=== PATIENT | male | born 1935 | race Caucasian/White ===

== ENCOUNTER → 2017-09-29 07:40 | Outpatient (CLI) | payer MEDICARE, OTHER, SELFPAY ==
[2017-09-29 08:49] VITALS: BP 134/69; PULSE 67; RESP 18; TEMP 36.4; O2SAT 93; BMI 22.9
[2017-09-29 09:33] VITALS: BP 116/64; PULSE 56; RESP 18; TEMP 36.8; O2SAT 97
[2017-09-29 10:33] VITALS: BP 118/63; PULSE 79; RESP 18; TEMP 36.3; O2SAT 97
[2017-09-29 11:19] VITALS: BP 131/71; PULSE 56; RESP 18; TEMP 36.6; O2SAT 100
== END ==
PROVIDERS: Family Provider Family Medicine; PCP Family Medicine; Visit Provider Internal Medicine Hematology & Oncology
DX: D46.20 Refractory anemia with excess of blasts, unspecified (principal)
CPT/HCPCS: 36415; 36430; 86850; 86900; 86920; J7040; P9040; A4216

== ENCOUNTER → 2017-10-10 07:48 | Outpatient (CLI) | payer MEDICARE, OTHER, SELFPAY ==
[2017-10-10 08:14] VITALS: BP 119/55; PULSE 63; RESP 16; TEMP 36.8; O2SAT 97; BMI 23.9
[2017-10-10 08:34] VITALS: BP 109/43; PULSE 62; RESP 16; TEMP 37; O2SAT 98
[2017-10-10 09:34] VITALS: BP 133/62; PULSE 62; TEMP 36.9
[2017-10-10] MEDS: Furosemide 20 MG/2 ML VIAL IV (10:08)
[2017-10-10 10:10] VITALS: BP 119/68; PULSE 58; TEMP 36.6
[2017-10-10 10:48] VITALS: BP 121/52; PULSE 58; TEMP 36.6
[2017-10-10 12:01] VITALS: BP 126/55; PULSE 60; RESP 16; TEMP 36.5; O2SAT 95
== END ==
PROVIDERS: Family Provider Family Medicine; PCP Family Medicine; Visit Provider Internal Medicine Hematology & Oncology
DX: D46.20 Refractory anemia with excess of blasts, unspecified (principal)
CPT/HCPCS: 36430; 86850; 86900; 86920; 86922; J7040; P9016; A4216; J1940

== ENCOUNTER → 2017-10-20 09:06 | Outpatient (CLI) | payer MEDICARE, OTHER, SELFPAY ==
[2017-10-20] VITALS (7 sets, daily range): BP systolic 102–139; BP diastolic 42–69; PULSE 48–58; RESP 16; TEMP 36.4–36.6; O2SAT 96–100; BMI 22.9
[2017-10-20] MEDS: Furosemide 20 MG/2 ML VIAL IV (11:54)
== END ==
PROVIDERS: Family Provider Family Medicine; PCP Family Medicine; Visit Provider Internal Medicine Hematology & Oncology
DX: D46.20 Refractory anemia with excess of blasts, unspecified (principal)
CPT/HCPCS: 36430; 86850; 86900; 86920; 86922; J7040; P9016; A4216; J1940

== ENCOUNTER → 2017-10-30 12:35 | Outpatient (CLI) | payer MEDICARE, OTHER, SELFPAY | PROVIDERS: Family Provider Family Medicine; PCP Family Medicine; Visit Provider Internal Medicine Hematology & Oncology | DX: R69 Illness, unspecified (principal) ==

== ENCOUNTER → 2017-10-31 08:17 | Outpatient (CLI) | payer MEDICARE, OTHER, SELFPAY ==
[2017-10-31] VITALS (7 sets, daily range): BP systolic 114–137; BP diastolic 45–67; PULSE 50–62; RESP 12–18; TEMP 36.1–36.5; O2SAT 96–100; BMI 22.9
[2017-10-31] MEDS: Furosemide 20 MG/2 ML VIAL IV (10:55)
== END ==
PROVIDERS: Family Provider Family Medicine; PCP Family Medicine; Visit Provider Internal Medicine Hematology & Oncology
DX: D46.20 Refractory anemia with excess of blasts, unspecified (principal)
CPT/HCPCS: 36430; 86644; 86850; 86900; 86920; 86922; J7040; P9016; A4216; J1940

== ENCOUNTER → 2017-11-16 07:56 | Outpatient (CLI) | payer MEDICARE, OTHER, SELFPAY ==
[2017-11-16] VITALS (7 sets, daily range): BP systolic 113–146; BP diastolic 48–69; PULSE 52–76; RESP 16–18; TEMP 36.1–36.6; O2SAT 90–100; BMI 23.2
[2017-11-16] MEDS: Furosemide 20 MG/2 ML VIAL IV (10:44)
== END ==
PROVIDERS: Family Provider Family Medicine; PCP Family Medicine; Visit Provider Internal Medicine Hematology & Oncology
DX: D46.20 Refractory anemia with excess of blasts, unspecified (principal)
CPT/HCPCS: 36430; 86850; 86900; 86920; 86922; J7040; P9016; A4216; J1940

== ENCOUNTER → 2017-12-01 08:53 | Outpatient (CLI) | payer MEDICARE, OTHER, SELFPAY ==
[2017-12-01 09:03] VITALS: BP 98/63; PULSE 62; RESP 16; TEMP 36.7; O2SAT 97; BMI 22.9
[2017-12-01 09:40] VITALS: BP 101/56; PULSE 62; RESP 16; TEMP 36.6; O2SAT 99
[2017-12-01 10:40] VITALS: BP 98/43; PULSE 57; RESP 16; TEMP 36.6; O2SAT 97
[2017-12-01] MEDS: Furosemide 20 MG/2 ML VIAL IV (11:32)
[2017-12-01 11:40] VITALS: BP 106/62; PULSE 56; RESP 16; TEMP 36.4
[2017-12-01 11:45] VITALS: BP 118/51; PULSE 60; RESP 16; TEMP 36.6; O2SAT 93
[2017-12-01 13:15] VITALS: BP 109/51; PULSE 58; RESP 18; TEMP 36.6
== END ==
PROVIDERS: Family Provider Family Medicine; PCP Family Medicine; Visit Provider Internal Medicine Hematology & Oncology
DX: D46.20 Refractory anemia with excess of blasts, unspecified (principal)
CPT/HCPCS: 36430; 86850; 86900; 96523; J7040; P9016; A4216; J1940

== ENCOUNTER → 2017-12-08 08:18 | Outpatient (CLI) | payer MEDICARE, OTHER, SELFPAY ==
[2017-12-08] VITALS (7 sets, daily range): BP systolic 99–132; BP diastolic 39–78; PULSE 55–83; RESP 16–18; TEMP 31–37.1; O2SAT 94–100; BMI 22.9
[2017-12-08] MEDS: Furosemide 20 MG/2 ML VIAL IV (10:46)
== END ==
PROVIDERS: Family Provider Family Medicine; PCP Family Medicine; Visit Provider Internal Medicine Hematology & Oncology
DX: D46.9 Myelodysplastic syndrome, unspecified (principal)
CPT/HCPCS: 36430; 86644; 86850; 86900; 86920; 86922; J7040; P9016; P9040; A4216; J1940

== ENCOUNTER → 2017-12-22 08:29 | Outpatient (CLI) | payer MEDICARE, OTHER, SELFPAY ==
[2017-12-22] VITALS (7 sets, daily range): BP systolic 105–144; BP diastolic 44–65; PULSE 61–68; RESP 16–18; TEMP 36.3–36.9; O2SAT 98; BMI 23.6
[2017-12-22] MEDS: Furosemide 20 MG/2 ML VIAL IV (11:14)
== END ==
PROVIDERS: Family Provider Family Medicine; PCP Family Medicine; Visit Provider Internal Medicine Hematology & Oncology
DX: D46.20 Refractory anemia with excess of blasts, unspecified (principal)
CPT/HCPCS: 36430; 86850; 86900; 86920; 86922; J7040; P9016; A4216; J1940

== ENCOUNTER → 2017-12-29 09:25 | Outpatient (CLI) | payer MEDICARE, OTHER, SELFPAY ==
[2017-12-29] VITALS (7 sets, daily range): BP systolic 91–137; BP diastolic 41–69; PULSE 56–63; RESP 16–20; TEMP 36.5–36.8; O2SAT 92–100; BMI 22.9
[2017-12-29] MEDS: Furosemide 20 MG/2 ML VIAL IV (12:22)
== END ==
PROVIDERS: Family Provider Family Medicine; PCP Family Medicine; Visit Provider Internal Medicine Hematology & Oncology
DX: D46.20 Refractory anemia with excess of blasts, unspecified (principal)
CPT/HCPCS: 36430; 86850; 86900; 86920; 86922; J7040; P9016; A4216; J1940

== ENCOUNTER → 2018-01-12 08:44 | Outpatient (CLI) | payer MEDICARE, OTHER, SELFPAY ==
[2018-01-12] VITALS (7 sets, daily range): BP systolic 99–130; BP diastolic 38–69; PULSE 57–67; RESP 16–18; TEMP 36.2–36.5; O2SAT 92–94; BMI 23.2
[2018-01-12] MEDS: Furosemide 20 MG/2 ML VIAL IV (11:21)
== END ==
PROVIDERS: Family Provider Family Medicine; PCP Family Medicine; Visit Provider Internal Medicine Hematology & Oncology
DX: D46.20 Refractory anemia with excess of blasts, unspecified (principal)
CPT/HCPCS: 36430; 86850; 86900; 86920; 86922; J7040; P9016; A4216; J1940

== ENCOUNTER → 2018-01-19 08:39 | Outpatient (CLI) | payer MEDICARE, OTHER, SELFPAY ==
[2018-01-19] VITALS (7 sets, daily range): BP systolic 90–145; BP diastolic 42–65; PULSE 51–61; RESP 16–18; TEMP 36.1–36.6; O2SAT 95–100; BMI 22.9
[2018-01-19] MEDS: Furosemide 20 MG/2 ML VIAL IV (11:17)
== END ==
PROVIDERS: Visit Provider Internal Medicine Hematology & Oncology
DX: D46.20 Refractory anemia with excess of blasts, unspecified (principal)
CPT/HCPCS: 36430; 86850; 86900; 86920; 86922; J7040; P9016; A4216; J1940

== ENCOUNTER → 2018-02-02 08:51 | Outpatient (CLI) | payer MEDICARE, OTHER, SELFPAY ==
--- NOTE | 2018-02-02 08:51 | DT_ITS ---
This patient was seen during an EMR downtime January 29, 2018 - February 05, 2018. This patient may have a combination of paper and electronic documentation or all paper documentation. All documentation is viewable within the e-chart portion of [employer] for each patient visit.
== END ==
PROVIDERS: Family Provider Family Medicine; PCP Family Medicine; Visit Provider Internal Medicine Hematology & Oncology
DX: D46.20 Refractory anemia with excess of blasts, unspecified (principal)
CPT/HCPCS: 36430; 86850; 86900; 86920; 86922; J7040; P9016; A4216; J1940

== ENCOUNTER → 2018-02-06 07:52 | Outpatient (CLI) | payer MEDICARE, OTHER, SELFPAY ==
[2018-02-06] VITALS (7 sets, daily range): BP systolic 108–144; BP diastolic 45–53; PULSE 61–70; RESP 16–18; TEMP 36.4–36.8; O2SAT 95–100; BMI 23.0
[2018-02-06] MEDS: Furosemide 20 MG/2 ML VIAL IV (10:42)
== END ==
PROVIDERS: Family Provider Family Medicine; PCP Family Medicine; Visit Provider Internal Medicine Hematology & Oncology
DX: D46.20 Refractory anemia with excess of blasts, unspecified (principal)
CPT/HCPCS: 36430; 86850; 86900; 86920; 86922; J7030; P9016; A4216; J1940

== ENCOUNTER → 2018-02-23 07:41 | Outpatient (CLI) | payer MEDICARE, OTHER, SELFPAY ==
[2018-02-23] VITALS (7 sets, daily range): BP systolic 81–111; BP diastolic 42–54; PULSE 54–64; RESP 16–18; TEMP 36.3–37; O2SAT 94–99; BMI 22.9
[2018-02-23] MEDS: Furosemide 20 MG/2 ML VIAL IV (10:29)
== END ==
PROVIDERS: Family Provider Family Medicine; PCP Family Medicine; Visit Provider Internal Medicine Hematology & Oncology
DX: D46.20 Refractory anemia with excess of blasts, unspecified (principal)
CPT/HCPCS: 36430; 86850; 86900; 86920; 86922; J7040; P9016; A4216; J1940

== ENCOUNTER → 2018-03-02 07:59 | Outpatient (CLI) | payer MEDICARE, OTHER, SELFPAY ==
[2018-03-02] VITALS (7 sets, daily range): BP systolic 96–134; BP diastolic 32–50; PULSE 51–62; RESP 16; TEMP 36.2–36.7; O2SAT 94–100; BMI 22.9
[2018-03-02] MEDS: Furosemide 20 MG/2 ML VIAL IV (10:29)
== END ==
PROVIDERS: Family Provider Family Medicine; PCP Family Medicine; Visit Provider Internal Medicine Hematology & Oncology
DX: D46.20 Refractory anemia with excess of blasts, unspecified (principal)
CPT/HCPCS: 36430; 86850; 86900; 86920; 86922; J7040; P9016; A4216; J1940

== ENCOUNTER → 2018-03-13 08:30 | Outpatient (CLI) | payer MEDICARE, OTHER, SELFPAY ==
[2018-03-13 09:57] LABS: AST(SGOT) 46 U/L (15-37); Alanine Aminotransfer ALT/SGPT 89 U/L (16-61); Albumin, Serum 3.8 g/dL (3.2-5.0); Alkaline Phosphatase 132 U/L (45-117); Bilirubin, Direct 0.37 mg/dL (0.00-0.30); Cholesterol 94 mg/dL (200); Globulin 3.1 g/dL (2.2-4.2); High Density Lipoprotein 47 mg/dL; Protein, Total 6.9 g/dL (6.4-8.2); T4 Free Direct 1.29 ng/dL (0.76-1.46); Thyroid Stim Hormone (TSH) 1.52 uIU/mL (0.358-3.74); Triglycerides 63 mg/dL; Very Low Density Lipoprotein 13 mg/dL (5-40)
== END ==
PROVIDERS: Family Provider Family Medicine; PCP Family Medicine; Visit Provider Internal Medicine Cardiovascular Disease
DX: I48.0 Paroxysmal atrial fibrillation (principal); I50.22 Chronic systolic (congestive) heart failure; I42.8 Other cardiomyopathies
CPT/HCPCS: 36415; 80061; 80076; 84439; 84443

== ENCOUNTER → 2018-03-16 07:47 | Outpatient (CLI) | payer MEDICARE, OTHER, SELFPAY ==
[2018-03-16] VITALS (7 sets, daily range): BP systolic 99–121; BP diastolic 39–70; PULSE 52–63; RESP 12–16; TEMP 36.2–36.7; O2SAT 99–100; BMI 22.9
[2018-03-16] MEDS: Furosemide 20 MG/2 ML VIAL IV (10:50)
== END ==
PROVIDERS: Family Provider Family Medicine; PCP Family Medicine; Visit Provider Internal Medicine Hematology & Oncology
DX: D46.20 Refractory anemia with excess of blasts, unspecified (principal)
CPT/HCPCS: 36430; 86850; 86900; 86920; 86922; J7040; P9016; A4216; J1940

== ENCOUNTER → 2018-03-21 08:54 | Outpatient (CLI) | payer MEDICARE, OTHER, SELFPAY ==
--- NOTE | 2018-03-21 08:58 | ECHOD_ITS ---
Reason For Study: CHF Procedure This was a 2D Doppler, Color Flow transthoracic echocardiogram. Exam performed in department. Left Ventricle Moderately dilated left ventricle. The estimated ejection fraction is 40 %. Stage 1 diastolic dysfunction. There is moderate global hypokinesis of the left ventricle. Right Ventricle Moderately dilated right ventricle. Normal systolic function. Atria The left atrium is mildly enlarged. Normal right atrium. Normal atrial septum. Mitral Valve Mild diffuse mitral valve thickening. Mild (1+) mitral valve insufficiency. Tricuspid Valve Normal tricuspid valve. Moderate (2+) tricuspid valve insufficiency. Right ventricular systolic pressure estimated to be 42 mmHg. Aortic Valve Trisinus/trileaflet aortic valve. Moderate diffuse aortic valve thickening. Decreased mobility of rigth coronary cusp. Mild aortic stenosis. Pulmonic Valve Normal pulmonic valve. Great Vessels Normal aortic root. Moderate atherosclerosis of the aortic arch. Normal inferior vena cava. Inferior vena cava collapse with sniff. Pericardium/Pleural No pericardial effusion. MMode/2D Measurements & Calculations LVIDd: 5.5 cm IVSd: 0.69 cm Ao root diam: 4.0 cm LVIDs: 4.2 cm LVPWd: 0.85 cm RVDd: 4.3 cm FS: 23.6 % LAV(MOD-bp): 71.1 ml LA A4 area: 20.8 cm2 RA A4 area: 19.5 cm2 LAV(MOD-bp) Indexed: 37.5 ml/m2 LAV(MOD-sp2): 73.9 ml LAV(MOD-sp4): 62.9 ml Time Measurements MV dec time: 0.34 sec Doppler Measurements & Calculations MV E max david: 57.1 cm/sec Lat Peak E' David: 5.7 cm/sec Med Peak E' David: 4.6 cm/sec MV A max david: 87.3 cm/sec E/E' lat: 10.0 E/E' med: 12.3 MV E/A: 0.65 Ao V2 max: 226.6 cm/sec LV V1 max: 121.1 cm/sec PA V2 max: 125.0 cm/sec Ao max P.6 mmHg LV V1 max P.9 mmHg Ao V2 mean: 156.7 cm/sec LV V1 mean P.7 mmHg Ao mean P.9 mmHg LV V1 mean: 74.5 cm/sec Ao V2 VTI: 48.8 cm LV V1 VTI: 26.0 cm TR max david: 298.5 cm/sec TR max P.7 mmHg Interpretation Summary Moderately dilated left ventricle. The estimated ejection fraction is 40 %. Stage 1 diastolic dysfunction. There is moderate global hypokinesis of the left ventricle. Moderately dilated right ventricle. Mild (1+) mitral valve insufficiency. Moderate (2+) tricuspid valve insufficiency. Right ventricular systolic pressure estimated to be 42 mmHg. Mild aortic stenosis. There is no comparison study available. Ordering Physician: Bear Lopez Referring Physician: LIBBY MUNSON Performed By: Meron Joshi, ARCHIE, RVT
== END ==
PROVIDERS: Family Provider Family Medicine; PCP Family Medicine; Visit Provider Internal Medicine Cardiovascular Disease
DX: I48.0 Paroxysmal atrial fibrillation (principal)
CPT/HCPCS: 93306

== ENCOUNTER → 2018-03-30 08:12 | Outpatient (CLI) | payer MEDICARE, OTHER, SELFPAY ==
[2018-03-30] VITALS (7 sets, daily range): BP systolic 94–130; BP diastolic 46–73; PULSE 53–72; RESP 16; TEMP 36.6–36.7; O2SAT 98; BMI 22.9
[2018-03-30] MEDS: Furosemide 20 MG/2 ML VIAL IV (11:09)
== END ==
PROVIDERS: Family Provider Family Medicine; PCP Family Medicine; Visit Provider Internal Medicine Hematology & Oncology
DX: D46.20 Refractory anemia with excess of blasts, unspecified (principal)
CPT/HCPCS: 36430; 86850; 86900; 86920; 86922; J7040; P9016; A4216; J1940

== ENCOUNTER → 2018-04-13 07:44 | Outpatient (CLI) | payer MEDICARE, OTHER, SELFPAY ==
[2018-04-13] VITALS (7 sets, daily range): BP systolic 107–124; BP diastolic 34–71; PULSE 50–61; RESP 16; TEMP 36.3–36.6; O2SAT 97–100; BMI 23.2
== END ==
PROVIDERS: Family Provider Family Medicine; PCP Family Medicine; Visit Provider Internal Medicine Hematology & Oncology
DX: D46.9 Myelodysplastic syndrome, unspecified (principal)
CPT/HCPCS: 36430; 86850; 86900; 86920; 86922; J7040; P9016; A4216; J1940

== ENCOUNTER → 2018-04-27 08:06 | Outpatient (CLI) | payer MEDICARE, OTHER, SELFPAY ==
[2018-04-27] VITALS (7 sets, daily range): BP systolic 80–128; BP diastolic 41–67; PULSE 56–693; RESP 16; TEMP 35.9–36.6; O2SAT 93–100; BMI 23.1
[2018-04-27] MEDS: Furosemide 20 MG/2 ML VIAL IV (11:01)
== END ==
PROVIDERS: Family Provider Family Medicine; PCP Family Medicine; Visit Provider Internal Medicine Hematology & Oncology
DX: D46.20 Refractory anemia with excess of blasts, unspecified (principal)
CPT/HCPCS: 36430; 86850; 86900; 86920; 86922; 96372; J7040; P9016; A4216; J1940

== ENCOUNTER → 2018-05-11 09:02 | Outpatient (CLI) | payer MEDICARE, OTHER, SELFPAY ==
[2018-05-11] VITALS (8 sets, daily range): BP systolic 102–129; BP diastolic 36–50; PULSE 55–75; RESP 15–18; TEMP 35.9–36.8; O2SAT 92–100; BMI 23.1
[2018-05-11] MEDS: Furosemide 20 MG/2 ML VIAL IV (11:35)
== END ==
PROVIDERS: Family Provider Family Medicine; PCP Family Medicine; Visit Provider Internal Medicine Hematology & Oncology
DX: D46.20 Refractory anemia with excess of blasts, unspecified (principal)
CPT/HCPCS: 36430; 86850; 86900; 86920; 86922; J7040; P9016; A4216; J1940

== ENCOUNTER → 2018-05-25 08:05 | Outpatient (CLI) | payer MEDICARE, OTHER, SELFPAY ==
[2018-05-25] VITALS (7 sets, daily range): BP systolic 92–118; BP diastolic 39–60; PULSE 60–93; RESP 15–18; TEMP 36.6–37; O2SAT 93–100; BMI 22.9
[2018-05-25] MEDS: Furosemide 20 MG/2 ML VIAL IV (11:15)
== END ==
PROVIDERS: Family Provider Family Medicine; PCP Family Medicine; Referring Provider Internal Medicine Hematology & Oncology; Visit Provider Internal Medicine Hematology & Oncology
DX: D46.20 Refractory anemia with excess of blasts, unspecified (principal)
CPT/HCPCS: 36430; 86850; 86900; 86920; 86922; J7040; P9016; A4216

== ENCOUNTER → 2018-06-08 08:53 | Outpatient (CLI) | payer MEDICARE, OTHER, SELFPAY ==
[2018-06-08] VITALS (7 sets, daily range): BP systolic 96–120; BP diastolic 39–60; PULSE 56–80; RESP 16–18; TEMP 36.1–36.7; O2SAT 91–100; BMI 22.9
[2018-06-08] MEDS: Furosemide 20 MG/2 ML VIAL IV (11:58)
== END ==
PROVIDERS: Family Provider Family Medicine; PCP Family Medicine; Referring Provider Internal Medicine Hematology & Oncology; Visit Provider Internal Medicine Hematology & Oncology
DX: D46.20 Refractory anemia with excess of blasts, unspecified (principal)
CPT/HCPCS: 36430; 86850; 86900; 86920; 86922; J7040; P9016; A4216; J1940

== ENCOUNTER → 2018-06-22 08:41 | Outpatient (CLI) | payer MEDICARE, OTHER, SELFPAY ==
[2018-06-22] VITALS (7 sets, daily range): BP systolic 94–111; BP diastolic 41–58; PULSE 56–65; RESP 15–16; TEMP 36.6–36.9; O2SAT 94–100; BMI 22.9
[2018-06-22] MEDS: Furosemide 20 MG/2 ML VIAL IV (11:48)
== END ==
PROVIDERS: Family Provider Family Medicine; PCP Family Medicine; Referring Provider Internal Medicine Hematology & Oncology; Visit Provider Internal Medicine Hematology & Oncology
DX: D46.20 Refractory anemia with excess of blasts, unspecified (principal)
CPT/HCPCS: 36430; 86850; 86900; 86920; 86922; J7040; P9016; A4216; J1940

== ENCOUNTER → 2018-06-28 18:15 | Outpatient (CLI) | payer MEDICARE, OTHER, SELFPAY ==
--- NOTE | 2018-06-28 | LES_PTH ---
PATIENT: MAIKEL SWIFT LOC: [facility] U#:[id number] AGE/SX: 89/M ROOM: RE06/28/[address]: Dr. Madhav Huerta MD : 1935 BED: DIS: SPEC #: [id number] RECD: 06/28/18 18:15 STATUS: CORRIE NIELSONMelissa #: [id number] MINA: 06/28/18 00:[address]: Madhav Huerta DEPT: SURGICAL PATHOLOGY RECD BY: Mary Huerta Tissues: Skin of neck, NOS Procedures: Surgery Specimen Level IV HEADER OPERATION: Punch biopsy PRE-OP DIAGNOSIS: Suspicious skin lesion TISSUE SUBMITTED: Right lateral neck MICROSCOPIC DIAGNOSIS Right lateral neck skin lesion, biopsy: Fragments of detached basal cell carcinoma. See microscopic description and comment. AM:shreya 07/02/18 COMMENT Clinical correlation necessary. MICROSCOPIC DESCRIPTION Slides are reviewed. The specimen contains blood, fibrous tissue and detached and fragmented pieces of basal cell carcinoma. GROSS DESCRIPTION Received in fixative is one container labeled with the patient's name and designated right lateral neck. The specimen consists of an irregular fragment of dark dowling soft tissue measuring 0.5 x 0.2 x 0.2 cm. The specimen is totally submitted in one cassette. / AM:shreya 06/29/18 TC:0 CPT: 76776
== END ==
PROVIDERS: Family Provider Family Medicine; PCP Family Medicine; Referring Provider Family Medicine; Visit Provider Family Medicine
DX: L98.9 Disorder of the skin and subcutaneous tissue, unspecified (principal)
CPT/HCPCS: 88305

== ENCOUNTER → 2018-06-29 08:48 | Outpatient (CLI) | payer MEDICARE, OTHER, SELFPAY ==
[2018-06-29] VITALS (7 sets, daily range): BP systolic 90–124; BP diastolic 37–61; PULSE 50–99; RESP 15–16; TEMP 35.9–36.7; O2SAT 99–100; BMI 22.9
== END ==
PROVIDERS: Family Provider Family Medicine; PCP Family Medicine; Referring Provider Internal Medicine Hematology & Oncology; Visit Provider Internal Medicine Hematology & Oncology
DX: D46.20 Refractory anemia with excess of blasts, unspecified (principal); L98.9 Disorder of the skin and subcutaneous tissue, unspecified
CPT/HCPCS: 36430; 86850; 86900; 86920; 86922; 88305; J7040; P9016; A4216; J1940

== ENCOUNTER → 2018-07-13 08:30 | Outpatient (CLI) | payer MEDICARE, OTHER, SELFPAY ==
[2018-06-29 08:58] VITALS: BMI 22.9
[2018-07-13] VITALS (7 sets, daily range): BP systolic 97–123; BP diastolic 37–58; PULSE 58–64; RESP 16–18; TEMP 36.3–36.9; O2SAT 93–100; BMI 23.1
[2018-07-13] MEDS: Furosemide 20 MG/2 ML VIAL IV (11:17)
== END ==
PROVIDERS: Family Provider Family Medicine; PCP Family Medicine; Referring Provider Internal Medicine Hematology & Oncology; Visit Provider Internal Medicine Hematology & Oncology
DX: D46.20 Refractory anemia with excess of blasts, unspecified (principal)
CPT/HCPCS: 36430; 86850; 86900; 86920; 86922; J7040; P9016; A4216; J1940

== ENCOUNTER → 2018-07-27 07:23 | Outpatient (CLI) | payer MEDICARE, OTHER, SELFPAY ==
[2018-07-24 14:05] VITALS: BMI 23.1
[2018-07-27] VITALS (7 sets, daily range): BP systolic 105–125; BP diastolic 49–64; PULSE 55–72; RESP 16–18; TEMP 36.4–36.8; O2SAT 97–100; BMI 22.9
[2018-07-27] MEDS: Furosemide 20 MG/2 ML VIAL IV (10:33)
--- OUTSIDE RECORDS SUMMARY | 2018-09-21 01:13 | XMS RPT_ITS ---
:1935 Author Organization [employer] Support Name Relationship Address Phone NEWMANN, CORNELL Unavailable [address] + [place] [address] R Unavailable Unavailable Unavailable NEWMANN, CORNELL Unavailable [address] + [place] [address] R Unavailable Unavailable Unavailable NEWMANN, CORNELL Unavailable [address] + [place] [address] R Unavailable Unavailable Unavailable NEWMANN, CORNELL Unavailable [address] + [place] [address] R Unavailable Unavailable Unavailable NEWMANN, CORNELL Unavailable [address] + [place] [address] R Unavailable Unavailable Unavailable NEWMANN, CORNELL Unavailable [address] + [place] [address] R Unavailable Unavailable Unavailable NEWMANN, CORNELL Unavailable [address] + [place] [address] R Unavailable Unavailable Unavailable NEWMANN, CORNELL Unavailable [address] + [place] [address] R Unavailable Unavailable Unavailable NEWMANN, CORNELL Unavailable [address] + [place] [address] R Unavailable Unavailable Unavailable NEWMANN, CORNELL Unavailable [address] + [place] [address] R Unavailable Unavailable Unavailable NEWMANN, CORNELL Unavailable [address] + [place] [address] R Unavailable Unavailable Unavailable NEWMANN, CORNELL Unavailable [address] + [place] [address] R Unavailable Unavailable Unavailable NEWMANN, CORNELL Unavailable [address] + [place] [address] R Unavailable Unavailable Unavailable NEWMANN, CORNELL Unavailable [address] + [place] [address] R Unavailable Unavailable Unavailable NEWMANN, CORNELL Unavailable [address] + [place] [address] R Unavailable Unavailable Unavailable ELIZABETH, DIVYA Unavailable [address] + [place] [address] HERNANDEZ, CORNELL Unavailable Unavailable + [place] R Unavailable Unavailable Unavailable ELIZABETH, DIVYA Unavailable [address] + [place] [address] HERNANDEZ, CORNELL Unavailable Unavailable + [place], [place] R Unavailable Unavailable Unavailable ELIZABETH, DIVYA Unavailable [address] + [place] [address] HERNANDEZ, CORNELL Unavailable Unavailable + [place] R Unavailable Unavailable Unavailable ELIZABETH, DIVYA Unavailable [address] + [place] [address] HERNANDEZ, CORNELL Unavailable Unavailable + [place] R Unavailable Unavailable Unavailable ELIZABETH, DIVYA Unavailable [address] + [place] [address] HERNANDEZ, CORNELL Unavailable [address] + [place] [address] R Unavailable Unavailable Unavailable ELIZABETH, DIVYA Unavailable [address] + [place] [address] HERNANDEZ, CORNELL Unavailable [address] + [place] [address] R Unavailable Unavailable Unavailable ELIZABETH, DIVYA Unavailable [address] + [place] [address] HERNANDEZ, CORNELL Unavailable [address] + [place] [address] R Unavailable Unavailable Unavailable ELIZABETH, DIVYA Unavailable Unavailable + HERNANDEZ, CORNELL Unavailable Unavailable + R Unavailable Unavailable Unavailable ELIZABETH, DIVYA Unavailable Unavailable + HERNANDEZ, CORNELL Unavailable Unavailable + R Unavailable Unavailable Unavailable ELIZABETH, DIVYA Unavailable Unavailable + HERNANDEZ, CORNELL Unavailable Unavailable + R Unavailable Unavailable Unavailable ELIZABETH, DIVYA Unavailable Unavailable + HERNANDEZ, CORNELL Unavailable Unavailable + R Unavailable Unavailable Unavailable ELIZABETH, DIVYA Unavailable Unavailable + HERNANDEZ, CORNELL Unavailable Unavailable + R Unavailable Unavailable Unavailable ELIZABETH, DIVYA Unavailable Unavailable + HERNANDEZ, CORNELL Unavailable Unavailable + R Unavailable Unavailable Unavailable ELIZABETH, DIVYA Unavailable Unavailable + HERNANDEZ, CORNELL Unavailable Unavailable + R Unavailable Unavailable Unavailable ELIZABETH, DIVYA Unavailable Unavailable + MARY, CORNELL Unavailable Unavailable + R Unavailable Unavailable Unavailable ELIZABETH, DIVYA Unavailable Unavailable + MARY, CORNELL Unavailable Unavailable + R Unavailable Unavailable Unavailable ELIZABETH, DIVYA Unavailable Unavailable + MARY, CORNELL Unavailable Unavailable + R Unavailable Unavailable Unavailable ELIZABETH, DIVYA Unavailable Unavailable + MARY, CORNELL Unavailable Unavailable + R Unavailable Unavailable Unavailable ELIZABETH, DIVYA Unavailable Unavailable + MARY, CORNELL Unavailable Unavailable + R Unavailable Unavailable Unavailable ELIZABETH, DIVYA Unavailable Unavailable + HERNANDEZ, CORNELL Unavailable Unavailable + R Unavailable Unavailable Unavailable ELIZABETH, DIVYA Unavailable Unavailable + HERNANDEZ, OCRNELL Unavailable Unavailable + R Unavailable Unavailable Unavailable ELIZABETH, DIVYA Unavailable Unavailable + HERNANDEZ, CORNELL Unavailable Unavailable + R Unavailable Unavailable Unavailable ELIZABETH, DIVYA Unavailable Unavailable + HERNANDEZ, CORNELL Unavailable Unavailable + R Unavailable Unavailable Unavailable ELIZABETH, DIVAY Unavailable Unavailable + CORNELL HERNANDEZ Unavailable Unavailable + R Unavailable Unavailable Unavailable ELIZABETH, DIVYA Unavailable Unavailable + COR[place]LL HERNANDEZ Unavailable Unavailable + R Unavailable Unavailable Unavailable ELIZABETH, DIVYA Unavailable Unavailable + [place] HERNANDEZ Unavailable Unavailable + R Unavailable Unavailable Unavailable ELIZABETH, DIVYA Unavailable NA + [place], [place] R Unavailable Unavailable Unavailable ELIZABETH, DIVYA Unavailable NA + [place], [place] R Unavailable Unavailable Unavailable ELIZABETH, DIVYA Unavailable NA + [place], [place] R Unavailable Unavailable Unavailable ELIZABETH, DIVYA Unavailable [address] + [place] [address] R Unavailable Unavailable Unavailable ELIZABETH, DIVYA Unavailable [address] + [place] [address] R Unavailable Unavailable Unavailable Care Team Providers Name Role Phone MASCI, KESHAWN A Referring Unavailable MASCI, KESHAWN A Referring Unavailable MELYSSA ANDRES (SKATESMAN) Attending Unavailable MASCI, KESHAWN A Referring Unavailable MASCI, KESHAWN A Referring Unavailable MASCI, KESHAWN A Referring Unavailable MASCI, KESHAWN A Referring Unavailable MASCI, KESHAWN A Referring Unavailable MASCI, KESHAWN A Referring Unavailable MASCI, KESHAWN A Referring Unavailable MASCI, KESHAWN A Referring Unavailable MASCI, KESHAWN A Referring Unavailable MASCI, KESHAWN A Referring Unavailable MASCI, KESHAWN A Referring Unavailable MASCI, KESHAWN A Referring Unavailable MASCI, KESHAWN A Referring Unavailable MASCI, KESHAWN A Referring Unavailable MASCI, KESHAWN A Referring Unavailable MASCI, KESHAWN A Referring Unavailable MASCI, KESHAWN A Referring Unavailable MASCI, KESHAWN A Referring Unavailable MASCI, KESHAWN A Attending Unavailable MASCI, KESHAWN A Referring Unavailable MASCI, KESHAWN A Referring Unavailable MASCI, KESHAWN A Referring Unavailable MASCI, KESHAWN A Referring Unavailable MASCI, KESHAWN A Referring Unavailable MASCI, KESHAWN A Referring Unavailable MASCI, KESHAWN A Referring Unavailable MASCI, KESHAWN A Referring Unavailable MASCI, KESHAWN A Referring Unavailable MASCI, KESHAWN A Referring Unavailable MASCI, KESHAWN A Referring Unavailable MASCI, KESHAWN A Referring Unavailable MASCI, KESHAWN A Referring Unavailable MASCI, KESHAWN A Referring Unavailable MASCI, KESHAWN A Referring Unavailable MASCI, KESHAWN A Attending Unavailable MASCI, KESHAWN A Referring Unavailable MASCI, KESHAWN A Referring Unavailable MASCI, KESHAWN A Referring Unavailable MASCI, KESHAWN A Referring Unavailable MASCI, KESHAWN A Referring Unavailable MASCI, KESHAWN A Referring Unavailable MASCI, KESHAWN A Referring Unavailable MASCI, KESHAWN A Referring Unavailable MASCI, KESHAWN A Referring Unavailable MASCI, KESHAWN A Referring Unavailable MASCI, KESHAWN A Referring Unavailable MASCI, KESHAWN A Referring Unavailable MASCI, KESHAWN A Referring Unavailable MASCI, KESHAWN A Referring Unavailable MASCI, KESHAWN A Referring Unavailable MASCI, KESHAWN A Attending Unavailable MASCI, KESHAWN A Referring Unavailable MASCI, KESHAWN A Referring Unavailable MASCI, KESHAWN A Referring Unavailable MASCI, KESHAWN A Referring Unavailable MASCI, KESHAWN A Referring Unavailable MASCI, KESHAWN A Referring Unavailable MASCI, KESHAWN A Referring Unavailable MASCI, KESHAWN A Referring Unavailable MASCI, KESHAWN A Referring Unavailable MASCI, KESHAWN A Referring Unavailable MASCI, KESHAWN A Referring Unavailable MASCI, KESHAWN A Referring Unavailable MASCI, KESHAWN A Referring Unavailable MASCI, KESHAWN A Referring Unavailable MASCI, KESHAWN A Attending Unavailable MASCI, KESHAWN A Referring Unavailable MASCI, KESHAWN A Referring Unavailable Ana Maria Delgadillo PA-C Attending Unavailable Munson, Libby Referring Unavailable Masci, Keshawn Attending Unavailable Masci, Keshawn Referring Unavailable Munson, On License Of [facility] Primary [facility] Unavailable Masci, Keshawn Attending Unavailable Munson, On License Of [facility] Unavailable Kilner, Yareli Attending Unavailable Lopez, Bear Attending Unavailable Munson, Libby Referring Unavailable Munson, On License Of [facility] Primary [facility] Unavailable Masci, Keshawn Attending Unavailable Masci, Keshawn Attending Unavailable Munson, On License Of [facility] Primary [facility] Unavailable Masci, Keshawn Attending Unavailable Masci, Keshawn Referring Unavailable Munson, On License Of [facility] Primary [facility] Unavailable Masci, Keshawn Attending Unavailable Masci, Keshawn Referring Unavailable Munson, On License Of [facility] Primary [facility] Unavailable Masci, Keshawn Attending Unavailable Masci, Keshawn Referring Unavailable Munson, On License Of [facility] Primary [facility] Unavailable Masci, Keshawn Attending Unavailable Masci, Keshawn Referring Unavailable Munson, On License Of [facility] Primary [facility] Unavailable Masci, Keshawn Attending Unavailable Munson, On License Of [facility] Primary [facility] Unavailable Masci, Keshawn Referring Unavailable Masci, Keshawn Attending Unavailable Masci, Keshawn Referring Unavailable Munson, On License Of [facility] Primary [facility] Unavailable Masci, Keshawn Attending Unavailable Masci, Keshanw Referring Unavailable Munson, On License Of [facility] Primary [facility] Unavailable Masci, Keshawn Attending Unavailable Masci, Keshawn Referring Unavailable Munson, On License Of [facility] Primary [facility] Unavailable Masci, Keshawn Attending Unavailable Masci, Keshawn Referring Unavailable Munson, On License Of [facility] Primary [facility] Unavailable Masci, Keshawn Attending Unavailable Masci, Keshawn Referring Unavailable Munson, Libby Primary Care Unavailable Masci, Kesahwn Attending Unavailable Masci, Keshawn Referring Unavailable Munson, Libby Primary Care Unavailable Masci, Keshawn Attending Unavailable Masci, Keshawn Referring Unavailable Munson, Libby Primary Care Unavailable Masci, Keshawn Attending Unavailable Masci, Keshawn Referring Unavailable Munson, Libby Primary Care Unavailable Masci, Keshawn Attending Unavailable Masci, Keshawn Referring Unavailable Munson, Libby Primary Care Unavailable Masci, Keshawn Attending Unavailable Masci, Keshawn Referring Unavailable Masci, Keshawn Attending Unavailable Masci, Keshawn Referring Unavailable Munson, Libby Primary Care Unavailable Masci, Keshawn Attending Unavailable Masci, Keshawn Referring Unavailable Munson, Libby Primary Care Unavailable Masci, Keshawn Attending Unavailable Masci, Keshawn Referring Unavailable Munson, Libby Primary Care Unavailable Masci, Keshawn Attending Unavailable Masci, Keshawn Referring Unavailable Munson, Libby Primary Care Unavailable Bear Lopez Attending Unavailable Munson, Libby Referring Unavailable Munson, Libby Primary Care Unavailable Bear Lopez Attending Unavailable John, Bear Referring Unavailable Munson, On License Of [facility] Primary [facility] Unavailable Masci, Keshawn Attending Unavailable Masci, Keshawn Referring Unavailable Munson, Libby Primary Care Unavailable Bear Lopez Attending Unavailable John, Bear Referring Unavailable Munson, On License Of [facility] Primary [facility] Unavailable Masci, Keshawn Attending Unavailable Masci, Keshawn Referring Unavailable Munson, Libby Primary Care Unavailable Masci, Keshawn Attending Unavailable Masci, Keshawn Referring Unavailable Munson, Libby Primary Care Unavailable Bear Lopez Attending Unavailable Masci, Keshawn Attending Unavailable Masci, Keshawn Referring Unavailable Munson, On License Of [facility] Primary [facility] Unavailable Mark, Joan Attending Unavailable Mark, Joan Referring Unavailable Munson, On License Of [facility] Primary [facility] Unavailable Masci, Keshawn Attending Unavailable Masci, Keshawn Referring Unavailable Munson, On License Of [facility] Primary [facility] Unavailable Masci, Keshawn Attending Unavailable Masci, Keshawn Referring Unavailable Munson, On License Of [facility] Primary Care Unavailable Masci, Keshawn Attending Unavailable Masci, Keshawn Referring Unavailable Munson, On License Of [facility] Primary Care Unavailable Masci, Keshawn Attending Unavailable Masci, Keshawn Referring Unavailable Munson, On License Of [facility] Primary Care Unavailable Munson, Libby Attending Unavailable Munson, Libby Referring Unavailable Munson, On License Of [facility] Primary [facility] Unavailable Cebul, Taiwo Attending Unavailable Munson, Libby Referring Unavailable Masci, Keshawn Attending Unavailable Masci, Keshawn Referring Unavailable Munson, On License Of [facility] Unavailable Libby Disla Attending Unavailable Munson, Libby Referring Unavailable Masci, Keshawn Attending Unavailable Masci, Keshawn Referring Unavailable Munson, On License Of [facility] Unavailable Cebul, Taiwo Attending Unavailable Munson, Libby Referring Unavailable Cebul, Taiwo Attending Unavailable Cebul, Taiwo Referring Unavailable Munson, On License Of [facility] Unavailable PROBLEMS PROBLEMS DATE TYPE CONDITION / CODE ATTENDING STATUS SOURCE 08/04/2018 Unknown C44.41 - Basal cell Taiwo Aparicio Active [place] carcinoma of skin of [facility] scalp and neck / Hospital C44.41(ICD-10) Repository 03/13/2018 Unknown I48.0 - Paroxysmal Bear Lopez Active [place] atrial fibrillation / Community I48.0(ICD-10) Hospital Repository 03/13/2018 Unknown I50.22 - Chronic Bear Lopez Active [facility] systolic (congestive) Community heart failure / Hospital I50.22(ICD-10) Repository 03/13/2018 Unknown I42.8 - Other Bear Lopez Active [place] cardiomyopathies / Community I42.8(ICD-10) Hospital Repository 02/21/2018 Unknown 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, unspecified / Hospital D46.20(ICD-10) Repository 08/30/2017 Active Unknown / UNK(Unknown) ANDRES, Active [place] MELYSSA (SKATESMAN) [facility] [place] Repository 11/20/2009 Active 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, [facility] unspecified / [place] D46.20(ICD-10) Repository PROCEDURES PROCEDURES No Procedure Records FoundRESULTS RESULTS [place] ABS GR + CBC Collected: 08/09/2018 Status: F Source: [place] 11:38 AM [facility] REPOSITORY TYPE CODE TESTS RESULT OUT OF REFERENCE UNITS RANGE LAB WWBC 3.70-11.00 k/uL [place] WBC 10.84 LAB WRBC 4.20-6.00 m/uL Low [place] RBC 2.71 LAB WHGB 13.0-17.0 g/dL Low [place] Hemoglobin 8.0 LAB WHCT 39.0-51.0 % Low [place] Hematocrit 24.8 LAB WMCV 80.0-100.0 fL [place] MCV 91.5 LAB WMCH 26.0-34.0 pg [place] MCH 29.5 LAB WMCHC 30.5-36.0 g/dL [place] MCHC 32.3 LAB WRDW 11.5-15.0 % [facility] High RDW 15.1 LAB WPLT 150-400 k/uL [place] Platelet Cnt 365 LAB WMPV 9.0-12.7 fL [place] MPV 10.7 Result Comment: Test performed at: [facility] [place], [address] [place], [place] [address] [place] [address]. LAB ABGRAN 1.45-7.50 k/uL High Absol 8.10 Gran Count TYPE AND SCREEN Collected: 08/09/2018 Status: F Source: [place] 11:30 AM [facility] REPOSITORY Order Comment: PRETRANSFUSION HGB = 8.0 HCT = 24.8 PERFORMED AT [facility] CMV NEG?* N Give When? 08/10 @0915 Irradiated? N Leukodepleted? Y Reason for Type AND Screen/Red Cells: ANEMIA TYPE CODE TESTS RESULT OUT OF RANGE REFERENCE UNITS LAB B10.0800 O Normal BLOOD TYPE GEL POSITIVE LAB B100.4000 Normal Antibody NEGATIVE Screen Performed By: #### B101.7450 #### [facility] [address] [facility] [place], [address] RC Collected: 08/09/2018 Status: F Source: [place] 11:30 AM [facility] REPOSITORY TYPE CODE TESTS RESULT OUT OF REFERENCE UNITS RANGE LAB U100.0000 [id number] TRANSFUSED PRODUCT: T AND S with Crossmatch, Red Cells COUNT: 2 Performed By: #### U100.0000 #### Non-[facility] - refer to report for specific site SURGERY VISIT REPORT Observed: 08/09/2018 Status: F Source: [place] 9:56 AM [facility] REPOSITORY [facility] [address] [place] [address]. [address] [place] [address] OFFICE VISIT Date of Service: 08/09/18 MR#: [id number] Acct: [id number] Name: MAIKEL HASTINGS Rep #: [id number] : 1935 Provider: Ana Maria Delgadillo PA-C Age/Sex: 83/M Location: [facility] Status: Signed Intake Intake Visit Reasons: Suture Removal Rt Lateral Neck RC 08/04 Chief Complaint: suture removal neck Matte Cutter Required: No Is patient in pain?: No Allergies No Known Allergies Allergy (Verified 08/09/18 08:57) Medications Digoxin 125 mcg PO DAILY 12/16/16 [History Confirmed 07/27/18] Acetaminophen [Tylenol] 500 mg PO Q6H PRN PRN 01/03/17 [History Confirmed 07/27/18] Folic Acid 0.8 mg PO DAILY@0800 01/03/17 [History Confirmed 07/27/18] Multivit-Min/FA/Lycopen/Lutein [Centrum Silver Men Tablet] 1 ea PO DAILY 01/03/17 [History Confirmed 07/27/18] Magnesium Hydroxide [Milk of Magnesia] 400 mg PO PRN PRN 03/09/17 [History Confirmed 07/27/18] furosemide 20 mg tablet 20 mg PO QDAY 09/02/17 [History Confirmed 07/27/18] lisinopril 5 mg tablet 5 mg PO QDAY #90 tab 11/13/17 [Rx Confirmed 07/27/18] Amiodarone HCl [Pacerone] 200 mg PO DAILY 02/06/18 [History Confirmed 07/27/18] apixaban 2.5 mg tablet 2.5 mg PO BID 03/12/18 [History Confirmed 07/27/18] metoprolol succinate ER 50 mg tablet,extended release 24 hr 50 mg PO DAILY #90 tab 03/12/18 [Rx Confirmed 07/27/18] ondansetron HCl 8 mg tablet 8 mg PO TID PRN 07/24/18 [History Confirmed 07/27/18] promethazine 25 mg tablet 25 mg PO Q6H PRN #30 tab 07/25/18 [Rx Confirmed 07/27/18] Subjective Details: Patient is an 83 y/o male I am following for right neck skin lesion. Dr. Aparicio performed an excision of right lateral neck lesion on 08/04/2018. Patient tolerated the procedure well. Pathology demonstrated basal cell carcinoma, completely excised. Patient denies discomfort/pain. He denies drainage. Objective Details: Right lateral neck- incision c/d/i. No erythema or infection noted. Sutures were removed. Steri-strips were placed. Assessment AND Plan Problems 1. Skin cancer, basal cell C44.91 Plan - Follow-up as needed Coding Level of Care Code Global Post Op Diagnoses Skin cancer, basal cell C44.91 08/09/18 0956 <Electronically signed by Ana Maria Delgadillo PA-C> Date Ana Maria Delgadillo PA-C Cosigner Signature: Date (if applicable) CC: Libby Munson MD SURGERY VISIT REPORT Observed: 08/04/2018 Status: F Source: [place] 8:28 AM [facility] REPOSITORY [facility] [address] [place] [address]. [address] [place] [address] OFFICE VISIT Date of Service: 08/04/18 MR#: [id number] Acct: [id number] Name: MAIKEL HASTINGS Rep #: [id number] : 1935 Provider: Taiwo Aparicio MD Age/Sex: 83/M Location: [facility] Status: Signed Intake Vital Signs08/04/18 Body Mass Index (BMI) 22.9 Intake Visit Reasons: Skin Lesion R Lateral Neck Chief Complaint: excision right neck lesion Matte Cutter Required: No Is patient in pain?: No Allergies No Known Allergies Allergy (Verified 08/04/18 07:47) Medications Digoxin 125 mcg PO DAILY 12/16/16 [History Confirmed 07/27/18] Acetaminophen [Tylenol] 500 mg PO Q6H PRN PRN 01/03/17 [History Confirmed 07/27/18] Folic Acid 0.8 mg PO DAILY@0800 01/03/17 [History Confirmed 07/27/18] Multivit-Min/FA/Lycopen/Lutein [Centrum Silver Men Tablet] 1 ea PO DAILY 01/03/17 [History Confirmed 07/27/18] Magnesium Hydroxide [Milk of Magnesia] 400 mg PO PRN PRN 03/09/17 [History Confirmed 07/27/18] furosemide 20 mg tablet 20 mg PO QDAY 09/02/17 [History Confirmed 07/27/18] lisinopril 5 mg tablet 5 mg PO QDAY #90 tab 11/13/17 [Rx Confirmed 07/27/18] Amiodarone HCl [Pacerone] 200 mg PO DAILY 02/06/18 [History Confirmed 07/27/18] apixaban 2.5 mg tablet 2.5 mg PO BID 03/12/18 [History Confirmed 07/27/18] metoprolol succinate ER 50 mg tablet,extended release 24 hr 50 mg PO DAILY #90 tab 03/12/18 [Rx Confirmed 07/27/18] ondansetron HCl 8 mg tablet 8 mg PO TID PRN 07/24/18 [History Confirmed 07/27/18] promethazine 25 mg tablet 25 mg PO Q6H PRN #30 tab 07/25/18 [Rx Confirmed 07/27/18] PFSH Medical History Nonrheumatic aortic (valve) stenosis (Chronic) Skin cancer, basal cell (Acute) Paroxysmal atrial fibrillation (Chronic) 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) Chronic systolic (congestive) heart failure (Chronic) Non-ischemic cardiomyopathy (Chronic) Nonsustained ventricular tachycardia (Chronic) 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 (myelodysplastic syndrome) (Chronic) Hypertension (Chronic) Persistent atrial fibrillation (Inactive) Surgical History History of repair of rotator cuff (Chronic) History of right and left heart catheterization (Chronic 03/10/17) Previous back surgery (Chronic) Family History Mother Hypertension Sister Hypertension Social History Smoking Status: Former smoker quit date: 08/28/77 alcohol intake: never caffeine: Yes Type: carbonated beverages Number of servings: 1 HPI HPI HPI: MAIKEL HASTINGS, is a 83 M who presents to the office today for wide excision of right neck basal cell carcinoma Office Procedures Excision of Skin Provider Documentation Provider Documentation: Wide excision right neck basal cell carcinoma Timeout and informed consent was obtained. 82-year-old gentleman was taken to the procedure room and placed in left lateral decubitus position. The right mid lateral neck was prepped and draped in routine fashion with Betadine. The 6-7 mm diameter centrally ulcerated basal cell carcinoma was identified. A oblique excision was mapped out measuring 2 x 1.1 cm for complete excision. 1% lidocaine mixed 50-50 with 0.5% Marcaine was used as a local anesthetic. Throughout the procedure a total of 18 cc was used. A oblique incision was created down in the subcutaneous tissues. Subdermal tissues were approximated with interrupted 3-0 chromic. Skin edges approximated in running mattress suture of 4-0 nylon. Telfa and OpSite dressing was applied. The specimen was submitted in formalin for analysis. The patient was given activity wound care instructions. Further surgical follow-up will be for suture removal in 5 days. Taiwo Aparicio M.D., F.A.C.S. Alert Pit Shoveler Alert Billing: Yes H/F/N/S/G [id number] 1.1-2.0cm Procedure Time Out Time Out Informed consent given: Yes Consent signed: Yes Time out checklist: patient, procedure, site marked/identified, positioning of patient, supplies available, allergies confirmed, team agrees on procedure Time out staff in room: Yes Time out verified: Yes Time out date: 08/04/18 Time out time: 07:10 Assessment AND Plan Problems 1. Skin cancer, basal cell C44.91 Plan Successful wide excision BCC right neck Taiwo Aparicio M.D., F.A.C.S. Orders Orders: Coding Level of Care Code Attention Pit Shoveler Diagnoses Skin cancer, basal cell C44.91 Additional Codes H/F/N/S/G - Malignant H/F/N/S/ 1.1-2.0cm (10823) Comment [id number] 08/04/18 0828 <Electronically signed by Taiwo Aparicio MD> Date Taiwo Aparicio MD Cosigner Signature: Date (if applicable) CC: Libby Munson MD LESION (CHOOSE SITE) Observed: 08/04/2018 Status: F Source: [place] 7:30 AM [facility] REPOSITORY Patient: MAIKEL HASTINGS : 1935 (83/M) Acct Num: [id number] Phys: Alessandra TANG,Taiwo Unit Num: [id number] Loc: [facility] Specimen: [id number] Received: 08/06/18 - 0801 Spec Type: Lesion TISSUES 1 TISSUES: Skin of neck, NOS GROSS DESCRIPTION Received in fixative is one container labeled with the patient's name and designated right neck. The specimen consists of an ellipse of light dowling excised skin measuring 2.5 x 1 and a depth of excision measuring 0.3 cm. No gross lesions are identified. The specimen is inked, serially sectioned and totally submitted in one cassette. / AM:shreya 08/06/18 TC:0 CPT: 32107 HEADER OPERATION: Excision skin lesion right neck PRE-OP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 appeared to be a very small hiatal hernia. Then on closer inspection of the greater curvature there was a small pinhole site of bleeding noted. It was not pulsatile but steady. There was no evidence of ulceration or other abnormality. The area was clipped and then injected with epinephrine. This stop the bleeding. The area was irrigated and observed to have good hemostatic effect. Stool was hemoccult positive and he is on antiplatelet and anticoagulation. EGD revealed source of gastric bleeding which had been corrected. Previous therapy: 1) Aranesp. 2) Azacitadine. 3) Revlimid. 02/13/2017--stopped 07/2017 as it did not decrease his transfusion requirements or change his peripheral blood counts otherwise and he was developing significant neutropenia. Current therapy: 1) Transfusional support and BSC. Presents for ongoing hematologic management. Interim history: He hasn't been driving because of peripheral vision loss secondary to stroke 18 months ago. Otherwise is getting along very well. He still caring for his home by himself. He is capable of all his instrumental activities of daily living. He is not been acutely ill since I last saw him. No episode of fever, shaking chill or night sweats. Appetite is normal. He gets fatigued and appreciably more so when his hemoglobin declined between 88.5. He hasn't had any palpitation or a sensation of skipped heartbeat or fluttering heartbeat. Minimal swelling in the ankles. He is taking one 20 mg Lasix tablet a day. He's not had any exertional chest pain or pressure. No PND or orthopnea. He has had a cough for about a month or so. It's productive of some clear phlegm but he thinks this mostly is due to postnasal drip. Cough can occur any time throughout the day. No unusual bleeding or unexplained bruising. Occasional minor epistaxis if he blows his nose hard. PMH, medications and allergies as below personally reviewed by me today. Any changes documented in appropriate section. ROS: Constitutional: See above. Neuro: Denies RAYO and imbalance. HEENT: No recent change in voice or hearing. Resp: See above. CVS: See above. GI: Denies dysgeusia. Denies symptoms of stomatitis. Denies dysphagia and odynophagia. Denies reflux, n/v, change in bowel habits and abdominal pain. : Denies dysuria or gross hematuria. No symptoms of bladder outlet obstruction. Endo: Denies hot flashes. Denies polyuria and polydipsia. Denies heat and cold intolerance. Musculoskeletal: Denies bone, joint and muscular pain. Derm: Denies rash. Denies jaundice and diffuse pruritis. Heme: See above. Psych: Normal mood. PHYSICAL EXAM: Vitals: Blood pressure 116/55, pulse 60, temperature 36.6 ?C (97.9 ?F), temperature source Temporal Artery, weight 73.3 kg (161 lb 8 oz). Well-appearing and in no acute distress. EYES: Sclerae are anicteric bilaterally. NECK: Supple. LYMPHATIC: There is no palpable cervical, supraclavicular or axillary adenopathy. RESPIRATORY: Inspiratory breath sounds are of normal intensity in all rush. No rales, wheezes or rhonchi. Expiratory phase is normal. CARDIOVASCULAR: Rhythm is regular on today's exam. ABDOMEN: The abdomen is nondistended. There is no organomegaly. No tenderness. Extremities: Trace edema of the lower extremities. SKIN: No rash or jaundice. NEUROLOGIC: brick carrier II-XII are grossly intact. No focal motor weakness. LABS: Component Latest Ref Rng AND Units 04/19/2018 04/26/2018 05/03/2018 WBC, [place] 3.70 - 11.00 k/uL 4.19 3.80 4.48 RBC, [place] 4.20 - 6.00 m/uL 3.28 (L) 2.79 (L) 3.21 (L) Hemoglobin, [place] 13.0 - 17.0 g/dL 10.1 (L) 8.6 (L) 9.7 (L) Hematocrit, [place] 39.0 - 51.0 % 30.1 (L) 25.7 (L) 29.8 (L) MCV, [place] 80.0 - 100.0 fL 91.8 92.1 92.8 MCH, [place] 26.0 - 34.0 pg 30.8 30.8 30.2 MCHC, [place] 30.5 - 36.0 g/dL 33.6 33.5 32.6 RDW, [place] 11.5 - 15.0 % 14.6 14.7 15.0 Platelet Cnt, [place] 150 - 400 k/uL 288 314 289 MPV, [place] 9.0 - 12.7 fL 10.2 10.5 9.8 Absol Gran Count 1.45 - 7.50 k/uL 2.78 2.60 3.26 ASSESSMENT AND PLAN: (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 -JAK2 negative. -Low IPS at diagnosis. -Was having inadequate response to JOSE. -Tolerated and responded to Vidaza for several years, but then had loss of hematologic response. -He tolerated Revlimid very well, but unfortunately after 5 months of therapy there was no decrease in his need for transfusion or frequency of transfusion needs. He had been quite neutropenic on Revlimid as well. Plan: -Continue monitoring counts once a week and provide transfusional support as indicated. (I48.2) Chronic atrial fibrillation (HCC) (I50.22) Chronic systolic congestive heart failure (HCC) Assessment: -Maintaining regular sinus rhythm on amiodarone. -Platelet count is normal. Plan: -Okay to continue aspirin. -Eliquis 2.5 mg twice a day secondary to age and previous issue with epistaxis. -Continue cardiology management with Dr. Lopez. 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] Chronic systolic congestive heart failure (HCC) [I50.22] Atrial fibrillation, persistent (HCC) [I48.1] Follow-up and Disposition History Recorded Prescriptions as of 05/03/2018 Sig: APIXABAN 2.5 MG TABLET Take 1 tablet by mouth twice * PROMETHAZINE 25 MG TABLET Take 1 tablet by mouth every * FUROSEMIDE 20 MG TABLET TAKE 2 TABLETS ONCE DAILY METOPROLOL SUCCINATE ER 100 M* Take 1 tablet by mouth once d* IPRATROPIUM BROMIDE 0.03 % NA* Use 2 Sprays in the nose once* AMIODARONE 200 MG TABLET Take 1 tablet by mouth once d* ONDANSETRON HCL 8 MG TABLET TAKE 1 TABLET EVERY 8 HOURS A* DIGOXIN 125 MCG TABLET Take 1 tablet by mouth once d* ACETAMINOPHEN 500 MG TABLET Take 1,000 mg by mouth as nee* CHOLECALCIFEROL (VITAMIN D3) * Take 2,000 Units by mouth 3 t* MILK OF MAGNESIA ORAL Take 1 Cap-Full by mouth as n* FOLIC ACID 800 MCG TABLET Take 800 mcg by mouth once da* OCUVITE ORAL Take 1 tablet by mouth twice * * SAW PALMETTO 320 MG CAPSULE Take 1 capsule by mouth once * * CENTRUM SILVER TABLET Take one(1) tablet daily. * CALCIUM 500 + D 500 MG (1,250* Take one(1) tablet every othe* * TYLENOL ARTHRITIS 650 MG TABL* Take one(2) tablet every four* Medication notes this encounter IPRATROPIUM BROMIDE 0.03 % NASAL SPRAY >> Leny Sanchez LPN 05/03/2018 8:22 AM >> LENY SANCHEZ LPN [facility] May 03, 2018 8:22 AM As needed Problem List As Of Date 05/03/2018 Noted Resolved MDS (Myelodysplastic Syndrome), Low Grade [D46.*INVALID FOR* Anemia [D64.9] INVALID FOR*07/27/2015 Skin lesion [L98.9] INVALID FOR* Thrombocytosis [D47.3] INVALID FOR* Transfusion history [Z92.89] INVALID FOR* More... 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 Three month office visit. Discuss recent labs. Leny Sanchez LPN Encounter Status:Closed by KESHAWN ATKINS DO on 05/03/18 HANNA ABS GR + CBC Collected: 05/03/2018 Status: F Source: [place] 7:57 AM [facility] REPOSITORY TYPE CODE TESTS RESULT OUT OF REFERENCE UNITS RANGE LAB WWBC 3.70-11.00 k/uL [place] WBC 4.48 LAB WRBC 4.20-6.00 m/uL Low [place] RBC 3.21 LAB WHGB 13.0-17.0 g/dL Low [place] Hemoglobin 9.7 LAB WHCT 39.0-51.0 % Low [place] Hematocrit 29.8 LAB WMCV 80.0-100.0 fL [place] MCV 92.8 LAB WMCH 26.0-34.0 pg [place] MCH 30.2 LAB WMCHC 30.5-36.0 g/dL [place] MCHC 32.6 LAB WRDW 11.5-15.0 % [place] RDW 15.0 LAB WPLT 150-400 k/uL [place] Platelet Cnt 289 LAB WMPV 9.0-12.7 fL [place] MPV 9.8 Result Comment: Test performed at: [address] [place] [address]. LAB ABGRAN 1.45-7.50 k/uL Absol Gran 3.26 Count COMP METABOLIC PANEL Collected: 05/03/2018 Status: F Source: [place] 7:55 AM [facility] REPOSITORY TYPE CODE TESTS RESULT OUT OF REFERENCE UNITS RANGE LAB TP 6.3-8.0 g/dL Protein, Total 6.8 LAB ALB 3.9-4.9 g/dL Albumin 4.6 LAB CA 8.5-10.2 mg/dL Calcium, Total 9.5 LAB TBIL 0.2-1.3 mg/dL Bilirubin, Total 1.3 LAB ALKP 36-108 U/L Alkaline High Phosphatase 135 LAB AST 14-40 U/L AST High 56 LAB GLU 74-99 mg/dL Glucose High 168 Result Comment: The [place] [employer] (ADA) provides guidance for cutoff values for fasting glucose and random glucose. The ADA defines fasting as no caloric intake for at least 8 hours. Fas ting plasma glucose results between 100 to 125 mg/dL indicate increased risk for diabetes (prediabetes). Fasting plasma glucose results greater than or equal to 126 mg/dL meet the criteria for diagnosis of diabetes. In the absence of unequivocal hyperglycemia, results should be confirmed by repeat testing. In a patient with classic symptoms of hyperglycemia or hyperglycemic crisis, random plasma glucose results greater than or equal to 200 mg/dL meet the criteria for diagnosis of diabetes. Reference: Standards of Medical Care in Diabetes 2016, [place] [employer]. Diabetes Care. 2016.39(Suppl 1). LAB BUN 9-24 mg/dL BUN 21 LAB CRET 0.73-1.22 mg/dL Creatinine High 1.28 LAB NA 136-144 mmol/L Sodium 142 LAB K 3.7-5.1 mmol/L Potassium 4.3 LAB CL 97-105 mmol/L Chloride 101 LAB CO2 22-30 mmol/L CO2 29 LAB AGAP 9-18 mmol/L Anion Gap 12 LAB ALT 10-54 U/L ALT High 85 LAB GFRAA eGFR- Amer. >60 LAB GFRNAA . eGFR-All Other Races 54 Result Comment: eGFR (Estimated GFR) Units of measure: mL/min/1.73 meters squared eGFR is derived from the reexpressed MDRD Study equation using the following parameters: serum creatinine, age, gender and race. The creatinine assay has been calibrated to be traceable to IDMS. An eGFR <60 mL/min/1.73m2 for >3 months is consistent with chronic kidney disease. Refer to KDOQI guidelines for clinical interpretation. In patients with unstable renal function, e.g. those with acute kidney injury, the eGFR may not accurately reflect actual GFR. Performed By: #### CMP #### [facility] [address] [place], [place] [address] HANNA ABS GR + CBC Collected: 04/26/2018 Status: F Source: [place] 11:15 AM [facility] REPOSITORY TYPE CODE TESTS RESULT OUT OF REFERENCE UNITS RANGE LAB WWBC 3.70-11.00 k/uL [place] WBC 3.80 LAB WRBC 4.20-6.00 m/uL Low [place] RBC 2.79 LAB WHGB 13.0-17.0 g/dL Low [place] Hemoglobin 8.6 LAB WHCT 39.0-51.0 % Low [place] Hematocrit 25.7 LAB WMCV 80.0-100.0 fL [place] MCV 92.1 LAB WMCH 26.0-34.0 pg [place] MCH 30.8 LAB WMCHC 30.5-36.0 g/dL [place] MCHC 33.5 LAB WRDW 11.5-15.0 % [place] RDW 14.7 LAB WPLT 150-400 k/uL [place] Platelet Cnt 314 LAB WMPV 9.0-12.7 fL [place] MPV 10.5 Result Comment: Test performed by: [facility] [place], [address] [place] [address]. LAB ABGRAN 1.45-7.50 k/uL Absol Gran 2.60 Count TYPE AND SCREEN Collected: 04/26/2018 Status: F Source: [place] 11:10 AM [facility] REPOSITORY Order Comment: PRETRANSFUSION HGB = 8.6 HCT = 25.7 PERFORMED AT [facility] CMV NEG?* N Give When? 04/27/18 @0830 Irradiated? N Leukodepleted? Y Reason for Type AND Screen/Red Cells: ANEMIA TYPE CODE TESTS RESULT OUT OF RANGE REFERENCE UNITS LAB B10.0800 O Normal BLOOD TYPE GEL POSITIVE LAB B100.4000 Normal Antibody NEGATIVE Screen Performed By: #### B101.7450 #### [facility] [address] [place], [address] Collected: 04/26/2018 Status: F Source: [place] 11:10 AM [facility] REPOSITORY TYPE CODE TESTS RESULT OUT OF REFERENCE UNITS RANGE LAB U100.0000 [id number] TRANSFUSED PRODUCT: T AND S with Crossmatch, Red Cells COUNT: 2 Performed By: #### U100.0000 #### Non-[facility] - refer to report for specific site HANNA ABS GR + CBC Collected: 04/19/2018 Status: F Source: [place] 11:08 AM [facility] REPOSITORY TYPE CODE TESTS RESULT OUT OF REFERENCE UNITS RANGE LAB WWBC 3.70-11.00 k/uL [place] WBC 4.19 LAB WRBC 4.20-6.00 m/uL Low [place] RBC 3.28 LAB WHGB 13.0-17.0 g/dL Low [place] Hemoglobin 10.1 LAB WHCT 39.0-51.0 % Low [place] Hematocrit 30.1 LAB WMCV 80.0-100.0 fL [place] MCV 91.8 LAB WMCH 26.0-34.0 pg [place] MCH 30.8 LAB WMCHC 30.5-36.0 g/dL [place] MCHC 33.6 LAB WRDW 11.5-15.0 % [place] RDW 14.6 LAB WPLT 150-400 k/uL [place] Platelet Cnt 288 LAB WMPV 9.0-12.7 fL [place] MPV 10.2 Result Comment: Test performed at: [facility], [address] [place] [address]. LAB ABGRAN 1.45-7.50 k/uL Absol Gran 2.78 Count HANNA ABS GR + CBC Collected: 04/12/2018 Status: F Source: [place] 11:19 AM [facility] REPOSITORY TYPE CODE TESTS RESULT OUT OF REFERENCE UNITS RANGE LAB WWBC 3.70-11.00 k/uL [place] WBC 3.88 LAB WRBC 4.20-6.00 m/uL Low [place] RBC 2.87 LAB WHGB 13.0-17.0 g/dL Low [place] Hemoglobin 8.6 LAB WHCT 39.0-51.0 % Low [place] Hematocrit 26.4 LAB WMCV 80.0-100.0 fL [place] MCV 92.0 LAB WMCH 26.0-34.0 pg [place] MCH 30.0 LAB WMCHC 30.5-36.0 g/dL [place] MCHC 32.6 LAB WRDW 11.5-15.0 % [place] RDW 14.9 LAB WPLT 150-400 k/uL [place] Platelet Cnt 309 LAB WMPV 9.0-12.7 fL [place] MPV 10.1 Result Comment: Test performed at: [facility], [address] [place] [address]. LAB ABGRAN 1.45-7.50 k/uL Absol Gran 2.68 Count TYPE AND SCREEN Collected: 04/12/2018 Status: F Source: [place] 11:11 AM [facility] REPOSITORY Order Comment: PRETRANSFUSION HGB = 8.6 HCT = 26.4 PERFORMED AT [facility] CMV NEG?* N Give When? 04/13/18 @0800 Irradiated? N Leukodepleted? Y Reason for Type AND Screen/Red Cells: ANEMIA TYPE CODE TESTS RESULT OUT OF RANGE REFERENCE UNITS LAB B10.0800 O Normal BLOOD TYPE GEL POSITIVE LAB B100.4000 Normal Antibody NEGATIVE Screen Performed By: #### B101.7450 #### [facility] [address] [place], [address] Collected: 04/12/2018 Status: F Source: [place] 11:11 AM [facility] REPOSITORY TYPE CODE TESTS RESULT OUT OF REFERENCE UNITS RANGE LAB U100.0000 [id number] TRANSFUSED PRODUCT: T AND S with Crossmatch, Red Cells COUNT: 2 Performed By: #### U100.0000 #### Non-[facility] - refer to report for specific site LISMORE ABS GR + CBC Collected: 04/05/2018 Status: F Source: [place] 11:10 AM [facility] REPOSITORY TYPE CODE TESTS RESULT OUT OF REFERENCE UNITS RANGE LAB WWBC 3.70-11.00 k/uL Low [place] WBC 3.24 LAB WRBC 4.20-6.00 m/uL Low [place] RBC 3.11 LAB WHGB 13.0-17.0 g/dL Low [place] Hemoglobin 9.4 LAB WHCT 39.0-51.0 % Low [place] Hematocrit 28.6 LAB WMCV 80.0-100.0 fL [place] MCV 92.0 LAB WMCH 26.0-34.0 pg [place] MCH 30.2 LAB WMCHC 30.5-36.0 g/dL [place] MCHC 32.9 LAB WRDW 11.5-15.0 % [place] RDW 14.9 LAB WPLT 150-400 k/uL [place] Platelet Cnt 268 LAB WMPV 9.0-12.7 fL [place] MPV 10.0 Result Comment: Test performed at: [facility], [address] [place] [address]. LAB ABGRAN 1.45-7.50 k/uL Absol Gran 2.17 Count TYPE AND SCREEN Collected: 03/29/2018 Status: F Source: [place] 11:13 AM [facility] REPOSITORY Order Comment: PRETRANSFUSION HGB = 8.2 HCT = 25.6 PERFORMED AT [facility] CMV NEG?* N Give When? 03/30 0900 Irradiated? N Leukodepleted? Y Reason for Type AND Screen/Red Cells: ANEMIA TYPE CODE TESTS RESULT OUT OF RANGE REFERENCE UNITS LAB B10.0800 O Normal BLOOD TYPE GEL POSITIVE LAB B100.4000 Normal Antibody NEGATIVE Screen Performed By: #### B101.7450 #### [facility] [address] [place], [address] Collected: 03/29/2018 Status: F Source: [place] 11:13 AM [facility] REPOSITORY TYPE CODE TESTS RESULT OUT OF REFERENCE UNITS RANGE LAB U100.0000 [id number] TRANSFUSED PRODUCT: T AND S with Crossmatch, Red Cells COUNT: 2 Performed By: #### U100.0000 #### [facility] - refer to report for specific site HANNA ABS GR + CBC Collected: 03/29/2018 Status: F Source: [place] 11:03 AM [facility] REPOSITORY TYPE CODE TESTS RESULT OUT OF REFERENCE UNITS RANGE LAB WWBC 3.70-11.00 k/uL [place] WBC 3.96 LAB WRBC 4.20-6.00 m/uL Low [place] RBC 2.77 LAB WHGB 13.0-17.0 g/dL Low [place] Hemoglobin 8.2 LAB WHCT 39.0-51.0 % Low [place] Hematocrit 25.6 LAB WMCV 80.0-100.0 fL [place] MCV 92.4 LAB WMCH 26.0-34.0 pg [place] MCH 29.6 LAB WMCHC 30.5-36.0 g/dL [place] MCHC 32.0 LAB WRDW 11.5-15.0 % [place] High RDW 15.2 LAB WPLT 150-400 k/uL [place] Platelet Cnt 305 LAB WMPV 9.0-12.7 fL [place] MPV 10.2 Result Comment: Test performed at: [facility], [address] [place] [address]. LAB ABGRAN 1.45-7.50 k/uL Absol Gran 2.71 Count ECHOCARDIOGRAM COMPLETE Observed: 03/22/2018 Status: F Source: [place] 1:10 PM [facility] REPOSITORY [facility] [address] [place] [address] Echo Complete 03/21/18 0859 MR#: [id number] Acct: [id number] Name: MAIKEL HASTINGS Rep #: [id number] : 1935 82 From: Bear Lopez MD Attending Dr: Bear Lopez MD Status: REG CLI Ordering Dr: Bear Lopez MD Date: 03/21/18 Location: [facility] Sex: M C Admitted: Reason For Study: CHF Procedure This was a 2D Doppler, Color Flow transthoracic echocardiogram. Exam performed in department. Left Ventricle Moderately dilated left ventricle. The estimated ejection fraction is 40 %. Stage 1 diastolic dysfunction. There is moderate global hypokinesis of the left ventricle. Right Ventricle Moderately dilated right ventricle. Normal systolic function. Atria The left atrium is mildly enlarged. Normal right atrium. Normal atrial septum. Mitral Valve Mild diffuse mitral valve thickening. Mild (1+) mitral valve insufficiency. Tricuspid Valve Normal tricuspid valve. Moderate (2+) tricuspid valve insufficiency. Right ventricular systolic pressure estimated to be 42 mmHg. Aortic Valve Trisinus/trileaflet aortic valve. Moderate diffuse aortic valve thickening. Decreased mobility of rigth coronary cusp. Mild aortic stenosis. Pulmonic Valve Normal pulmonic valve. Great Vessels Normal aortic root. Moderate atherosclerosis of the aortic arch. Normal inferior vena cava. Inferior vena cava collapse with sniff. Pericardium/Pleural No pericardial effusion. MMode/2D Measurements AND Calculations LVIDd: 5.5 cm IVSd: 0.69 cm Ao root diam: 4.0 cm LVIDs: 4.2 cm LVPWd: 0.85 cm RVDd: 4.3 cm FS: 23.6 % LAV(MOD-bp): 71.1 ml LA A4 area: 20.8 cm2 RA A4 area: 19.5 cm2 LAV(MOD-bp) Indexed: 37.5 ml/m2 LAV(MOD-sp2): 73.9 ml LAV(MOD-sp4): 62.9 ml Time Measurements MV dec time: 0.34 sec Doppler Measurements AND Calculations MV E max yudith: 57.1 cm/sec Lat Peak E' Yudith: 5.7 cm/sec Med Peak E' Yudith: 4.6 cm/sec MV A max yudith: 87.3 cm/sec E/E' lat: 10.0 E/E' med: 12.3 MV E/A: 0.65 Ao V2 max: 226.6 cm/sec LV V1 max: 121.1 cm/sec PA V2 max: 125.0 cm/sec Ao max P.6 mmHg LV V1 max P.9 mmHg Ao V2 mean: 156.7 cm/sec LV V1 mean P.7 mmHg Ao mean P.9 mmHg LV V1 mean: 74.5 cm/sec Ao V2 VTI: 48.8 cm LV V1 VTI: 26.0 cm TR max yudith: 298.5 cm/sec TR max P.7 mmHg Interpretation Summary Moderately dilated left ventricle. The estimated ejection fraction is 40 %. Stage 1 diastolic dysfunction. There is moderate global hypokinesis of the left ventricle. Moderately dilated right ventricle. Mild (1+) mitral valve insufficiency. Moderate (2+) tricuspid valve insufficiency. Right ventricular systolic pressure estimated to be 42 mmHg. Mild aortic stenosis. There is no comparison study available. Ordering Physician: Bear Lopez Referring Physician: LIBBY MUNSON Performed By: Adi, Meron, RDCS, RVT 03/22/18 1309 Date Bear Lopez MD CC: Bear Lopez MD; Libby Munson MD Date Dictated: 03/21/18 0859 Date Transcribed: 03/22/18 130 Tipple Boss: Signed HANNA ABS GR + CBC Collected: 03/22/2018 Status: F Source: [place] 11:06 AM [facility] REPOSITORY TYPE CODE TESTS RESULT OUT OF REFERENCE UNITS RANGE LAB WWBC 3.70-11.00 k/uL [place] WBC 3.81 LAB WRBC 4.20-6.00 m/uL Low [place] RBC 3.03 LAB WHGB 13.0-17.0 g/dL Low [place] Hemoglobin 9.2 LAB WHCT 39.0-51.0 % Low [place] Hematocrit 27.7 LAB WMCV 80.0-100.0 fL [place] MCV 91.4 LAB WMCH 26.0-34.0 pg [place] MCH 30.4 LAB WMCHC 30.5-36.0 g/dL [place] MCHC 33.2 LAB WRDW 11.5-15.0 % [place] RDW 15.0 LAB WPLT 150-400 k/uL [place] Platelet Cnt 276 LAB WMPV 9.0-12.7 fL [place] MPV 10.1 Result Comment: Test performed at: [address] [place] [address]. LAB ABGRAN 1.45-7.50 k/uL Absol Gran 2.18 Count HANNA ABS GR + CBC Collected: 03/15/2018 Status: F Source: BARNETT 9:10 AM [facility] REPOSITORY TYPE CODE TESTS RESULT OUT OF REFERENCE UNITS RANGE LAB WWBC 3.70-11.00 k/uL Low [place] WBC 2.95 LAB WRBC 4.20-6.00 m/uL Low [place] RBC 2.66 LAB WHGB 13.0-17.0 g/dL Low [place] Hemoglobin 8.0 LAB WHCT 39.0-51.0 % Low [place] Hematocrit 24.5 LAB WMCV 80.0-100.0 fL [place] MCV 92.1 LAB WMCH 26.0-34.0 pg [place] MCH 30.1 LAB WMCHC 30.5-36.0 g/dL [place] MCHC 32.7 LAB WRDW 11.5-15.0 % [place] High RDW 15.3 LAB WPLT 150-400 k/uL [place] Platelet Cnt 259 LAB WMPV 9.0-12.7 fL [place] MPV 10.5 Result Comment: Test performed at: [facility], [address] [place] [address] Rd[address] [place] [address]. LAB ABGRAN 1.45-7.50 k/uL Absol Gran 1.90 Count TYPE AND SCREEN Collected: 03/15/2018 Status: F Source: LISMORE 9:10 AM [facility] REPOSITORY Order Comment: PRETRANSFUSION HGB = 8.0 HCT = 24.5 PERFORMED AT [facility] CMV NEG?* N Give When? 03/16/2018 Irradiated? N Leukodepleted? Y Reason for Type AND Screen/Red Cells: ANEMIA TYPE CODE TESTS RESULT OUT OF RANGE REFERENCE UNITS LAB B10.0800 O Normal BLOOD TYPE GEL POSITIVE LAB B100.4000 Normal Antibody NEGATIVE Screen Performed By: #### B101.7450 #### [facility] [address] [place], [address] Collected: 03/15/2018 Status: F Source: LISMORE 9:10 AM [facility] REPOSITORY TYPE CODE TESTS RESULT OUT OF REFERENCE UNITS RANGE LAB U100.0000 [id number] TRANSFUSED PRODUCT: T AND S with Crossmatch, Red Cells COUNT: 2 Performed By: #### U100.0000 #### [facility] - refer to report for specific site CARDIOLOGY VISIT Observed: 03/13/2018 Status: F Source: LISMORE REPORT 2:18 PM [facility] REPOSITORY [facility] [address] [place] [address] OFFICE VISIT Date of Service: 03/12/18 MR#: [id number] Acct: [id number] Name: MAIKEL HASTINGS Rep #: [id number] : 1935 Provider: Bear Lopez MD Age/Sex: 82/M Location: [facility] Status: Signed HPI HPI Details: MAIKEL HASTINGS, is a 82 M who presents to the office today for Intake Vital Signs03/12/18 Height 5 ft 10 in 03/12/18 Weight: 159 lb 6 oz 03/12/18 Body Mass Index (BMI) 22.8 03/12/18 Blood Pressure 120/40 Intake Visit Reasons: 6 M FU Matte Cutter Required: No Is patient in pain?: No Allergies No Known Allergies Allergy (Verified 03/12/18 09:21) Medications Digoxin 125 mcg PO DAILY 12/16/16 [History Confirmed 03/12/18] Acetaminophen [Tylenol] 500 mg PO Q6H PRN PRN 01/03/17 [History Confirmed 03/02/18] Calcium Carb/Vitamin D3/Vit K1 [Cvs Calcium Soft Chew] 1 ea PO TUFR 01/03/17 [History Confirmed 03/02/18] Cholecalciferol (Vitamin D3) [Vitamin D3] 6,000 unit PO QODAY 01/03/17 [History Confirmed 03/02/18] Folic Acid 0.8 mg PO DAILY@0800 01/03/17 [History Confirmed 03/02/18] Multivit-Min/FA/Lycopen/Lutein [Centrum Silver Men Tablet] 1 ea PO DAILY 01/03/17 [History Confirmed 03/02/18] Saw Geneva 320 mg PO DAILY 01/03/17 [History Confirmed 03/02/18] Magnesium Hydroxide [Milk of Magnesia] 400 mg PO PRN PRN 03/09/17 [History Confirmed 03/02/18] furosemide 20 mg tablet 20 mg PO QDAY 09/02/17 [History Confirmed 03/12/18] lisinopril 5 mg tablet 5 mg PO QDAY #90 tab 11/13/17 [Rx Confirmed 03/12/18] Amiodarone HCl [Pacerone] 200 mg PO DAILY 02/06/18 [History Confirmed 03/12/18] apixaban 2.5 mg tablet 2.5 mg PO BID 03/12/18 [History Confirmed 03/12/18] metoprolol succinate ER 50 mg tablet,extended release 24 hr 50 mg PO DAILY #90 tab 03/12/18 [Rx Confirmed 03/12/18] PFSH Medical History Paroxysmal atrial fibrillation (Chronic) 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) Chronic systolic (congestive) heart failure (Chronic) Non-ischemic cardiomyopathy (Chronic) Nonsustained ventricular tachycardia (Chronic) 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 -Continue cardiology management with Dr. Lopez. 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 -Stool was hemoccult positive and he is on antiplatelet and anticoagulation. -EGD revealed source of gastric bleeding which had been corrected. Plan: -Continue antiplatelet therapy and anticoagulation. 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 FOR NAUSEADisp: 90 tabletRfl: 3 Follow-up and Disposition History Recorded Prescriptions as of 10/30/2017 Sig: FUROSEMIDE 20 MG TABLET TAKE 2 TABLETS ONCE DAILY ASPIRIN 81 MG TABLET,DELAYED * Take 1 tablet by mouth once d* METOPROLOL SUCCINATE ER 100 M* Take 1 tablet by mouth once d* IPRATROPIUM BROMIDE 0.03 % NA* Use 2 Sprays in the nose once* AMIODARONE 200 MG TABLET Take 1 tablet by mouth once d* ONDANSETRON HCL 8 MG TABLET TAKE 1 TABLET EVERY 8 HOURS A* APIXABAN 5 MG TABLET Take 1 tablet by mouth twice * DIGOXIN 125 MCG TABLET Take 1 tablet by mouth once d* ACETAMINOPHEN 500 MG TABLET Take 1,000 mg by mouth as nee* CHOLECALCIFEROL (VITAMIN D3) * Take 2,000 Units by mouth 3 t* MILK OF MAGNESIA ORAL Take 1 Cap-Full by mouth as n* FOLIC ACID 800 MCG TABLET Take 800 mcg by mouth once da* OCUVITE ORAL Take 1 tablet by mouth twice * * SAW PALMETTO 320 MG CAPSULE Take 1 capsule by mouth once * * CENTRUM SILVER TABLET Take one(1) tablet daily. * CALCIUM 500 + D 500 MG (1,250* Take one(1) tablet every othe* * TYLENOL ARTHRITIS 650 MG TABL* Take one(2) tablet every four* PROMETHAZINE 25 MG TABLET Take 1 tablet by mouth every * Medication notes this encounter FUROSEMIDE 20 MG TABLET >> Nathalia Mulligan MA 10/30/2017 9:33 AM >> NATHALIA MULLIGAN MA MonOct 30, 2017 9:33 AM Taking one tablet daily. Problem List As Of Date 10/30/2017 Noted Resolved MDS (Myelodysplastic Syndrome), Low Grade [D46.*INVALID FOR* Anemia [D64.9] INVALID FOR*07/27/2015 Skin lesion [L98.9] INVALID FOR* Thrombocytosis [D47.3] INVALID FOR* Transfusion history [Z92.89] INVALID FOR* More... 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 medical*INVALID FOR* Dyspnea on exertion [R06.09] INVALID FOR* Skin ulcer (HCC) [L98.499] INVALID FOR* Heme positive stool [R19.5] INVALID FOR* Encounter Status:Closed by KESHAWN ATKINS DO on 10/30/17 LISMORE CBC Collected: 10/30/2017 Status: F Source: [place] 9:29 AM [facility] REPOSITORY TYPE CODE TESTS RESULT OUT OF REFERENCE UNITS RANGE LAB WWBC 3.70-11.00 k/uL [place] WBC 1.72 LAB WRBC 4.20-6.00 m/uL Low [place] RBC 2.69 LAB WHGB 13.0-17.0 g/dL Low [place] Hemoglobin 7.9 LAB WHCT 39.0-51.0 % Low [place] Hematocrit 24.5 LAB WMCV 80.0-100.0 fL [place] MCV 91.1 LAB WMCH 26.0-34.0 pg [place] MCH 29.4 LAB WMCHC 30.5-36.0 g/dL [place] MCHC 32.2 LAB WRDW 11.5-15.0 % [place] RDW 14.1 LAB WPLT 150-400 k/uL [place] Platelet Cnt 183 LAB WMPV 9.0-12.7 fL [place] MPV 10.4 Result Comment: Test performed at: [facility] [place], [address] [place] [address]. TYPE AND SCREEN Collected: 10/30/2017 Status: F Source: LISMORE 9:25 AM [facility] REPOSITORY Order Comment: PRETRANSFUSION HGB = 7.9 HCT = 24.5 PERFORMED AT [facility] CMV NEG?* N Give When? 10/31/17 @ 830 Irradiated? N Leukodepleted? Y Reason for Type AND Screen/Red Cells: ANEMIA TYPE CODE TESTS RESULT OUT OF RANGE REFERENCE UNITS LAB B10.0800 O Normal BLOOD TYPE GEL POSITIVE LAB B100.4000 Normal Antibody NEGATIVE Screen Performed By: #### [id number] #### [facility] [address] [place], [address] Collected: 10/30/2017 Status: F Source: LISMORE 9:25 AM [facility] REPOSITORY TYPE CODE TESTS RESULT OUT OF REFERENCE UNITS RANGE LAB U100.0000 [id number] TRANSFUSED PRODUCT: T AND S with Crossmatch, Red Cells COUNT: 2 Performed By: #### [email or web address] #### Non-[facility] - refer to report for specific site HANNA ABS GR + CBC Collected: 10/26/2017 Status: F Source: [place] 11:26 AM [facility] REPOSITORY TYPE CODE TESTS RESULT OUT OF REFERENCE UNITS RANGE LAB WWBC 3.70-11.00 k/uL [place] WBC 3.02 LAB WRBC 4.20-6.00 m/uL Low [place] RBC 2.97 LAB WHGB 13.0-17.0 g/dL [place] Hemoglobin 8.9 LAB WHCT 39.0-51.0 % Low [place] Hematocrit 27.2 LAB WMCV 80.0-100.0 fL [place] MCV 91.6 LAB WMCH 26.0-34.0 pg [place] MCH 30.0 LAB WMCHC 30.5-36.0 g/dL [place] MCHC 32.7 LAB WRDW 11.5-15.0 % [place] RDW 14.1 LAB WPLT 150-400 k/uL [place] Platelet Cnt 188 LAB WMPV 9.0-12.7 fL [place] MPV 10.1 Result Comment: Test performed at: [facility], [address] [place] [address]. LAB ABGRAN 1.45-7.50 k/uL Absol Gran 1.98 Count HANNA ABS GR + CBC Collected: 10/23/2017 Status: F Source: [place] 11:19 AM [facility] REPOSITORY TYPE CODE TESTS RESULT OUT OF REFERENCE UNITS RANGE LAB WWBC 3.70-11.00 k/uL [place] WBC 2.47 LAB WRBC 4.20-6.00 m/uL Low [place] RBC 3.00 LAB WHGB 13.0-17.0 g/dL Low [place] Hemoglobin 8.9 LAB WHCT 39.0-51.0 % [place] Hematocrit 27.5 LAB WMCV 80.0-100.0 fL [place] MCV 91.7 LAB WMCH 26.0-34.0 pg [place] MCH 29.7 LAB WMCHC 30.5-36.0 g/dL [place] MCHC 32.4 LAB WRDW 11.5-15.0 % [place] RDW 14.3 LAB WPLT 150-400 k/uL [place] Platelet Cnt 191 LAB WMPV 9.0-12.7 fL [place] MPV 9.8 Result Comment: Test performed at: [facility], [address] [place] [address]. LAB ABGRAN 1.45-7.50 k/uL Absol Gran 1.48 Count LISMORE ABS GR + CBC Collected: 10/19/2017 Status: F Source: [place] 11:15 AM [facility] REPOSITORY TYPE CODE TESTS RESULT OUT OF REFERENCE UNITS RANGE LAB WWBC 3.70-11.00 k/uL Low [place] WBC 2.33 LAB WRBC 4.20-6.00 m/uL [place] RBC 2.72 LAB WHGB 13.0-17.0 g/dL [place] Hemoglobin 8.2 LAB WHCT 39.0-51.0 % Low [place] Hematocrit 25.2 LAB WMCV 80.0-100.0 fL [place] MCV 92.6 LAB WMCH 26.0-34.0 pg [place] MCH 30.1 LAB WMCHC 30.5-36.0 g/dL [place] MCHC 32.5 LAB WRDW 11.5-15.0 % [place] RDW 14.1 LAB WPLT 150-400 k/uL [place] Platelet Cnt 207 LAB WMPV 9.0-12.7 fL [place] MPV 10.0 Result Comment: Test performed at: [facility], [address] [place] [address]. LAB ABGRAN 1.45-7.50 k/uL Low Absol 1.44 Gran Count TYPE AND SCREEN Collected: 10/19/2017 Status: F Source: LISMORE 11:15 AM [facility] REPOSITORY Order Comment: PRETRANSFUSION HGB = 8.2 HCT = 25.2 PERFORMED AT [facility] CMV NEG?* N Give When? 10/20/17 @0930 Irradiated? N Leukodepleted? Y Reason for Type AND Screen/Red Cells: ANEMIA TYPE CODE TESTS RESULT OUT OF RANGE REFERENCE UNITS LAB B10.0800 O Normal BLOOD TYPE GEL POSITIVE LAB B100.4000 Normal Antibody NEGATIVE Screen Performed By: #### [id number] #### [facility] [address] [place], [place], [address] Collected: 10/19/2017 Status: F Source: HANNA 11:15 AM [facility] REPOSITORY TYPE CODE TESTS RESULT OUT OF REFERENCE UNITS RANGE LAB U100.0000 [id number] TRANSFUSED PRODUCT: T AND S with Crossmatch, Red Cells COUNT: 2 Performed By: #### U100.0000 #### Non-[facility] - refer to report for specific site HANNA ABS GR + CBC Collected: 10/16/2017 Status: F Source: [place] 11:22 AM [facility] REPOSITORY TYPE CODE TESTS RESULT OUT OF REFERENCE UNITS RANGE LAB WWBC 3.70-11.00 k/uL [place] WBC 2.47 LAB WRBC 4.20-6.00 m/uL [place] RBC 2.93 LAB WHGB 13.0-17.0 g/dL Low [place] Hemoglobin 8.6 LAB WHCT 39.0-51.0 % Low [place] Hematocrit 27.2 LAB WMCV 80.0-100.0 fL [place] MCV 92.8 LAB WMCH 26.0-34.0 pg [place] MCH 29.4 LAB WMCHC 30.5-36.0 g/dL [place] MCHC 31.6 LAB WRDW 11.5-15.0 % [place] RDW 14.3 LAB WPLT 150-400 k/uL [place] Platelet Cnt 224 LAB WMPV 9.0-12.7 fL [place] MPV 10.4 Result Comment: Test performed at: [facility], [address] [place] [address] Rd[address] [place] [address]. LAB ABGRAN 1.45-7.50 k/uL Low Absol 1.38 Gran Count HANNA ABS GR + CBC Collected: 10/12/2017 Status: F Source: [place] 11:30 AM [facility] REPOSITORY TYPE CODE TESTS RESULT OUT OF REFERENCE UNITS RANGE LAB WWBC 3.70-11.00 k/uL Low [place] WBC 1.99 LAB WRBC 4.20-6.00 m/uL [place] RBC 3.03 LAB WHGB 13.0-17.0 g/dL [place] Hemoglobin 9.1 LAB WHCT 39.0-51.0 % Low [place] Hematocrit 27.8 LAB WMCV 80.0-100.0 fL [place] MCV 91.7 LAB WMCH 26.0-34.0 pg [place] MCH 30.0 LAB WMCHC 30.5-36.0 g/dL [place] MCHC 32.7 LAB WRDW 11.5-15.0 % [place] RDW 14.4 LAB WPLT 150-400 k/uL [place] Platelet Cnt 220 LAB WMPV 9.0-12.7 fL [place] MPV 10.2 Result Comment: Test performed at: [facility], [address] [place] [address] Rd[address] [place] [address]. LAB ABGRAN 1.45-7.50 k/uL Low Absol 1.17 Gran Count HANNA CBC Collected: 10/09/2017 Status: F Source: [place] 11:29 AM [facility] REPOSITORY TYPE CODE TESTS RESULT OUT OF REFERENCE UNITS RANGE LAB WWBC 3.70-11.00 k/uL Low [place] WBC 2.94 LAB WRBC 4.20-6.00 m/uL [place] RBC 2.56 LAB WHGB 13.0-17.0 g/dL [place] Hemoglobin 7.7 LAB WHCT 39.0-51.0 % Low [place] Hematocrit 23.9 LAB WMCV 80.0-100.0 fL [place] MCV 93.4 LAB WMCH 26.0-34.0 pg [place] MCH 30.1 LAB WMCHC 30.5-36.0 g/dL [place] MCHC 32.2 LAB WRDW 11.5-15.0 % [place] RDW 14.5 LAB WPLT 150-400 k/uL [place] Platelet Cnt 212 LAB WMPV 9.0-12.7 fL [place] MPV 9.7 Result Comment: Test performed at: [facility], [address] [place] [address] Rd[address] [place] [address]. TYPE AND SCREEN Collected: 10/09/2017 Status: F Source: LISMORE 11:28 AM [facility] REPOSITORY Order Comment: PRETRANSFUSION HGB = 7.7 HCT = 23.9 PERFORMED AT [facility] CMV NEG?* N Give When? 10/10/17 @0800 Irradiated? N Leukodepleted? Y Reason for Type AND Screen/Red Cells: ANEMIA TYPE CODE TESTS RESULT OUT OF RANGE REFERENCE UNITS LAB B10.0800 O Normal BLOOD TYPE GEL POSITIVE LAB B100.4000 Normal Antibody NEGATIVE Screen Performed By: #### [id number] #### [facility] [address] [place], [address] Collected: 10/09/2017 Status: F Source: LISM[place] 11:28 AM [facility] REPOSITORY TYPE CODE TESTS RESULT OUT OF REFERENCE UNITS RANGE LAB U100.0000 [id number] TRANSFUSED PRODUCT: T AND S with Crossmatch, Red Cells COUNT: 2 Performed By: #### [email or web address] #### [facility] - refer to report for specific site HANNA ABS GR + CBC Collected: 10/05/2017 Status: F Source: [place] 11:28 AM [facility] REPOSITORY TYPE CODE TESTS RESULT OUT OF REFERENCE UNITS RANGE LAB WWBC 3.70-11.00 k/uL [place] WBC 1.92 LAB WRBC 4.20-6.00 m/uL [place] RBC 2.96 LAB WHGB 13.0-17.0 g/dL [place] Hemoglobin 8.9 LAB WHCT 39.0-51.0 % Low [place] Hematocrit 27.6 LAB WMCV 80.0-100.0 fL [place] MCV 93.2 LAB WMCH 26.0-34.0 pg [place] MCH 30.1 LAB WMCHC 30.5-36.0 g/dL [place] MCHC 32.2 LAB WRDW 11.5-15.0 % [place] RDW 14.5 LAB WPLT 150-400 k/uL [place] Platelet Cnt 204 LAB WMPV 9.0-12.7 fL [place] MPV 9.8 Result Comment: Test performed at: [facility], [address] [place] [address]. LAB ABGRAN 1.45-7.50 k/uL Low Absol 1.05 Gran Count HANNA ABS GR + CBC Collected: 10/02/2017 Status: F Source: [place] 11:45 AM [facility] REPOSITORY TYPE CODE TESTS RESULT OUT OF REFERENCE UNITS RANGE LAB WWBC 3.70-11.00 k/uL [place] WBC 2.98 LAB WRBC 4.20-6.00 m/uL Low [place] RBC 3.32 LAB WHGB 13.0-17.0 g/dL Low [place] Hemoglobin 9.8 LAB WHCT 39.0-51.0 % [place] Hematocrit 30.5 LAB WMCV 80.0-100.0 fL [place] MCV 91.9 LAB WMCH 26.0-34.0 pg [place] MCH 29.5 LAB WMCHC 30.5-36.0 g/dL [place] MCHC 32.1 LAB WRDW 11.5-15.0 % [place] RDW 14.7 LAB WPLT 150-400 k/uL [place] Platelet Cnt 197 LAB WMPV 9.0-12.7 fL [place] MPV 9.6 Result Comment: Test performed at: [facility], [address] [place] [address]. LAB ABGRAN 1.45-7.50 k/uL Absol Gran 1.91 Count TYPE AND SCREEN Collected: 09/29/2017 Status: F Source: LISMORE 7:53 AM [facility] REPOSITORY Order Comment: REDRAW. PREVIOUS SPECIMEN REJECTED DUE TO MISLABELED. 09/28/17 CPOPIEL. MANUAL GEL METHOD PERFORMED CMV NEG?* N Give When? NOW Irradiated? Y Leukodepleted? Y Reason for Type AND Screen/Red Cells: ANEMIA TYPE CODE TESTS RESULT OUT OF RANGE REFERENCE UNITS LAB B10.0800 O Normal BLOOD TYPE GEL POSITIVE LAB B100.4000 Normal Antibody NEGATIVE Screen Performed By: #### [id number] #### [facility] [address] [place], [address] Collected: 09/29/2017 Status: F Source: LISMORE 7:53 AM [facility] REPOSITORY TYPE CODE TESTS RESULT OUT OF REFERENCE UNITS RANGE LAB U100.0000 [id number] TRANSFUSED PRODUCT: T AND S with Crossmatch, Red Cells COUNT: 1 Performed By: #### U100.0000 #### Non-[facility] - refer to report for specific site LISMORE ABS GR + CBC Collected: 09/28/2017 Status: F Source: [place] 11:21 AM [facility] REPOSITORY TYPE CODE TESTS RESULT OUT OF REFERENCE UNITS RANGE LAB WWBC 3.70-11.00 k/uL Low [place] WBC 2.02 LAB WRBC 4.20-6.00 m/uL Low [place] RBC 2.73 LAB WHGB 13.0-17.0 g/dL [place] Hemoglobin 8.0 LAB WHCT 39.0-51.0 % [place] Hematocrit 25.2 LAB WMCV 80.0-100.0 fL [place] MCV 92.3 LAB WMCH 26.0-34.0 pg [place] MCH 29.3 LAB WMCHC 30.5-36.0 g/dL [place] MCHC 31.7 LAB WRDW 11.5-15.0 % [place] RDW 14.6 LAB WPLT 150-400 k/uL [place] Platelet Cnt 152 LAB WMPV 9.0-12.7 fL [place] MPV 10.3 Result Comment: Test performed at: [facility], [address] [place] [address]. LAB ABGRAN 1.45-7.50 k/uL Absol Gran 1.48 Count TYPE AND SCREEN Collected: 09/28/2017 Status: F Source: LISMORE 11:18 AM [facility] REPOSITORY Order Comment: PRETRANSFUSION HGB = 8.0 HCT = 25.2 PERFORMED AT [facility] CMV NEG?* N Give When? 09/29/17 Irradiated? Y Leukodepleted? Y Reason for Type AND Screen/Red Cells: ANEMIA TYPE CODE TESTS RESULT OUT OF RANGE REFERENCE UNITS LAB B10.0800 O Normal BLOOD TYPE GEL POSITIVE LAB B100.4000 Normal Antibody NEGATIVE Screen Performed By: #### [id number] #### [facility] [address] [place], [address] LISMORE ABS GR + CBC Collected: 09/25/2017 Status: F Source: BAR[place] 7:39 AM [facility] REPOSITORY TYPE CODE TESTS RESULT OUT OF REFERENCE UNITS RANGE LAB WWBC 3.70-11.00 k/uL [place] WBC 2.04 LAB WRBC 4.20-6.00 m/uL Low [place] RBC 3.40 LAB WHGB 13.0-17.0 g/dL Low [place] Hemoglobin 10.1 LAB WHCT 39.0-51.0 % Low [place] Hematocrit 31.3 LAB WMCV 80.0-100.0 fL [place] MCV 92.1 LAB WMCH 26.0-34.0 pg [place] MCH 29.7 LAB WMCHC 30.5-36.0 g/dL [place] MCHC 32.3 LAB WRDW 11.5-15.0 % [place] RDW 14.0 LAB WPLT 150-400 k/uL [place] Platelet Cnt 170 LAB WMPV 9.0-12.7 fL [place] MPV 10.7 Result Comment: Test performed at: [facility], [address] [place] [address]. LAB ABGRAN 1.45-7.50 k/uL Low Absol 1.27 Gran Count LISMORE ABS GR + CBC Collected: 09/21/2017 Status: F Source: [place] 11:11 AM [facility] REPOSITORY TYPE CODE TESTS RESULT OUT OF REFERENCE UNITS RANGE LAB WWBC 3.70-11.00 k/uL Low [place] WBC 1.94 LAB WRBC 4.20-6.00 m/uL [place] RBC 3.44 LAB WHGB 13.0-17.0 g/dL [place] Hemoglobin 10.3 LAB WHCT 39.0-51.0 % Low [place] Hematocrit 31.7 LAB WMCV 80.0-100.0 fL [place] MCV 92.2 LAB WMCH 26.0-34.0 pg [place] MCH 29.9 LAB WMCHC 30.5-36.0 g/dL [place] MCHC 32.5 LAB WRDW 11.5-15.0 % [place] RDW 14.0 LAB WPLT 150-400 k/uL [place] Platelet Cnt 162 LAB WMPV 9.0-12.7 fL [place] MPV 9.8 Result Comment: Test performed at: [facility], [address] [place] [address]. LAB ABGRAN 1.45-7.50 k/uL Low Absol 1.19 Gran Count TYPE AND SCREEN Collected: 09/18/2017 Status: F Source: LISMORE 6:23 PM [facility] REPOSITORY Order Comment: PRETRANSFUSION HGB = 8.2 HCT = 26.0 PERFORMED AT [facility] CMV NEG?* N Give When? 09/19/17 Irradiated? N Leukodepleted? Y Reason for Type AND Screen/Red Cells: ANEMIA TYPE CODE TESTS RESULT OUT OF RANGE REFERENCE UNITS LAB B10.0800 O Normal BLOOD TYPE GEL POSITIVE LAB B100.4000 Normal Antibody NEGATIVE Screen Performed By: #### B101.7450 #### [facility] [address] [place], [address] Collected: 09/18/2017 Status: F Source: LISMORE 6:23 PM [facility] REPOSITORY TYPE CODE TESTS RESULT OUT OF REFERENCE UNITS RANGE LAB U100.0000 [id number] TRANSFUSED PRODUCT: T AND S with Crossmatch, Red Cells COUNT: 2 Performed By: #### U100.0000 #### [facility] - refer to report for specific site HANNA ABS GR + CBC Collected: 09/18/2017 Status: F Source: BARNETT 11:16 AM [facility] REPOSITORY TYPE CODE TESTS RESULT OUT OF REFERENCE UNITS RANGE LAB WWBC 3.70-11.00 k/uL Low [place] WBC 2.08 LAB WRBC 4.20-6.00 m/uL Low [place] RBC 2.83 LAB WHGB 13.0-17.0 g/dL Low [place] Hemoglobin 8.2 LAB WHCT 39.0-51.0 % Low [place] Hematocrit 26.0 LAB WMCV 80.0-100.0 fL [place] MCV 91.9 LAB WMCH 26.0-34.0 pg [place] MCH 29.0 LAB WMCHC 30.5-36.0 g/dL [place] MCHC 31.5 LAB WRDW 11.5-15.0 % [place] RDW 13.7 LAB WPLT 150-400 k/uL [place] Platelet Cnt 156 LAB WMPV 9.0-12.7 fL [place] MPV 10.3 Result Comment: Test performed at: [facility], [address] [place] [address]. LAB ABGRAN 1.45-7.50 k/uL Low Absol 1.30 Gran Count HANNA ABS GR + CBC Collected: 09/14/2017 Status: F Source: BARNETT 11:15 AM [facility] REPOSITORY TYPE CODE TESTS RESULT OUT OF REFERENCE UNITS RANGE LAB WWBC 3.70-11.00 k/uL Low [place] WBC 2.16 LAB WRBC 4.20-6.00 m/uL Low [place] RBC 3.21 LAB WHGB 13.0-17.0 g/dL Low [place] Hemoglobin 9.3 LAB WHCT 39.0-51.0 % Low [place] Hematocrit 28.9 LAB WMCV 80.0-100.0 fL [place] MCV 90.0 LAB WMCH 26.0-34.0 pg [place] MCH 29.0 LAB WMCHC 30.5-36.0 g/dL [place] MCHC 32.2 LAB WRDW 11.5-15.0 % [place] RDW 14.0 LAB WPLT 150-400 k/uL [place] Platelet Cnt 170 LAB WMPV 9.0-12.7 fL [place] MPV 10.0 Result Comment: Test performed at: [facility] [place], [address] [place] [address]. LAB ABGRAN 1.45-7.50 k/uL Low Absol 1.26 Gran Count CNPN Observed: 09/13/2017 Status: COMPLETED Source: BARNETT 12:00 AM [facility] REPOSITORY Telephone (BRAEDEN) MAIKEL HASTINGS ([id number]) 1935 M TXT Date Time Provider Department 09/13/17 KESHAWN ATKINS During your visit today, we recorded the following information about you: Erica Price Psr 09/13/2017 4:07 PM Signed Patient is calling with concerns regarding stool. States it has been almost black in color, no changes really in form. Please call and advise Leny Sanchez LPN 09/13/2017 4:46 PM Signed Patient states almost black stool for the last week. Last Hgb 09/11/2017, 8.3. 2 units PRBC's 09/12/2017. Taking Eliquis BID. Denies any new SOB. Denies dizziness or weakness. Patient concerned d/t h/o bleeding ulcer. Scheduled for labs 09/14/2017. Please advise. Lney Atkins DO 09/13/2017 5:27 PM Signed I spoke with the patient. I asked him to hold his anticoagulation with Eliquis and aspirin for the time being. Recheck CBC tomorrow. DO Leny Marshall LPN 09/14/2017 12:06 PM Signed Labs completed. Hgb 9.3. Leny Liao Camilo DO Wilbert 09/14/2017 12:45 PM Signed Thank you. Ask him to continue holding Eliquis and aspirin. If on Monday there is no significant drop in the hemoglobin suggesting an ongoing bleeding issue and the black stools clear, he can resume Eliquis and aspirin on Monday. DO Bonny Marshall LPN, VICTORIANO 09/14/2017 1:34 PM Signed Pt. Notified to continue to hold the eliquis and asa until after lab draw on Monday. Depending on results he may resume at that time. Pt. Voiced understanding. VICTORIANO Davenport LPN 09/18/2017 12:55 PM Signed Patient notified of Hgb 8.2 and transfusion. Patient would like to know if he should resume his Eliquis and ASA. States stool is normal in color. Leny Atkins DO 09/18/2017 1:05 PM Signed Yes, he may resume both Eliquis and ASA. DO Magnolia Marshall Psr 09/18/2017 2:00 PM Signed Spoke to patient who was relayed message below. Patient voiced understanding with no further questions. Allergies As of Date: 09/13/2017 (No Known Allergies) Date Reviewed: 08/30/2017 Reviewed by: Melyssa Andres - Fully Assessed Reason for Visit: Question [1327] Prescriptions as of 09/13/2017 Sig: FUROSEMIDE 20 MG TABLET TAKE 2 TABLETS ONCE DAILY ASPIRIN 81 MG TABLET,DELAYED * Take 1 tablet by mouth once d* METOPROLOL SUCCINATE ER 100 M* Take 1 tablet by mouth once d* IPRATROPIUM BROMIDE 0.03 % NA* Use 2 Sprays in the nose once* AMIODARONE 200 MG TABLET Take 1 tablet by mouth once d* ONDANSETRON HCL 8 MG TABLET TAKE 1 TABLET EVERY 8 HOURS A* APIXABAN 5 MG TABLET Take 1 tablet by mouth twice * DIGOXIN 125 MCG TABLET Take 1 tablet by mouth once d* ACETAMINOPHEN 500 MG TABLET Take 1,000 mg by mouth as nee* CHOLECALCIFEROL (VITAMIN D3) * Take 2,000 Units by mouth 3 t* MILK OF MAGNESIA ORAL Take 1 Cap-Full by mouth as n* FOLIC ACID 800 MCG TABLET Take 800 mcg by mouth once da* OCUVITE ORAL Take 1 tablet by mouth twice * * SAW PALMETTO 320 MG CAPSULE Take 1 capsule by mouth once * * CENTRUM SILVER TABLET Take one(1) tablet daily. * CALCIUM 500 + D 500 MG (1,250* Take one(1) tablet every othe* * TYLENOL ARTHRITIS 650 MG TABL* Take one(2) tablet every four* Problem List As Of Date 09/13/2017 Noted Resolved MDS (Myelodysplastic Syndrome), Low Grade [D46.*INVALID FOR* Anemia [D64.9] INVALID FOR*07/27/2015 Skin lesion [L98.9] INVALID FOR* Thrombocytosis [D47.3] INVALID FOR* Transfusion history [Z92.89] INVALID FOR* More... 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 09/12/17 @0830 Irradiated? N Leukodepleted? Y Reason for Type AND Screen/Red Cells: ANEMIA TYPE CODE TESTS RESULT OUT OF RANGE REFERENCE UNITS LAB B10.0800 O Normal BLOOD TYPE GEL POSITIVE LAB B100.4000 Normal Antibody NEGATIVE Screen Performed By: #### B101.7450 #### [facility] [address] [place], [address] RC Collected: 09/11/2017 Status: F Source: LISMORE 11:18 AM [facility] REPOSITORY TYPE CODE TESTS RESULT OUT OF REFERENCE UNITS RANGE LAB U100.0000 [id number] TRANSFUSED PRODUCT: T AND S with Crossmatch, Red Cells COUNT: 2 Performed By: #### U100.0000 #### [facility] - refer to report for specific site LISMORE ABS GR + CBC Collected: 09/11/2017 Status: F Source: BARNETT 11:16 AM [facility] REPOSITORY TYPE CODE TESTS RESULT OUT OF REFERENCE UNITS RANGE LAB WWBC 3.70-11.00 k/uL Low [place] WBC 2.11 LAB WRBC 4.20-6.00 m/uL Low [place] RBC 2.82 LAB WHGB 13.0-17.0 g/dL Low [place] Hemoglobin 8.3 LAB WHCT 39.0-51.0 % Low [place] Hematocrit 25.5 LAB WMCV 80.0-100.0 fL [place] MCV 90.4 LAB WMCH 26.0-34.0 pg [place] MCH 29.4 LAB WMCHC 30.5-36.0 g/dL [place] MCHC 32.5 LAB WRDW 11.5-15.0 % [place] RDW 13.7 LAB WPLT 150-400 k/uL Low [place] Platelet Cnt 138 LAB WMPV 9.0-12.7 fL [place] MPV 10.2 Result Comment: Test performed at: [facility], [address] [place] [address] Rd[address] [place] [address]. LAB ABGRAN 1.45-7.50 k/uL Low Absol 1.32 Gran Count CARDIOLOGY VISIT Observed: 09/07/2017 Status: F Source: LISMORE REPORT 10:26 AM [facility] REPOSITORY [facility] [address] [place] [address] OFFICE VISIT Date of Service: 09/04/17 MR#: [id number] Acct: [id number] Name: MAIKEL HASTINGS Rep #: [id number] : 1935 Provider: Bear Lopez MD Age/Sex: 82/M Location: [facility] Status: Signed HPI 6 M FU: Chief Complaint: Routine F/u Details: HPI Mr. Hastings is a very pleasant 82-year-old gentleman with multiple medical problems including mild dysplastic syndrome diagnosed around 10-12 yearso initially received shots for his anemia, and recently has received periodic transfusions over the last 2 years, persistent atrial fibrillation, and a former patient of Dr. Hou at the [facility]. Patient had an echocardiogram dated 01/07/16 which showed an EF that was normal, RVSP of 50 mmHg, and a stress echocardiogram which was negative for inducible ischemia at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 Insurance:MEDICARE MARTINDOB: Community PATI PART A [facility] [id number] Springs Medical Center [place] Number: Repository [id number]: 330 [id number] [phone] (HP) Date:2018-06-21 06/22/2018 Secondary MAIKEL D [place] Insurance:S [place] FREEWATERDOB: [facility] [id number] Hospital Number: Repository [id number] Date:4553-83-06AK [address] [address]NA: 06/22/2018 Tertiary NOT GIVENUNK [place] Insurance:SELF PAY [facility] Hospital Number: Effective Repository Date:2018-06-21 06/08/2018 MAIKEL D Primary MAIKEL D [place] [id number] Insurance:MEDICARE MARTINDOB: Community PATI PART A [facility] [id number] Springs Medical Center [place] Number: Repository [address]Wva: 330 [id number] [phone] () Date:2018-06-07 06/08/2018 Secondary MAIKEL D [place] Insurance:[facility] [id number] Hospital Number: Repository [id number] Date:0214-93-29AX [address] [address]RE: 06/08/2018 Tertiary NOT GIVENUNK [place] Insurance:SELF PAY [facility] Hospital Number: Effective Repository Date:2018-06-07 05/25/2018 MAIKEL D Primary MAIKEL D [place] [id number] Insurance:MEDICARE MARTINDOB: Community PATI PART A [facility] [id number] Springs Medical Center [place] Number: Repository [address]Wlc: 330 [id number] [phone] () Date:2018-05-24 05/25/2018 Secondary MAIKEL D [place] Insurance:[facility] FOR [facility] [id number] Hospital Number: Repository [id number] Date:1757-36-02JE [address] [address]PU: 05/25/2018 Tertiary NOT GIVENUNK [place] Insurance:SELF PAY [facility] Hospital Number: Effective Repository Date:2018-05-24 05/11/2018 MAIKEL D Primary MAIKEL D [place] [id number] Insurance:MEDICARE MARTINDOB: Community PATI PART A [facility] [id number] Springs Medical Center [place] Number: Repository 80[address]Lco: 330 [id number] [phone] () Date:2018-05-10 05/11/2018 Secondary MAIKEL D [place] Insurance:WPS [facility]: [facility] FOR [facility] [id number] Hospital Number: Repository [id number] Date:5693-25-07KE [address], [place] [address]QM: 05/11/2018 Tertiary NOT GIVENUNK [place] Insurance:SELF PAY [facility] Hospital Number: Effective Repository Date:2018-05-10 04/27/2018 MAIKEL D Primary MAIKEL D [place] [id number] Insurance:MEDICARE MARTINDOB: Community PATI PART A [facility] [id number] Springs Medical Center [place] Number: Repository 5[address]Snf: 330 [id number] [phone] () Date:2018-04-26 04/27/2018 Secondary MAIKEL D [place] Insurance:WPS [facility]: [facility] [id number] Hospital Number: Repository [id number] Date:5968-90-34AC [address], [place] [address]HY: 04/27/2018 Tertiary NOT GIVENUNK [place] Insurance:SELF PAY [facility] Hospital Number: Effective Repository Date:2018-04-26 04/13/2018 MAIKEL D Primary MAIKEL D [place] [id number] Insurance:MEDICARE MARTINDOB: Community PATI PART A [facility] [id number] Springs Medical Center [place] Number: Repository [address]Pdl: 330 [id number] [phone] (HP) Date:2018-04-12 04/13/2018 Secondary MAIKEL D [place] Insurance:[facility] [id number] Hospital Number: Repository [id number] Date:6056-48-15TZ [address] [address]QA: 04/13/2018 Tertiary NOT GIVENUNK [place] Insurance:SELF PAY [facility] Number: Effective Repository Date:2018-04-12 03/30/2018 MAIKEL D Primary MAIKEL D [place] [id number] Insurance:MEDICARE MARTINDOB: Community PATI PART A [facility] [id number] Number[place] Repository [id number]: 330 [id number] [phone] (HP) Date:2018-03-29 03/30/2018 Secondary MAIKEL D [place] Insurance:WPS [facility]: [facility] FOR [facility] [id number] Hospital Number: Repository [id number] Date:6071-16-25BW [address] [address]CL: 03/30/2018 Tertiary NOT GIVENUNK [place] Insurance:SELF PAY [facility] Hospital Number: Effective Repository Date:2018-03-29 03/21/2018 MAIKEL D Primary MAIKEL D [place] [id number] Insurance:MEDICARE MARTINDOB: Community PATI PART A [facility] [id number] Number[place] Repository [address]Uso: 330 [id number] [phone] () Date:2018-03-12 03/21/2018 Secondary MAIKEL D [place] Insurance:WPS [place] FREEWATERDOB: [facility] [id number] Hospital Number: Repository [id number] Date:8044-00-19AC [address] [address]LM: 03/21/2018 Tertiary NOT GIVENUNK [place] Insurance:SELF PAY [facility] Hospital Number: Effective Repository Date:2018-03-12 03/21/2018 MAIKEL D Primary MAIKEL D [place] [id number] Insurance:MEDICARE MARTINDOB: Community PATI PART A [facility] [id number] Number[place] Repository [address]Umx: 330 [id number] [phone] (HP) Date:2018-03-12 03/21/2018 Secondary MAIKEL D [place] Insurance:[facility]: [facility] [id number] Hospital Number: Repository [id number] Date:9661-75-41FQ [address] [address]DF: 03/21/2018 Tertiary NOT GIVENUNK [place] Insurance:SELF PAY [facility] Hospital Number: Effective Repository Date:2018-03-21 03/16/2018 MAIKEL D Primary MAIKEL D [place] [id number] Insurance:[facility]: Community PATI PART A [facility] [id number] Number[place] Repository [id number]: 330 [id number] [phone] () Date:2018-03-15 03/16/2018 Secondary MAIKEL D [place] Insurance:[facility]: [facility] [id number] Hospital Number: Repository [id number] Date:9529-30-79XO [address] [address]ON: 03/16/2018 Tertiary NOT GIVENUNK [place] Insurance:SELF PAY [facility] Hospital Number: Effective Repository Date:2018-03-15 03/13/2018 MAIKEL D Primary MAIKEL D [place] [id number] Insurance:[facility]: [facility] PATI PART A [facility] [id number] Springs Medical Center [place] Number: Repository [address]Cwp: 330 [id number] [phone] () Date:2018-03-13 03/13/2018 Secondary MAIKEL D [place] Insurance:[facility]: [facility] [id number] Hospital Number: Repository [id number] Date:8803-82-65SH [address] [address]CF: 03/13/2018 Tertiary NOT GIVENUNK [place] Insurance:SELF PAY [facility] Hospital Number: Effective Repository Date:2018-03-13 03/12/2018 MAIKEL D Primary MAIKEL D [place] [id number] Insurance:MEDICARE [place] FREEWATERDOB: Community PATI PART A [facility] [id number] Springs Medical Center [place] Number: Repository 25[address]Enu: 330 [id number] [phone] (HP) Date:2017-09-04 03/12/2018 Secondary MAIKEL D [place] Insurance:[facility]: [facility] [id number] Hospital Number: Repository [id number] Date:2685-33-03VZ [address] [address]LJ: 03/12/2018 Tertiary NOT GIVENUNK [place] Insurance:SELF PAY [facility] Hospital Number: Effective Repository Date:2018-03-12 03/02/2018 MAIKEL D Primary MAIKEL D [place] [id number] Insurance:MEDICARE [place] FREEWATERDOB: [facility] PATI PART A [facility] [id number] Springs Medical Center [place] Number: Repository [address]Xrd: 330 [id number] [phone] (HP) Date:2018-03-01 03/02/2018 Secondary MAIKEL D [place] Insurance:S [facility]: [facility] [id number] Hospital Number: Repository [id number] Date:0849-38-21SI [address], [place] [address]XO: 03/02/2018 Tertiary NOT GIVENUNK [place] Insurance:SELF PAY [facility] Hospital Number: Effective Repository Date:2018-03-01 02/23/2018 MAIKEL D Primary MAIKEL D [place] [id number] Insurance:MEDICARE [place] FREEWATERDOB: [facility] PATI PART A [facility] [id number] Springs Medical Center [place] Number: Repository [id number]: 330 [id number] [phone] (HP) Date:2018-02-22 02/23/2018 Secondary MAIKEL D [place] Insurance:[facility]: [facility] [id number] Hospital Number: Repository [id number] Date:7583-38-15KZ [address] [address]ON: 02/23/2018 Tertiary NOT GIVENUNK [place] Insurance:SELF PAY [facility] Hospital Number: Effective Repository Date:2018-02-22 02/06/2018 MAIKEL D Primary MAIKEL D [place] [id number] Insurance:MEDICARE MARTINDOB: Community PATI PART A [facility] [id number] Springs Medical Center [place] Number: Repository [address]Zkp: 330 [id number] [phone] (HP) Date:2018-02-05 02/06/2018 Secondary MAIKEL D [place] Insurance:[facility]: [facility] [id number] Hospital Number: Repository [id number] Date:4530-99-39KZ [address] [address]OE: 02/06/2018 Tertiary NOT GIVENUNK [place] Insurance:SELF PAY [facility] Hospital Number: Effective Repository Date:2018-02-05 02/02/2018 MAIKEL D Primary MAIKEL D [place] [id number] Insurance:MEDICARE MARTINDOB: Community PATI PART A [facility] [id number] Springs Medical Center [place] Number: Repository [id number]: 330 [id number] [phone] (HP) Date:2018-02-01 02/02/2018 Secondary MAIKEL D [place] Insurance:[facility]: [facility] [id number] Hospital Number: Repository [id number] Date:5371-63-51VS [address] [address]PR: 02/02/2018 Tertiary NOT GIVENUNK [place] Insurance:SELF PAY [facility] Hospital Number: Effective Repository Date:2018-02-01 01/19/2018 MAIKEL D Primary MAIKEL D [place] [id number] Insurance:MEDICARE [place] FREEWATERDOB: Community PATI PART A [facility] [id number] Springs Medical Center [place] Number: Repository [id number]: 330 [id number] [phone] (HP) Date:2018-01-18 01/19/2018 Secondary MAIKEL D [place] Insurance:[facility]: [facility] [id number] Hospital Number: Repository [id number] Date:8538-12-59PU [address] [address]AU: 01/19/2018 Tertiary NOT GIVENUNK [place] Insurance:SELF PAY [facility] Hospital Number: Effective Repository Date:2018-01-18 01/12/2018 MAIKEL D Primary MAIKEL D [place] [id number] Insurance:MEDICARE MILTON FREEWATERDOB: Community PATI PART A [facility] [id number] Number: Repository [address]Rld: 330 [id number] [phone] (HP) Date:2018-01-11 01/12/2018 Secondary MAIKEL D [place] Insurance:[facility]: [facility] [id number] Hospital Number: Repository [id number] Date:5028-22-62LB [address] [address]YD: 01/12/2018 Tertiary NOT GIVENUNK [place] Insurance:SELF PAY [facility] Hospital Number: Effective Repository Date:2018-01-11 12/29/2017 MAIKEL D Primary MAIKEL D [place] [id number] Insurance:MEDICARE MILTON FREEWATERDOB: [facility] [id number] [place] Number: Repository [id number]: 330 [id number] [phone] (HP) Date:2017-12-28 12/29/2017 Secondary MAIKEL D [place] Insurance:[facility]: [facility] [id number] Hospital Number: Repository [id number] Date:2041-26-92PL [address] [address]ZD: 12/29/2017 Tertiary NOT GIVENUNK [place] Insurance:SELF PAY [facility] Hospital Number: Effective Repository Date:2017-12-28 12/22/2017 MAIKEL D Primary MAIKEL D [place] [id number] Insurance:MEDICARE MARTINDOB: Community PATI PART A [address] [place] Number: Repository [id number]: 330 [id number] [phone] (HP) Date:2017-12-21 12/22/2017 Secondary MAIKEL D [place] Insurance:WPS MILTON FREEWATERDOB: [facility] FOR [facility] [id number] Hospital Number: Repository [id number] Date:0877-01-15XN [address] [address]AN: 12/22/2017 Tertiary NOT GIVENUNK [place] Insurance:SELF PAY [facility] Hospital Number: Effective Repository Date:2017-12-21 12/22/2017 MAIKEL D Primary MAIKEL D [place] [id number] Insurance:MEDICARE MARTINDOB: Community PATI PART A [facility] [id number] Springs Medical Center [place] Number: Repository [id number]: 330 [id number] [phone] (HP) Date:2017-12-21 12/22/2017 Secondary MAIKEL D [place] Insurance:WPS MILTON FREEWATERDOB: [facility] [id number] Hospital Number: Repository [id number] Date:5331-43-68AT [address] [address]JL: 12/22/2017 Tertiary NOT GIVENUNK [place] Insurance:SELF PAY [facility] Hospital Number: Effective Repository Date:2017-12-21 12/08/2017 MAIKEL D Primary MAIKEL D [place] [id number] Insurance:MEDICARE MARTINDOB: Community PATI PART A [address] [place] Number: Repository [id number]: 330 [id number] [phone] (HP) Date:2017-12-07 12/08/2017 Secondary MAIKEL D [place] Insurance:WPS MARTINDOB: [facility] [id number] Hospital Number: Repository [id number] Date:0918-27-58HW [address] [address]WY: 12/08/2017 Tertiary NOT GIVENUNK [place] Insurance:SELF PAY [facility] Hospital Number: Effective Repository Date:2017-12-07 12/01/2017 MAIKEL D Primary MAIKEL D [place] [id number] Insurance:MEDICARE MARTINDOB: Community PATI PART A [facility] [id number] Number[place] Repository [address]Uez: 330 [id number] [phone] (HP) Date:2017-11-30 12/01/2017 Secondary MAIKEL D [place] Insurance:WPS VENKATADOB: [facility] [id number] Hospital Number: Repository [id number] Date:2911-07-95YM [address], [place] [address]JQ: 12/01/2017 Tertiary NOT GIVENUNK [place] Insurance:SELF PAY [facility] Hospital Number: Effective Repository Date:2017-11-30 11/16/2017 MAIKEL D Primary MAIKEL D [place] [id number] Insurance:MEDICARE MARTINDOB: Community PATI PART A [facility] [id number] Number: Repository [address]Yom: 330 [id number] [phone] (HP) Date:2017-11-15 11/16/2017 Secondary MAIKEL D [place] Insurance:WPS MILTON FREEWATERDOB: [facility] [id number] Hospital Number: Repository [id number] Date:7751-56-65ZC [address] [address]LZ: 11/16/2017 Tertiary NOT GIVENUNK [place] Insurance:SELF PAY [facility] Hospital Number: Effective Repository Date:2017-11-15 10/31/2017 MAIKEL D Primary MAIKEL D [place] [id number] Insurance:MEDICARE MARTINDOB: Community PATI PART A [facility] [id number] Springs Medical Center [place] Number: Repository [id number]: 330 [id number] [phone] (HP) Date:2017-10-30 10/31/2017 Secondary MAIKEL D [place] Insurance:WPS [facility] [id number] Hospital Number: Repository [id number] Date:4663-38-96QY [address] [address]MO: 10/31/2017 Tertiary NOT GIVENUNK [place] Insurance:SELF PAY [facility] Hospital Number: Effective Repository Date:2017-10-30 10/30/2017 MAIKEL D Primary MAIKEL D [place] [id number] Insurance:MEDICARE MARTINDOB: Community PATI PART A [facility] [id number] Springs Medical Center [place] Number: Repository [address]Huh: 330 [id number] [phone] (HP) Date:2017-10-30 10/30/2017 Secondary MAIKEL D [place] Insurance:WPS [facility]: [facility] [id number] Hospital Number: Repository [id number] Date:0739-31-68DM [address] [address]WD: 10/30/2017 Tertiary NOT GIVENUNK [place] Insurance:SELF PAY [facility] Hospital Number: Effective Repository Date:2017-10-30 10/20/2017 MAIKEL D Primary MAIKEL D [place] [id number] Insurance:MEDICARE MARTINDOB: Community PATI PART A [facility] [id number] Springs Medical Center [place] Number: Repository [id number]: 330 [id number] [phone] (HP) Date:2017-10-19 10/20/2017 Secondary MAIKEL D [place] Insurance:WPS [facility] [id number] Hospital Number: Repository [id number] Date:7743-87-93SC [address] [address]WD: 10/20/2017 Tertiary NOT GIVENUNK [place] Insurance:SELF PAY [facility] Hospital Number: Effective Repository Date:2017-10-20 10/10/2017 MAIKEL D Primary MAIKEL D [place] [id number] Insurance:MEDICARE MARTINDOB: Community PATI PART A [facility] [id number] Springs Medical Center [place] Number: Repository [address]Pjm: 330 [id number] [phone] (HP) Date:2017-10-09 10/10/2017 Secondary MAIKEL D [place] Insurance:S [facility] [id number] Hospital Number: Repository [id number] Date:2744-60-68CY [facility] [address] [address]LP: 10/10/2017 Tertiary NOT GIVENUNK [place] Insurance:SELF PAY [facility] Hospital Number: Effective Repository Date:2017-10-09 09/29/2017 MAIKEL D Primary MAIKEL D [place] [id number] Insurance:MEDICARE MARTINDOB: Community PATI PART A [facility] [id number] Springs Medical Center [place] Number: Repository [id number]: 330 [id number] [phone] () Date:2017-09-28 09/29/2017 Secondary MAIKEL D [place] Insurance:WPS [facility] FOR [facility] [id number] Hospital Number: Repository [id number] Date:0254-68-65TN [facility] [address] [address]GJ: 09/29/2017 Tertiary NOT GIVENUNK [place] Insurance:SELF PAY [facility] Hospital Number: Effective Repository Date:2017-09-28 09/19/2017 MAIKEL D Primary MAIKEL D [place] [id number] Insurance:MEDICARE MARTINDOB: Community PATI PART A [facility] [id number] Springs Medical Center [place] Number: Repository [id number]: 330 [id number] [phone] (HP) Date:2017-09-18 09/19/2017 Secondary MAIKEL D [place] Insurance:WPS MIL[place] FREEWATERDOB: [facility] FOR [facility] [id number] Hospital Number: Repository [id number] Date:2062-33-50SA [address] [address]VN: 09/19/2017 Tertiary NOT GIVENUNK [place] Insurance:SELF PAY [facility] Hospital Number: Effective Repository Date:2017-09-18 09/12/2017 MAIKEL D Primary MAIKEL D [place] [id number] Insurance:MEDICARE MARTINDOB: Community PATI PART A [facility] [id number] Number[place] Repository [address]Xuf: 330 [id number] [phone] () Date:2017-09-11 09/12/2017 Secondary MAIKEL D [place] Insurance:WPS MILTON FREEWATERDOB: [facility] [id number] Hospital Number: Repository [id number] Date:1912-53-79BY [address], [place] [address]YH: 09/12/2017 Tertiary NOT GIVENUNK [place] Insurance:SELF PAY [facility] Hospital Number: Effective Repository Date:2017-09-11 09/05/2017 MAIKEL D Primary MAIKEL D [place] [id number] Insurance:MEDICARE MARTINDOB: Community PATI PART A [facility] [id number], [place] Number: Repository [address]Ssa: 330 [id number] [phone] (HP) Date:2017-09-05 09/05/2017 Secondary MAIKEL D [place] Insurance:S MILTON FREEWATERDOB: [facility] [id number] Hospital Number: Repository [id number] Date:4150-57-81MN [address] [address]IO: 09/05/2017 Tertiary NOT GIVENUNK [place] Insurance:SELF PAY [facility] Hospital Number: Effective Repository Date:2017-09-05 09/04/2017 MAIKEL D Primary NOT GIVENUNK [place] [id number] Insurance:MEDICARE [facility] [place] Number: Effective Repository [id number]: (330) Date:2017-09-04 [phone] (HP) 09/04/2017 Secondary NOT GIVENUNK [place] Insurance:[facility] Number: Effective Repository Date:5209-38-51CN [address] [address]EK: 09/04/2017 Tertiary NOT GIVENUNK [place] Insurance:SELF PAY [facility] Hospital Number: Effective Repository Date:2017-09-04 09/04/2017 MAIKEL D Primary MAIKEL D [place] [id number] Insurance:MEDICARE MARTINDOB: Community PATI PART A [facility] [id number] Springs Medical Center [place] Number: Repository [address]Ctt: 330 [id number] [phone] () Date:2017-07-31 09/04/2017 Secondary MAIKEL D [place] Insurance:[facility]: [facility] [id number] Hospital Number: Repository [id number] Date:8380-71-86JH [address] [address]NN: 09/04/2017 Tertiary NOT GIVENUNK [place] Insurance:SELF PAY [facility] Number: Effective Repository Date:2017-07-31 09/02/2017 Maikel D Primary Maikel D [place] [id number] Insurance:MEDICARE MartinDOB: Community Pati PART A [facility] [id number] [place] Number: Repository [id number]: 330 [id number] [phone] (HP) Date:2017-09-02 09/02/2017 Secondary Maikel D [place] [facility]: [facility] [id number] Hospital Number: Repository [id number] Date:1146-03-17UD [address] [address]XR: 09/02/2017 Tertiary NOT GIVENUNK [place] Insurance:SELF PAY [facility] Number: Effective Repository Date:2017-09-02 08/16/2017 Maikel Odonnell Primary Maikel D [place] [id number] Insurance:MEDICARE VenkataDOB: Community [place] PART A BPolicy [id number] [place] Number: Repository [id number]: (079) [id number] [phone] () Date:2017-08-14 08/16/2017 Secondary Maikel D [place] Insurance:WPS BillingsDOB: Community [facility] [id number] Hospital Number: Repository [id number] Date:7076-61-09CR NILDA [address] [place] [address]WB: 08/16/2017 Tertiary NOT GIVENUNK [place] Insurance:SELF PAY [facility] Number: Effective Repository Date:2017-08-14
== END ==
PROVIDERS: Family Provider Family Medicine; PCP Family Medicine; Referring Provider Internal Medicine Hematology & Oncology; Visit Provider Internal Medicine Hematology & Oncology
DX: D46.20 Refractory anemia with excess of blasts, unspecified (principal)
CPT/HCPCS: 36430; 86850; 86900; 86920; 86922; J7040; P9016; A4216; J1940

== ENCOUNTER → 2018-08-04 08:03 | Outpatient (CLI) | payer MEDICARE, OTHER, SELFPAY ==
--- NOTE | 2018-08-04 07:30 | LES_PTH ---
PATIENT: MAIKEL SWIFT LOC: [facility] U#:[id number] AGE/SX: 89/M ROOM: RE08/04/[address]: Dr. Taiwo Aparicio MD : 1935 BED: DIS: SPEC #: [id number] RECD: 08/06/18 08:01 STATUS: CORRIE DIRK #: [id number] MINA: 08/04/18 07:[address]: Taiwo Aparicio DEPT: SURGICAL PATHOLOGY RECD BY: Alfredo Escudero ENTERED: 08/06/18 08:48 SP TYPE: Lesion OTHR DR: Dr. Madhav Huerta MD Tissues: Skin of neck, NOS Procedures: Surgery Specimen Level IV HEADER OPERATION: Excision skin lesion right neck PRE-OP DIAGNOSIS: Uncertain neoplasm neck TISSUE SUBMITTED: Right neck tissue MICROSCOPIC DIAGNOSIS Skin lesion of right neck, biopsy: Basal cell carcinoma, superficial nodular and multifocal, completely excised. Solar elastosis. AM:shreya 08/07/18 MICROSCOPIC DESCRIPTION Slides are reviewed. GROSS DESCRIPTION Received in fixative is one container labeled with the patient's name and designated right neck. The specimen consists of an ellipse of light dowling excised skin measuring 2.5 x 1 and a depth of excision measuring 0.3 cm. No gross lesions are identified. The specimen is inked, serially sectioned and totally submitted in one cassette. / AM:shreya 08/06/18 TC:0 CPT: 87124
[2018-08-04 07:48] VITALS: BMI 22.9
== END ==
PROVIDERS: Family Provider Family Medicine; PCP Family Medicine; Referring Provider Surgery; Visit Provider Surgery
DX: C44.41 Basal cell carcinoma of skin of scalp and neck (principal)
CPT/HCPCS: 88305

== ENCOUNTER → 2018-08-10 09:08 | Outpatient (CLI) | payer MEDICARE, OTHER, SELFPAY ==
[2018-08-04 07:48] VITALS: BMI 22.9
[2018-08-10] VITALS (7 sets, daily range): BP systolic 94–124; BP diastolic 43–70; PULSE 58–75; RESP 15–18; TEMP 36.6–37; O2SAT 95–100; BMI 22.9
[2018-08-10] MEDS: Furosemide 20 MG/2 ML VIAL IV (11:26)
--- OUTSIDE RECORDS SUMMARY | 2018-09-25 22:22 | XMS RPT_ITS ---
:1935 Author Organization [facility] Support Name Relationship Address Phone NEWMANN, CORNELL Unavailable [address] + [place] [address] R Unavailable Unavailable Unavailable NEWMANN, CORNELL Unavailable [address] + [place] [address] R Unavailable Unavailable Unavailable NEWMANN, CORNELL Unavailable [address] + [place] [address] R Unavailable Unavailable Unavailable NEWMANN, CORNELL Unavailable [address] + [place] [address] R Unavailable Unavailable Unavailable NEWMANN, CORNELL Unavailable [address] + [place] [address] R Unavailable Unavailable Unavailable NEWMANN, CORNELL Unavailable [address] + [place] [address] R Unavailable Unavailable Unavailable NEWMANN, CORNELL Unavailable [address] + [place] [address] R Unavailable Unavailable Unavailable NEWMANN, CORNELL Unavailable [address] + [place] [address] R Unavailable Unavailable Unavailable NEWMANN, CORNELL Unavailable [address] + [place] [address] R Unavailable Unavailable Unavailable NEWMANN, CORNELL Unavailable [address] + [place] [address] R Unavailable Unavailable Unavailable NEWMANN, CORNELL Unavailable [address] + [place] [address] R Unavailable Unavailable Unavailable NEWMANN, CORNELL Unavailable [address] + [place] [address] R Unavailable Unavailable Unavailable NEWMANN, CORNELL Unavailable [address] + [place] [address] R Unavailable Unavailable Unavailable NEWMANN, CORNELL Unavailable [address] + [place] [address] R Unavailable Unavailable Unavailable NEWMANN, CORNELL Unavailable [address] + [place] [address] R Unavailable Unavailable Unavailable NEWMANN, CORNELL Unavailable [address] + [place] [address] R Unavailable Unavailable Unavailable NEWMANN, CORNELL Unavailable [address] + [place] [address] R Unavailable Unavailable Unavailable ELIZABETH, DIVYA Unavailable [address] + [place] [address] HERNANDEZ, CORNELL Unavailable Unavailable + [place], [place] R Unavailable Unavailable Unavailable ELIZABETH, DIVYA Unavailable [address] + [place] [address] HERNANDEZ, CORNELL Unavailable Unavailable + [place], [place] R Unavailable Unavailable Unavailable ELIZABETH, DIVYA Unavailable [address] + [place] [address] HERNANDEZ, CORNELL Unavailable Unavailable + [place], [place] R Unavailable Unavailable Unavailable ELIZABETH, DIVYA Unavailable [address] + [place] [address] HERNANDEZ, CORNELL Unavailable Unavailable + [place], [place] R Unavailable Unavailable Unavailable ELIZABETH, DIVYA Unavailable [address] + [place] [address] HERNANDEZ, CORNELL Unavailable [address] + [place] [address] R Unavailable Unavailable Unavailable ELIZABETH, DIVYA Unavailable [address] + [place] [address] HERNANDEZ, CORNELL Unavailable [address] + [place] [address] R Unavailable Unavailable Unavailable ELIZABETH, DIVYA Unavailable [address] + [place] [address] HERNANDEZ, CORNELL Unavailable [address] + [place] [address] R Unavailable Unavailable Unavailable ELIZABETH, DIVYA Unavailable Unavailable + MARY [place] Unavailable Unavailable + R Unavailable Unavailable Unavailable ELIZABETH, DIVYA Unavailable Unavailable + HERNANDEZ, CORNELL Unavailable Unavailable + R Unavailable Unavailable Unavailable ELIZABETH, DIVYA Unavailable Unavailable + HERNANDEZ, CORNELL Unavailable Unavailable + R Unavailable Unavailable Unavailable ELIZABETH, DIVYA Unavailable Unavailable + HERNANDEZ, CORNLEL Unavailable Unavailable + R Unavailable Unavailable Unavailable ELIZABETH, DIVYA Unavailable Unavailable + HERNANDEZ, CORNELL Unavailable Unavailable + R Unavailable Unavailable Unavailable ELIZABETH, DIVYA Unavailable Unavailable + HERNANDEZ, CORNELL Unavailable Unavailable + R Unavailable Unavailable Unavailable ELIZABETH, DIVYA Unavailable Unavailable + MARY [place] Unavailable Unavailable + R Unavailable Unavailable [...] Unavailable Unavailable + R Unavailable Unavailable Unavailable Care Team Providers Name Role Phone MASCI, KESHAWN A Referring Unavailable MASCI, KESHAWN A Referring Unavailable MASCI, KESHAWN A Referring Unavailable MASCI, KESHAWN A Referring Unavailable MASCI, KESHAWN A Referring Unavailable MASCI, KESAHWN A Referring Unavailable MASCI, KESHAWN A Referring [...] Attending Unavailable Masci, Keshawn Referring Unavailable Munson, [facility] Unavailable Masci, Keshawn Attending Unavailable Masci, Keshawn Referring Unavailable Munson, [facility] Unavailable Masci, Keshawn Attending Unavailable Munson, [facility] Unavailable Masci, Keshawn Referring Unavailable Masci, Keshawn Attending Unavailable Munson, [facility] Unavailable Masci, Keshawn Referring Unavailable Masci, Keshawn Attending Unavailable Munson, [facility] Unavailable Masci, Keshawn Referring Unavailable Masci, Keshawn Attending Unavailable Masci, Keshawn Referring Unavailable Munson, [facility] Unavailable Masci, Keshawn Attending Unavailable Masci, Keshawn Referring Unavailable Munson, [facility] Unavailable Masci, Keshawn Attending Unavailable Masci, Keshawn Referring Unavailable Munson, [facility] Unavailable Masci, Keshawn Attending Unavailable Masci, Keshawn Referring Unavailable Munson, [facility] Unavailable Masci, Keshawn Attending Unavailable Masci, Keshawn Referring Unavailable Munson, [facility] Unavailable Masci, Keshawn Attending Unavailable Masci, Keshawn Referring Unavailable Munson, [facility] Unavailable Masci, Keshawn Attending Unavailable Masci, Keshawn Referring Unavailable Munson, [facility] Unavailable Masci, Keshawn Attending Unavailable Masci, Keshawn Referring Unavailable Munson, [facility] Unavailable Masci, Keshawn Attending Unavailable Masci, Keshawn Referring Unavailable Munson, [facility] Unavailable Masci, Keshawn Attending Unavailable Masci, Keshawn Referring Unavailable Masci, Keshawn Attending Unavailable Masci, Keshawn Referring Unavailable Munson, [facility] Unavailable Masci, Keshawn Attending Unavailable Masci, Keshawn Referring Unavailable Munson, [facility] Unavailable Masci, Keshawn Attending Unavailable Masci, Keshawn Referring Unavailable Munson, [facility] Unavailable Masci, Keshawn Attending Unavailable Masci, Keshawn Referring Unavailable Munson, [facility] Unavailable Bear Lopez Attending Unavailable Munson, Libby Referring Unavailable Munson, [facility] Unavailable Bear Lopez Attending Unavailable Bear Lopez Referring Unavailable Munson, [facility] Unavailable Masci, Keshawn Attending Unavailable Masci, Keshawn Referring Unavailable Munson, [facility] Unavailable Bear Lopez Attending Unavailable Lopez, Bear Referring Unavailable Munson, [facility] Unavailable Masci, Keshawn Attending Unavailable Masci, Keshawn Referring Unavailable Munson, Libby Primary [facility] Unavailable Masci, Keshawn Attending Unavailable Masci, Keshawn Referring Unavailable Munson, [facility] Primary [facility] Unavailable Lopez, Bear Attending Unavailable Masci, Keshawn Attending Unavailable Masci, Keshawn Referring Unavailable Munson, [facility] Primary [facility] Unavailable Mark, Joan Attending Unavailable Mark, Joan Referring Unavailable Munson, [facility] Unavailable Masci, Keshawn Attending Unavailable Masci, Keshawn Referring Unavailable Munson, [facility] Primary [facility] Unavailable Masci, Keshawn Attending Unavailable Masci, Keshawn Referring Unavailable Munson, Libby Primary [facility] Unavailable Masci, Keshawn Attending Unavailable Masci, Keshawn Referring Unavailable Munson, Libby Primary [facility] Unavailable Masci, Keshawn Attending Unavailable Masci, Keshawn Referring Unavailable Munson, Lib[facility] Primary [facility] Unavailable Munson, Libby Attending Unavailable Munson, Libby Referring Unavailable Munson, Libby Primary [facility] Unavailable Cebul, Taiwo Attending Unavailable Munson, Libby Referring Unavailable Masci, Keshawn Attending Unavailable Masci, Keshawn Referring Unavailable Munson, [facility] Primary [facility] Unavailable Roof, Libby Attending Unavailable Munson, Libby Referring Unavailable Masci, Keshawn Attending Unavailable Masci, Keshawn Referring Unavailable Munson, Lib[facility] Primary [facility] Unavailable Cebul, Taiwo Attending Unavailable Munson, Libby Referring Unavailable Cebul, Taiwo Attending Unavailable Cebul, Taiwo Referring Unavailable Munson, Libby Primary Care Unavailable PROBLEMS PROBLEMS DATE TYPE CONDITION / CODE ATTENDING STATUS SOURCE 08/04/2018 Unknown C44.41 - Basal cell Taiwo Aparicio Active [place] carcinoma of skin of [facility] scalp and neck / Hospital C44.41(ICD-10) Repository 03/13/2018 Unknown I48.0 - Paroxysmal Bear Lopez Active [place] atrial fibrillation / Community I48.0(ICD-10) Hospital Repository 03/13/2018 Unknown I50.22 - Chronic Bear Lopez Active [place] systolic (congestive) [facility] heart failure / Hospital I50.22(ICD-10) Repository 03/13/2018 Unknown I42.8 - 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 / Community I42.8(ICD-10) Hospital Repository 02/21/2018 Unknown 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, unspecified / Hospital D46.20(ICD-10) Repository 10/30/2017 Active Unknown / UNK(Unknown) KESHANW ATKINS Active [facility] Repository 11/20/2009 Active 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, [facility] unspecified / [place] D46.20(ICD-10) Repository PROCEDURES PROCEDURES No Procedure Records FoundRESULTS RESULTS [place] GR + CBC Collected: 09/13/2018 Status: F Source: [place] 11:13 AM [facility] REPOSITORY TYPE CODE TESTS RESULT OUT OF REFERENCE UNITS RANGE LAB WWBC 3.70-11.00 k/uL [place] WBC 4.43 LAB WRBC 4.20-6.00 m/uL [place] RBC 3.09 LAB WHGB 13.0-17.0 g/dL [place] Hemoglobin 9.1 LAB WHCT 39.0-51.0 % [place] Hematocrit 28.5 LAB WMCV 80.0-100.0 fL [place] MCV 92.2 LAB WMCH 26.0-34.0 pg [place] MCH 29.4 LAB WMCHC 30.5-36.0 g/dL [place] MCHC 31.9 LAB WRDW 11.5-15.0 % [place] High RDW 15.6 LAB WPLT 150-400 k/uL [place] Platelet Cnt 308 LAB WMPV 9.0-12.7 fL [place] MPV 10.3 Result Comment: Test performed at: [facility], [address] [place] [address] Rd., [place] [address]. LAB ABGRAN 1.45-7.50 k/uL Absol Gran 3.00 Count [place] ABS GR + CBC Collected: 09/06/2018 Status: F Source: [place] 11:20 AM [facility] REPOSITORY TYPE CODE TESTS RESULT OUT OF REFERENCE UNITS RANGE LAB WWBC 3.70-11.00 k/uL [place] WBC 4.81 LAB WRBC 4.20-6.00 m/uL [place] RBC 2.80 LAB WHGB 13.0-17.0 g/dL [place] Hemoglobin 8.4 LAB WHCT 39.0-51.0 % Low [place] Hematocrit 25.9 LAB WMCV 80.0-100.0 fL [place] MCV 92.5 LAB WMCH 26.0-34.0 pg [place] MCH 30.0 LAB WMCHC 30.5-36.0 g/dL [place] MCHC 32.4 LAB WRDW 11.5-15.0 % [place] RDW 15.5 LAB WPLT 150-400 k/uL [place] Platelet Cnt 378 LAB WMPV 9.0-12.7 fL [place] MPV 10.4 Result Comment: Test performed at: [facility] [place], [address] [place] [address]. LAB ABGRAN 1.45-7.50 k/uL Absol Gran 2.97 Count TYPE AND SCREEN Collected: 09/06/2018 Status: F Source: [place] 11:20 AM [facility] REPOSITORY Order Comment: PRETRANSFUSION HGB = 8.4 HCT = 25.9 PERFORMED AT [facility] CMV NEG?* N Give When? 09/07/18 @ 0900 Irradiated? N Leukodepleted? Y Reason for Type AND Screen/Red Cells: ANEMIA TYPE CODE TESTS RESULT OUT OF RANGE REFERENCE UNITS LAB B10.0800 O Normal BLOOD TYPE GEL POSITIVE LAB B100.4000 Normal Antibody NEGATIVE Screen Performed By: #### B101.7450 #### [facility] [address] [place], [address] Collected: 09/06/2018 Status: F Source: [place] 11:20 AM [facility] REPOSITORY TYPE CODE TESTS RESULT OUT OF REFERENCE UNITS RANGE LAB U100.0000 [id number] TRANSFUSED PRODUCT: T AND S with Crossmatch, Red Cells COUNT: 2 Performed By: #### U100.0000 #### [facility] - refer to report for specific site [place] GR + CBC Collected: 08/30/2018 Status: F Source: [place] 9:19 AM [facility] REPOSITORY TYPE CODE TESTS RESULT OUT OF REFERENCE UNITS RANGE LAB WWBC 3.70-11.00 k/uL [place] WBC 3.53 LAB WRBC 4.20-6.00 m/uL [place] RBC 3.03 LAB WHGB 13.0-17.0 g/dL [place] Hemoglobin 9.1 LAB WHCT 39.0-51.0 % [place] Hematocrit 28.1 LAB WMCV 80.0-100.0 fL [place] MCV 92.7 LAB WMCH 26.0-34.0 pg [place] MCH 30.0 LAB WMCHC 30.5-36.0 g/dL [place] MCHC 32.4 LAB WRDW 11.5-15.0 % [place] RDW 15.4 LAB WPLT 150-400 k/uL [place] Platelet Cnt 279 LAB WMPV 9.0-12.7 fL [place] MPV 10.4 LAB ABGRAN 1.45-7.50 k/uL Absol Gran Count 2.40 TYPE AND SCREEN Collected: 08/23/2018 Status: F Source: [place] 9:20 AM [facility] REPOSITORY Order Comment: PRETRANSFUSION HGB = 8.7 HCT = 27.3 PERFORMED AT [facility] CMV NEG?* N Give When? 08/24/18 @0830 Irradiated? N Leukodepleted? Y Reason for Type AND Screen/Red Cells: ANEMIA TYPE CODE TESTS RESULT OUT OF RANGE REFERENCE UNITS LAB B10.0800 O Normal BLOOD TYPE GEL POSITIVE LAB B100.4000 Normal Antibody NEGATIVE Screen Performed By: #### B101.7450 #### [facility] [address] [place], [address] Collected: 08/23/2018 Status: F Source: [place] 9:20 AM [facility] REPOSITORY TYPE CODE TESTS RESULT OUT OF REFERENCE UNITS RANGE LAB U100.0000 [id number] TRANSFUSED PRODUCT: T AND S with Crossmatch, Red Cells COUNT: 2 Performed By: #### U100.0000 #### [facility] - refer to report for specific site [place] ABS GR + CBC Collected: 08/23/2018 Status: F Source: [place] 9:11 AM [facility] REPOSITORY TYPE CODE TESTS RESULT OUT OF REFERENCE UNITS RANGE LAB WWBC 3.70-11.00 k/uL [place] WBC 5.86 LAB WRBC 4.20-6.00 m/uL [place] RBC 2.92 LAB WHGB 13.0-17.0 g/dL [place] Hemoglobin 8.7 LAB WHCT 39.0-51.0 % [place] Hematocrit 27.3 LAB WMCV 80.0-100.0 fL [place] MCV 93.5 LAB WMCH 26.0-34.0 pg [place] MCH 29.8 LAB WMCHC 30.5-36.0 g/dL [place] MCHC 31.9 LAB WRDW 11.5-15.0 % [place] High RDW 16.5 LAB WPLT 150-400 k/uL [place] Platelet Cnt 346 LAB WMPV 9.0-12.7 fL [place] MPV 11.1 Result Comment: Test performed at: [facility], [address] [place] [address]. LAB ABGRAN 1.45-7.50 k/uL Absol Gran 4.27 Count [place] ABS GR + CBC Collected: 08/16/2018 Status: F Source: [place] 10:22 AM [facility] REPOSITORY TYPE CODE TESTS RESULT OUT OF REFERENCE UNITS RANGE LAB WWBC 3.70-11.00 k/uL [place] WBC 6.25 LAB WRBC 4.20-6.00 m/uL [place] RBC 3.01 LAB WHGB 13.0-17.0 g/dL [place] Hemoglobin 9.0 LAB WHCT 39.0-51.0 % [place] Hematocrit 28.1 LAB WMCV 80.0-100.0 fL [place] MCV 93.4 LAB WMCH 26.0-34.0 pg [place] MCH 29.9 LAB WMCHC 30.5-36.0 g/dL [place] MCHC 32.0 LAB WRDW 11.5-15.0 % [place] RDW 15.7 LAB WPLT 150-400 k/uL [place] Platelet Cnt 331 LAB WMPV 9.0-12.7 fL [place] MPV 10.1 Result Comment: Test performed at: [facility], [address] [place] [address]., [place] [address]. LAB ABGRAN 1.45-7.50 k/uL Absol Gran 4.42 Count [place] ABS GR + CBC Collected: 08/09/2018 Status: F Source: [place] 11:38 AM [facility] REPOSITORY TYPE CODE TESTS RESULT OUT OF REFERENCE UNITS RANGE LAB WWBC 3.70-11.00 k/uL [place] WBC 10.84 LAB WRBC 4.20-6.00 m/uL [place] RBC 2.71 LAB WHGB 13.0-17.0 g/dL [place] Hemoglobin 8.0 LAB WHCT 39.0-51.0 % [place] Hematocrit 24.8 LAB WMCV 80.0-100.0 fL [place] MCV 91.5 LAB WMCH 26.0-34.0 pg [place] MCH 29.5 LAB WMCHC 30.5-36.0 g/dL [place] MCHC 32.3 LAB WRDW 11.5-15.0 % [place] RDW 15.1 LAB WPLT 150-400 k/uL [place] Platelet Cnt 365 LAB WMPV 9.0-12.7 fL [place] MPV 10.7 Result Comment: Test performed at: [facility], [address] [place] [address]. LAB ABGRAN 1.45-7.50 k/uL [place] Absol 8.10 Gran Count TYPE AND SCREEN Collected: 08/09/2018 Status: F Source: [place] 11:30 AM [facility] REPOSITORY Order Comment: PRETRANSFUSION HGB = 8.0 HCT = 24.8 PERFORMED AT [facility] CMV NEG?* N Give When? 08/10 @0915 Irradiated? N Leukodepleted? Y Reason for Type AND Screen/Red Cells: ANEMIA TYPE CODE TESTS RESULT OUT OF RANGE REFERENCE UNITS LAB B10.0800 O Normal BLOOD TYPE GEL POSITIVE LAB B100.4000 Normal Antibody NEGATIVE Screen Performed By: #### B101.7450 #### [facility] [address] [place], [address] RC Collected: 08/09/2018 Status: F Source: [place] 11:30 AM [facility] REPOSITORY TYPE CODE TESTS RESULT OUT OF REFERENCE UNITS RANGE LAB U100.0000 [id number] TRANSFUSED PRODUCT: T AND S with Crossmatch, Red Cells COUNT: 2 Performed By: #### U100.0000 #### [facility] - refer to report for specific site SURGERY VISIT REPORT Observed: 08/09/2018 Status: F Source: [place] 9:56 AM [facility] REPOSITORY [facility] 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 Required: No Is patient in pain?: No [...] VISIT REPORT Observed: 08/04/2018 Status: F Source: [place] 8:28 [facility] [address] [place] [address] [address] [place] [address] OFFICE VISIT Date of Service: 08/04/18 MR#: [id number] Acct: [id number] Name: MAIKEL HASTINGS Rep #: [id number] : 1935 Provider: Taiwo Aparicio MD Age/Sex: 83/M Location: [facility] Status: Signed Intake Vital Signs08/04/18 Body Mass Index (BMI) 22.9 Intake Visit Reasons: Skin Lesion R Lateral Neck Chief Complaint: excision right neck lesion Fish House Worker Required: No Is patient in pain?: No [...] 5 days. Taiwo Aparicio M.D., F.A.C.S. Alert Interior Assemblies Installer Alert Billing: Yes H/F/N/S/G 36592 1.1-2.0cm Procedure Time Out Time Out Informed [...] Orders: Coding Level of Care Code Attention Interior Assemblies Installer Diagnoses Skin cancer, basal cell C44.91 Additional Codes H/F/N/S/G - Malignant H/F/N/S/ 1.1-2.0cm (10618) Comment [id number] 08/04/18 0828 <Electronically signed by Taiwo Aparicio MD> Date Taiwo Aparicio MD Cosigner Signature: Date (if applicable) CC: Libby Munson MD LESION (CHOOSE SITE) Observed: 08/04/2018 Status: F Source: [place] 7:30 AM [facility] REPOSITORY Patient: MAIKEL HASTINGS : 1935 (83/M) Acct Num: [id number] Phys: Alessandra TANG,Taiwo Unit Num: [id number] Loc: [facility] Specimen: [id number] Received: 08/06/18800 Spec Type: Lesion TISSUES 1 TISSUES: Skin [...] one cassette. / AM:shreya 08/06/18 TC:0 CPT: 64034 HEADER OPERATION: Excision skin lesion right neck PRE-OP DIAGNOSIS: Uncertain neoplasm neck TISSUE SUBMITTED: Right neck tissue MICROSCOPIC DESCRIPTION Slides are reviewed. MICROSCOPIC DIAGNOSIS Skin lesion of right neck, biopsy: Basal cell carcinoma, superficial nodular and multifocal, completely excised. Solar elastosis. AM:shreya 08/07/18 Signed Ilan Tolentino 08/07/18 <signature on file> Performed By: #### PLES #### [facility] [address] [place], [address] PROGRESS Observed: 08/02/2018 Status: COMPLETED Source: [place] 8:56 AM [facility] REPOSITORY HNO ID: [id number] Author: Keshawn Atkins Service: (none) Author Type: [...] 04/05. Underwent a bone marrow biopsy at [facility] 09/06. 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 He was sent to [facility]. He was in A. fib and started [...] extremities. SKIN: No rash or jaundice. NEUROLOGIC: mothers helper II-XII are grossly intact. No focal motor [...] - 100.0 fL 91.8 92.1 92.8 MCH, [place] 26.0 - 34.0 pg 30.8 30.8 30.2 MCHC, [place] 30.5 - 36.0 g/dL 33.6 33.5 32.6 RDW, [place] 11.5 - 15.0 % 14.6 14.7 15.0 Platelet Cnt, [place] 150 - 400 k/uL 288 314 289 [...] + CBC Collected: 08/02/2018 Status: F Source: [place] 8:34 AM [facility] REPOSITORY TYPE CODE TESTS RESULT OUT OF REFERENCE UNITS RANGE LAB WWBC 3.70-11.00 k/uL [place] WBC 3.74 LAB WRBC 4.20-6.00 m/uL Low [place] RBC 3.23 LAB WHGB 13.0-17.0 g/dL Low [place] Hemoglobin 9.6 LAB WHCT 39.0-51.0 % Low [place] Hematocrit 29.5 LAB WMCV 80.0-100.0 fL [place] MCV 91.3 LAB WMCH 26.0-34.0 pg [place] MCH 29.7 LAB WMCHC 30.5-36.0 g/dL [place] MCHC 32.5 LAB WRDW 11.5-15.0 % [place] RDW 15.0 LAB WPLT 150-400 k/uL [place] Platelet Cnt 311 LAB WMPV 9.0-12.7 fL [place] MPV 9.8 Result Comment: Test performed at: [facility], [address] [place] [address] Rd[address] [place] [address]. LAB ABGRAN 1.45-7.50 k/uL Absol Gran 2.37 Count COMP METABOLIC PANEL Collected: 08/02/2018 Status: F Source: [place] 8:34 AM [facility] REPOSITORY TYPE CODE TESTS RESULT OUT [...] GFR. CNOVSP Observed: 08/02/2018 Status: COMPLETED Source: [place] 8:30 AM [facility] REPOSITORY Visit (SP) Office (BRAED[place]) MAIKEL HASTINGS ([id number]) 1935 M TXT Date Time Provider Department [...] 04/05. Underwent a bone marrow biopsy at [facility] 09/06. 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 He was sent to [facility]. He was in A. fib and started [...] extremities. SKIN: No rash or jaundice. NEUROLOGIC: mothers helper II-XII are grossly intact. No focal motor weakness. LABS: Component Latest Ref Rng AND Units 04/19/2018 04/26/2018 05/03/2018 WBC, [place] 3.70 - 11.00 k/uL 4.19 3.80 4.48 RBC, [place] 4.20 - 6.00 m/uL 3.28 (L) 2.79 (L) 3.21 (L) Hemoglobin, [place] 13.0 - 17.0 g/dL 10.1 (L) 8.6 (L) 9.7 (L) Hematocrit, [place] 39.0 - 51.0 % 30.1 (L) 25.7 (L) 29.8 (L) MCV, [place] 80.0 - 100.0 fL 91.8 92.1 92.8 MCH, [place] 26.0 - 34.0 pg 30.8 30.8 30.2 MCHC, [place] 30.5 - 36.0 g/dL 33.6 33.5 32.6 RDW, [place] 11.5 - 15.0 % 14.6 14.7 15.0 Platelet Cnt, [place] 150 - 400 k/uL 288 314 289 MPV, [place] 9.0 - 12.7 fL 10.2 10.5 9.8 [...] Keshawn Atkins DO Referring Provider: KESHAWN ATKINS [[id number]] Allergies As of Date: 08/02/2018 (No Known [...] encounter ONDANSETRON HCL 8 MG TABLET >> Jeffery Mulligan MA 08/02/2018 8:49 AM >> JEFFERY MULLIGAN MA Divya Aug 02, 2018 8:49 AM No longer taking. SAW PALMETTO 320 MG CAPSULE >> Jeffery Mulligan MA 08/02/2018 8:49 AM >> JEFFERY MULLIGAN MA Divya Aug 02, 2018 8:49 AM No longer taking. 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 current use of antiarrhythmic medical*INVALID FOR* Dyspnea on exertion [R06.09] INVALID FOR* Skin ulcer (HCC) [L98.499] INVALID FOR* Heme positive stool [R19.5] INVALID FOR* Encounter Status:Closed by KESHAWN ATKINS DO on 08/02/18 [place] GR + CBC Collected: 07/26/2018 Status: F Source: [place] 11:15 AM [facility] REPOSITORY TYPE CODE TESTS RESULT OUT OF REFERENCE UNITS RANGE LAB WWBC 3.70-11.00 k/uL [place] WBC 4.49 LAB WRBC 4.20-6.00 m/uL [place] RBC 2.91 LAB WHGB 13.0-17.0 g/dL [place] Hemoglobin 8.7 LAB WHCT 39.0-51.0 % [place] Hematocrit 26.7 LAB WMCV 80.0-100.0 fL [place] MCV 91.8 LAB WMCH 26.0-34.0 pg [place] MCH 29.9 LAB WMCHC 30.5-36.0 g/dL [place] MCHC 32.6 LAB WRDW 11.5-15.0 % [place] High RDW 15.4 LAB WPLT 150-400 k/uL [place] Platelet Cnt 354 LAB WMPV 9.0-12.7 fL [place]anna MPV 9.9 Result Comment: Test performed at: [facility], [address] [place] [address]. LAB ABGRAN 1.45-7.50 k/uL Absol Gran 2.90 Count TYPE AND SCREEN Collected: 07/26/2018 Status: F Source: HANNA 11:15 AM [facility] REPOSITORY Order Comment: CMV NEG?* N Give When? 07/27/18 0800 Irradiated? N Leukodepleted? Y Reason for Type AND Screen/Red Cells: ANEMIA TYPE CODE TESTS RESULT OUT OF RANGE REFERENCE UNITS LAB B10.0800 O Normal BLOOD TYPE GEL POSITIVE LAB B100.4000 Normal Antibody NEGATIVE Screen Performed By: #### B101.7450 #### [facility] [address] [place], [address] Collected: 07/26/2018 Status: F Source: [place] 11:15 AM [facility] REPOSITORY TYPE CODE TESTS RESULT OUT OF REFERENCE UNITS RANGE LAB U100.0000 [id number] TRANSFUSED PRODUCT: T AND S with Crossmatch, Red Cells COUNT: 2 Performed By: #### U100.0000 #### [facility] - refer to report for specific site HANNA ABS GR + CBC Collected: 07/18/2018 Status: F Source: [place] 8:21 AM [facility] REPOSITORY TYPE CODE TESTS RESULT OUT OF REFERENCE UNITS RANGE LAB WWBC 3.70-11.00 k/uL [place] WBC 4.33 LAB WRBC 4.20-6.00 m/uL Low [place] RBC 3.58 LAB WHGB 13.0-17.0 g/dL Low [place] Hemoglobin 10.7 LAB WHCT 39.0-51.0 % Low [place] Hematocrit 32.8 LAB WMCV 80.0-100.0 fL [place] MCV 91.6 LAB WMCH 26.0-34.0 pg [place] MCH 29.9 LAB WMCHC 30.5-36.0 g/dL [place]anna MCHC 32.6 LAB [place]DW 11.5-15.0 % [place] High RDW 15.3 LAB WPLT 150-400 k/uL [place] Platelet Cnt 312 LAB WMPV 9.0-12.7 fL [place] MPV 9.8 Result Comment: Test performed at: [facility], [address] [place] [address]. LAB ABGRAN 1.45-7.50 k/uL Absol Gran 2.93 Count HANNA ABS GR + CBC Collected: 07/12/2018 Status: F Source: [place] 11:28 AM [facility] REPOSITORY TYPE CODE TESTS RESULT OUT OF REFERENCE UNITS RANGE LAB WWBC 3.70-11.00 k/uL [place] WBC 4.95 LAB WRBC 4.20-6.00 m/uL Low [place] RBC 2.88 LAB WHGB 13.0-17.0 g/dL Low [place] Hemoglobin 8.7 LAB WHCT 39.0-51.0 % Low [place] Hematocrit 27.3 LAB WMCV 80.0-100.0 fL [place] MCV 94.8 LAB WMCH 26.0-34.0 pg [place] MCH 30.2 LAB WMCHC 30.5-36.0 g/dL [place] MCHC 31.9 LAB WRDW 11.5-15.0 % [place] RDW 14.6 LAB WPLT 150-400 k/uL [place] Platelet Cnt 296 LAB WMPV 9.0-12.7 fL [place] MPV 10.9 Result Comment: Test performed at: [facility], [address] [place] [address]. LAB ABGRAN 1.45-7.50 k/uL Absol Gran 3.36 Count TYPE AND SCREEN Collected: 07/12/2018 Status: F Source: [place] 11:25 AM [facility] REPOSITORY Order Comment: PRETRANSFUSION HGB = 8.7 HCT = 27.3 PERFORMED AT [facility] CMV NEG?* N Give When? 07/13/18 @0900 Irradiated? N Leukodepleted? Y Reason for Type AND Screen/Red Cells: ANEMIA TYPE CODE TESTS RESULT OUT OF RANGE REFERENCE UNITS LAB B10.0800 O Normal BLOOD TYPE GEL POSITIVE LAB B100.4000 Normal Antibody NEGATIVE Screen Performed By: #### B101.7450 #### [facility] [address] [place], [address] Collected: 07/12/2018 Status: F Source: [place] 11:25 AM [facility] REPOSITORY TYPE CODE TESTS RESULT OUT OF REFERENCE UNITS RANGE LAB U100.0000 [id number] TRANSFUSED PRODUCT: T AND S with Crossmatch, Red Cells COUNT: 2 Performed By: #### U100.0000 #### [facility] - refer to report for specific site SURGERY VISIT REPORT Observed: 07/10/2018 Status: F Source: [place] 3:55 PM [facility] REPOSITORY [facility] 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 Is patient in pain?: No [...] PO DAILY 01/03/17 [History Confirmed 07/10/18] Saw Roslyn 320 mg PO DAILY 01/03/17 [History Confirmed [...] signed by Taiwo Aparicio MD> Date Taiwo Diggs Signature: Date (if applicable) CC: Libby Munson MD [place]AN[place] ABS GR + CBC Collected: 07/05/2018 Status: F Source: [place] 11:19 AM [facility] REPOSITORY TYPE CODE TESTS RESULT OUT OF REFERENCE UNITS RANGE LAB WWBC 3.70-11.00 k/uL Low [place] WBC 3.60 LAB WRBC 4.20-6.00 m/uL Low [place] RBC 3.28 LAB WHGB 13.0-17.0 g/dL Low [place] Hemoglobin 10.1 LAB WHCT 39.0-51.0 % Low [place] Hematocrit 31.1 LAB WMCV 80.0-100.0 fL [place] MCV 94.8 LAB WMCH 26.0-34.0 pg [place] MCH 30.8 LAB WMCHC 30.5-36.0 g/dL [place] MCHC 32.5 LAB [place] 11.5-15.0 % Hanna R[place] 14.5 LAB WPLT 150-400 k/uL [place] Platelet Cnt 288 LAB WMPV 9.0-12.7 fL [place] MPV 9.8 Result Comment: Test performed at: [facility], [address] [place] [address] Rd[address] [place] [address]. LAB ABGRAN 1.45-7.50 k/uL Absol Gran 2.22 Count HANNA ABS GR + CBC Collected: 06/28/2018 Status: F Source: [place] 12:02 PM [facility] REPOSITORY TYPE CODE TESTS RESULT OUT OF REFERENCE UNITS RANGE LAB WWBC 3.70-11.00 k/uL [place] WBC 4.36 LAB WRBC 4.20-6.00 m/uL Low [place] RBC 2.89 LAB WHGB 13.0-17.0 g/dL Low [place] Hemoglobin 8.8 LAB WHCT 39.0-51.0 % Low [place] Hematocrit 27.5 LAB WMCV 80.0-100.0 fL [place] MCV 95.2 LAB WMCH 26.0-34.0 pg [place] MCH 30.4 LAB WMCHC 30.5-36.0 g/dL [place] MCHC 32.0 LAB [place]DW 11.5-15.0 % [place] RDW 15.0 LAB WPLT 150-400 k/uL [place] Platelet Cnt 311 LAB WMPV 9.0-12.7 fL [place] MPV 10.3 Result Comment: Test performed at: [facility], [address] [place] [address]. LAB ABGRAN 1.45-7.50 k/uL Absol Gran 2.68 Count TYPE AND SCREEN Collected: 06/28/2018 Status: F Source: [place] 11:57 AM [facility] REPOSITORY Order Comment: PRETRANSFUSION HGB = 8.8 HCT = 27.5 PERFORMED AT [facility] CMV NEG?* N Give When? 06/29/18 @0930AM Irradiated? N Leukodepleted? Y Reason for Type AND Screen/Red Cells: ANEMIA TYPE CODE TESTS RESULT OUT OF RANGE REFERENCE UNITS LAB B10.0800 O Normal BLOOD TYPE GEL POSITIVE LAB B100.4000 Normal Antibody NEGATIVE Screen Performed By: #### B101.7450 #### [facility] [address] [place] [place], [address] Collected: 06/28/2018 Status: F Source: [place] 11:57 AM [facility] REPOSITORY TYPE CODE TESTS RESULT OUT OF REFERENCE UNITS RANGE LAB U100.0000 [id number] TRANSFUSED PRODUCT: T AND S with Crossmatch, Red Cells COUNT: 2 Performed By: #### U100.0000 #### [facility] - refer to report for specific site LESION (CHOOSE SITE) Observed: 06/28/2018 Status: F Source: [place] 12:00 AM [facility] REPOSITORY Patient: MAIKEL HASTINGS : 1935 (82/M) Acct Num: [id number] Phys: Libby Munson MD Unit Num: [id number] Loc: LABSPEC Specimen: [id number] Received: 06/28/181814 Spec Type: Lesion TISSUES 1 [...] one cassette. / AM:shreya 06/29/18 TC:0 CPT: 04077 HEADER OPERATION: Punch biopsy PRE-OP DIAGNOSIS: Suspicious [...] on file> Performed By: #### PLES #### [facility] [address] [place], [address] [place] ABS GR + CBC Collected: 06/21/2018 Status: F Source: [place] 11:14 AM [facility] REPOSITORY TYPE CODE TESTS RESULT OUT OF REFERENCE UNITS RANGE LAB WWBC 3.70-11.00 k/uL [place] WBC 3.88 LAB WRBC 4.20-6.00 m/uL Low [place] RBC 2.62 LAB WHGB 13.0-17.0 g/dL Low [place] Hemoglobin 7.9 LAB WHCT 39.0-51.0 % Low [place] Hematocrit 24.8 LAB WMCV 80.0-100.0 fL [place] MCV 94.7 LAB WMCH 26.0-34.0 pg [place] MCH 30.2 LAB WMCHC 30.5-36.0 g/dL [place] MCHC 31.9 LAB [place]DW 11.5-15.0 % [place] RDW 15.0 LAB WPLT 150-400 k/uL [place] Platelet Cnt 359 LAB WMPV 9.0-12.7 fL [place] MPV 10.3 Result Comment: Test performed at: [facility], [address] [place] [address] Rd[address] [place] [address]. LAB ABGRAN 1.45-7.50 k/uL Absol Gran 2.31 Count TYPE AND SCREEN Collected: 06/21/2018 Status: F Source: [place] 11:14 AM [facility] REPOSITORY Order Comment: PRETRANSFUSION HGB = 7.9 HCT = 24.8 PERFORMED AT [facility] CMV NEG?* N Give When? 06-22-18 @0900 Irradiated? N Leukodepleted? Y Reason for Type AND Screen/Red Cells: ANEMIA TYPE CODE TESTS RESULT OUT OF RANGE REFERENCE UNITS LAB B10.0800 O Normal BLOOD TYPE GEL POSITIVE LAB B100.4000 Normal Antibody NEGATIVE Screen Performed By: #### B101.7450 #### [facility] [address] [place] [place], [address] RC Collected: 06/21/2018 Status: F Source: [place] 11:14 AM [facility] REPOSITORY TYPE CODE TESTS RESULT OUT OF REFERENCE UNITS RANGE LAB U100.0000 [id number] TRANSFUSED PRODUCT: T AND S with Crossmatch, Red Cells COUNT: 2 Performed By: #### U100.0000 #### [facility] - refer to report for specific site HANNA ABS GR + CBC Collected: 06/14/2018 Status: F Source: [place] 11:12 AM [facility] REPOSITORY TYPE CODE TESTS RESULT OUT OF REFERENCE UNITS RANGE LAB WWBC 3.70-11.00 k/uL Low [place] WBC 3.21 LAB WRBC 4.20-6.00 m/uL Low [place] RBC 3.09 LAB WHGB 13.0-17.0 g/dL Low [place] Hemoglobin 9.5 LAB WHCT 39.0-51.0 % Low [place] Hematocrit 29.1 LAB WMCV 80.0-100.0 fL [place] MCV 94.2 LAB WMCH 26.0-34.0 pg [place] MCH 30.7 LAB WMCHC 30.5-36.0 g/dL [place] MCHC 32.6 LAB [place]DW 11.5-15.0 % [place]anna [place] 14.8 LAB WPLT 150-400 k/uL [place] Platelet Cnt 337 LAB WMPV 9.0-12.7 fL [place] MPV 9.7 Result Comment: Test performed at: [facility] [place], [address] [place] [address]. LAB ABGRAN 1.45-7.50 k/uL Absol Gran 1.88 Count HANNA ABS GR + CBC Collected: 06/07/2018 Status: F Source: [place] 10:35 AM [facility] REPOSITORY TYPE CODE TESTS RESULT OUT OF REFERENCE UNITS RANGE LAB WWBC 3.70-11.00 k/uL [place] WBC 4.58 LAB WRBC 4.20-6.00 m/uL Low [place] RBC 2.64 LAB WHGB 13.0-17.0 g/dL Low [place] Hemoglobin 8.1 LAB WHCT 39.0-51.0 % Low [place] Hematocrit 24.9 LAB WMCV 80.0-100.0 fL [place] MCV 94.3 LAB WMCH 26.0-34.0 pg [place] MCH 30.7 LAB WMCHC 30.5-36.0 g/dL [place] MCHC 32.5 LAB WRDW 11.5-15.0 % [place] High RDW 15.2 LAB WPLT 150-400 k/uL [place] Platelet Cnt 374 LAB WMPV 9.0-12.7 fL [place] MPV 9.9 Result Comment: Test performed at: [facility], [address] [place] [address] [address] [place] [address]. LAB ABGRAN 1.45-7.50 k/uL Absol Gran 3.29 Count TYPE AND SCREEN Collected: 06/07/2018 Status: F Source: [place] 10:35 AM [facility] REPOSITORY Order Comment: PRETRANSFUSION HGB = 8.1 HCT = 24.9 PERFORMED AT [facility] CMV NEG?* N Give When? 06/08 Irradiated? N Leukodepleted? Y Reason for Type AND Screen/Red Cells: ANEMIA TYPE CODE TESTS RESULT OUT OF RANGE REFERENCE UNITS LAB B10.0800 O Normal BLOOD TYPE GEL POSITIVE LAB B100.4000 Normal Antibody NEGATIVE Screen Performed By: #### B101.7450 #### [facility] [address] [place], [place], [address] Collected: 06/07/2018 Status: F Source: [place] 10:35 AM [facility] REPOSITORY TYPE CODE TESTS RESULT OUT OF REFERENCE UNITS RANGE LAB U100.0000 [id number] TRANSFUSED PRODUCT: T AND S with Crossmatch, Red Cells COUNT: 2 Performed By: #### U100.0000 #### [facility] - refer to report for specific site HANNA ABS GR + CBC Collected: 05/31/2018 Status: F Source: [place] 11:04 AM [facility] REPOSITORY TYPE CODE TESTS RESULT OUT OF REFERENCE UNITS RANGE LAB WWBC 3.70-11.00 k/uL [place] WBC 5.60 LAB WRBC 4.20-6.00 m/uL Low [place] RBC 3.00 LAB WHGB 13.0-17.0 g/dL Low [place] Hemoglobin 9.2 LAB WHCT 39.0-51.0 % Low [place] Hematocrit 27.9 LAB WMCV 80.0-100.0 fL [place] MCV 93.0 LAB WMCH 26.0-34.0 pg [place] MCH 30.7 LAB WMCHC 30.5-36.0 g/dL [place] MCHC 33.0 LAB [place] 11.5-15.0 % [place] RDW 15.0 LAB WPLT 150-400 k/uL [place] Platelet Cnt 353 LAB WMPV 9.0-12.7 fL [place] MPV 10.1 Result Comment: Test performed at: [address] [place] [address]. LAB ABGRAN 1.45-7.50 k/uL Absol Gran 3.73 Count HANNA ABS GR + CBC Collected: 05/24/2018 Status: F Source: [place] 11:20 AM [facility] REPOSITORY TYPE CODE TESTS RESULT OUT OF REFERENCE UNITS RANGE LAB WWBC 3.70-11.00 k/uL [place] WBC 3.73 LAB WRBC 4.20-6.00 m/uL Low [place] RBC 2.60 LAB WHGB 13.0-17.0 g/dL Low [place] Hemoglobin 7.9 LAB WHCT 39.0-51.0 % Low [place] Hematocrit 24.6 LAB WMCV 80.0-100.0 fL [place] MCV 94.6 LAB WMCH 26.0-34.0 pg [place] MCH 30.4 LAB WMCHC 30.5-36.0 g/dL [place] MCHC 32.1 LAB WRDW 11.5-15.0 % [place] High RDW 15.3 LAB WPLT 150-400 k/uL [place] Platelet Cnt 322 LAB WMPV 9.0-12.7 fL [place] MPV 9.9 Result Comment: Test performed at: [place] [address] [place] [address]. LAB ABGRAN 1.45-7.50 k/uL Absol Gran 2.48 Count TYPE AND SCREEN Collected: 05/24/2018 Status: F Source: [place] 11:19 AM [facility] REPOSITORY Order Comment: PRETRANSFUSION HGB = 7.9 HCT = 24.6 PERFORMED AT [facility] CMV NEG?* N Give When? 05/25/18 0900 Irradiated? N Leukodepleted? Y Reason for Type AND Screen/Red Cells: ANEMIA TYPE CODE TESTS RESULT OUT OF RANGE REFERENCE UNITS LAB B10.0800 O Normal BLOOD TYPE GEL POSITIVE LAB B100.4000 Normal Antibody NEGATIVE Screen Performed By: #### B101.7450 #### [facility] [address] [place] [place], [address] Collected: 05/24/2018 Status: F Source: [place] 11:19 AM [facility] REPOSITORY TYPE CODE TESTS RESULT OUT OF REFERENCE UNITS RANGE LAB U100.0000 [id number] TRANSFUSED PRODUCT: T AND S with Crossmatch, Red Cells COUNT: 2 Performed By: #### U100.0000 #### [facility] - refer to report for specific site [place] ABS GR + CBC Collected: 05/17/2018 Status: F Source: [place] 11:10 AM [facility] REPOSITORY TYPE CODE TESTS RESULT OUT OF REFERENCE UNITS RANGE LAB WWBC 3.70-11.00 k/uL [place] WBC 4.12 LAB WRBC 4.20-6.00 m/uL Low [place] RBC 3.00 LAB WHGB 13.0-17.0 g/dL Low [place] Hemoglobin 9.1 LAB WHCT 39.0-51.0 % Low [place] Hematocrit 28.1 LAB WMCV 80.0-100.0 fL [place] MCV 93.7 LAB WMCH 26.0-34.0 pg [place] MCH 30.3 LAB WMCHC 30.5-36.0 g/dL [place]anna MCHC 32.4 LAB WRDW 11.5-15.0 % Hanna RDW 15.0 LAB WPLT 150-400 k/uL [place] Platelet Cnt 298 LAB WMPV 9.0-12.7 fL [place] MPV 10.1 Result Comment: Test performed at: [facility], [address] [place] [address]. LAB ABGRAN 1.45-7.50 k/uL Absol Gran 2.71 Count [place] ABS GR + CBC Collected: 05/10/2018 Status: F Source: [place] 11:09 AM [facility] REPOSITORY TYPE CODE TESTS RESULT OUT OF REFERENCE UNITS RANGE LAB WWBC 3.70-11.00 k/uL Low [place] WBC 3.28 LAB WRBC 4.20-6.00 m/uL Low [place] RBC 2.60 LAB WHGB 13.0-17.0 g/dL Low [place] Hemoglobin 7.9 LAB WHCT 39.0-51.0 % Low [place] Hematocrit 24.0 LAB WMCV 80.0-100.0 fL [place] MCV 92.3 LAB WMCH 26.0-34.0 pg [place] MCH 30.4 LAB WMCHC 30.5-36.0 g/dL [place] MCHC 32.9 LAB WRDW 11.5-15.0 % [place] RDW 15.0 LAB WPLT 150-400 k/uL [place] Platelet Cnt 286 LAB WMPV 9.0-12.7 fL [place] MPV 10.2 Result Comment: Test performed at: [facility], [address] [place] [address]. LAB ABGRAN 1.45-7.50 k/uL Absol Gran 2.09 Count TYPE AND SCREEN Collected: 05/10/2018 Status: F Source: [place] 11:07 [facility] REPOSITORY Order Comment: PRETRANSFUSION HGB = 7.9 HCT = 24.0 PERFORMED AT [facility] CMV NEG?* N Give When? 05/11/18 0930AM Irradiated? N Leukodepleted? Y Reason for Type AND Screen/Red Cells: ANEMIA TYPE CODE TESTS RESULT OUT OF RANGE REFERENCE UNITS LAB B10.0800 O Normal BLOOD TYPE GEL POSITIVE LAB B100.4000 Normal Antibody NEGATIVE Screen Performed By: #### B101.7450 #### [facility] [address] [place], [address] Collected: 05/10/2018 Status: F Source: [place] 11:07 [facility] TYPE CODE TESTS RESULT OUT OF REFERENCE UNITS RANGE LAB U100.0000 [id number] TRANSFUSED PRODUCT: T AND S with Crossmatch, Red Cells COUNT: 2 Performed By: #### U100.0000 #### [facility] - refer to report for specific site PROGRESS Observed: 05/03/2018 Status: COMPLETED Source: [place] 8:31 AM [facility] REPOSITORY HNO ID: [id number] Author: Keshawn Atkins Service: (none) Author Type: [...] 04/05. Underwent a bone marrow biopsy at [facility] 09/06. 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 He was sent to [facility]. He was in A. fib and started [...] extremities. SKIN: No rash or jaundice. NEUROLOGIC: mothers helper II-XII are grossly intact. No focal motor weakness. LABS: Component Latest Ref Rng AND Units 04/19/2018 04/26/2018 05/03/2018 WBC, [place] 3.70 - 11.00 k/uL 4.19 3.80 4.48 RBC, [place] 4.20 - 6.00 m/uL 3.28 (L) 2.79 (L) 3.21 (L) Hemoglobin, Hanna 13.0 - 17.0 g/dL 10.1 (L) 8.6 (L) 9.7 (L) Hematocrit, [place] 39.0 - 51.0 % 30.1 (L) 25.7 (L) 29.8 (L) MCV, Hanna 80.0 - 100.0 fL 91.8 92.1 92.8 MCH, [place]anna 26.0 - 34.0 pg 30.8 30.8 30.2 MCHC, [place] 30.5 - 36.0 g/dL 33.6 33.5 32.6 RDW, Hanna 11.5 - 15.0 % 14.6 14.7 15.0 Platelet Cnt, [place] 150 - 400 k/uL 288 314 289 MPV, [place] 9.0 - 12.7 fL 10.2 10.5 9.8 [...] DO CNOVSP Observed: 05/03/2018 Status: COMPLETED Source: [place] 8:30 AM [facility] REPOSITORY Visit (SP) Office (HEMAWS) MAIKEL HASTINGS ([id number]) 1935 M TXT Date Time Provider Department 05/03/18 8:30 AM KESHAWN ATKINS During your visit today, we recorded the following information about you: Temperature Pulse Blood pressure Weight 97.9 degrees 60/minute 116/55 73.3 kg Leny Sanchez VICTORIANO 05/03/2018 8:39 AM Signed Est patient. Three month office visit. Discuss recent labs. Leny Sanchez VICTORIANO Atkins DO 05/03/2018 8:55 AM Signed Diagnosis: [...] 04/05. Underwent a bone marrow biopsy at [facility] 09/06. 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 The [employer] cane. 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 He was sent to [facility]. He was in A. fib and started [...] extremities. SKIN: No rash or jaundice. NEUROLOGIC: mothers helper II-XII are grossly intact. No focal motor weakness. LABS: Component Latest Ref Rng AND Units 04/19/2018 04/26/2018 05/03/2018 WBC, [place] 3.70 - 11.00 k/uL 4.19 3.80 4.48 RBC, [place] 4.20 - 6.00 m/uL 3.28 (L) 2.79 (L) 3.21 (L) Hemoglobin, [place] 13.0 - 17.0 g/dL 10.1 (L) 8.6 (L) 9.7 (L) Hematocrit, [place] 39.0 - 51.0 % 30.1 (L) 25.7 (L) 29.8 (L) MCV, Hanna 80.0 - 100.0 fL 91.8 92.1 92.8 MCH, [place] 26.0 - 34.0 pg 30.8 30.8 30.2 MCHC, [place] 30.5 - 36.0 g/dL 33.6 33.5 32.6 RDW, [place] 11.5 - 15.0 % 14.6 14.7 15.0 Platelet Cnt, Hanna 150 - 400 k/uL 288 314 289 MPV, [place] 9.0 - 12.7 fL 10.2 10.5 9.8 [...] Keshawn Atkins DO Referring Provider: KESHAWN ATKINS [[id number]] Allergies As of Date: 05/03/2018 (No Known [...] 05/03/2018 8:22 AM >> LENY SANCHEZ LPN May 03, 2018 8:22 AM As needed [...] fibrillation, persistent (HCC) [I48.1] 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 Three month office visit. Discuss recent labs. Leny Sanchez VICTORIANO Encounter Status:Closed by KESHAWN ATKINS DO on 05/03/18 HANNA ABS GR + CBC Collected: 05/03/2018 Status: F Source: [place] 7:57 AM [facility] REPOSITORY TYPE CODE TESTS RESULT OUT OF REFERENCE UNITS RANGE LAB WWBC 3.70-11.00 k/uL [place] WBC 4.48 LAB WRBC 4.20-6.00 m/uL Low [place] RBC 3.21 LAB WHGB 13.0-17.0 g/dL Low [place] Hemoglobin 9.7 LAB WHCT 39.0-51.0 % Low [place] Hematocrit 29.8 LAB WMCV 80.0-100.0 fL [place] MCV 92.8 LAB WMCH 26.0-34.0 pg [place] MCH 30.2 LAB WMCHC 30.5-36.0 g/dL [place] MCHC 32.6 LAB WRDW 11.5-15.0 % [place] RDW 15.0 LAB WPLT 150-400 k/uL [place] Platelet Cnt 289 LAB WMPV 9.0-12.7 fL [place]anna MPV 9.8 Result Comment: Test performed at: [facility], [address] [place] [address] Rd[address] [place] [address]. LAB ABGRAN 1.45-7.50 k/uL Absol Gran 3.26 Count COMP METABOLIC PANEL Collected: 05/03/2018 Status: F Source: [place] 7:55 AM [facility] REPOSITORY TYPE CODE TESTS RESULT OUT OF REFERENCE UNITS RANGE LAB TP 6.3-8.0 g/dL Protein, Total 6.8 LAB ALB 3.9-4.9 g/dL Albumin 4.6 LAB CA 8.5-10.2 mg/dL Calcium, Total 9.5 LAB TBIL 0.2-1.3 mg/dL Bilirubin, Total 1.3 LAB ALKP 36-108 U/L Alkaline High Phosphatase 135 LAB AST 14-40 U/L AST High 56 LAB GLU 74-99 mg/dL Glucose High 168 Result Comment: The [place] [employer] (ADA) provides guidance for cutoff [...] Standards of Medical Care in Diabetes 2016, [place] [employer]. Diabetes Care. 2016.39(Suppl 1). LAB [...] actual GFR. Performed By: #### CMP #### [facility] [address] [place], [place] [address] HANNA ABS GR + CBC Collected: 04/26/2018 Status: F Source: [place] 11:15 AM [facility] REPOSITORY TYPE CODE TESTS RESULT OUT OF REFERENCE UNITS RANGE LAB WWBC 3.70-11.00 k/uL [place] WBC 3.80 LAB WRBC 4.20-6.00 m/uL Low [place] RBC 2.79 LAB WHGB 13.0-17.0 g/dL Low [place] Hemoglobin 8.6 LAB WHCT 39.0-51.0 % Low [place] Hematocrit 25.7 LAB WMCV 80.0-100.0 fL [place] MCV 92.1 LAB WMCH 26.0-34.0 pg [place] MCH 30.8 LAB WMCHC 30.5-36.0 g/dL Hanna MCHC 33.5 LAB WRDW 11.5-15.0 % [place] RDW 14.7 LAB WPLT 150-400 k/uL [place]anna Platelet Cnt 314 LAB WMPV 9.0-12.7 fL [place] MPV 10.5 Result Comment: Test performed by: [facility], [address] [place] [address]. LAB ABGRAN 1.45-7.50 k/uL Absol Gran 2.60 Count TYPE AND SCREEN Collected: 04/26/2018 Status: F Source: [place] 11:10 AM [facility] REPOSITORY Order Comment: PRETRANSFUSION HGB = 8.6 HCT = 25.7 PERFORMED AT [facility] CMV NEG?* N Give When? 04/27/18 @0830 Irradiated? N Leukodepleted? Y Reason for Type AND Screen/Red Cells: ANEMIA TYPE CODE TESTS RESULT OUT OF RANGE REFERENCE UNITS LAB B10.0800 O Normal BLOOD TYPE GEL POSITIVE LAB B100.4000 Normal Antibody NEGATIVE Screen Performed By: #### B101.7450 #### [facility] [address] [place], [address] Collected: 04/26/2018 Status: F Source: [place] 11:10 AM [facility] REPOSITORY TYPE CODE TESTS RESULT OUT OF REFERENCE UNITS RANGE LAB U100.0000 [id number] TRANSFUSED PRODUCT: T AND S with Crossmatch, Red Cells COUNT: 2 Performed By: #### U100.0000 #### [facility] - refer to report for specific site [place] ABS GR + CBC Collected: 04/19/2018 Status: F Source: [place] 11:08 AM [facility] REPOSITORY TYPE CODE TESTS RESULT OUT OF REFERENCE UNITS RANGE LAB WWBC 3.70-11.00 k/uL Dow WBC 4.19 LAB WRBC 4.20-6.00 m/uL Low Dow RBC 3.28 LAB WHGB 13.0-17.0 g/dL Low Dow Hemoglobin 10.1 LAB WHCT 39.0-51.0 % Low [place] Hematocrit 30.1 LAB WMCV 80.0-100.0 fL [place] MCV 91.8 LAB WMCH 26.0-34.0 pg Dow MCH 30.8 LAB WMCHC 30.5-36.0 g/dL [place]anna MCHC 33.6 LAB WRDW 11.5-15.0 % Hanna RDW 14.6 LAB WPLT 150-400 k/uL [place] Platelet Cnt 288 LAB WMPV 9.0-12.7 fL Dow MPV 10.2 Result Comment: Test performed at: [facility], [address] [place] [address] Rd[address] [place] [address]. LAB ABGRAN 1.45-7.50 k/uL Absol Gran 2.78 Count HANNA ABS GR + CBC Collected: 04/12/2018 Status: F Source: [place] 11:19 AM [facility] REPOSITORY TYPE CODE TESTS RESULT OUT OF REFERENCE UNITS RANGE LAB WWBC 3.70-11.00 k/uL Dow WBC 3.88 LAB WRBC 4.20-6.00 m/uL Low [place] RBC 2.87 LAB WHGB 13.0-17.0 g/dL Low [place] Hemoglobin 8.6 LAB WHCT 39.0-51.0 % Low Dow Hematocrit 26.4 LAB WMCV 80.0-100.0 fL Dow MCV 92.0 LAB WMCH 26.0-34.0 pg [place]anna MCH 30.0 LAB WMCHC 30.5-36.0 g/dL [place] MCHC 32.6 LAB WRDW 11.5-15.0 % [place] RDW 14.9 LAB WPLT 150-400 k/uL [place] Platelet Cnt 309 LAB WMPV 9.0-12.7 fL [place] MPV 10.1 Result Comment: Test performed at: [facility], [address] [place] [address]. LAB ABGRAN 1.45-7.50 k/uL Absol Gran 2.68 Count TYPE AND SCREEN Collected: 04/12/2018 Status: F Source: [place] 11:11 AM [facility] REPOSITORY Order Comment: PRETRANSFUSION HGB = 8.6 HCT = 26.4 PERFORMED AT [facility] CMV NEG?* N Give When? 04/13/18 @0800 Irradiated? N Leukodepleted? Y Reason for Type AND Screen/Red Cells: ANEMIA TYPE CODE TESTS RESULT OUT OF RANGE REFERENCE UNITS LAB B10.0800 O Normal BLOOD TYPE GEL POSITIVE LAB B100.4000 Normal Antibody NEGATIVE Screen Performed By: #### B101.7450 #### [facility] [address] [place], [address] Collected: 04/12/2018 Status: F Source: [place] 11:11 AM [facility] REPOSITORY TYPE CODE TESTS RESULT OUT OF REFERENCE UNITS RANGE LAB U100.0000 [id number] TRANSFUSED PRODUCT: T AND S with Crossmatch, Red Cells COUNT: 2 Performed By: #### U100.0000 #### [facility] - refer to report for specific site [place] ABS GR + CBC Collected: 04/05/2018 Status: F Source: [place] 11:10 AM [facility] REPOSITORY TYPE CODE TESTS RESULT OUT OF REFERENCE UNITS RANGE LAB WWBC 3.70-11.00 k/uL [place] WBC 3.24 LAB WRBC 4.20-6.00 m/uL [place] RBC 3.11 LAB WHGB 13.0-17.0 g/dL [place] Hemoglobin 9.4 LAB WHCT 39.0-51.0 % [place] Hematocrit 28.6 LAB WMCV 80.0-100.0 fL [place] MCV 92.0 LAB WMCH 26.0-34.0 pg [place] MCH 30.2 LAB WMCHC 30.5-36.0 g/dL [place] MCHC 32.9 LAB WRDW 11.5-15.0 % [place] RDW 14.9 LAB WPLT 150-400 k/uL [place] Platelet Cnt 268 LAB WMPV 9.0-12.7 fL [place] MPV 10.0 Result Comment: Test performed at: [facility] [place], [address] [place] [address]. LAB ABGRAN 1.45-7.50 k/uL Absol Gran 2.17 Count TYPE AND SCREEN Collected: 03/29/2018 Status: F Source: [place] 11:13 AM [facility] REPOSITORY Order Comment: PRETRANSFUSION HGB = 8.2 HCT = 25.6 PERFORMED AT [facility] CMV NEG?* N Give When? 03/30 09 Irradiated? N Leukodepleted? Y Reason for Type AND Screen/Red Cells: ANEMIA TYPE CODE TESTS RESULT OUT OF RANGE REFERENCE UNITS LAB B10.0800 O Normal BLOOD TYPE GEL POSITIVE LAB B100.4000 Normal Antibody NEGATIVE Screen Performed By: #### B101.7450 #### [facility] [address] [place], [address] RC Collected: 03/29/2018 Status: F Source: [place] 11:13 AM [facility] REPOSITORY TYPE CODE TESTS RESULT OUT OF REFERENCE UNITS RANGE LAB U100.0000 [id number] TRANSFUSED PRODUCT: T AND S with Crossmatch, Red Cells COUNT: 2 Performed By: #### U100.0000 #### [facility] - refer to report for specific site [place] ABS GR + CBC Collected: 03/29/2018 Status: F Source: [place] 11:03 AM [facility] REPOSITORY TYPE CODE TESTS RESULT OUT OF REFERENCE UNITS RANGE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 150-400 k/uL [place] Platelet Cnt 253 LAB WMPV 9.0-12.7 fL Dow MPV 10.1 Result Comment: Test performed at: [facility], [address] [place] [address]. LAB ABGRAN 1.45-7.50 k/uL Absol Gran 2.14 Count TYPE AND SCREEN Collected: 12/28/2017 Status: F Source: [place] 11:10 AM [facility] REPOSITORY Order Comment: PRETRANSFUSION HGB = 7.9 HCT = 24.8 PERFORMED AT [facility] CMV NEG?* N Give When? 12/29/17 @1000 Irradiated? N Leukodepleted? Y Reason for Type AND Screen/Red Cells: ANEMIA TYPE CODE TESTS RESULT OUT OF RANGE REFERENCE UNITS LAB B10.0800 O Normal BLOOD TYPE GEL POSITIVE LAB B100.4000 Normal Antibody NEGATIVE Screen Performed By: #### B101.7450 #### [facility] [address] [place], [address] Collected: 12/28/2017 Status: F Source: [place] 11:10 AM [facility] REPOSITORY TYPE CODE TESTS RESULT OUT OF REFERENCE UNITS RANGE LAB U100.0000 [id number] TRANSFUSED PRODUCT: T AND S with Crossmatch, Red Cells COUNT: 2 Performed By: #### U100.0000 #### [facility] - refer to report for specific site CNPN Observed: 12/28/2017 Status: COMPLETED Source: [place] 12:00 AM [facility] REPOSITORY Telephone (HEMAWS) MAIKEL HASTINGS ([id number]) 1935 M TXT Date Time Provider Department 12/28/17 KESHAWN ATKINS During your visit today, we recorded the following information about you: Leny Sanchez LPN 12/28/2017 11:47 AM Signed Patient scheduled for 2 units PRBC's 12/29/2017 @10:00. Orders faxed. Patient and lab aware. Da Swift LPN 12/28/2017 11:55 AM Signed Patient is returning a call to the office in regards to his blood counts. The below message was reviewed with him again but patient would like a return call from the nurse to explain those results. Please contact him on his mobile number at: [phone]. Leny Sanchez LPN 12/28/2017 11:59 AM Signed Patient aware of labs results and scheduled transfusion time. Leny Sanchez LPN Allergies As of Date: 12/28/2017 (No Known Allergies) Date Reviewed: 10/30/2017 Reviewed by: Jeffery Mulligan Ma - Fully Assessed Reason for [...] Atrial fibrillation, persistent (HCC) [I48.1] INVALID FOR* senior living current use of antiarrhythmic medical*INVALID FOR* Dyspnea on exertion [R06.09] INVALID FOR* Skin ulcer (HCC) [L98.499] INVALID FOR* Heme positive stool [R19.5] INVALID FOR* Encounter Status:Closed by LENY SANCHEZ LPN on 12/28/17 [place] ABS GR + CBC Collected: 12/21/2017 Status: F Source: [place] 11:19 AM [facility]POS[facility] TYPE CODE TESTS RESULT OUT OF REFERENCE UNITS RANGE LAB WWBC 3.70-11.00 k/uL [place] WBC 4.73 LAB WRBC 4.20-6.00 m/uL Low [place] RBC 2.45 LAB WHGB 13.0-17.0 g/dL Low [place] Hemoglobin 7.2 LAB WHCT 39.0-51.0 % Low [place] Hematocrit 22.2 LAB WMCV 80.0-100.0 fL [place] MCV 90.6 LAB WMCH 26.0-34.0 pg [place] MCH 29.4 LAB WMCHC 30.5-36.0 g/dL Dow MCHC 32.4 LAB WRDW 11.5-15.0 % Dow High RDW 15.2 LAB WPLT 150-400 k/uL [place] Platelet Cnt 257 LAB WMPV 9.0-12.7 fL [place] MPV 9.9 Result Comment: Test performed at: [facility], [address] [place] [address]. LAB ABGRAN 1.45-7.50 k/uL Absol Gran 3.36 Count TYPE AND SCREEN Collected: 12/21/2017 Status: P Source: [place] 11:16 AM [facility] REPOSITORY Order Comment: PRETRANSFUSION HGB = 7.2 HCT = 22.2 PERFORMED AT [facility] CMV NEG?* N Give When? 12/22/2017 0830 Irradiated? N Leukodepleted? Y Reason for Type AND Screen/Red Cells: ANEMIA TYPE CODE TESTS RESULT OUT OF RANGE REFERENCE UNITS LAB B10.0800 O Normal BLOOD TYPE GEL POSITIVE LAB B100.4000 Normal Antibody NEGATIVE Screen Performed By: #### B101.7450 #### [facility] [address] [place], [address] TYPE AND SCREEN Collected: 12/21/2017 Status: P Source: [place] 11:16 AM [facility] REPOSITORY Order Comment: PRETRANSFUSION HGB = 7.2 HCT = 22.2 PERFORMED AT [facility] CMV NEG?* N Give When? 12/22/2017 0830 Irradiated? N Leukodepleted? Y Reason for Type AND Screen/Red Cells: ANEMIA TYPE CODE TESTS RESULT OUT OF RANGE REFERENCE UNITS LAB B10.0800 O Normal BLOOD TYPE GEL POSITIVE LAB B100.4000 Normal Antibody NEGATIVE Screen Performed By: #### B101.7450 #### [facility] [address] [place], [address] TYPE AND SCREEN Collected: 12/21/2017 Status: F Source: [place] 11:16 AM [facility] REPOSITORY Order Comment: PRETRANSFUSION HGB = 7.2 HCT = 22.2 PERFORMED AT [facility] CMV NEG?* N Give When? 12/22/2017 0830 Irradiated? N Leukodepleted? Y Reason for Type AND Screen/Red Cells: ANEMIA TYPE CODE TESTS RESULT OUT OF RANGE REFERENCE UNITS LAB B10.0800 O Normal BLOOD TYPE GEL POSITIVE LAB B100.4000 Normal Antibody NEGATIVE Screen Performed By: #### B101.7450 #### [facility] [address] [place], [address] RC Collected: 12/21/2017 Status: F Source: [place] 11:16 AM [facility] REPOSITORY TYPE CODE TESTS RESULT OUT OF REFERENCE UNITS RANGE LAB U100.0000 [id number] TRANSFUSED PRODUCT: T AND S with Crossmatch, Red Cells COUNT: 2 Performed By: #### U100.0000 #### [facility] - refer to report for specific site [place] ABS GR + CBC Collected: 12/14/2017 Status: F Source: [place] 11:25 AM [facility] REPOSITORY TYPE CODE TESTS RESULT OUT OF REFERENCE UNITS RANGE LAB WWBC 3.70-11.00 k/uL Low [place] WBC 2.71 LAB WRBC 4.20-6.00 m/uL Low [place] RBC 3.01 LAB WHGB 13.0-17.0 g/dL Low [place] Hemoglobin 8.7 LAB WHCT 39.0-51.0 % Low [place] Hematocrit 27.0 LAB WMCV 80.0-100.0 fL Dow MCV 89.7 LAB WMCH 26.0-34.0 pg [place] MCH 28.9 LAB WMCHC 30.5-36.0 g/dL Dow MCHC 32.2 LAB WRDW 11.5-15.0 % [place] RDW 14.8 LAB WPLT 150-400 k/uL [place] Platelet Cnt 203 LAB WMPV 9.0-12.7 fL Dow MPV 9.8 Result Comment: Test performed at: [facility], [address] [place] [address] Rd[address] [place] [address]. LAB ABGRAN 1.45-7.50 k/uL Absol Gran 1.66 Count [place] ABS GR + CBC Collected: 12/07/2017 Status: F Source: [place] 11:28 AM [facility] REPOSITORY TYPE CODE TESTS RESULT OUT OF REFERENCE UNITS RANGE LAB WWBC 3.70-11.00 k/uL Low [place] WBC 2.91 LAB WRBC 4.20-6.00 m/uL Low [place] RBC 2.86 LAB WHGB 13.0-17.0 g/dL Low [place] Hemoglobin 8.3 LAB WHCT 39.0-51.0 % Low [place] Hematocrit 25.5 LAB WMCV 80.0-100.0 fL Dow MCV 89.2 LAB WMCH 26.0-34.0 pg [place] MCH 29.0 LAB WMCHC 30.5-36.0 g/dL [place] MCHC 32.5 LAB WRDW 11.5-15.0 % [place] High RDW 15.1 LAB WPLT 150-400 k/uL [place] Platelet Cnt 222 LAB WMPV 9.0-12.7 fL [place] MPV 10.2 Result Comment: Test performed at: [facility], [address] [place] [address]. LAB ABGRAN 1.45-7.50 k/uL Absol Gran 1.71 Count TYPE AND SCREEN Collected: 12/07/2017 Status: F Source: [place] 11:25 AM [facility] REPOSITORY Order Comment: PRETRANSFUSION HGB = 8.3 HCT = 25.5 PERFORMED AT [facility] CMV NEG?* N Give When? 12/08 @0830 Irradiated? N Leukodepleted? Y Reason for Type AND Screen/Red Cells: ANEMIA TYPE CODE TESTS RESULT OUT OF RANGE REFERENCE UNITS LAB B10.0800 O Normal BLOOD TYPE GEL POSITIVE LAB B100.4000 Normal Antibody NEGATIVE Screen Performed By: #### B101.7450 #### [facility] [address] [place] [place], [address] Collected: 12/07/2017 Status: F Source: [place] 11:25 AM [facility] REPOSITORY TYPE CODE TESTS RESULT OUT OF REFERENCE UNITS RANGE LAB U100.0000 [id number] TRANSFUSED PRODUCT: T AND S with Crossmatch, Red Cells COUNT: 2 Performed By: #### U100.0000 #### [facility] - refer to report for specific site [place] ABS GR + CBC Collected: 11/30/2017 Status: F Source: [place] 2:40 PM [facility] REPOSITORY TYPE CODE TESTS RESULT OUT OF REFERENCE UNITS RANGE LAB WWBC 3.70-11.00 k/uL Low [place] WBC 3.06 LAB WRBC 4.20-6.00 m/uL Low [place] RBC 2.47 LAB WHGB 13.0-17.0 g/dL Low [place] Hemoglobin 7.2 LAB WHCT 39.0-51.0 % Low [place] Hematocrit 22.4 LAB WMCV 80.0-100.0 fL [place] MCV 90.7 LAB WMCH 26.0-34.0 pg [place] MCH 29.1 LAB WMCHC 30.5-36.0 g/dL Dow MCHC 32.1 LAB WRDW 11.5-15.0 % Dow High RDW 15.1 LAB WPLT 150-400 k/uL [place] Platelet Cnt 214 LAB WMPV 9.0-12.7 fL Dow MPV 9.9 Result Comment: Test performed at: [facility], [address] [place] [address]. LAB ABGRAN 1.45-7.50 k/uL Absol Gran 1.88 Count TYPE AND SCREEN Collected: 11/30/2017 Status: F Source: [place] 2:40 PM [facility] REPOSITORY Order Comment: PRETRANSFUSION HGB = 7.2 HCT = 22.4 PERFORMED AT [facility] CMV NEG?* N Give When? 12/01/17 @0900 Irradiated? N Leukodepleted? Y Reason for Type AND Screen/Red Cells: ANEMIA TYPE CODE TESTS RESULT OUT OF RANGE REFERENCE UNITS LAB B10.0800 O Normal BLOOD TYPE GEL POSITIVE LAB B100.4000 Test Normal Antibody not performed Screen Performed By: #### B101.7450 #### [facility] [address] [place], [address] ANTIBODY SCREEN, Collected: 11/30/2017 Status: F Source: [place] INDIRECT 2:40 PM [facility] REPOSITORY TYPE CODE TESTS RESULT OUT OF RANGE REFERENCE UNITS LAB B100.7000 Normal ANTIBODY NEGATIVE SCREEN Performed By: #### B100.7000 #### [facility] [address] [place], [address] RC Collected: 11/30/2017 Status: F Source: [place] 2:40 PM [facility] REPOSITORY TYPE CODE TESTS RESULT OUT OF REFERENCE UNITS RANGE LAB U100.0000 [id number] TRANSFUSED PRODUCT: T AND S with Crossmatch, Red Cells COUNT: 2 Performed By: #### U100.0000 #### [facility] - refer to report for specific site [place] ABS GR + CBC Collected: 11/23/2017 Status: F Source: [place] 11:18 AM [facility] REPOSITORY TYPE CODE TESTS RESULT OUT OF REFERENCE UNITS RANGE LAB WWBC 3.70-11.00 k/uL Low [place] WBC 2.38 LAB WRBC 4.20-6.00 m/uL Low [place] RBC 3.16 LAB WHGB 13.0-17.0 g/dL Low [place] Hemoglobin 9.2 LAB WHCT 39.0-51.0 % Low [place] Hematocrit 28.3 LAB WMCV 80.0-100.0 fL [place] MCV 89.6 LAB WMCH 26.0-34.0 pg [place] MCH 29.1 LAB WMCHC 30.5-36.0 g/dL [place] MCHC 32.5 LAB WRDW 11.5-15.0 % [place] RDW 14.9 LAB WPLT 150-400 k/uL [place] Platelet Cnt 176 LAB WMPV 9.0-12.7 fL [place] MPV 10.4 Result Comment: Test performed by: [facility] [place], [facility] [place] [address]. LAB ABGRAN 1.45-7.50 k/uL Low Absol 1.28 Gran Count [place] ABS GR + CBC Collected: 11/15/2017 Status: F Source: [place] 3:37 PM [facility] REPOSITORY TYPE CODE TESTS RESULT OUT OF REFERENCE UNITS RANGE LAB WWBC 3.70-11.00 k/uL Low [place] WBC 2.39 LAB WRBC 4.20-6.00 m/uL Low Dow RBC 2.36 LAB WHGB 13.0-17.0 g/dL Low [place] Hemoglobin 7.0 LAB WHCT 39.0-51.0 % Low [place] Hematocrit 21.7 LAB WMCV 80.0-100.0 fL Dow MCV 91.9 LAB WMCH 26.0-34.0 pg [place] MCH 29.7 LAB WMCHC 30.5-36.0 g/dL Dow MCHC 32.3 LAB WRDW 11.5-15.0 % Dow RDW 14.8 LAB WPLT 150-400 k/uL [place] Platelet Cnt 168 LAB WMPV 9.0-12.7 fL Dow MPV 10.4 LAB ABGRAN 1.45-7.50 k/uL Absol Gran Count 1.55 TYPE AND SCREEN Collected: 11/15/2017 Status: F Source: [place] 3:37 PM [facility] REPOSITORY Order Comment: PRETRANSFUSION HGB = 7.0 HCT = 21.7 PERFORMED AT [facility] CMV NEG?* N Give When? 11/16/17 @0800 Irradiated? N Leukodepleted? Y Reason for Type AND Screen/Red Cells: ANEMIA TYPE CODE TESTS RESULT OUT OF RANGE REFERENCE UNITS LAB B10.0800 O Normal BLOOD TYPE GEL POSITIVE LAB B100.4000 Normal Antibody NEGATIVE Screen Performed By: #### B101.7450 #### [facility] [address] [place], [address] RC Collected: 11/15/2017 Status: F Source: [place] 3:37 PM [facility] REPOSITORY TYPE CODE TESTS RESULT OUT OF REFERENCE UNITS RANGE LAB U100.0000 [id number] TRANSFUSED PRODUCT: T AND S with Crossmatch, Red Cells COUNT: 2 Performed By: #### U100.0000 #### [facility] - refer to report for specific site [place] ABS GR + CBC Collected: 11/09/2017 Status: F Source: [place] 11:32 AM [facility] REPOSITORY TYPE CODE TESTS RESULT OUT OF REFERENCE UNITS RANGE LAB WWBC 3.70-11.00 k/uL Low [place] WBC 2.58 LAB WRBC 4.20-6.00 m/uL Low Dow RBC 2.96 LAB WHGB 13.0-17.0 g/dL Low [place] Hemoglobin 8.9 LAB WHCT 39.0-51.0 % Low [place] Hematocrit 27.1 LAB WMCV 80.0-100.0 fL [place] MCV 91.6 LAB WMCH 26.0-34.0 pg [place] MCH 30.1 LAB WMCHC 30.5-36.0 g/dL [place] MCHC 32.8 LAB WRDW 11.5-15.0 % [place] RDW 14.6 LAB WPLT 150-400 k/uL [place] Platelet Cnt 176 LAB WMPV 9.0-12.7 fL [place] MPV 10.3 Result Comment: Test performed at: [facility] [place], [address] [place] [address]. LAB ABGRAN 1.45-7.50 k/uL Absol Gran 1.64 Count PROGRESS Observed: 10/30/2017 Status: COMPLETED Source: [place] 10:06 AM [facility] RE[facility]IT[facility] HNO ID: [id number] Author: Keshawn Atkins Service: (none) Author Type: [...] 04/05. Underwent a bone marrow biopsy at [facility] 09/06. 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 He was sent to [facility]. He was in A. fib and started [...] management. Interim history: Had heart cath at [facility]--no significant CAD. Says he's been feeling well. [...] extremities. SKIN: No rash or jaundice. NEUROLOGIC: mothers helper II-XII are grossly intact. No focal motor [...] DO CNOVSP Observed: 10/30/2017 Status: COMPLETED Source: [place] 9:50 AM [facility] RE[facility] Visit (SP) Office (HEMAWS) MAIKEL HASTINGS ([id number]) 1935 M TXT Date Time Provider Department 10/30/17 9:50 AM KESHAWN ATKINS During your visit today, we recorded the following information about you: Temperature Pulse Blood pressure Weight 97.5 degrees 58/minute 122/59 72.6 kg Keshawn Camilo DO [place] 10/30/2017 10:19 AM Signed Diagnosis: 1) MDS [...] 04/05. Underwent a bone marrow biopsy at [facility] 09/06. 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 The [employer] cane. 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 He was sent to [facility]. He was in A. fib and started [...] management. Interim history: Had heart cath at [facility]--no significant CAD. Says he's been feeling well. [...] extremities. SKIN: No rash or jaundice. NEUROLOGIC: mothers helper II-XII are grossly intact. 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5-36.0 g/dL Dow MCHC 32.2 LAB WRDW 11.5-15.0 % Dow RDW 14.1 LAB WPLT 150-400 k/uL Dow Platelet Cnt 183 LAB WMPV 9.0-12.7 fL Dow MPV 10.4 Result Comment: Test performed at: [facility] [place], [address] [place] [address] Rd[address] [place] [address]. TYPE AND SCREEN Collected: 10/30/2017 Status: F Source: [place] 9:25 AM [facility] REPOSITORY Order Comment: PRETRANSFUSION HGB = 7.9 HCT = 24.5 PERFORMED AT [facility] CMV NEG?* N Give When? 10/31/17 @ 830 Irradiated? N Leukodepleted? Y Reason for Type AND Screen/Red Cells: ANEMIA TYPE CODE TESTS RESULT OUT OF RANGE REFERENCE UNITS LAB B10.0800 O Normal BLOOD TYPE GEL POSITIVE LAB B100.4000 Normal Antibody NEGATIVE Screen Performed By: #### B101.7450 #### [facility] [address] [place], [address] Collected: 10/30/2017 Status: F Source: [place] 9:25 AM [facility] REPOSITORY TYPE CODE TESTS RESULT OUT OF REFERENCE UNITS RANGE LAB U100.0000 [id number] TRANSFUSED PRODUCT: T AND S with Crossmatch, Red Cells COUNT: 2 Performed By: #### U100.0000 #### [facility] - refer to report for specific site [place] ABS GR + CBC Collected: 10/26/2017 Status: F Source: [place] 11:26 AM [facility] REPOSITORY TYPE CODE TESTS RESULT OUT OF REFERENCE UNITS RANGE LAB WWBC 3.70-11.00 k/uL Low [place] WBC 3.02 LAB WRBC 4.20-6.00 m/uL Low [place] RBC 2.97 LAB WHGB 13.0-17.0 g/dL Low [place] Hemoglobin 8.9 LAB WHCT 39.0-51.0 % Low [place] Hematocrit 27.2 LAB WMCV 80.0-100.0 fL Dow MCV 91.6 LAB WMCH 26.0-34.0 pg [place] MCH 30.0 LAB WMCHC 30.5-36.0 g/dL [place] MCHC 32.7 LAB WRDW 11.5-15.0 % [place] RDW 14.1 LAB WPLT 150-400 k/uL [place] Platelet Cnt 188 LAB WMPV 9.0-12.7 fL [place] MPV 10.1 Result Comment: Test performed at: [facility], [address] [place] [address] Rd[address] [place] [address]. LAB ABGRAN 1.45-7.50 k/uL Absol Gran 1.98 Count HANNA ABS GR + CBC Collected: 10/23/2017 Status: F Source: [place] 11:19 AM [facility] REPOSITORY TYPE CODE TESTS RESULT OUT OF REFERENCE UNITS RANGE LAB WWBC 3.70-11.00 k/uL Low [place] WBC 2.47 LAB WRBC 4.20-6.00 m/uL Low [place] RBC 3.00 LAB WHGB 13.0-17.0 g/dL Low [place] Hemoglobin 8.9 LAB WHCT 39.0-51.0 % Low Dow Hematocrit 27.5 LAB WMCV 80.0-100.0 fL [place] MCV 91.7 LAB WMCH 26.0-34.0 pg Dow MCH 29.7 LAB WMCHC 30.5-36.0 g/dL Dow MCHC 32.4 LAB WRDW 11.5-15.0 % Dow RDW 14.3 LAB WPLT 150-400 k/uL Dow Platelet Cnt 191 LAB WMPV 9.0-12.7 fL Dow MPV 9.8 Result Comment: Test performed at: [facility], [address] [place] [address]. LAB ABGRAN 1.45-7.50 k/uL Absol Gran 1.48 Count HANNA ABS GR + CBC Collected: 10/19/2017 Status: F Source: [place] 11:15 AM [facility] REPOSITORY TYPE CODE TESTS RESULT OUT OF REFERENCE UNITS RANGE LAB WWBC 3.70-11.00 k/uL Low Dow WBC 2.33 LAB WRBC 4.20-6.00 m/uL Low [place] RBC 2.72 LAB WHGB 13.0-17.0 g/dL Low Dow Hemoglobin 8.2 LAB WHCT 39.0-51.0 % Low [place] Hematocrit 25.2 LAB WMCV 80.0-100.0 fL Dow MCV 92.6 LAB WMCH 26.0-34.0 pg Dow MCH 30.1 LAB WMCHC 30.5-36.0 g/dL [place] MCHC 32.5 LAB WRDW 11.5-15.0 % Dow RDW 14.1 LAB WPLT 150-400 k/uL [place] Platelet Cnt 207 LAB WMPV 9.0-12.7 fL [place] MPV 10.0 Result Comment: Test performed at: [facility], [address] [place] [address]. LAB ABGRAN 1.45-7.50 k/uL Low Absol 1.44 Gran Count TYPE AND SCREEN Collected: 10/19/2017 Status: F Source: [place] 11:15 AM [facility] REPOSITORY Order Comment: PRETRANSFUSION HGB = 8.2 HCT = 25.2 PERFORMED AT [facility] CMV NEG?* N Give When? 10/20/17 @0930 Irradiated? N Leukodepleted? Y Reason for Type AND Screen/Red Cells: ANEMIA TYPE CODE TESTS RESULT OUT OF RANGE REFERENCE UNITS LAB B10.0800 O Normal BLOOD TYPE GEL POSITIVE LAB B100.4000 Normal Antibody NEGATIVE Screen Performed By: #### B101.7450 #### [facility] [address] [place], [address] Collected: 10/19/2017 Status: F Source: [place] 11:15 AM [facility] REPOSITORY TYPE CODE TESTS RESULT OUT OF REFERENCE UNITS RANGE LAB U100.0000 [id number] TRANSFUSED PRODUCT: T AND S with Crossmatch, Red Cells COUNT: 2 Performed By: #### U100.0000 #### [facility] - refer to report for specific site HANNA ABS GR + CBC Collected: 10/16/2017 Status: F Source: [place] 11:22 AM [facility] REPOSITORY TYPE CODE TESTS RESULT OUT OF REFERENCE UNITS RANGE LAB WWBC 3.70-11.00 k/uL Low Dow WBC 2.47 LAB WRBC 4.20-6.00 m/uL Low Dow RBC 2.93 LAB WHGB 13.0-17.0 g/dL Low Dow Hemoglobin 8.6 LAB WHCT 39.0-51.0 % Low Dow Hematocrit 27.2 LAB WMCV 80.0-100.0 fL Hanna MCV 92.8 LAB WMCH 26.0-34.0 pg [place]anna MCH 29.4 LAB WMCHC 30.5-36.0 g/dL Hanna MCHC 31.6 LAB WRDW 11.5-15.0 % Dow RDW 14.3 LAB WPLT 150-400 k/uL Hanna Platelet Cnt 224 LAB WMPV 9.0-12.7 fL [place] MPV 10.4 Result Comment: Test performed at: [facility], [address] [place] [address]. LAB ABGRAN 1.45-7.50 k/uL Low Absol 1.38 Gran Count HANNA ABS GR + CBC Collected: 10/12/2017 Status: F Source: [place] 11:30 AM [facility] REPOSITORY TYPE CODE TESTS RESULT OUT OF REFERENCE UNITS RANGE LAB WWBC 3.70-11.00 k/uL Low [place]anna WBC 1.99 LAB WRBC 4.20-6.00 m/uL Low [place]anna RBC 3.03 LAB WHGB 13.0-17.0 g/dL Low Dow Hemoglobin 9.1 LAB WHCT 39.0-51.0 % Low [place] Hematocrit 27.8 LAB WMCV 80.0-100.0 fL [place] MCV 91.7 LAB WMCH 26.0-34.0 pg [place]anna MCH 30.0 LAB WMCHC 30.5-36.0 g/dL [place]anna MCHC 32.7 LAB WRDW 11.5-15.0 % Dow RDW 14.4 LAB WPLT 150-400 k/uL Dow Platelet Cnt 220 LAB WMPV 9.0-12.7 fL Dow MPV 10.2 Result Comment: Test performed at: [address] [place] [address]. LAB ABGRAN 1.45-7.50 k/uL Low Absol 1.17 Gran Count HANNA CBC Collected: 10/09/2017 Status: F Source: [place] 11:29 AM [facility] REPOSITORY TYPE CODE TESTS RESULT OUT OF REFERENCE UNITS RANGE LAB WWBC 3.70-11.00 k/uL Low [place]anna WBC 2.94 LAB WRBC 4.20-6.00 m/uL Low Dow RBC 2.56 LAB WHGB 13.0-17.0 g/dL Low [place] Hemoglobin 7.7 LAB WHCT 39.0-51.0 % Low Dow Hematocrit 23.9 LAB WMCV 80.0-100.0 fL Dow MCV 93.4 LAB WMCH 26.0-34.0 pg Dow MCH 30.1 LAB WMCHC 30.5-36.0 g/dL Hanna MCHC 32.2 LAB WRDW 11.5-15.0 % Dow RDW 14.5 LAB WPLT 150-400 k/uL Dow Platelet Cnt 212 LAB WMPV 9.0-12.7 fL Dow MPV 9.7 Result Comment: Test performed at: [address] [place] [address]. TYPE AND SCREEN Collected: 10/09/2017 Status: F Source: [place] 11:28 AM [facility] REPOSITORY Order Comment: PRETRANSFUSION HGB = 7.7 HCT = 23.9 PERFORMED AT [facility] CMV NEG?* N Give When? 10/10/17 @0800 Irradiated? N Leukodepleted? Y Reason for Type AND Screen/Red Cells: ANEMIA TYPE CODE TESTS RESULT OUT OF RANGE REFERENCE UNITS LAB B10.0800 O Normal BLOOD TYPE GEL POSITIVE LAB B100.4000 Normal Antibody NEGATIVE Screen Performed By: #### B101.7450 #### [facility] [address] [place] [place], [address] Collected: 10/09/2017 Status: F Source: [place] 11:28 AM [facility] REPOSITORY TYPE CODE TESTS RESULT OUT OF REFERENCE UNITS RANGE LAB U100.0000 [id number] TRANSFUSED PRODUCT: T AND S with Crossmatch, Red Cells COUNT: 2 Performed By: #### U100.0000 #### [facility] - refer to report for specific site HANNA ABS GR + CBC Collected: 10/05/2017 Status: F Source: [place] 11:28 AM [facility] REPOSITORY TYPE CODE TESTS RESULT OUT OF REFERENCE UNITS RANGE LAB WWBC 3.70-11.00 k/uL Low Dow WBC 1.92 LAB WRBC 4.20-6.00 m/uL Low Dow RBC 2.96 LAB WHGB 13.0-17.0 g/dL Low [place] Hemoglobin 8.9 LAB WHCT 39.0-51.0 % Low [place]anna Hematocrit 27.6 LAB WMCV 80.0-100.0 fL Dow MCV 93.2 LAB WMCH 26.0-34.0 pg Dow MCH 30.1 LAB WMCHC 30.5-36.0 g/dL Dow MCHC 32.2 LAB WRDW 11.5-15.0 % Dow RDW 14.5 LAB WPLT 150-400 k/uL Dow Platelet Cnt 204 LAB WMPV 9.0-12.7 fL Dow MPV 9.8 Result Comment: Test performed at: [facility] [place], [address] [place] [address]. LAB ABGRAN 1.45-7.50 k/uL Low Absol 1.05 Gran Count HANNA ABS GR + CBC Collected: 10/02/2017 Status: F Source: [place] 11:45 AM [facility] REPOSITORY TYPE CODE TESTS RESULT OUT OF REFERENCE UNITS RANGE LAB WWBC 3.70-11.00 k/uL Low [place] WBC 2.98 LAB WRBC 4.20-6.00 m/uL Low Dow RBC 3.32 LAB WHGB 13.0-17.0 g/dL Low [place] Hemoglobin 9.8 LAB WHCT 39.0-51.0 % Low Dow Hematocrit 30.5 LAB WMCV 80.0-100.0 fL [place] MCV 91.9 LAB WMCH 26.0-34.0 pg [place] MCH 29.5 LAB WMCHC 30.5-36.0 g/dL Dow MCHC 32.1 LAB WRDW 11.5-15.0 % Dow RDW 14.7 LAB WPLT 150-400 k/uL [place]anna Platelet Cnt 197 LAB WMPV 9.0-12.7 fL Dow MPV 9.6 Result Comment: Test performed at: [facility], [address] [place] [address]. LAB ABGRAN 1.45-7.50 k/uL Absol Gran 1.91 Count TYPE AND SCREEN Collected: 09/29/2017 Status: F Source: [place] 7:53 AM [facility] REPOSITORY Order Comment: REDRAW. PREVIOUS SPECIMEN REJECTED DUE TO MISLABELED. 09/28/17 REBECCA. MANUAL GEL METHOD PERFORMED CMV NEG?* N Give When? NOW Irradiated? Y Leukodepleted? Y Reason for Type AND Screen/Red Cells: ANEMIA TYPE CODE TESTS RESULT OUT OF RANGE REFERENCE UNITS LAB B10.0800 O Normal BLOOD TYPE GEL POSITIVE LAB B100.4000 Normal Antibody NEGATIVE Screen Performed By: #### B101.7450 #### [facility] [address] [place], [address] Collected: 09/29/2017 Status: F Source: [place] 7:53 AM [facility] REPOSITORY TYPE CODE TESTS RESULT OUT OF REFERENCE UNITS RANGE LAB U100.0000 [id number] TRANSFUSED PRODUCT: T AND S with Crossmatch, Red Cells COUNT: 1 Performed By: #### U100.0000 #### [facility] - refer to report for specific site [place] ABS GR + CBC Collected: 09/28/2017 Status: F Source: [place] 11:21 AM [facility] REPOSITORY TYPE CODE TESTS RESULT OUT OF REFERENCE UNITS RANGE LAB WWBC 3.70-11.00 k/uL Low Dow WBC 2.02 LAB WRBC 4.20-6.00 m/uL Low [place] RBC 2.73 LAB WHGB 13.0-17.0 g/dL Low [place] Hemoglobin 8.0 LAB WHCT 39.0-51.0 % Low [place] Hematocrit 25.2 LAB WMCV 80.0-100.0 fL Dow MCV 92.3 LAB WMCH 26.0-34.0 pg Dow MCH 29.3 LAB WMCHC 30.5-36.0 g/dL [place]anna MCHC 31.7 LAB WRDW 11.5-15.0 % Hanna RDW 14.6 LAB WPLT 150-400 k/uL Hanna Platelet Cnt 152 LAB WMPV 9.0-12.7 fL [place]anna MPV 10.3 Result Comment: Test performed at: [facility], [address] [place] [address]. LAB ABGRAN 1.45-7.50 k/uL Absol Gran 1.48 Count TYPE AND SCREEN Collected: 09/28/2017 Status: F Source: [place] 11:18 AM [facility] REPOSITORY Order Comment: PRETRANSFUSION HGB = 8.0 HCT = 25.2 PERFORMED AT [facility] CMV NEG?* N Give When? 09/29/17 Irradiated? Y Leukodepleted? Y Reason for Type AND Screen/Red Cells: ANEMIA TYPE CODE TESTS RESULT OUT OF RANGE REFERENCE UNITS LAB B10.0800 O Normal BLOOD TYPE GEL POSITIVE LAB B100.4000 Normal Antibody NEGATIVE Screen Performed By: #### B101.7450 #### [facility] [address] [place], [address] [place] ABS GR + CBC Collected: 09/25/2017 Status: F Source: [place] 7:39 AM [facility] REPOSITORY TYPE CODE TESTS RESULT OUT OF REFERENCE UNITS RANGE LAB WWBC 3.70-11.00 k/uL Low [place] WBC 2.04 LAB WRBC 4.20-6.00 m/uL Low [place] RBC 3.40 LAB WHGB 13.0-17.0 g/dL Low [place] Hemoglobin 10.1 LAB WHCT 39.0-51.0 % Low [place] Hematocrit 31.3 LAB WMCV 80.0-100.0 fL Hanna MCV 92.1 LAB WMCH 26.0-34.0 pg [place]anna MCH 29.7 LAB WMCHC 30.5-36.0 g/dL Dow MCHC 32.3 LAB WRDW 11.5-15.0 % Dow RDW 14.0 LAB WPLT 150-400 k/uL [place] Platelet Cnt 170 LAB WMPV 9.0-12.7 fL [place]anna MPV 10.7 Result Comment: Test performed at: [facility], [address] [place] [address]. LAB ABGRAN 1.45-7.50 k/uL Low Absol 1.27 Gran Count HANNA ABS GR + CBC Collected: 09/21/2017 Status: F Source: [place] 11:11 AM [facility] REPOSITORY TYPE CODE TESTS RESULT OUT OF REFERENCE UNITS RANGE LAB WWBC 3.70-11.00 k/uL Low [place] WBC 1.94 LAB WRBC 4.20-6.00 m/uL Low Dow RBC 3.44 LAB WHGB 13.0-17.0 g/dL Low Dow Hemoglobin 10.3 LAB WHCT 39.0-51.0 % Low [place] Hematocrit 31.7 LAB WMCV 80.0-100.0 fL Dow MCV 92.2 LAB WMCH 26.0-34.0 pg Hanna MCH 29.9 LAB WMCHC 30.5-36.0 g/dL Hanna MCHC 32.5 LAB WRDW 11.5-15.0 % Hanna RDW 14.0 LAB WPLT 150-400 k/uL Dow Platelet Cnt 162 LAB WMPV 9.0-12.7 fL [place] MPV 9.8 Result Comment: Test performed at: [facility], [address] [place] [address]. LAB ABGRAN 1.45-7.50 k/uL Low Absol 1.19 Gran Count ALLERGIES ALLERGIES DATE TYPE / CODE NAME / CODE REACTION SEVERITY SOURCE 09/07/2018 Drug No Known Unknown [facility] Allergy/416 Allergies/L09979 Hospital 397251(SNOM 0388(RXNORM) Repository ED CT) Drug NO KNOWN [facility] Class/31371 ALLERGIES [place] 1003(SNOMED Repository CT) ENCOUNTERS ENCOUNTERS ADMIT/DISCHARGE ACCOUNT ADMITTING ENCOUNTER LOCATION SOURCE NUMBER CLASS 09/13/2018/09/14/19 [id number] Ambulatory [address] Repository 09/07/2018 [id number] [facility] Repository 09/06/2018/09/07/19 [id number] Ambulatory [address] Repository 08/30/2018/08/30/19 [id number] Ambulatory [address] Repository 08/24/2018 [id number] [facility] ing:MED[facility]P Repository 08/23/2018/08/24/20 [id number] Ambulatory [address] Repository 08/23/2018 [id number] Ambulatory [facility] Repository 08/16/2018/08/17/20 [id number] Ambulatory [address] Repository 08/10/2018 [id number] [facility] ing:MEDOUTP Repository 08/09/2018/08/09/20 [id number] Ambulatory BMSBuilding:B [place] [address] [place] Repository 08/09/2018/08/10/20 [id number] Ambulatory [address] Repository 08/04/2018 [id number] [facility] ing:LABSPEC Repository 08/04/2018/08/04/20 [id number] Ambulatory BMSBuilding:B [place] 18 [place] Repository 08/02/2018/08/03/20 [id number] Ambulatory [address] Repository 08/02/2018/08/03/20 [id number] Ambulatory [address] Repository 07/27/2018 [id number] [facility] ing:MEDOUTP Repository 07/26/2018/07/26/20 [id number] Ambulatory [address] Repository 07/24/2018/07/24/20 [id number] Ambulatory BMSBuilding:B [place] 18 [place] Repository 07/18/2018/11/21 [id number] Ambulatory [place] [facility] [place] Repository 07/13/2018 [id number] [facility] ing:MEDOUTP Repository 07/12/2018/07/13/20 [id number] Ambulatory [address] [place] Repository 07/10/2018/07/10/20 [id number] Ambulatory BMSBuilding:B [place] 18 [facility] Repository 07/05/2018/07/06/20 [id number] Ambulatory [address] [place] Repository 06/29/2018 [id number] [facility] ing:MEDOUTP Repository 06/28/2018 [id number] [facility] ing:LABSPEC Repository 06/28/2018/06/29/20 [id number] Ambulatory [address] [place] Repository 06/22/2018 [id number] [facility] ing:MEDOUTP Repository 06/21/2018/06/21/20 [id number] Ambulatory [address] [place] Repository 06/14/2018/06/15/20 [id number] Ambulatory [address] [place] Repository 06/08/2018 [id number] [facility] ing:MEDOUTP Repository 06/07/2018/06/08/20 [id number] Ambulatory [address] [place] Repository 05/31/2018/06/01/20 [id number] Ambulatory [address] [place] Repository 05/25/2018 [id number] [facility] ing:MEDOUTP Repository 05/24/2018/05/25/20 [id number] Ambulatory [place] 18 [facility] [place] Repository 05/17/2018/05/18/20 [id number] Ambulatory [address] [place] Repository 05/11/2018 [id number] [facility] ing:MEDOUTP Repository 05/10/2018/05/11/20 [id number] Ambulatory [address] [place] Repository 05/03/2018/05/04/20 [id number] Ambulatory [address] [place] Repository 05/03/2018/05/04/20 [id number] Ambulatory [address] [place] Repository 04/27/2018 [id number] [facility] ing:MEDOUTP Repository 04/26/2018/04/27/20 [id number] Ambulatory [address] [place] Repository 04/19/2018/04/20/20 [id number] Ambulatory [address] [place] Repository 04/13/2018 [id number] [facility] ing:MEDOUTP Repository 04/12/2018/04/13/20 [id number] Ambulatory [address] [place] Repository 04/05/2018/04/06/20 [id number] Ambulatory [address] Repository 03/30/2018 [id number] [facility] ing:MEDOUTP Repository 03/29/2018/03/30/20 [id number] Ambulatory [address] Repository 03/22/2018/03/23/20 [id number] Ambulatory [address] Repository 03/21/2018 [id number] [facility] ing[facility] Repository 03/21/2018 [id number] Ambulatory BMSBuilding:W [facility] Repository 03/16/2018 [id number] [facility]ulatory [facility] ing:MEDOUTP Repository 03/15/2018/03/16/20 [id number] Ambulatory [address] Repository 03/13/2018 [id number] [facility] ing:LAB Repository 03/12/2018/03/12/20 [id number] Ambulatory BMSBuilding:B [place] [facility] [place] Repository 03/08/2018/03/08/20 [id number] Ambulatory [address] Repository 03/02/2018 [id number] [facility]ulatory [facility] ing:MEDOUTP Repository 03/01/2018/03/02/20 [id number] Ambulatory [address] Repository 02/23/2018 [id number] [facility]ulatory [facility] ing:MEDOUTP Repository 02/22/2018/02/24/20 [id number] Ambulatory [address] [place] Repository 02/15/2018/02/16/20 [id number] Ambulatory [address] [place] Repository 02/08/2018/02/10/20 [id number] Ambulatory [address] [place] Repository 02/06/2018 [id number] [facility] Repository 02/05/2018/02/07/20 [id number] Ambulatory [address] [place] Repository 02/02/2018 [id number] [facility] Repository 02/01/2018/02/03/20 [id number] Ambulatory [address] [place] Repository 02/01/2018/02/03/20 [id number] Ambulatory [address] [place] Repository 01/25/2018/01/27/20 [id number] Ambulatory [address] [place] Repository 01/19/2018 [id number] [facility] Repository 01/18/2018/01/20/20 [id number] Ambulatory [address] [place] Repository 01/12/2018 [id number] [facility] ing:[facility] Repository 01/11/2018 [id number] Ambulatory [facility] [place] Repository 01/11/2018/01/12/20 [id number] Ambulatory [address] [place] Repository 01/02/2018/01/04/20 [id number] Ambulatory [address] [place] Repository 12/29/2017 [id number] [facility] Repository 12/28/2017/12/30/19 [id number] Ambulatory [address] [place] Repository 12/22/2017 [id number] [facility] Repository 12/22/2017 [id number] [facility] ing:[facility] Repository 12/21/2017/12/22/19 [id number] Ambulatory [address] [place] Repository 12/14/2017/12/16/19 [id number] Ambulatory [address] [place] Repository 12/08/2017 [id number] [facility]ulatory [facility] ing:MEDOUTP Repository 12/07/2017/12/09/19 [id number] Ambulatory [address] [place] Repository 12/01/2017 [id number] [facility] Repository 11/30/2017/12/02/19 [id number] Ambulatory [address] [place] Repository 11/23/2017 [id number] Ambulatory [facility] [place] Repository 11/16/2017 [id number] Ambulatory [facility] ing:MEDOUTP Repository 11/15/2017/11/16/19 [id number] Ambulatory [address] [place] Repository 11/09/2017/11/11/19 [id number] Ambulatory [address] [place] Repository 10/31/2017 [id number] Ambulatory [facility] ing:MEDOUTP Repository 10/30/2017 [id number] Ambulatory [facility] ing:MEDOUTP Repository 10/30/2017/11/01/19 [id number] Ambulatory [address] [place] Repository 10/30/2017/11/01/19 [id number] Ambulatory [address] [place] Repository 10/26/2017/10/28/19 [id number] Ambulatory [address] [place] Repository 10/23/2017/10/23/19 [id number] Ambulatory [address] [place] Repository 10/20/2017 [id number] [facility]ulatory [facility] ing:MEDOUTP Repository 10/19/2017/10/20/19 [id number] Ambulatory [address] [place] Repository 10/16/2017/10/16/19 [id number] Ambulatory [address] [place] Repository 10/12/2017/10/13/19 [id number] Ambulatory [address] [place] Repository 10/10/2017 [id number] [facility]ulatory [facility] ing:MEDOUTP Repository 10/09/2017/10/10/19 [id number] Ambulatory [address] [place] Repository 10/05/2017/10/05/19 [id number] Ambulatory [address] Repository 10/02/2017/10/03/19 [id number] Ambulatory [address] Repository 09/29/2017 [id number] Ambulatory Dow Dow [facility] ing:[facility] Repository 09/28/2017/09/28/19 [id number] Ambulatory [address] Repository 09/25/2017/09/26/19 [id number] Ambulatory [address] Repository 09/21/2017/09/22/19 [id number] Ambulatory [address] Repository PAYERS PAYERS ENCOUNTER GUARANTOR PAYER SUBSCRIBER SOURCE 09/07/2018 MAIKEL D Primary MAIKEL D [place] [id number] Insurance[facility] PART A [facility] [id number] Number: Repository [address]Toq: 330 [id number] [phone] (HP) Date:2018-09-06 09/07/2018 Secondary MAIKEL D Dow Insurance:[facility] RESOURCES: [facility] [id number] Hospital Number: Repository [id number] Date:[id number] [address], [place] [address]BU: 09/07/2018 Tertiary NOT GIVENUNK [place] Insurance:SELF PAY [facility] Number: Effective Repository Date:2018-09-06 08/24/2018 MAIKEL D Primary MAIKEL D [place] [id number] Insurance:[place]ARE [place]: [facility] [id number] Number: Repository [address]Tbh: 330 [id number] [phone] (HP) Date:2018-08-23 08/24/2018 Secondary MAIKEL D Dow Insurance:[facility]: [place] [id number] Number: Repository [id number] Date:1248-57-24NZ [address], [place] [address]UX: 08/24/2018 Tertiary NOT GIVENUNK Dow Insurance:SELF PAY [facility]: Effective Repository Date:2018-08-23 08/10/2018 MAIKEL D Primary MAIKEL D Dow [id number] Insurance:MEDICARE MARTINDOB: Community STEFF PART A [facility] [id number] Number: Repository [address]Wvo: 330 [id number] [phone] (HP) Date:2018-08-09 08/10/2018 Secondary MAIKEL D [place] [facility] FOR [facility] [id number] Hospital Number: Repository [id number] Date:6072-44-20TA [address], [place] [address]KF: 08/10/2018 Tertiary NOT GIVENUNK [place] Insurance:SELF PAY [facility] Hospital Number: Effective Repository Date:2018-08-09 08/09/2018 MAIKEL D Primary MAIKEL D [place] [id number] Insurance:MEDICARE MARTINDOB: Community STE[place] PART A [facility] [id number] [place] Number: Repository [address]Pfx: 330 [id number] [phone] (HP) Date:2018-08-04 08/09/2018 Secondary MAIKEL D Dow Insurance:S [facility]: [facility] [id number] Hospital Number: Repository [id number] Date:3485-57-78ZV [address], [place] [address]XR: 08/09/2018 Tertiary NOT GIVENUNK [place] Insurance:SELF PAY [facility] Hospital Number: Effective Repository Date:2018-08-09 08/04/2018 MAIKEL D Primary MAKIEL D Dow [id number] Insurance:MEDICARE MARTINDOB: Community STE[place] PART A [facility] [id number] [place] Number: Repository [address]Bvb: 330 [id number] [phone] (HP) Date:2018-08-04 08/04/2018 Secondary MAIKEL D [place] Insurance:[facility] [id number] Hospital Number: Repository [id number] Date:2348-28-32QI [address] [place] [address]YA: 08/04/2018 Tertiary NOT GIVENUNK Dow Insurance:SELF PAY [facility] Hospital Number: Effective Repository Date:2018-08-04 08/04/2018 MAIKEL D Primary MAIKEL D Dow [id number] Insurance:MEDICARE MARTINDOB: Community STEFF PART A [facility] [id number] Number: Repository [address]Glu: 330 [id number] [phone] () Date:2018-07-10 08/04/2018 Secondary MAIKEL D [place] Insurance:[facility]: [facility] [id number] Hospital Number: Repository [id number] Date:6743-22-50XX [address] [place] [address]JN: 08/04/2018 Tertiary NOT GIVENUNK [place] Insurance:SELF PAY [facility] Hospital Number: Effective Repository Date:2018-08-04 07/27/2018 MAIKEL D Primary MAIKEL D Dow [id number] Insurance:MEDICARE MARTINDOB: Community [place] PART A [facility] [facility] [id number] [place] Number: Repository [address]Mev: 330 [id number] [phone] (HP) Date:2018-07-26 07/27/2018 Secondary MAIKLE D Hanna [facility] FOR [facility] [id number] Hospital Number: Repository [id number] Date:0913-55-20BQ [address] [address]ED: 07/27/2018 Tertiary NOT GIVENUNK Hanna Insurance:SELF PAY [facility] Hospital Number: Effective Repository Date:2018-07-26 07/24/2018 MAIKEL D Primary MAIKEL D Dow [id number] Insurance:MEDICARE MARTINDOB: Community STEFF PART A [facility] [id number] Number: Repository [id number]: 330 [id number] [phone] (HP) Date:2018-03-12 07/24/2018 Secondary MAIKEL D Hanna Insurance:[facility]: [facility] [id number] Hospital Number: Repository [id number] Date:1880-31-52ZH [address] [place] [address]NR: 07/24/2018 Tertiary NOT GIVENUNK Hanna Insurance:SELF PAY [facility] Hospital Number: Effective Repository Date:2018-07-17 07/13/2018 MAIKEL D Primary MAIKEL D Hanna [id number] Insurance:MEDICARE JACKSONBURGDOB: Community STEFF PART A [facility] [id number] Number: Repository 48276Jwy: 330 [id number] [phone] (HP) Date:2018-07-12 07/13/2018 Secondary MAIKEL D Dow Insurance:[facility]: [facility] [id number] Hospital Number: Repository [id number] Date:2692-49-30DM [address], [place] [address]SO: 07/13/2018 Tertiary NOT GIVENUNK Dow Insurance:SELF PAY [facility] Hospital Number: Effective Repository Date:2018-07-12 07/10/2018 MAIKEL D Primary MAIKEL D Hanna [id number] Insurance:MEDICARE JACKSONBURGDOB: Community STEFF PART A [facility] [id number] Number: Repository [id number]: 330 [id number] [phone] (HP) e Date:2018-07-04 07/10/2018 Secondary MAIKEL D Dow Insurance:[facility]: [facility] [id number] Hospital Number: Repository [id number] Date:8521-40-95FD [address], [place] [address]OS: 07/10/2018 Tertiary NOT GIVENUNK Hanna Insurance:SELF PAY [facility] Number: Effective Repository Date:2018-07-10 06/29/2018 MAIKEL D Primary MAIKEL D Hanna [id number] Insurance:MEDICARE MARTINDOB: Community STEFF PART A [facility] [id number] [place] Number: Repository [id number]: 330 [id number] [phone] (HP) Date:2018-06-28 06/29/2018 Secondary MAIKEL D Dow Insurance:S [facility]: [facility] [id number] Hospital Number: Repository [id number] Date:8426-09-69GB [address], [place] [address]PD: 06/29/2018 Tertiary NOT GIVENUNK Dow Insurance:SELF PAY [facility] Number: Effective Repository Date:2018-06-28 06/28/2018 MAIKEL D Primary MAIKEL D Hanna [id number] Insurance:MEDICARE MARTINDOB: Community STEFF PART A [facility] [id number] [place] Number: Repository [address]Iye: 330 [id number] [phone] (HP) Date:2018-06-28 06/28/2018 Secondary MAIKEL D Hanna [facility] [id number] Hospital Number: Repository [id number] Date:5555-26-25KO [address], [place] [address]UE: 06/28/2018 Tertiary NOT GIVENUNK Dow Insurance:SELF PAY [facility] Number: Effective Repository Date:2018-06-28 06/22/2018 MAIKEL D Primary MAIKEL D Hanna [id number] Insurance:MEDICARE JACKSONBURGDOB: Community STEFF PART A [facility] [id number], [place] Number: Repository [address]Wss: 330 [id number] [phone] (HP) Date:2018-06-21 06/22/2018 Secondary MAIKEL D Dow Insurance:[facility]: [facility] [id number] Hospital Number: Repository [id number] Date:1692-70-93LZ [address], [place] [address]CY: 06/22/2018 Tertiary NOT GIVENUNK Hanna Insurance:SELF PAY [facility] Hospital Number: Effective Repository Date:2018-06-21 06/08/2018 MAIKEL D Primary MAIKEL D Dow [id number] Insurance:MEDICARE MARTINDOB: Community STEFF PART A [facility] [id number] Rehabilitation Hospital [place] Number: Repository 90996Gyd: 330 [id number] [phone] () Date:2018-06-07 06/08/2018 Secondary MAIKEL D Hanna Insurance:[facility]: [facility] [id number] Hospital Number: Repository [id number] Date:2051-30-22GI [address], [place] [address]SW: 06/08/2018 Tertiary NOT GIVENUNK Hanna Insurance:SELF PAY [facility] Number: Effective Repository Date:2018-06-07 05/25/2018 MAIKEL D Primary MAIKEL D Hanna [id number] Insurance:MEDICARE JACKSONBURGDOB: [facility] [id number] Rehabilitation Hospital [place] Number: Repository 33837Klx: 330 [id number] [phone] (HP) Date:2018-05-24 05/25/2018 Secondary MAIKEL D Hanna Insurance:[facility]: [facility] [id number] Hospital Number: Repository [id number] Date:6677-82-24EW [address], [place] [address]AZ: 05/25/2018 Tertiary NOT GIVENUNK Dow Insurance:SELF PAY [facility] Number: Effective Repository Date:2018-05-24 05/11/2018 MAIKEL D Primary MAIKEL D Dow [id number] Insurance:MEDICARE MARTINDOB: Community STEFF PART A [address] [place] Number: Repository [address]Pnv: 330 [id number] [phone] (HP) Date:2018-05-10 05/11/2018 Secondary MAIKEL D Dow Insurance:[facility]: [facility] FOR [facility] [id number] Hospital Number: Repository [id number] Date:7478-38-06KH [address] [address]FU: 05/11/2018 Tertiary NOT GIVENUNK Hanna Insurance:SELF PAY [facility] Number: Effective Repository Date:2018-05-10 04/27/2018 MAIKEL D Primary MAIKEL D Dow [id number] Insurance:MEDICARE JACKSONBURGDOB: Community STEFF PART A [facility] [id number], [place] Number: Repository [address]Hsf: 330 [id number] [phone] (HP) Date:2018-04-26 04/27/2018 Secondary MAIKEL D Hanna Insurance:[facility]: [facility] [id number] Hospital Number: Repository [id number] Date:2344-50-30XI [address] [address]PZ: 04/27/2018 Tertiary NOT GIVENUNK Dow Insurance:SELF PAY [facility] Hospital Number: Effective Repository Date:2018-04-26 04/13/2018 MAIKEL D Primary MAIKEL D Hanna [id number] Insurance:MEDICARE MARTINDOB: Community STEFF PART A [facility] [id number], [place] Number: Repository [address]Sng: 330 [id number] [phone] (HP) Date:2018-04-12 04/13/2018 Secondary MAIKEL D Dow Insurance:WPS [facility]: [facility] [id number] Hospital Number: Repository [id number] Date:2375-90-15NF [address] [place] [address]YB: 04/13/2018 Tertiary NOT GIVENUNK Dow Insurance:SELF PAY [facility] Hospital Number: Effective Repository Date:2018-04-12 03/30/2018 MAIKEL D Primary MAIKEL D Hanna [id number] Insurance:MEDICARE MARTINDOB: Community STEFF PART A [facility] [id number] Rehabilitation Hospital [place] Number: Repository [address]Wib: 330 [id number] [phone] (HP) Date:2018-03-29 03/30/2018 Secondary MAIKEL D Dow Insurance:[facility]: [facility] [id number] Hospital Number: Repository [id number] Date:1516-36-32LG [address] [address]RX: 03/30/2018 Tertiary NOT GIVENUNK Hanna Insurance:SELF PAY [facility] Hospital Number: Effective Repository Date:2018-03-29 03/21/2018 MAIKEL D Primary MAIKEL D Dow [id number] Insurance:MEDICARE MARTINDOB: Community STEFF PART A [facility] [id number] Rehabilitation Hospital [place] Number: Repository 175[address]Hac: 330 [id number] [phone] (HP) Date:2018-03-12 03/21/2018 Secondary MAIKEL D Dow Insurance:WPS [facility]: [facility] [id number] Hospital Number: Repository [id number] Date:9175-69-34QI [address] [place] [address]MV: 03/21/2018 Tertiary NOT GIVENUNK Hanna Insurance:SELF PAY [facility] Hospital Number: Effective Repository Date:2018-03-12 03/21/2018 MAIKEL D Primary MAIKEL D Hanna [id number] Insurance:MEDICARE MARTINDOB: Community STEFF PART A [facility] [id number], [place] Number: Repository [address]Rvk: 330 [id number] [phone] (HP) Date:2018-03-12 03/21/2018 Secondary MAIKEL D Hanna Insurance:WPS MARTINDOB: [facility] [id number] Hospital Number: Repository [id number] Date:8985-20-15NJ [address] [place] [address]BN: 03/21/2018 Tertiary NOT GIVENUNK Dow Insurance:SELF PAY [facility] Number: Effective Repository Date:2018-03-21 03/16/2018 MAIKEL D Primary MAIKEL D Hanna [id number] Insurance:MEDICARE MARTINDOB: Community STEFF PART A [facility] [id number] Rehabilitation Hospital [place] Number: Repository 74371Qmi: 330 [id number] [phone] (HP) Date:2018-03-15 03/16/2018 Secondary MAIKEL D Hanna Insurance:WPS MARTINDOB: [facility] [id number] Hospital Number: Repository [id number] Date:4074-14-58WR [address] [place] [address]OX: 03/16/2018 Tertiary NOT GIVENUNK Hanna Insurance:SELF PAY [facility] Hospital Number: Effective Repository Date:2018-03-15 03/13/2018 MAIKEL D Primary MAIKEL D Dow [id number] Insurance:MEDICARE MARTINDOB: Community STEFF PART A [facility] [id number] Rehabilitation Hospital [place] Number: Repository [address]Nrk: 330 [id number] [phone] (HP) Date:2018-03-13 03/13/2018 Secondary MAIKEL D Dow Insurance:WPS MARTINDOB: [facility] [id number] Hospital Number: Repository [id number] Date:1804-02-04MY [address] [place] [address]JD: 03/13/2018 Tertiary NOT GIVENUNK Hanna Insurance:SELF PAY [facility] Hospital Number: Effective Repository Date:2018-03-13 03/12/2018 MAIKEL D Primary MAIKEL D Dow [id number] Insurance:MEDICARE MARTINDOB: Community STEFF PART A [facility] [id number] Rehabilitation Hospital [place] Number: Repository [address]Eyk: 330 [id number] [phone] (HP) Date:2017-09-04 03/12/2018 Secondary MAIKEL D Dow Insurance:WPS [facility]: Community [facility] [id number] Hospital Number: Repository [id number] Date:3793-51-09XS [address] [place] [address]KV: 03/12/2018 Tertiary NOT GIVENUNK Dow Insurance:SELF PAY [facility] Hospital Number: Effective Repository Date:2018-03-12 03/02/2018 MAIKEL D Primary MAIKEL D Hanna [id number] Insurance:MEDICARE MARTINDOB: Community STEFF PART A [facility] [id number] Rehabilitation Hospital [place] Number: Repository 47[address]Nws: 330 [id number] [phone] (HP) Date:2018-03-01 03/02/2018 Secondary MAIKEL D Dow Insurance:WPS JAM[place]B: [facility] FOR [facility] [id number] Hospital Number: Repository [id number] Date:9932-32-64ZS [address] [place] [address]RI: 03/02/2018 Tertiary NOT GIVENUNK Dow Insurance:SELF PAY [facility] Hospital Number: Effective Repository Date:2018-03-01 02/23/2018 MAIKEL D Primary MAIKEL D Dow [id number] Insurance:MEDICARE MARTINDOB: Community STEFF PART A [facility] [id number] [place] Number: Repository [address]Ylz: 330 [id number] [phone] (HP) Date:2018-02-22 02/23/2018 Secondary MAIKEL D Dow Insurance:S JACKSONBURGDOB: [facility] FOR [facility] [id number] Hospital Number: Repository [id number] Date:4552-67-77DG [facility] [address] [place] [address]BF: 02/23/2018 Tertiary NOT GIVENUNK Hanna Insurance:SELF PAY [facility] Hospital Number: Effective Repository Date:2018-02-22 02/06/2018 MAIKEL D Primary MAIKEL D Dow [id number] Insurance:MEDICARE MARTINDOB: Community STEFF PART A [facility] [id number] Rehabilitation Hospital [place] Number: Repository 543[address]Ldj: 330 [id number] [phone] () Date:2018-02-05 02/06/2018 Secondary MAIKEL D Dow Insurance:S JACKSONBURGDOB: [facility] FOR [facility] [id number] Hospital Number: Repository [id number] Date:1308-22-02OL [address] [address]UO: 02/06/2018 Tertiary NOT GIVENUNK Dow Insurance:SELF PAY [facility] Hospital Number: Effective Repository Date:2018-02-05 02/02/2018 MAIKEL D Primary MAIKEL D Dow [id number] Insurance:MEDICARE MARTINDOB: Community STEFF PART A [facility] [id number] Rehabilitation Hospital [place] Number: Repository 35[address]Goe: 330 [id number] [phone] (HP) Date:2018-02-01 02/02/2018 Secondary MAIKEL D Hanna [facility]: [facility] FOR [facility] [id number] Hospital Number: Repository [id number] Date:0992-08-89UB [facility] [address] [place] [address]MR: 02/02/2018 Tertiary NOT GIVENUNK Dow Insurance:SELF PAY [facility] Hospital Number: Effective Repository Date:2018-02-01 01/19/2018 MAIKEL D Primary MAIKEL D Dow [id number] Insurance:MEDICARE MARTINDOB: Community STEFF PART A [facility] [id number], [place] Number: Repository 401[address]Axt: 330 [id number] [phone] () Date:2018-01-18 01/19/2018 Secondary MAIKEL D Hanna Insurance:WPS MARTINDOB: [facility] [id number] Hospital Number: Repository [id number] Date:0022-69-82QY [address], [place] [address]CN: 01/19/2018 Tertiary NOT GIVENUNK Dow Insurance:SELF PAY [facility] Hospital Number: Effective Repository Date:2018-01-18 01/12/2018 MAIKEL D Primary MAIKEL D Dow [id number] Insurance:MEDICARE MARTINDOB: Community STEFF PART A [facility] [id number] Rehabilitation Hospital [place] Number: Repository 417[address]Zjw: 330 [id number] [phone] () Date:2018-01-11 01/12/2018 Secondary MAIKEL D Hanna Insurance:WPS [facility]: [facility] [id number] Hospital Number: Repository [id number] Date:0412-37-50CS [address], [place] [address]VL: 01/12/2018 Tertiary NOT GIVENUNK Hanna Insurance:SELF PAY [facility] Hospital Number: Effective Repository Date:2018-01-11 12/29/2017 MAIKEL D Primary MAIKEL D Hanna [id number] Insurance:MEDICARE MARTINDOB: Community STEFF PART A [facility] [id number], [place] Number: Repository [address]Hek: 330 [id number] [phone] () Date:2017-12-28 12/29/2017 Secondary MAIKEL D Hanna Insurance:WPS [facility]: [facility] [id number] Hospital Number: Repository [id number] Date:6396-67-05TI [address], [place] [address]KT: 12/29/2017 Tertiary NOT GIVENUNK Hanna Insurance:SELF PAY [facility] Hospital Number: Effective Repository Date:2017-12-28 12/22/2017 MAIKEL D Primary MAIKEL D Hanna [id number] Insurance:MEDICARE MARTINDOB: Community STEFF PART A [facility] [id number], [place] Number: Repository [address]Ssw: 330 [id number] [phone] () Date:2017-12-21 12/22/2017 Secondary MAIKEL D Dow Insurance:WPS [facility]: [facility] [id number] Hospital Number: Repository [id number] Date:3436-29-92BM [address], [place] [address]DM: 12/22/2017 Tertiary NOT GIVENUNK Dow Insurance:SELF PAY [facility] Hospital Number: Effective Repository Date:2017-12-21 12/22/2017 MAIKEL D Primary MAIKEL D Hanna [id number] Insurance:MEDICARE MARTINDOB: Community STEFF PART A [facility] [id number], [place] Number: Repository [address]Uui: 330 [id number] [phone] () Date:2017-12-21 12/22/2017 Secondary MAIKEL D Hanna Insurance:WPS [facility]: [facility] [id number] Hospital Number: Repository [id number] Date:7034-40-27VI [address], [place] [address]FX: 12/22/2017 Tertiary NOT GIVENUNK Dow Insurance:SELF PAY [facility] Number: Effective Repository Date:2017-12-21 12/08/2017 MAIKEL D Primary MAIKEL D Hanna [id number] Insurance:MEDICARE MARTINDOB: Community STEFF PART A [facility] [id number], [place] Number: Repository [address]Ofg: 330 [id number] [phone] (HP) Date:2017-12-07 12/08/2017 Secondary MAIKEL D Hanna Insurance:[facility]: [facility] [id number] Hospital Number: Repository [id number] Date:5882-32-58GP [address] [place] [address]SI: 12/08/2017 Tertiary NOT GIVENUNK Dow Insurance:SELF PAY [facility] Hospital Number: Effective Repository Date:2017-12-07 12/01/2017 MAIKEL D Primary MAIKEL D Hanna [id number] Insurance:MEDICARE [facility]: Community STEFF PART A [facility] [id number], [place] Number: Repository [address]Mar: 330 [id number] [phone] () Date:2017-11-30 12/01/2017 Secondary MAIKEL D Hanna Insurance:[facility]: [facility] [id number] Hospital Number: Repository [id number] Date:6144-17-41JE [address] [place] [address]XH: 12/01/2017 Tertiary NOT GIVENUNK Hanna Insurance:SELF PAY [facility] Number: Effective Repository Date:2017-11-30 11/16/2017 MAIKEL D Primary MAIKEL D Hanna [id number] Insurance:MEDICARE JACKSONBURGDOB: Community STEFF PART A [facility] [id number], [place] Number: Repository 177[address]Cpk: 330 [id number] [phone] (HP) Date:2017-11-15 11/16/2017 Secondary MAIKEL D Hanna Insurance:[facility]: [facility] [id number] Hospital Number: Repository [id number] Date:6677-35-81JQ [address] [place] [address]CR: 11/16/2017 Tertiary NOT GIVENUNK Dow Insurance:SELF PAY [facility] Hospital Number: Effective Repository Date:2017-11-15 10/31/2017 MAIKEL D Primary MAIKEL D Hanna [id number] Insurance:MEDICARE JACKSONBURGDOB: Community STEFF PART A [address] [place] Number: Repository [id number]: 330 [id number] [phone] (HP) Date:2017-10-30 10/31/2017 Secondary MAIKEL D Dow Insurance:S [facility]: [facility] [id number] Hospital Number: Repository [id number] Date:2242-58-18UF [address] [address]LU: 10/31/2017 Tertiary NOT GIVENUNK Hanna Insurance:SELF PAY [facility] Hospital Number: Effective Repository Date:2017-10-30 10/30/2017 MAIKEL D Primary MAIKEL D Dow [id number] Insurance:MEDICARE JACKSONBURGDOB: [facility] STEFF PART A [facility] [id number] [place] Number: Repository [address]Mev: 330 [id number] [phone] (HP) Date:2017-10-30 10/30/2017 Secondary MAIKEL D Dow Insurance:S [employer]: [address] Hospital Number: Repository [id number] Date:0415-82-71BH [address], [place] [address]BV: 10/30/2017 Tertiary NOT GIVENUNK Hanna Insurance:SELF PAY [facility] Hospital Number: Effective Repository Date:2017-10-30 10/20/2017 MAIKEL D Primary MAIKEL D Dow [id number] Insurance:MEDICARE JACKSONBURGDOB: Community STEFF PART A [address] [place] Number: Repository [address]Qkg: 330 [id number] [phone] (HP) Date:2017-10-19 10/20/2017 Secondary MAIKEL D Dow Insurance:S [facility]: [address]12-07UNK Hospital Number: Repository [id number] Date:7520-39-95XW [address] [place] [address]LL: 10/20/2017 Tertiary NOT GIVENUNK Hanna Insurance:SELF PAY [facility] Number: Effective Repository Date:2017-10-20 10/10/2017 MAIKEL D Primary MAIKEL D Dow [id number] Insurance:MEDICARE JACKSONBURGDOB: Community STEFF PART A [address] [place] Number: Repository [id number]: 330 [id number] [phone] (HP) Date:2017-10-09 10/10/2017 Secondary MAIKEL D Dow Insurance:WPS [facility]: [facility] [id number] Hospital Number: Repository [id number] Date:8725-84-17HC [address] [place] [address]WN: 10/10/2017 Tertiary NOT GIVENUNK Hanna Insurance:SELF PAY [facility] Hospital Number: Effective Repository Date:2017-10-09 09/29/2017 MAIKEL D Primary MAIKEL D Dow [id number] Insurance:MEDICARE JACKSONBURGDOB: Community STEFF PART A [address] Number: Repository [id number]: 330 [id number] [phone] (HP) Date:2017-09-28 09/29/2017 Secondary MAIKEL D Hanna Insurance:WPS [facility]: [facility] [id number] Hospital Number: Repository [id number] Date:8766-26-79UA [address] [place] [address]RY: 09/29/2017 Tertiary NOT GIVENUNK Hanna Insurance:SELF PAY [facility] Hospital Number: Effective Repository Date:2017-09-28
== END ==
PROVIDERS: Family Provider Family Medicine; PCP Family Medicine; Referring Provider Internal Medicine Hematology & Oncology; Visit Provider Internal Medicine Hematology & Oncology
DX: D46.20 Refractory anemia with excess of blasts, unspecified (principal)
CPT/HCPCS: 36430; 86850; 86900; 86920; 86922; J7040; P9016; A4216; J1940

== ENCOUNTER → 2018-08-24 08:05 | Outpatient (CLI) | payer MEDICARE, OTHER, SELFPAY ==
[2018-08-10 09:17] VITALS: BMI 22.9
[2018-08-24] VITALS (7 sets, daily range): BP systolic 104–131; BP diastolic 39–84; PULSE 53–64; RESP 15–18; TEMP 36.2–36.8; O2SAT 96–98; BMI 23.1
[2018-08-24] MEDS: Furosemide 20 MG/2 ML VIAL IV (11:05)
== END ==
PROVIDERS: Family Provider Family Medicine; PCP Family Medicine; Referring Provider Internal Medicine Hematology & Oncology; Visit Provider Internal Medicine Hematology & Oncology
DX: D46.20 Refractory anemia with excess of blasts, unspecified (principal)
CPT/HCPCS: 36430; 86850; 86900; 86920; 86922; J7040; P9016; A4216; J1940

== ENCOUNTER → 2018-09-07 08:46 | Outpatient (CLI) | payer MEDICARE, OTHER, SELFPAY ==
[2018-08-24 08:14] VITALS: BMI 23.1
[2018-09-07] VITALS (7 sets, daily range): BP systolic 90–128; BP diastolic 37–64; PULSE 54–84; RESP 16–18; TEMP 36.2–36.9; O2SAT 98–100; BMI 22.9
[2018-09-07] MEDS: Furosemide 20 MG/2 ML VIAL IV (11:26)
== END ==
PROVIDERS: Family Provider Family Medicine; PCP Family Medicine; Referring Provider Internal Medicine Hematology & Oncology; Visit Provider Internal Medicine Hematology & Oncology
DX: D46.20 Refractory anemia with excess of blasts, unspecified (principal)
CPT/HCPCS: 36430; 86850; 86900; 86920; 86922; J7040; P9016; A4216; J1940

== ENCOUNTER → 2018-09-21 08:25 | Outpatient (CLI) | payer MEDICARE, OTHER, SELFPAY ==
[2018-09-07 08:52] VITALS: BMI 22.9
[2018-09-21] VITALS (7 sets, daily range): BP systolic 89–142; BP diastolic 38–80; PULSE 58–72; RESP 16–18; TEMP 36.1–36.7; O2SAT 95–98; BMI 22.9
[2018-09-21] MEDS: Furosemide 20 MG/2 ML VIAL IV (11:07)
== END ==
PROVIDERS: Family Provider Family Medicine; PCP Family Medicine; Referring Provider Internal Medicine Hematology & Oncology; Visit Provider Internal Medicine Hematology & Oncology
DX: D46.20 Refractory anemia with excess of blasts, unspecified (principal)
CPT/HCPCS: 36430; 86850; 86900; 86920; 86922; J7040; P9040; A4216; J1940

== ENCOUNTER → 2018-10-05 09:06 | Outpatient (CLI) | payer MEDICARE, OTHER, SELFPAY ==
[2018-09-21 08:46] VITALS: BMI 22.9
[2018-10-05] VITALS (7 sets, daily range): BP systolic 100–121; BP diastolic 36–63; PULSE 63–67; RESP 16; TEMP 36.1–36.6; O2SAT 97–100; BMI 22.9
[2018-10-05] MEDS: Furosemide 20 MG/2 ML VIAL IV (12:39)
== END ==
PROVIDERS: Family Provider Family Medicine; PCP Family Medicine; Referring Provider Internal Medicine Hematology & Oncology; Visit Provider Internal Medicine Hematology & Oncology
DX: D46.20 Refractory anemia with excess of blasts, unspecified (principal)
CPT/HCPCS: 36430; 86850; 86900; 86920; 86922; J7040; P9016; A4216; J1940

== ENCOUNTER → 2018-10-19 08:41 | Outpatient (CLI) | payer MEDICARE, OTHER, SELFPAY ==
[2018-10-05 09:36] VITALS: BMI 22.9
[2018-10-19 08:53] VITALS: BP 118/33; PULSE 60; RESP 16; TEMP 36.2; O2SAT 96; BMI 22.9
[2018-10-19 09:49] VITALS: BP 103/44; PULSE 62; RESP 16; TEMP 36.4; O2SAT 96
[2018-10-19 10:33] VITALS: BP 110/58; RESP 16; TEMP 36.1; O2SAT 98
[2018-10-19 11:20] VITALS: BP 109/49; PULSE 54; RESP 18; TEMP 36.9
[2018-10-19] MEDS: Furosemide 20 MG/2 ML VIAL IV (11:23)
[2018-10-19 12:20] VITALS: BP 103/44; PULSE 61; RESP 16; TEMP 36.2
[2018-10-19 13:35] VITALS: BP 110/43; PULSE 57; RESP 16; TEMP 36.2
== END ==
PROVIDERS: Family Provider Family Medicine; PCP Family Medicine; Visit Provider Internal Medicine Hematology & Oncology
DX: D46.20 Refractory anemia with excess of blasts, unspecified (principal)
CPT/HCPCS: 36430; 86850; 86900; 86920; 86922; J7040; P9016; P9040; A4216; J1940

== ENCOUNTER → 2018-10-26 08:52 | Outpatient (CLI) | payer MEDICARE, OTHER, SELFPAY ==
[2018-10-19 08:53] VITALS: BMI 22.9
[2018-10-26] VITALS (7 sets, daily range): BP systolic 95–137; BP diastolic 44–74; PULSE 57–64; RESP 16; TEMP 36.3–36.6; O2SAT 95–99; BMI 22.9
[2018-10-26] MEDS: Furosemide 20 MG/2 ML VIAL IV (11:23)
== END ==
PROVIDERS: Family Provider Family Medicine; PCP Family Medicine; Referring Provider Internal Medicine Hematology & Oncology; Visit Provider Internal Medicine Hematology & Oncology
DX: D46.20 Refractory anemia with excess of blasts, unspecified (principal)
CPT/HCPCS: 36430; 86850; 86900; 86920; 86922; J7040; P9016; A4216; J1940

== ENCOUNTER → 2018-11-09 08:22 | Outpatient (CLI) | payer MEDICARE, OTHER, SELFPAY ==
[2018-10-26 09:06] VITALS: BMI 22.9
[2018-11-09] VITALS (7 sets, daily range): BP systolic 95–126; BP diastolic 40–79; PULSE 46–76; RESP 18; TEMP 36.1–36.6; O2SAT 100; BMI 23.6
[2018-11-09] MEDS: Furosemide 20 MG/2 ML VIAL IV (10:54)
== END ==
PROVIDERS: Family Provider Family Medicine; PCP Family Medicine; Referring Provider Internal Medicine Hematology & Oncology; Visit Provider Internal Medicine Hematology & Oncology
DX: D46.20 Refractory anemia with excess of blasts, unspecified (principal)
CPT/HCPCS: 36430; 86850; 86900; 86920; 86922; J7040; P9016; A4216; J1940

== ENCOUNTER → 2018-11-23 08:56 | Outpatient (CLI) | payer MEDICARE, OTHER, SELFPAY ==
[2018-11-09 08:27] VITALS: BMI 23.6
[2018-11-23 09:01] VITALS: BP 118/39; PULSE 66; RESP 16; TEMP 36.4; O2SAT 98; BMI 22.9
[2018-11-23 09:44] VITALS: BP 102/47; PULSE 58; RESP 16; TEMP 36.6; O2SAT 98
[2018-11-23 10:44] VITALS: BP 103/49; PULSE 58; RESP 18; TEMP 36.4; O2SAT 99
[2018-11-23 11:17] VITALS: BP 108/52; PULSE 57; RESP 16; TEMP 36.6; O2SAT 96
[2018-11-23] MEDS: Furosemide 20 MG/2 ML VIAL IV (11:24)
[2018-11-23 11:51] VITALS: BP 117/45; PULSE 58; TEMP 36.6
[2018-11-23 13:46] VITALS: BP 124/61; PULSE 61; RESP 18; TEMP 36.6; O2SAT 97
== END ==
PROVIDERS: Family Provider Family Medicine; PCP Family Medicine; Referring Provider Internal Medicine Hematology & Oncology; Visit Provider Internal Medicine Hematology & Oncology
DX: D46.20 Refractory anemia with excess of blasts, unspecified (principal)
CPT/HCPCS: 36430; 86850; 86900; 86920; 86922; J7040; P9016; A4216; J1940

== ENCOUNTER → 2018-12-07 08:45 | Outpatient (CLI) | payer MEDICARE, OTHER, SELFPAY ==
[2018-11-23 09:01] VITALS: BMI 22.9
[2018-12-07] VITALS (8 sets, daily range): BP systolic 103–119; BP diastolic 49–80; PULSE 60–75; RESP 16; TEMP 36.2–36.6; O2SAT 92–100; BMI 23.1
[2018-12-07] MEDS: Furosemide 20 MG/2 ML VIAL IV (11:45)
== END ==
PROVIDERS: Family Provider Family Medicine; PCP Family Medicine; Referring Provider Internal Medicine Hematology & Oncology; Visit Provider Internal Medicine Hematology & Oncology
DX: D46.20 Refractory anemia with excess of blasts, unspecified (principal)
CPT/HCPCS: 36430; 86850; 86900; 86920; 86922; J7040; P9016; A4216; J1940

== ENCOUNTER → 2018-12-14 08:02 | Outpatient (CLI) | payer MEDICARE, OTHER, SELFPAY ==
[2018-12-07 09:12] VITALS: BMI 23.1
[2018-12-14] VITALS (7 sets, daily range): BP systolic 101–120; BP diastolic 45–57; PULSE 53–67; RESP 16; TEMP 36.2–36.6; O2SAT 93–100; BMI 23.1
[2018-12-14] MEDS: Furosemide 20 MG/2 ML VIAL IV (10:28)
== END ==
PROVIDERS: Family Provider Family Medicine; PCP Family Medicine; Referring Provider Internal Medicine Hematology & Oncology; Visit Provider Internal Medicine Hematology & Oncology
DX: D46.20 Refractory anemia with excess of blasts, unspecified (principal)
CPT/HCPCS: 36430; 86850; 86900; 86920; 86922; J7040; P9016; A4216; J1940

== ENCOUNTER → 2018-12-28 07:33 | Outpatient (CLI) | payer MEDICARE, OTHER, SELFPAY ==
[2018-12-14 08:34] VITALS: BMI 23.1
[2018-12-28] VITALS (8 sets, daily range): BP systolic 109–120; BP diastolic 35–78; PULSE 53–87; RESP 16; TEMP 36.4–36.8; O2SAT 96–100; BMI 23.2
[2018-12-28] MEDS: Furosemide 20 MG/2 ML VIAL IV (10:28)
== END ==
PROVIDERS: Family Provider Family Medicine; PCP Family Medicine; Referring Provider Internal Medicine Hematology & Oncology; Visit Provider Internal Medicine Hematology & Oncology
DX: D46.20 Refractory anemia with excess of blasts, unspecified (principal)
CPT/HCPCS: 36430; 86850; 86900; 86920; 86922; J7040; P9016; A4216; J1940

== ENCOUNTER → 2019-01-18 07:32 | Outpatient (CLI) | payer MEDICARE, OTHER, SELFPAY ==
[2018-12-28 08:08] VITALS: BMI 23.2
[2019-01-18] VITALS (7 sets, daily range): BP systolic 102–126; BP diastolic 40–82; PULSE 57–66; RESP 16; TEMP 36.2–36.6; O2SAT 94–100; BMI 23.2
[2019-01-18] MEDS: Furosemide 20 MG/2 ML VIAL IV (10:34)
== END ==
PROVIDERS: Family Provider Family Medicine; PCP Family Medicine; Referring Provider Internal Medicine Hematology & Oncology; Visit Provider Internal Medicine Hematology & Oncology
DX: D64.9 Anemia, unspecified (principal)
CPT/HCPCS: 36430; 86850; 86900; 86920; 86922; J7040; P9016; A4216; J1940

== ENCOUNTER → 2019-02-01 08:20 | Outpatient (CLI) | payer MEDICARE, OTHER, SELFPAY ==
[2019-01-18 07:48] VITALS: BMI 23.2
[2019-02-01] VITALS (7 sets, daily range): BP systolic 106–124; BP diastolic 40–66; PULSE 57–81; RESP 15–16; TEMP 36.4–37; O2SAT 94–100; BMI 23.3
[2019-02-01] MEDS: Furosemide 20 MG/2 ML VIAL IV (11:00)
== END ==
PROVIDERS: Family Provider Family Medicine; PCP Family Medicine; Referring Provider Internal Medicine Hematology & Oncology; Visit Provider Internal Medicine Hematology & Oncology
DX: D46.20 Refractory anemia with excess of blasts, unspecified (principal)
CPT/HCPCS: 36430; 86850; 86900; 86920; 86922; J7040; P9016; A4216; J1940

== ENCOUNTER → 2019-02-15 07:46 | Outpatient (CLI) | payer MEDICARE, OTHER, SELFPAY ==
[2019-02-14 13:00] VITALS: BMI 22.9
[2019-02-15] VITALS (7 sets, daily range): BP systolic 99–134; BP diastolic 37–64; PULSE 57–78; RESP 16–18; TEMP 36.3–36.6; O2SAT 92–97; BMI 22.9
[2019-02-15] MEDS: Furosemide 20 MG/2 ML VIAL IV (10:19)
== END ==
PROVIDERS: Family Provider Family Medicine; PCP Family Medicine; Referring Provider Internal Medicine Hematology & Oncology; Visit Provider Internal Medicine Hematology & Oncology
DX: D64.9 Anemia, unspecified (principal)
CPT/HCPCS: 36430; 86850; 86900; 86920; 86922; J7040; P9016; A4216; J1940

== ENCOUNTER → 2019-02-20 08:38 | Outpatient (CLI) | payer MEDICARE, OTHER, SELFPAY ==
[2019-02-15 07:52] VITALS: BMI 22.9
[2019-02-20 10:24] LABS: AST(SGOT) 62 U/L (15-37); Alanine Aminotransfer ALT/SGPT 105 U/L (16-61); Alkaline Phosphatase 130 U/L (45-117); Bilirubin, Direct 0.48 mg/dL (0.00-0.30); Cholesterol 107 mg/dL (200); High Density Lipoprotein 39 mg/dL; T4 Free Direct 1.48 ng/dL (0.76-1.46); Thyroid Stim Hormone (TSH) 1.37 uIU/mL (0.358-3.74); Triglycerides 84 mg/dL; Very Low Density Lipoprotein 17 mg/dL (5-40)
== END ==
PROVIDERS: Family Provider Family Medicine; PCP Family Medicine; Referring Provider Internal Medicine Cardiovascular Disease; Visit Provider Internal Medicine Cardiovascular Disease
DX: E78.5 Hyperlipidemia, unspecified (principal); Z79.899 Other long term (current) drug therapy
CPT/HCPCS: 36415; 80061; 80076; 84439; 84443

== ENCOUNTER → 2019-02-26 09:34 | Outpatient (CLI) | payer MEDICARE, OTHER, SELFPAY ==
[2019-02-14 13:00] VITALS: BMI 22.9
[2019-02-15 07:52] VITALS: BMI 22.9
--- NOTE | 2019-02-26 13:02 | PFT ---
INTRODUCTION: The patient is an 83-year-old male that presents for pulmonary function studies secondary to a diagnosis of high risk medication use. Respiratory therapy reports good patient effort. Bronchodilators were used during testing. INTERPRETATION: Forced expiration spirometry demonstrates no evidence of a large airways obstructive ventilatory defect. There was no significant response to aerosolized bronchodilators. Spirograms are of good quality and plateau gradually indicating slow emptying of the lungs. Body plethysmography was performed and reveals lung volumes to be within normal limits. Diffusing capacity by single breath CO is preserved at 73% of predicted. IMPRESSION: Normal pulmonary function studies.
== END ==
PROVIDERS: Family Provider Family Medicine; PCP Family Medicine; Referring Provider Internal Medicine Cardiovascular Disease; Visit Provider Internal Medicine Cardiovascular Disease
DX: I27.21 Secondary pulmonary arterial hypertension (principal); I48.0 Paroxysmal atrial fibrillation
CPT/HCPCS: 94060; 94726; 94729

== ENCOUNTER → 2019-03-01 10:31 | Outpatient (CLI) | payer MEDICARE, OTHER, SELFPAY ==
[2019-02-15 07:52] VITALS: BMI 22.9
[2019-03-01] VITALS (7 sets, daily range): BP systolic 102–112; BP diastolic 38–54; PULSE 50–80; RESP 16–18; TEMP 36.3–36.8; O2SAT 93–99; BMI 22.9
[2019-03-01] MEDS: Furosemide 20 MG/2 ML VIAL IV (13:13)
== END ==
PROVIDERS: Family Provider Family Medicine; PCP Family Medicine; Referring Provider Internal Medicine Hematology & Oncology; Visit Provider Internal Medicine Hematology & Oncology
DX: D46.20 Refractory anemia with excess of blasts, unspecified (principal)
CPT/HCPCS: 36430; 86850; 86900; 86920; 86922; J7040; P9016; A4216; J1940

== ENCOUNTER → 2019-03-15 08:18 | Outpatient (CLI) | payer MEDICARE, OTHER, SELFPAY ==
[2019-03-01 10:40] VITALS: BMI 22.9
[2019-03-15] VITALS (7 sets, daily range): BP systolic 98–131; BP diastolic 37–59; PULSE 56–66; RESP 16–18; TEMP 35.9–36.6; O2SAT 98; BMI 22.9
[2019-03-15] MEDS: Furosemide 20 MG/2 ML VIAL IV (11:18)
== END ==
PROVIDERS: Family Provider Family Medicine; PCP Family Medicine; Referring Provider Internal Medicine Hematology & Oncology; Visit Provider Internal Medicine Hematology & Oncology
DX: D46.20 Refractory anemia with excess of blasts, unspecified (principal)
CPT/HCPCS: 36430; 86850; 86900; 86920; 86922; J7040; P9016; A4216; J1940

== ENCOUNTER → 2019-03-22 08:01 | Outpatient (CLI) | payer MEDICARE, OTHER, SELFPAY ==
[2019-03-15 08:24] VITALS: BMI 22.9
[2019-03-22] VITALS (7 sets, daily range): BP systolic 91–136; BP diastolic 37–56; PULSE 55–102; RESP 16–18; TEMP 36.1–36.6; O2SAT 92–100; BMI 22.9
[2019-03-22] MEDS: Furosemide 20 MG/2 ML VIAL IV (11:07)
== END ==
PROVIDERS: Family Provider Family Medicine; PCP Family Medicine; Referring Provider Internal Medicine Hematology & Oncology; Visit Provider Internal Medicine Hematology & Oncology
DX: D46.20 Refractory anemia with excess of blasts, unspecified (principal)
CPT/HCPCS: 36430; 86850; 86900; 86920; 86922; J7040; P9016; A4216; J1940

== ENCOUNTER → 2019-04-05 07:41 | Outpatient (CLI) | payer MEDICARE, OTHER, SELFPAY ==
[2019-03-22 08:08] VITALS: BMI 22.9
[2019-04-05 08:00] VITALS: BP 99/59; PULSE 42; RESP 16; TEMP 36.3; BMI 23.1
[2019-04-05] MEDS: Acetaminophen 325 MG Tablet 650 MG PO (08:20)
[2019-04-05 08:49] VITALS: BP 98/53; PULSE 56; RESP 16; TEMP 36.3; O2SAT 96
[2019-04-05 09:49] VITALS: BP 94/56; PULSE 55; RESP 16; TEMP 36.2; O2SAT 96
[2019-04-05] MEDS: Furosemide 20 MG/2 ML VIAL IV (10:55)
[2019-04-05 11:01] VITALS: BP 103/45; PULSE 80; RESP 18; TEMP 36.3; O2SAT 97
[2019-04-05 11:20] VITALS: BP 105/47; PULSE 64; RESP 16; TEMP 36.1; O2SAT 98
[2019-04-05 13:17] VITALS: BP 121/52; PULSE 62; RESP 16; TEMP 36.1
== END ==
PROVIDERS: Family Provider Family Medicine; PCP Family Medicine; Referring Provider Internal Medicine Hematology & Oncology; Visit Provider Internal Medicine Hematology & Oncology
DX: D46.20 Refractory anemia with excess of blasts, unspecified (principal)
CPT/HCPCS: 36430; 86850; 86900; 86920; 86922; J7040; P9016; A4216; J1940

== ENCOUNTER → 2019-04-19 07:34 | Outpatient (CLI) | payer MEDICARE, OTHER, SELFPAY ==
[2019-04-05 08:00] VITALS: BMI 23.1
[2019-04-19] VITALS (7 sets, daily range): BP systolic 103–132; BP diastolic 38–71; PULSE 56–113; RESP 16–18; TEMP 36.1–36.7; O2SAT 96–100; BMI 22.9
[2019-04-19] MEDS: Furosemide 20 MG/2 ML VIAL IV (10:32)
== END ==
PROVIDERS: Family Provider Family Medicine; PCP Family Medicine; Referring Provider Internal Medicine Hematology & Oncology; Visit Provider Internal Medicine Hematology & Oncology
DX: D46.20 Refractory anemia with excess of blasts, unspecified (principal)
CPT/HCPCS: 36430; 86850; 86900; 86901; 86920; 86922; J7040; P9016; A4216; J1940

== ENCOUNTER → 2019-04-22 09:34 | Outpatient (CLI) | payer MEDICARE, OTHER, SELFPAY ==
[2019-04-05 08:00] VITALS: BMI 23.1
[2019-04-19 07:48] VITALS: BMI 22.9
--- NOTE | 2019-04-22 09:36 | STEWCON_ITS ---
Reason For Study: Atrial Fibrillation; Pre-Op Stress Results Protocol: Anurag Protocol Maximum Predicted HR: 139 bpm Target HR: 118 bpm % Maximum Predicted HR: 70 % DurationHeart Rate Stage (mm:ss) (bpm) BP Comment Baseline 60 116/50No Chest Pain; Diluted Definity 3 ML Given Anurag Protocol Stage I 3:00 79 130/48No Chest Pain Anurag Protocol Stage II 3:00 97 148/50No Chest Pain; Mild Dyspnea; Fatigue; Leg Pain Recovery 62 112/56No Chest Pain Stress Duration: 6:00 mm:ss Maximum Stress HR: 97 bpm METS: 7 Baseline Echocardiogram Findings The estimated ejection fraction is 40 %. Stress Echo Wall motion Data Resting WM Intermediate WM Stress WM Resting Wall Motion Wall Motion Stress Moderate global LV dysfunction All segments contracted normally. with LVEF=40%. Final LVEF=50%. EKG Data The baseline ECG displays normal sinus rhythm. The patient exercised according to the regular Anurag protocol for a total duration of 6:00. The maximum heart rate attained was 97 beats per minute. This was 69% of maximum predicted heart rate. The patient exercised into stage 3 of the Anurag protocol. During stress, there were no ST or T wave changes noted to suggest ischemia. Doppler Measurements & Calculations Ao V2 max: 263.8 cm/sec TR max yudith: 284.5 cm/sec Ao max P.9 mmHg TR max P.4 mmHg Ao V2 mean: 168.3 cm/sec Ao mean P.5 mmHg Ao V2 VTI: 48.4 cm Interpretation Summary The estimated ejection fraction is 40 %. Normal, submaximal, treadmill echocardiogram. Negative for ischemia by EKG and echocardiographic criteria. No anginal symptoms noted. No arrhythmias noted. Appropriate blood pressure response to exercise. Average exercise capacity for age. Baseline moderate global LV dysfunction with an EF of 40%, with marginal improvement of all regional sosa at peak exercise. Final LVEF of 5 0%. Decreased sensitivity due to failure to reach target heart rate as well as poor echo windows requiring Definity agent. Recommend clinical correlation or alternative mode of testing of coronary occlusive disease is strongly suspected. Test terminated due to leg discomfort. No complications. The study was technically difficult. Contrast injection was performed. Ordering Physician: Bear Lopez Referring Physician: Madhav Huerta Performed By: Abi Modi RDCS
== END ==
PROVIDERS: Family Provider Family Medicine; PCP Family Medicine; Referring Provider Internal Medicine Cardiovascular Disease; Visit Provider Internal Medicine Cardiovascular Disease
DX: Z01.810 Encounter for preprocedural cardiovascular examination (principal); I50.22 Chronic systolic (congestive) heart failure; I47.2 Ventricular tachycardia; I48.0 Paroxysmal atrial fibrillation; I36.1 Nonrheumatic tricuspid (valve) insufficiency; I27.21 Secondary pulmonary arterial hypertension; I42.8 Other cardiomyopathies; I35.0 Nonrheumatic aortic (valve) stenosis; Z86.73 Personal history of transient ischemic attack (TIA), and cerebral infarction without residual deficits
CPT/HCPCS: 93017; 93350; Q9957; A4216; C8928

== ENCOUNTER 2019-05-01 05:18 | Day surgery (SDC) | payer MEDICARE, OTHER, SELFPAY ==
[2019-04-05 08:00] VITALS: BMI 23.1
[2019-04-19 07:48] VITALS: BMI 22.9
[2019-05-01 05:40] VITALS: BP 115/58; PULSE 57; RESP 16; TEMP 36.6; O2SAT 99; BMI 23.4
[2019-05-01] MEDS: Lactated Ringers 1,000 ML 100 ML IV (06:12)
[2019-05-01] MEDS: Cefazolin 2 GM in 0.9% Normal Saline 100 ML IV (07:22)
--- NOTE | 2019-05-01 07:30 | FOR_PTH ---
PATIENT: MAIKEL SWIFT [place]: [facility] [place][id number] AGE/SX: 83/M ROOM: RE05/01/[address]: Dr. Demario Pedroza MD : [id number] BED: DIS: 05/01/2019 SPEC #: [id number] RECD: 05/01/19 09:45 STATUS: CORRIE REMelissa #: [id number] MINA: 05/01/19 07:[address]: Demario Pedroza DEPT: SURGICAL PATHOLOGY RECD BY: Mary Huerta ENTERED: 05/01/19 11:24 SP TYPE: FORESKIN OTHR DR: Dr. Madhav Huerta MD Tissues: A - Skin of foreskin, NOS B - Glans penis Procedures: Surgery Specimen Level III Surgery Specimen Level IV HEADER OPERATION: Circumcision, laser destruction of penile lesions, shaved biopsy PRE-OP DIAGNOSIS: Leukoplakia, phimosis TISSUE SUBMITTED: A. Foreskin, B. Glans shave biopsy MICROSCOPIC DIAGNOSIS A. Foreskin, circumcision: Consistent with balanitis. Hyperkeratosis. B. Glans, shave biopsy: Consistent with fragments of flat condyloma with hyperkeratosis. No evidence of malignancy. AM:shreya 05/02/19 COMMENT Case has been reviewed in consultation with Dr. Washington who concurs with the above diagnosis. IDC:SJ MICROSCOPIC DESCRIPTION Slides are reviewed. GROSS DESCRIPTION A - Received in fixative is one container labeled with the patient's name and designated foreskin. The specimen consists of glistening, pink-dowling skin with attached hemorrhagic submucosal tissue measuring 5 x 2.5 x 1 cm. No mass lesions are identified. Legal Billing Analyst sections are submitted in one cassette. B - Received in fixative is one container labeled with the patient's name and designated shave biopsy, yuniel. The specimen consists of multiple irregular fragments of light dowling soft tissue that in aggregate measure 1.6 x 0.6 x 0.1 cm. The specimen is totally submitted in one cassette. / AM:shreya 05/01/19 TC:3 CPT: 73366, 05155
[2019-05-01] MEDS: Bupivacaine Mpf 0.5% 30 ML VIAL (08:10)
--- NOTE | 2019-05-01 08:23 | PCM.DC.URO ---
Discharge Diet: Light diet - advance as tolerated Discharge Activity: Return to Normal Activity Instructions: Care After Circumcision Allergies/Adverse Reactions: Allergies No Known Allergies Allergy (Verified 02/14/19 13:21) Medications to take at Discharge Acetaminophen [Tylenol] 500 mg PO Q6H PRN PRN 01/03/17 Folic Acid 0.8 mg PO DAILY@0800 01/03/17 Multivit-Min/FA/Lycopen/Lutein [Centrum Silver Men Tablet] 1 ea PO DAILY 01/03/17 Magnesium Hydroxide [Milk of Magnesia] 400 mg PO PRN PRN 03/09/17 furosemide 20 mg tablet 20 mg PO QDAY 09/02/17 Amiodarone HCl [Pacerone] 200 mg PO DAILY 02/06/18 apixaban 2.5 mg tablet 2.5 mg PO BID 03/12/18 metoprolol succinate ER 50 mg tablet,extended release 24 hr 50 mg PO DAILY #90 tab 03/12/18 ondansetron HCl 8 mg tablet 8 mg PO TID PRN 07/24/18 digoxin 125 mcg tablet 125 mcg PO DAILY #90 tab 09/14/18 lisinopril 5 mg tablet 5 mg PO QDAY #90 tab 09/14/18 cholecalciferol (vitamin D3) 2,000 unit capsule 2,000 unit PO DAILY 02/14/19 ipratropium bromide 0.03 % nasal spray 2 spray INTRANASAL BID 02/14/19 saw palmetto 320 mg capsule 320 mg PO DAILY 02/14/19 Hydrocodone/Acetaminophen [Oil Trough 5-325 Tablet] 1 ea PO Q4H PRN PRN #14 tab 05/01/19 The following prescriptions were given: Hydrocodone/Acetaminophen [Oil Trough 5-325 Tablet] 1 ea PO Q4H PRN PRN #14 tab PRN Reason: Pain Prescription Printed Primary Care Physician: Madhav Huerta MD [Primary Care Provider] - Test Results: Test results from this visit will be discussed in further detail at your follow-up appointment, if applicable. Please Follow Up With: Demario Pedroza MD When: in 2 weeks, please call to make an appointment.
--- NOTE | 2019-05-01 08:23 | PCM.OPRPT ---
Report of Operation Date of Procedure: 05/01/19 Pre-Operative Diagnosis: Phimosis and penile lesion leukoplakia Post-Operative Diagnosis: Same Surgery/Procedure Performed:: Circumcision, shave biopsy of penis and CO2 laser penis lesion Description of Surgical Findings:: 83-year-old male presents to the office for evaluation he was found to have a fairly tight phimotic foreskin there was a whitish lesion at the tip of the penis concerning for leukoplakia today working to proceed with a shave biopsy CO2 laser of the lesion and a circumcision. 83-year-old male was taken back to the operating room after smooth induction of anesthesia he was placed supine on the table, the penis was shaved prepped and draped in usual sterile fashion, I first marked out by circumferential incision all the way around the penis used electrocautery to cut all the way sequentially around the penis to to excise the foreskin I then performed a dorsal slit and the foreskin pulled back over the penis and then circumferentially dissected all the way around the subcoronal area I then dissected the foreskin off the penis obtain hemostasis. We then went to the glans of the penis there was a white plaque area that was about 5 mm x 5 mm in size and a second plaque area of the 5 mm 5 mm in size I used a sharp 15 blade knife to shave biopsy this area excised separately as a separate specimen and then we used the CO2 laser the cauterized the base of both these areas. After completing the shave biopsy and CO2 lasering of the lesion I then completed the circumcision with interrupted stitches all the way around the penis dressings were placed in the penis the patient at the extubated taken back to PACU in good condition and he will follow-up in about 2 weeks. Type of Anesthesia:: General Drains: NONE - Admit VTE Documentation VTE Present on Admission: No VTE Mechan Device Prophylaxis: SCD's
[2019-05-01 08:24] VITALS: BP 115/58; BP 117/58; PULSE 62; RESP 16; TEMP 36.4; O2SAT 93
[2019-05-01 08:30] VITALS: BP 109/51; BP 115/58; PULSE 61; RESP 17; O2SAT 94
[2019-05-01 08:45] VITALS: BP 111/54; BP 115/58; PULSE 60; RESP 16; TEMP 36.5
[2019-05-01 10:10] VITALS: BP 115/58
== END 2019-05-01 10:27 | disposition home or self-care (01) ==
LOC: SDC 05:19 → AC 05:20
PROVIDERS: Family Provider Family Medicine; PCP Family Medicine; Referring Provider Urology; Visit Provider Urology
PROC: (CPT 54161; principal; 2019-05-01 07:20)
DX: N47.1 Phimosis (principal); N48.1 Balanitis; N40.1 Benign prostatic hyperplasia with lower urinary tract symptoms; R35.0 Frequency of micturition; D46.9 Myelodysplastic syndrome, unspecified; I50.22 Chronic systolic (congestive) heart failure; I48.91 Unspecified atrial fibrillation; D53.9 Nutritional anemia, unspecified; H40.9 Unspecified glaucoma; E55.9 Vitamin D deficiency, unspecified; Z79.01 Long term (current) use of anticoagulants; Z79.899 Other long term (current) drug therapy; Z86.73 Personal history of transient ischemic attack (TIA), and cerebral infarction without residual deficits; Z87.891 Personal history of nicotine dependence
CPT/HCPCS: 00920; 54057; 54100; 54161; 88304; 88305; J7120; J2405

== ENCOUNTER → 2019-05-03 07:49 | Outpatient (CLI) | payer MEDICARE, OTHER, SELFPAY ==
[2019-05-01 05:40] VITALS: BMI 23.4
[2019-05-03] VITALS (7 sets, daily range): BP systolic 98–117; BP diastolic 35–66; PULSE 48–79; RESP 16; TEMP 36.1–36.4; O2SAT 92–100; BMI 22.9
[2019-05-03] MEDS: Furosemide 20 MG/2 ML VIAL IV (10:31)
== END ==
PROVIDERS: Family Provider Family Medicine; PCP Family Medicine; Referring Provider Internal Medicine Hematology & Oncology; Visit Provider Internal Medicine Hematology & Oncology
DX: D46.20 Refractory anemia with excess of blasts, unspecified (principal)
CPT/HCPCS: 36430; 86850; 86900; 86901; 86920; 86922; J7040; P9016; A4216; J1940

== ENCOUNTER → 2019-05-17 07:56 | Outpatient (CLI) | payer MEDICARE, OTHER, SELFPAY ==
[2019-05-03 07:55] VITALS: BMI 22.9
[2019-05-17 08:05] VITALS: BP 109/52; PULSE 65; RESP 16; TEMP 36.1; O2SAT 98; BMI 22.9
[2019-05-17 08:38] VITALS: BP 102/42; PULSE 52; RESP 16; TEMP 36.6; O2SAT 96
[2019-05-17 09:38] VITALS: BP 100/53; PULSE 70; RESP 16; TEMP 36.6
[2019-05-17 10:40] VITALS: BP 101/61; PULSE 64; RESP 16; TEMP 36.2
== END ==
PROVIDERS: Family Provider Family Medicine; PCP Family Medicine; Referring Provider Internal Medicine Hematology & Oncology; Visit Provider Internal Medicine Hematology & Oncology
DX: D64.9 Anemia, unspecified (principal)
CPT/HCPCS: 36430; 86850; 86900; 86901; 86920; 86922; P9016

== ENCOUNTER → 2019-05-24 07:36 | Outpatient (CLI) | payer MEDICARE, OTHER, SELFPAY ==
[2019-05-17 08:05] VITALS: BMI 22.9
[2019-05-23 13:31] VITALS: BMI 22.8
[2019-05-24] VITALS (8 sets, daily range): BP systolic 93–112; BP diastolic 45–58; PULSE 58–65; RESP 16; TEMP 36.1–36.4; O2SAT 98–100; BMI 23.2
[2019-05-24] MEDS: Furosemide 20 MG/2 ML VIAL IV (10:41)
== END ==
PROVIDERS: Family Provider Family Medicine; PCP Family Medicine; Referring Provider Internal Medicine Hematology & Oncology; Visit Provider Internal Medicine Hematology & Oncology
DX: D46.9 Myelodysplastic syndrome, unspecified (principal)
CPT/HCPCS: 36430; 86850; 86900; 86901; 86920; 86922; J7040; P9016; A4216; J1940

== ENCOUNTER → 2019-06-06 12:36 | Outpatient (CLI) | payer MEDICARE, OTHER, SELFPAY ==
[2019-05-24 07:42] VITALS: BMI 23.2
--- NOTE | 2019-06-06 12:42 | ECHOD_ITS ---
Reason For Study: CHF Procedure This was a 2D Doppler, Color Flow transthoracic echocardiogram. Exam performed in department. Left Ventricle Severely dilated left ventricle. Apical false tendon noted. The estimated ejection fraction is 40 %. Stage 2 diastolic dysfunction. There is moderate to severe global hypokinesis of the left ventricle. Right Ventricle Severely dilated right ventricle. Moderate global right ventricular systolic dysfunction. Atria The left atrium is severely enlarged. The right atrium is severely enlarged. Normal atrial septum. Mitral Valve Mild diffuse mitral valve thickening. Mild (1+) mitral valve insufficiency. Tricuspid Valve Normal tricuspid valve. Moderate (2+) tricuspid valve insufficiency. Right ventricular systolic pressure estimated to be 52 mmHg. Moderate pulmonary hypertension. Aortic Valve Moderate focal aortic valve thickening. Mild restriction of the aortic valve. Fixed immobile right coronary cusp. Mild aortic stenosis. Peak aortic valve gradient 26 mmHg. Mean aortic valve gradient 15 mmHg. Calculated aortic valve area (continuity equation) is 1.8 cm2. Pulmonic Valve Normal pulmonic valve. Mild (1+) pulmonic valve insufficiency. Great Vessels Normal aortic root. Mild atherosclerosis of the aortic arch. The inferior vena cava is dilated. Inferior vena cava collapse with respiration. Pericardium/Pleural No pericardial effusion. MMode/2D Measurements & Calculations LVIDd: 5.9 cm IVSd: 0.86 cm LVOT diam: 2.2 cm LVIDs: 4.4 cm LVPWd: 0.80 cm LVOT area: 3.6 cm2 RVDd: 5.0 cm FS: 26.0 % Ao root diam: 2.9 cm LAV(MOD-bp): 88.3 ml LA A4 area: 23.7 cm2 LAV(MOD-bp) Indexed: 46.5 ml/m2 LAV(MOD-sp2): 86.1 ml LAV(MOD-sp4): 78.7 ml LA dimension(2D): 4.3 cm RA A4 area: 27.6 cm2 Time Measurements MV dec time: 0.20 sec Doppler Measurements & Calculations MV E max david: 83.5 cm/sec Lat Peak E' David: 7.8 cm/sec Med Peak E' David: 8.3 cm/sec MV A max david: 54.0 cm/sec E/E' lat: 10.7 E/E' med: 10.0 MV E/A: 1.5 Ao V2 max: 244.0 cm/sec LV V1 max: 118.0 cm/sec SV(LVOT): 95.8 ml Ao max P.9 mmHg LV V1 max P.6 mmHg Ao V2 mean: 170.9 cm/sec LV V1 mean P.2 mmHg Ao mean P.9 mmHg LV V1 mean: 86.0 cm/sec Ao V2 VTI: 49.7 cm LV V1 VTI: 26.3 cm ALEX(I,D): 1.9 cm2 ALEX(V,D): 1.8 cm2 PA V2 max: 117.4 cm/sec TR max david: 294.8 cm/sec TR max P.0 mmHg Interpretation Summary Severely dilated left ventricle. The estimated ejection fraction is 40 %. Stage 2 diastolic dysfunction. There is moderate to severe global hypokinesis of the left ventricle. Severely dilated right ventricle. The left atrium is severely enlarged. The right atrium is severely enlarged. Mild (1+) mitral valve insufficiency. Moderate (2+) tricuspid valve insufficiency. Right ventricular systolic pressure estimated to be 52 mmHg. Moderate pulmonary hypertension. Fixed immobile right coronary cusp. Mild aortic stenosis. Peak aortic valve gradient 26 mmHg. Mean aortic valve gradient 15 mmHg. Calculated aortic valve area (continuity equation) is 1.8 cm2. Compared to echo report dated 03/21/2018, LV function has remained the same, but RVSP has increased from 42 to 52 mm Hg. Ordering Physician: Bear Lopez Referring Physician: Madhav Huerta Performed By: Thu Colmenares, ARCHIE, RVT
== END ==
PROVIDERS: Family Provider Family Medicine; PCP Family Medicine; Referring Provider Internal Medicine Cardiovascular Disease; Visit Provider Internal Medicine Cardiovascular Disease
DX: I35.0 Nonrheumatic aortic (valve) stenosis (principal); D46.20 Refractory anemia with excess of blasts, unspecified
CPT/HCPCS: 86850; 86900; 86901; 86920; 86922; 93306

== ENCOUNTER → 2019-06-07 07:56 | Outpatient (CLI) | payer MEDICARE, OTHER, SELFPAY ==
[2019-05-24 07:42] VITALS: BMI 23.2
[2019-06-07] VITALS (8 sets, daily range): BP systolic 90–132; BP diastolic 36–72; PULSE 57–67; RESP 16–18; TEMP 36.1–36.6; O2SAT 93–100; BMI 22.9
[2019-06-07] MEDS: Furosemide 20 MG/2 ML VIAL IV (10:23)
== END ==
PROVIDERS: Family Provider Family Medicine; PCP Family Medicine; Referring Provider Internal Medicine Hematology & Oncology; Visit Provider Internal Medicine Hematology & Oncology
DX: D46.20 Refractory anemia with excess of blasts, unspecified (principal)
CPT/HCPCS: 36430; 86850; 86900; 86901; 86920; 86922; J7040; P9016; P9040; A4216; J1940

== ENCOUNTER → 2019-06-21 08:09 | Outpatient (CLI) | payer MEDICARE, OTHER, SELFPAY ==
[2019-06-07 08:21] VITALS: BMI 22.9
[2019-06-21] VITALS (7 sets, daily range): BP systolic 85–118; BP diastolic 44–59; PULSE 57–79; RESP 16–18; TEMP 35.9–36.7; O2SAT 93–100; BMI 22.9
[2019-06-21] MEDS: Furosemide 20 MG/2 ML VIAL IV (10:48)
== END ==
PROVIDERS: Family Provider Family Medicine; PCP Family Medicine; Referring Provider Internal Medicine Hematology & Oncology; Visit Provider Internal Medicine Hematology & Oncology
DX: D46.20 Refractory anemia with excess of blasts, unspecified (principal)
CPT/HCPCS: 36430; 86850; 86900; 86901; 86920; 86922; J7040; P9016; J1940

== ENCOUNTER → 2019-06-28 07:37 | Outpatient (CLI) | payer MEDICARE, OTHER, SELFPAY ==
[2019-06-21 08:16] VITALS: BMI 22.9
[2019-06-28 08:24] VITALS: BP 105/45; PULSE 56; RESP 14; TEMP 36.6; BMI 22.9
[2019-06-28 08:50] VITALS: BP 106/48; PULSE 56; RESP 16; TEMP 37.1
[2019-06-28 09:50] VITALS: BP 114/50; PULSE 54; RESP 18; TEMP 36.6; O2SAT 100
[2019-06-28 10:44] VITALS: BP 113/59; PULSE 53; RESP 18; TEMP 36.6; O2SAT 96
== END ==
PROVIDERS: Family Provider Family Medicine; PCP Family Medicine; Referring Provider Internal Medicine Hematology & Oncology; Visit Provider Internal Medicine Hematology & Oncology
DX: D46.20 Refractory anemia with excess of blasts, unspecified (principal)
CPT/HCPCS: 36430; 86850; 86900; 86901; 86920; 86922; J7040; P9016; A4216

== ENCOUNTER → 2019-07-05 07:36 | Outpatient (CLI) | payer MEDICARE, OTHER, SELFPAY ==
[2019-06-28 08:24] VITALS: BMI 22.9
[2019-07-05 07:45] VITALS: BP 117/77; PULSE 65; RESP 18; TEMP 36.5; O2SAT 100; BMI 23.1
[2019-07-05 08:27] VITALS: BP 109/44; PULSE 65; RESP 16; TEMP 36.6; O2SAT 99
[2019-07-05 09:27] VITALS: BP 132/50; PULSE 64; RESP 16; TEMP 36.3; O2SAT 98
[2019-07-05 10:03] VITALS: BP 107/58; PULSE 61; RESP 16; TEMP 36.4; O2SAT 100
[2019-07-05] MEDS: Furosemide 20 MG/2 ML VIAL IV (10:18)
== END ==
PROVIDERS: Family Provider Family Medicine; PCP Family Medicine; Referring Provider Internal Medicine Hematology & Oncology; Visit Provider Internal Medicine Hematology & Oncology
DX: D46.20 Refractory anemia with excess of blasts, unspecified (principal)
CPT/HCPCS: 36430; 86850; 86900; 86901; 86920; 86921; 86922; J7040; P9016; J1940

== ENCOUNTER → 2019-07-12 08:56 | Outpatient (CLI) | payer MEDICARE, OTHER, SELFPAY ==
[2019-07-05 07:45] VITALS: BMI 23.1
[2019-07-12 09:14] VITALS: BP 114/35; PULSE 65; RESP 16; TEMP 36.1; O2SAT 100; BMI 22.9
[2019-07-12 09:40] VITALS: BP 101/44; PULSE 62; RESP 18; TEMP 36.8; O2SAT 100
[2019-07-12 10:40] VITALS: BP 118/46; PULSE 60; RESP 18; TEMP 36.3; O2SAT 100
[2019-07-12 11:09] VITALS: BP 108/48; PULSE 63; RESP 16; TEMP 36.7; O2SAT 100
[2019-07-12] MEDS: Furosemide 20 MG/2 ML VIAL IV (11:19)
[2019-07-12 11:58] VITALS: BP 121/46; PULSE 75; RESP 16; TEMP 36.1; O2SAT 100
[2019-07-12 13:30] VITALS: BP 108/48; PULSE 64; RESP 18; TEMP 36.7
== END ==
PROVIDERS: Family Provider Family Medicine; PCP Family Medicine; Referring Provider Internal Medicine Hematology & Oncology; Visit Provider Internal Medicine Hematology & Oncology
DX: D46.20 Refractory anemia with excess of blasts, unspecified (principal)
CPT/HCPCS: 36430; 86850; 86900; 86901; 86920; 86922; J7040; P9016; A4216; J1940

== ENCOUNTER → 2019-07-19 07:52 | Outpatient (CLI) | payer MEDICARE, OTHER, SELFPAY ==
[2019-07-12 09:14] VITALS: BMI 22.9
[2019-07-19 07:57] VITALS: BP 115/40; PULSE 65; RESP 16; TEMP 36.2; BMI 23.1
[2019-07-19 08:49] VITALS: BP 97/47; PULSE 59; RESP 18; TEMP 36; O2SAT 100
[2019-07-19 09:49] VITALS: BP 111/46; PULSE 61; RESP 16; TEMP 36.1
[2019-07-19 10:49] VITALS: BP 104/50; PULSE 59; RESP 18; TEMP 36.1
[2019-07-19] MEDS: Furosemide 20 MG/2 ML VIAL IV (10:50)
== END ==
PROVIDERS: Family Provider Family Medicine; PCP Family Medicine; Referring Provider Internal Medicine Hematology & Oncology; Visit Provider Internal Medicine Hematology & Oncology
DX: D46.20 Refractory anemia with excess of blasts, unspecified (principal)
CPT/HCPCS: 36430; 86850; 86900; 86901; 86920; 86922; J7040; P9016; A4216; J1940

== ENCOUNTER → 2019-08-02 08:29 | Outpatient (CLI) | payer MEDICARE, OTHER, SELFPAY ==
[2019-07-19 07:57] VITALS: BMI 23.1
[2019-08-02] VITALS (7 sets, daily range): BP systolic 100–122; BP diastolic 33–89; PULSE 58–83; RESP 16–18; TEMP 36.1–36.5; O2SAT 99; BMI 23.1
[2019-08-02] MEDS: Furosemide 20 MG/2 ML VIAL IV (11:10)
== END ==
PROVIDERS: Family Provider Family Medicine; PCP Family Medicine; Referring Provider Internal Medicine Hematology & Oncology; Visit Provider Internal Medicine Hematology & Oncology
DX: D46.20 Refractory anemia with excess of blasts, unspecified (principal)
CPT/HCPCS: 36430; 86850; 86900; 86901; 86920; 86922; J7040; P9016; A4216; J1940

== ENCOUNTER → 2019-08-09 07:53 | Outpatient (CLI) | payer MEDICARE, OTHER, SELFPAY ==
[2019-08-02 08:40] VITALS: BMI 23.1
[2019-08-09 08:00] VITALS: BP 107/41; PULSE 69; RESP 18; TEMP 36.2; BMI 22.9
[2019-08-09 09:53] VITALS: BP 91/41; PULSE 65; RESP 18; TEMP 36.2; O2SAT 94
[2019-08-09 10:27] VITALS: BP 102/50; PULSE 77; RESP 18; TEMP 36.1; O2SAT 100
[2019-08-09] MEDS: Furosemide 20 MG/2 ML VIAL IV (10:46)
== END ==
PROVIDERS: Family Provider Family Medicine; PCP Family Medicine; Referring Provider Internal Medicine Hematology & Oncology; Visit Provider Internal Medicine Hematology & Oncology
DX: D46.20 Refractory anemia with excess of blasts, unspecified (principal)
CPT/HCPCS: 36430; 86850; 86900; 86901; 86920; 86922; J7040; P9016; A4216; J1940

== ENCOUNTER → 2019-08-23 08:08 | Outpatient (CLI) | payer MEDICARE, OTHER, SELFPAY ==
[2019-08-09 08:00] VITALS: BMI 22.9
[2019-08-23] VITALS (7 sets, daily range): BP systolic 95–121; BP diastolic 29–52; PULSE 51–94; RESP 16–18; TEMP 36–36.6; O2SAT 93–100; BMI 23.1
[2019-08-23] MEDS: Furosemide 20 MG/2 ML VIAL IV (10:59)
== END ==
PROVIDERS: Family Provider Family Medicine; PCP Family Medicine; Referring Provider Internal Medicine Hematology & Oncology; Visit Provider Internal Medicine Hematology & Oncology
DX: D46.20 Refractory anemia with excess of blasts, unspecified (principal)
CPT/HCPCS: 36430; 86850; 86900; 86901; 86920; 86922; J7040; P9016; A4216; J1940

== ENCOUNTER → 2019-08-30 07:39 | Outpatient (CLI) | payer MEDICARE, OTHER, SELFPAY ==
[2019-08-23 08:23] VITALS: BMI 23.1
[2019-08-30] VITALS (8 sets, daily range): BP systolic 99–113; BP diastolic 45–67; PULSE 42–58; RESP 16–18; TEMP 36.2–36.6; O2SAT 97–99; BMI 23.1
[2019-08-30] MEDS: Furosemide 20 MG/2 ML VIAL IV (10:19)
== END ==
PROVIDERS: Family Provider Family Medicine; PCP Family Medicine; Referring Provider Internal Medicine Hematology & Oncology; Visit Provider Internal Medicine Hematology & Oncology
DX: Z51.89 Encounter for other specified aftercare (principal); D46.20 Refractory anemia with excess of blasts, unspecified
CPT/HCPCS: 36430; 86850; 86900; 86901; 86920; 86922; J7040; P9016; J1940

== ENCOUNTER → 2019-09-06 08:03 | Outpatient (CLI) | payer MEDICARE, OTHER, SELFPAY ==
[2019-08-30 07:57] VITALS: BMI 23.1
[2019-09-06 08:08] VITALS: BP 136/48; PULSE 66; RESP 18; TEMP 36.3; O2SAT 97; BMI 16.7
[2019-09-06 09:50] VITALS: BP 102/45; PULSE 51; RESP 18; TEMP 36.3; O2SAT 98
[2019-09-06] MEDS: Furosemide 20 MG/2 ML VIAL IV (10:56)
[2019-09-06 11:00] VITALS: BP 106/41; PULSE 50; RESP 16; TEMP 36.4
== END ==
PROVIDERS: Family Provider Family Medicine; PCP Family Medicine; Referring Provider Internal Medicine Hematology & Oncology; Visit Provider Internal Medicine Hematology & Oncology
DX: D46.20 Refractory anemia with excess of blasts, unspecified (principal)
CPT/HCPCS: 36430; 86850; 86900; 86901; 86920; 86922; J7040; P9016; A4216; J1940

== ENCOUNTER → 2019-09-20 08:14 | Outpatient (CLI) | payer MEDICARE, OTHER, SELFPAY ==
[2019-09-06 13:37] VITALS: BMI 17.6
[2019-09-20] VITALS (7 sets, daily range): BP systolic 88–112; BP diastolic 37–68; PULSE 52–63; RESP 16–18; TEMP 36.5–36.7; O2SAT 99–100; BMI 22.9
== END ==
PROVIDERS: PCP Family Medicine; Referring Provider Internal Medicine Hematology & Oncology; Visit Provider Internal Medicine Hematology & Oncology
DX: D46.20 Refractory anemia with excess of blasts, unspecified (principal)
CPT/HCPCS: 36430; 86850; 86900; 86901; 86920; 86922; J7040; P9040; A4216

== ENCOUNTER → 2019-09-27 07:58 | Outpatient (CLI) | payer MEDICARE, OTHER, SELFPAY ==
[2019-09-20 08:32] VITALS: BMI 22.9
[2019-09-27] VITALS (7 sets, daily range): BP systolic 82–101; BP diastolic 33–68; PULSE 57–69; RESP 16; TEMP 36.2–36.7; O2SAT 95–100; BMI 23.1
[2019-09-27] MEDS: Furosemide 20 MG/2 ML VIAL IV (10:36)
== END ==
PROVIDERS: PCP Family Medicine; Referring Provider Internal Medicine Hematology & Oncology; Visit Provider Internal Medicine Hematology & Oncology
DX: D46.20 Refractory anemia with excess of blasts, unspecified (principal)
CPT/HCPCS: 36430; 86850; 86900; 86901; 86920; 86922; J7040; P9016; A4216; J1940

== ENCOUNTER → 2019-10-10 08:22 | Outpatient (CLI) | payer MEDICARE, OTHER, SELFPAY ==
[2019-09-27 08:14] VITALS: BMI 23.1
--- NOTE | 2019-10-10 08:27 | VDLE_ITS ---
Reason For Study: Swelling RIGHT LEFT GSV is normal. GSV is normal. CFV is compressible, spontaneous, competent CFV is compressible, spontaneous, competent, and demonstrates pulsatile venous flow. and demonstrates pulsatile venous flow. FV is compressible, spontaneous, competent FV is compressible, spontaneous, competent and demonstrates pulsatile venous flow. and demonstrates pulsatile venous flow. POP V is compressible, spontaneous, competent POP V is compressible, spontaneous, competent and demonstrates pulsatile venous flow. and demonstrates pulsatile venous flow. T/P Trunk is compressible. T/P Trunk is compressible. PTV is compressible. PTV is compressible. RT PerV is compressible. LT PerV is compressible. Procedure Exam performed in department. A preliminary report was called and/or faxed to [facility]. Interpretation Summary Deep veins of the lower extremities are bilaterally patent and compressible segmentally. There is no evidence of deep vein thrombosis on either side. Valvular competence appears intact within the proximal deep venous systems bilaterally. The great saphenous veins appear bilaterally patent and compressible segmentally. Pulsatile flow is noted in the deep venous system bilaterally, which may be indicative of elevated central venous pressure (i.e. congestive heart failure, tricuspid valve insufficiency, etc.). Clinical correlation is advised. Ordering Physician: Madhav Cantrell Referring Physician: Madhav Cantrell Performed By: Priyanka Walker RVT
== END ==
PROVIDERS: PCP Family Medicine; Referring Provider Family Medicine; Visit Provider Family Medicine
DX: M79.89 Other specified soft tissue disorders (principal); D46.20 Refractory anemia with excess of blasts, unspecified
CPT/HCPCS: 86850; 86900; 86901; 86920; 86922; 93970

== ENCOUNTER → 2019-10-11 07:34 | Outpatient (CLI) | payer MEDICARE, OTHER, SELFPAY ==
[2019-09-27 08:14] VITALS: BMI 23.1
[2019-10-11] VITALS (7 sets, daily range): BP systolic 97–118; BP diastolic 39–63; PULSE 57–74; RESP 16; TEMP 36.2–36.7; O2SAT 92–100; BMI 23.1
[2019-10-11] MEDS: Furosemide 20 MG/2 ML VIAL IV (10:49)
== END ==
PROVIDERS: PCP Family Medicine; Referring Provider Internal Medicine Hematology & Oncology; Visit Provider Internal Medicine Hematology & Oncology
DX: D46.20 Refractory anemia with excess of blasts, unspecified (principal)
CPT/HCPCS: 36430; 86850; 86900; 86901; 86920; 86922; J7040; P9016; A4216; J1940

== ENCOUNTER → 2019-10-14 11:35 | Outpatient (CLI) | payer MEDICARE, OTHER, SELFPAY ==
[2019-10-11 08:09] VITALS: BMI 23.1
[2019-10-14 13:53] LABS: Absolute Lymphocyte Count 0.34 X10^3/uL (0.83-4.51); Absolute Neutrophil Count 3.4 X10^3/uL (2.0-7.7); Basophil# 0.03 X10^3/uL; Basophil% 0.7 % (0-1); Eosinophil# 0.01 X10^3/uL; Eosinophils% 0.2 % (0-5); Hematocrit 30.1 % (40-54); Hemoglobin 9.9 g/dL (13.0-16.5); Lymphocyte # 0.34 X10^3/ul (4.0); Lymphocyte % 7.7 % (19-41); Mean Corp Hgb Conc 32.9 g/dL (32-36); Mean Corpuscular Hgb 30.7 pg (27.0-32.0); Mean Corpuscular Volume 93.2 fL (80-94); Mean Platelet Vol. 11.9 fl (6.2-12.0); Monocyte# 0.58 X10^3/uL; Monocyte% 13.1 % (0-10); NRBC Flagged by Analyzer 0 % (0-5); Neutrophil # 3.41 X10^3/uL (2.7-7.7); Neutrophil % 77.2 % (47-70); POSITIVE DIFFERENTIAL YES; Platelet Count 195 K/mm3 (150-450); RBC Distribution Width CV 18.8 % (11.6-14.6); Red Blood Count 3.23 M/mm3 (4.6-6.2); White Blood Count 4.4 K/mm3 (4.4-11.0)
[2019-10-14 14:10] LABS: Protein, Urine (Random) 31.5 mg/dL (<11.9); Protein:Creat Ratio 286 mg/g CRE (0-200)
[2019-10-14 14:11] LABS: ALB/GLOB Ratio 1.1 RATIO (0.9-2.4); AST(SGOT) 86 U/L (15-37); Alanine Aminotransfer ALT/SGPT 129 U/L (16-61); Albumin, Serum 3.4 g/dL (3.2-5.0); Alkaline Phosphatase 244 U/L (45-117); Anion Gap 6 (5-15); BUN 49 mg/dL (7-18); BUN/Creat Ratio 27.4 RATIO (10-20); Calcium,Total 8.9 mg/dL (8.5-10.1); Chloride 105 mmol/L (98-107); Creatinine, Serum 1.79 mg/dL (0.70-1.30); EST Glomerular Filtration Rate 39 mL/min (>60); Est Glom Filt Rate - Afr Amer 47 mL/min (>60); Globulin 3.2 g/dL (2.2-4.2); Glucose 169 mg/dL (74-106); Potassium 4.2 mmol/L (3.5-5.1); Protein, Total 6.6 g/dL (6.4-8.2); Sodium Level 140 mmol/L (136-145)
[2019-10-14 14:21] LABS: BNP,B-Type NATRIURETIC PEPTIDE 1834.3 pg/mL (0-100)
[2019-10-14 14:38] LABS: Hemoglobin A1c 6.2 % (4.2-6.3)
[2019-10-14 14:39] LABS: Differential Indicated SCAN CRITERIA MET
== END ==
PROVIDERS: PCP Family Medicine; Referring Provider Family Medicine; Visit Provider Family Medicine
DX: I50.22 Chronic systolic (congestive) heart failure (principal); R73.09 Other abnormal glucose; R94.4 Abnormal results of kidney function studies; R73.01 Impaired fasting glucose
CPT/HCPCS: 36415; 80053; 82570; 83036; 83880; 84156; 85025

== ENCOUNTER → 2019-10-15 15:55 | Outpatient (CLI) | payer MEDICARE, OTHER, SELFPAY ==
[2019-10-11 08:09] VITALS: BMI 23.1
[2019-10-15 17:57] LABS: AST(SGOT) 92 U/L (15-37); Alanine Aminotransfer ALT/SGPT 135 U/L (16-61); Albumin, Serum 3.5 g/dL (3.2-5.0); Alkaline Phosphatase 256 U/L (45-117); Anion Gap 5 (5-15); BUN 47 mg/dL (7-18); BUN/Creat Ratio 23.3 RATIO (10-20); Bilirubin, Direct 0.98 mg/dL (0.00-0.30); Calcium,Total 9.1 mg/dL (8.5-10.1); Chloride 104 mmol/L (98-107); Creatinine, Serum 2.02 mg/dL (0.70-1.30); EST Glomerular Filtration Rate 34 mL/min (>60); Est Glom Filt Rate - Afr Amer 41 mL/min (>60); Globulin 2.9 g/dL (2.2-4.2); Glucose 122 mg/dL (74-106); Phosphorus 4.8 mg/dL (2.5-4.9); Potassium 5.1 mmol/L (3.5-5.1); Protein, Total 6.4 g/dL (6.4-8.2); Sodium Level 141 mmol/L (136-145)
== END ==
PROVIDERS: PCP Family Medicine; Visit Provider Family Medicine
DX: E80.6 Other disorders of bilirubin metabolism (principal)
CPT/HCPCS: 36415; 80048; 80076; 84100

== ENCOUNTER → 2019-10-24 07:13 | Outpatient (CLI) | payer MEDICARE, OTHER, SELFPAY ==
[2019-10-11 08:09] VITALS: BMI 23.1
--- NOTE | 2019-10-24 07:14 | US_ITS ---
STUDY: ABDOMINAL ULTRASOUND REASON FOR EXAM: Male, 84 years old. HYPERBILIRUBINEMIA TECHNIQUE: Transabdominal ultrasound was performed with real-time and static hoyt scale imaging. TECHNICAL QUALITY: Adequate. COMPARISON: None. FINDINGS: Liver: The liver measures 18.0 cm. There is normal echogenicity of the liver. The bile ducts are within normal limits. There is hepatic color flow. The direction of portal flow is hepatopetal. There is no demonstrated mass lesion. Portal vein measurement: Gallbladder: Normal distended gallbladder. The gallbladder wall measures 2 mm. There is a negative sonographic Emnjivar''s sign. Questionable tiny amount of pericholecystic fluid. There are multiple echogenic structures within the gallbladder, consistent with multiple gallstones. Common Bile Duct (C.B.D.): The common bile duct measures 2 mm. Pancreas: Normal size of the head, body and tail of the pancreas. There is normal echogenicity of the pancreas. There is no demonstrated pancreatic mass or cyst. Spleen: Normal size of the spleen. The spleen measures 10.1 cm. Right Kidney: Normal size of the right kidney. The right kidney measures 11.4 cm. Normal renal cortex. The right cortex measures 1.5 cm. There is no demonstrated renal mass or cyst. There is no right hydronephrosis. Left Kidney: Normal size of the left kidney. The left kidney measures 10.8 cm. Normal renal cortex. The left cortex measures 1.5 cm. There is no demonstrated renal mass or cyst. There is an extra-renal pelvis of the left kidney. There is no distention of the renal calyces. Aorta: No abdominal aortic aneurysm. I.V.C.: The IVC is patent. There is no ascites. There is a right-sided pleural effusion. US/Abdomen Complete IMPRESSION: 1. Cholelithiasis with possible small amount of pericholecystic fluid. Clinical correlation is recommended to exclude acute cholecystitis. 2. Right-sided pleural effusion. Electronically Signed: Deangelo Levin MD at 13:28 EST Tel , Service support ,
== END ==
PROVIDERS: PCP Family Medicine; Referring Provider Family Medicine; Visit Provider Family Medicine
DX: E80.6 Other disorders of bilirubin metabolism (principal); D46.20 Refractory anemia with excess of blasts, unspecified
CPT/HCPCS: 76700; 86850; 86900; 86901; 86920; 86922

== ENCOUNTER → 2019-10-25 08:21 | Outpatient (CLI) | payer MEDICARE, OTHER, SELFPAY ==
[2019-10-11 08:09] VITALS: BMI 23.1
[2019-10-25 08:50] VITALS: BP 95/57; PULSE 70; RESP 16; TEMP 36.2; O2SAT 92; BMI 23.1
[2019-10-25 09:21] VITALS: BP 85/48; PULSE 70; RESP 16; TEMP 36.3; O2SAT 99
[2019-10-25 10:21] VITALS: BP 92/57; PULSE 68; RESP 16; TEMP 36.3
[2019-10-25] MEDS: Furosemide 20 MG/2 ML VIAL IV (11:00)
[2019-10-25 11:21] VITALS: BP 94/56; PULSE 60; RESP 16; TEMP 36.3; O2SAT 100
[2019-10-25 11:36] VITALS: BP 105/53; PULSE 63; RESP 16; TEMP 36.2
[2019-10-25 13:15] VITALS: BP 99/63; PULSE 72; RESP 16; TEMP 36.4; O2SAT 98
== END ==
PROVIDERS: PCP Family Medicine; Referring Provider Internal Medicine Hematology & Oncology; Visit Provider Internal Medicine Hematology & Oncology
DX: D46.20 Refractory anemia with excess of blasts, unspecified (principal)
CPT/HCPCS: 36430; 86850; 86900; 86901; 86920; 86922; J7040; P9016; A4216; J1940

== ENCOUNTER → 2019-11-01 07:27 | Outpatient (CLI) | payer MEDICARE, OTHER, SELFPAY ==
[2019-10-25 08:50] VITALS: BMI 23.1
[2019-11-01 07:54] VITALS: BP 89/45; PULSE 77; RESP 18; TEMP 36.4; O2SAT 100; BMI 23.1
[2019-11-01 08:42] VITALS: BP 87/45; PULSE 72; RESP 16; TEMP 36.5
[2019-11-01 09:42] VITALS: BP 86/44; PULSE 55; RESP 16; TEMP 36.3; O2SAT 96
[2019-11-01 10:19] VITALS: BP 89/52; PULSE 70; RESP 18; TEMP 36.1; O2SAT 94
[2019-11-01 11:11] VITALS: BP 95/60; PULSE 72; RESP 16; TEMP 36.7
[2019-11-01 12:15] VITALS: BP 104/76; PULSE 79; RESP 16; TEMP 36.4
== END ==
PROVIDERS: PCP Family Medicine; Referring Provider Internal Medicine Hematology & Oncology; Visit Provider Internal Medicine Hematology & Oncology
DX: D64.9 Anemia, unspecified (principal)
CPT/HCPCS: 36430; 86850; 86900; 86901; 86920; 86922; J7040; P9016; A4216

== ENCOUNTER → 2019-11-15 07:29 | Outpatient (CLI) | payer MEDICARE, OTHER, SELFPAY ==
[2019-11-01 07:54] VITALS: BMI 23.1
[2019-11-15] VITALS (7 sets, daily range): BP systolic 80–99; BP diastolic 38–53; PULSE 61–105; RESP 16–20; TEMP 35.9–36.7; O2SAT 93–97; BMI 22.9
[2019-11-15] MEDS: 0.9% NaCl Peripheral Flush Adult/Peds IV (08:07)
== END ==
PROVIDERS: PCP Family Medicine; Referring Provider Internal Medicine Hematology & Oncology; Visit Provider Internal Medicine Hematology & Oncology
DX: D46.20 Refractory anemia with excess of blasts, unspecified (principal)
CPT/HCPCS: 36430; 86850; 86900; 86901; 86920; 86922; J7040; P9016; A4216

== ENCOUNTER → 2019-11-29 09:04 | Outpatient (CLI) | payer MEDICARE, OTHER, SELFPAY ==
[2019-11-15 07:55] VITALS: BMI 22.9
[2019-11-29 09:21] VITALS: BP 97/48; PULSE 100; RESP 18; TEMP 36; BMI 23.1
[2019-11-29] MEDS: 0.9% NaCl Peripheral Flush Adult/Peds IV (09:26)
[2019-11-29 09:57] VITALS: BP 76/31; RESP 18; TEMP 36.3; O2SAT 96
[2019-11-29 11:31] VITALS: BP 81/47; PULSE 83; RESP 18; TEMP 36.3; O2SAT 100
== END ==
PROVIDERS: PCP Family Medicine; Referring Provider Internal Medicine Hematology & Oncology; Visit Provider Internal Medicine Hematology & Oncology
DX: D46.20 Refractory anemia with excess of blasts, unspecified (principal)
CPT/HCPCS: 36430; 86850; 86900; 86901; 86920; 86922; J7040; P9016; A4216

== ENCOUNTER → 2019-12-13 07:52 | Outpatient (CLI) | payer MEDICARE, OTHER, SELFPAY ==
[2019-11-29 09:21] VITALS: BMI 23.1
[2019-12-13] VITALS (8 sets, daily range): BP systolic 83–145; BP diastolic 35–84; PULSE 59–91; RESP 16–20; TEMP 36–36.8; O2SAT 99–100; BMI 23.1
[2019-12-13] MEDS: 0.9% NaCl Peripheral Flush Adult/Peds IV (08:23)
== END ==
PROVIDERS: PCP Family Medicine; Referring Provider Internal Medicine Hematology & Oncology; Visit Provider Internal Medicine Hematology & Oncology
DX: D46.20 Refractory anemia with excess of blasts, unspecified (principal)
CPT/HCPCS: 36430; 86850; 86900; 86901; 86920; 86922; J7040; P9016; A4216

== ENCOUNTER → 2019-12-20 07:41 | Outpatient (CLI) | payer MEDICARE, OTHER, SELFPAY ==
[2019-12-13 08:08] VITALS: BMI 23.1
[2019-12-20] VITALS (7 sets, daily range): BP systolic 70–88; BP diastolic 35–54; PULSE 58–78; RESP 16; TEMP 36–36.2; O2SAT 97–100; BMI 22.2
[2019-12-20] MEDS: 0.9% NaCl Peripheral Flush Adult/Peds IV (08:10)
== END ==
PROVIDERS: PCP Family Medicine; Referring Provider Internal Medicine Hematology & Oncology; Visit Provider Internal Medicine Hematology & Oncology
DX: D46.20 Refractory anemia with excess of blasts, unspecified (principal)
CPT/HCPCS: 36430; 86850; 86900; 86901; 86920; 86922; P9016; A4216

== ENCOUNTER → 2020-01-03 07:54 | Outpatient (CLI) | payer MEDICARE, OTHER, SELFPAY ==
[2019-12-20 08:07] VITALS: BMI 22.2
[2020-01-03] VITALS (8 sets, daily range): BP systolic 86–101; BP diastolic 43–72; PULSE 71–93; RESP 16–18; TEMP 36.1–36.6; O2SAT 94–100; BMI 22.9
[2020-01-03] MEDS: 0.9% NaCl Peripheral Flush Adult/Peds IV (08:14)
== END ==
PROVIDERS: PCP Family Medicine; Referring Provider Internal Medicine Hematology & Oncology; Visit Provider Internal Medicine Hematology & Oncology
DX: D46.20 Refractory anemia with excess of blasts, unspecified (principal)
CPT/HCPCS: 36430; 86850; 86900; 86901; 86920; 86922; J7040; P9016; A4216

== ENCOUNTER 2020-01-17 12:58 | Inpatient (IN) | payer MEDICARE, OTHER, SELFPAY ==
[2020-01-03 08:07] VITALS: BMI 22.9
[2020-01-17] VITALS (16 sets, daily range): BP systolic 83–130; BP diastolic 24–96; PULSE 71–85; RESP 13–24; TEMP 35.9–36.9; O2SAT 88–100; BMI 24.5; BMI 26.4; BMI 26.2; BMI 26.3
--- NOTE | 2020-01-17 13:12 | EKG12_ITS ---
Test Reason : Blood Pressure : / mmHG Vent. Rate : 082 BPM Atrial Rate : 039 BPM P-R Int : 000 ms QRS Dur : 136 ms QT Int : 392 ms P-R-T Axes : 000 -54 076 degrees QTc Int : 457 ms Atrial fibrillation Left axis deviation Non-specific intra-ventricular conduction block Abnormal ECG Confirmed by ANDREE TANG, SANDRO ([id number]), restaurant expeditor BINU MUNSON ([id number]) on 01/21/2020 2:23:10 PM Referred By: Finn Guadarrama Confirmed By:SANDRO CANDELARIO MD
--- NOTE | 2020-01-17 13:19 | RAD_ITS ---
STUDY: X-RAY CHEST REASON FOR EXAM: Male, 84 years old. RALES AND EDEMA TECHNIQUE: Frontal and lateral views of the chest. COMPARISON: 11/03/2016 FINDINGS: The lungs are clear and expanded. Small bilateral pleural effusions are noted. Normal size heart. Normal mediastinum and kaylee. Normal visualized pulmonary arteries. Normal visualized aortic arch and descending thoracic aorta. Normal visualized thoracic spine. There is degenerative osteoarthritis of the bilateral shoulders. There is no demonstrated abnormality of the visualized soft tissue structures of the upper abdomen. RAD/Chest PA and Lateral IMPRESSION: Small bilateral pleural effusions. Electronically Signed: Bre Laird, at 14:37 EDT Tel , Service support ,
--- NOTE | 2020-01-17 13:19 | VDLE_ITS ---
Reason For Study: LLE PAIN RIGHT LEFT CFV is compressible, spontaneous, competent GSV is normal. and demonstrates pulsatile venous flow. CFV is compressible, spontaneous, competent, Procedure and demonstrates pulsatile venous flow. Exam performed portable in ED. FV is compressible, spontaneous, competent The study was technically difficult. and demonstrates pulsatile venous flow. Due to LLE edema. POP V is compressible, spontaneous, competent A preliminary report was called and/or faxed and demonstrates pulsatile venous flow. to ED. T/P Trunk is compressible. PTV is compressible. LT PerV is compressible. Interpretation Summary There is no evidence of left lower extremity deep vein thrombosis. Left great saphenous vein appears patent and compressible segmentally. Patent and compressible right common femoral vein Pulsatile venous flow is noted bilaterally. This is consistent with proximal venous hypertension or obstruction. Clinical correlation is indicated. Ordering Physician: Christ Boucher Referring Physician: Madhav Cantrell Performed By: Thu Colmenares, LLOYDCS, RVT
--- NOTE | 2020-01-17 13:22 | ED.DCSUM_ITS ---
History of Present Illness Chief Complaint: Edema Detail of Chief Complaint: Sent to ER by Dr. Keshawn Atkins for multiple reasons Informant: Patient, PCP Onset: Days Context: Gradual Onset Timing: Continuous Quality: Pain left lower extremity, edema Location: Bilateral edema Current Severity: Moderate Maximum Severity: Moderate Worsened by: Left popliteal fossa pain worse with movement and palpation Relieved by: Nothing Associated Symptoms: Dyspnea on exertion, chronic orthopnea, increasing bilateral pedal edema Narrative: Patient is 84-year-old male with MDS, chronic atrial fibrillation on Eliquis, congestive heart failure who his Lasix dose was recently decreased because of worsening renal function, CVA who was sent to the ER because of elevated white count, creatinine, potassium and edema. Dr. Keshawn Atkins was concern for DVT versus septic arthritis. Patient is not a good informant. He denies fever or chills. He denies headache, visual, ocular auditory symptoms. He denies chest pain. He does report shortness of breath with activity. He denies increased orthopnea. He denies PND. He denies abdominal pain. He denies vomiting or diarrhea. He denies dysuria, frequency, urgency or hematuria. Because of his renal insufficiency his Lasix dose was decreased by spring encaser per Dr. Keshawn Atkins. Labs were obtained today which revealed worsening renal function and elevated potassium. Patient denies history of gout or pseudogout. Prior similar symptoms: Yes Recent Illness/Hospitalization: Yes - Past Medical History (1) Skin cancer, basal cell Status: Acute (2) Chronic systolic (congestive) heart failure Status: Chronic Comment: EF 40% per echo 03/22/18 @ [facility] (EF 20-25% per echo 11/04/2016 done @ [facility]) (3) Hemorrhagic cerebrovascular accident (CVA) Status: Chronic Comment: Occipital subdural bleed 10/2016 (4) Myelodysplasia (myelodysplastic syndrome) Status: Chronic (5) Non-ischemic cardiomyopathy Status: Chronic (6) Non-rheumatic tricuspid valve insufficiency Status: Chronic (7) Nonrheumatic aortic (valve) stenosis Status: Chronic (8) Nonsustained ventricular tachycardia Status: Chronic (9) Paroxysmal atrial fibrillation Status: Chronic (10) Secondary pulmonary arterial hypertension Status: Chronic Comment: RVSP 43 mmhg per echo 03/22/2018 Past Medical History - Allergies and Home Meds Allergies/Adverse Reactions: Allergies No Known Allergies Allergy (Verified 01/17/20 13:00) Primary Care Physician: Madhav Cantrell MD [Primary Care Provider] - Prior records reviewed: Yes Surgical History: - - rotator cuff surgery, shoulder surgery. Lives: Alone Smoking Status: Former smoker Alcohol: None Drugs: None - Family History Maternal Family History: Family History (Last Reviewed 01/17/20 @ 17:[address] Bear Salazar MD) Mother Hypertension Sister Hypertension Family History: Reports: - - cancer Paternal Family History: Family History (Last Reviewed 01/17/20 @ 17:[address] Bear Salazar MD) Mother Hypertension Sister Hypertension Family History: Reports: - - father after falling on ice Sibling Family History: Family History (Last Reviewed 01/17/20 @ 17:[address] Bear Salazar MD) Mother Hypertension Sister Hypertension Family History: Reports: - - sister with pancreatic cancer. sister with enlarge heart. Review of Systems General: Denies: Chills, Fever, Malaise, Subjective, Sweats Eyes: Denies: Visual changes - bilaterally, Blurred Vision - bilaterally ENT: Denies: Rhinorrhea, Sore throat Cardiovascular: Denies: Chest pain, Palpitations, Heart racing Respiratory: Reports: Dyspnea on exertion, Orthopnea - Chronic and stable. Denies: Dyspnea, Cough, Sputum, Paroxysmal nocturnal dyspnea Gastrointestinal: Denies: Abdominal pain, Nausea, Vomiting, Diarrhea, Melena, Hematochezia Genitourinary: Denies: Dysuria, Hematuria, Frequency Musculoskeletal: Reports: Swelling, Extremity Pain. Denies: Myalgias, Arthralgias, Neck pain, Back pain Skin: Reports: Rash. Denies: Abscess, Abrasions Neurological: Reports: Weakness. Denies: Headache, Parasthesia Hematologic: Reports: Easy bruising. Denies: Easy bleeding Allergy: Denies: Uticaria, Swelling of the mouth Physical Exam Vital Signs/Narrative: Vital Signs Temp Pulse Resp BP Pulse Ox 01/17/20 12:59 98 F 83 16 130/61 H 95 Inital Vital Signs reviewed: Yes General: Well developed, No Acute Distress. Negative for: Well nourished Head: Normocephalic, Atraumatic Eyes: Perrl, EOMI, Pale conjunctiva, Scleral icterus ENT: Moist mucous membranes, No rhinorrhea, TM's clear Neck: Supple, Nontender, No lymphadenopathy, No JVD Cardiovascular: Regular rate, No murmurs, Irregular Respiratory: No distress, Chest nontender, Rales - Lateral rales left base greater than right.. Negative for: CTA bilaterally Abdomen: Soft, Nondistended, Normal bowel sounds, Tender, Guarding - upper abdomen Rectal: Deferred Back: Nontender, Normal Inspection Extremities: Tenderness - Jordan popliteal fossa, Edema, - - There is slight warmth to the skin over the left knee. There is no lymphangitis. There is no popliteal or inguinal lymphadenopathy. The left leg is greater in size than the right.. Negative for: Nontender, No edema, Calf Tenderness Skin: Jaundice, No Trauma, Pallor, Rash. Negative for: Normal color, No rash, Cyanosis, Diaphoresis, Trauma Neurological: Alert, Oriented x3, Cranial nerves II-XII grossly intact, Normal Strength, Normal Sensation Psychological: Normal affect Diagnostic/Tx/Re-eval Chest X-Ray - ED: 2 View, Read by ED Physician - X-ray interpreted by me at 1422, Normal, Heart, Mediastinum, Bony Structures, - - The lateral view there is opacification noted that may represent infiltrate versus of effusion lower lung field near the diaphra Impressions Gallbladder Ultrasound 01/17/20 14:30 IMPRESSION: Fatty infiltration of the liver. Cholelithiasis and possible chronic cholecystitis. Electronically Signed: Bre Laird, at 16:06 EDT Tel , Service support , 01/17/20 13:19 Xray Chest [Chest PA and Lateral] [RAD] Stat 01/17/20 14:30 US Gallbladder [Gallbladder] [US] Stat 01/17/20 15:26 Abdomen/Pelvis without Cont [CT] Stat 01/17/20 16:25 CXR for Line Placement [RAD] Stat Laboratory Results 01/17/20 01/17/20 01/17/20 13:30 13:30 13:30 WBC 28.0 H RBC 2.62 L Hgb 8.6 L Hct 25.8 L MCV 98.5 H MCH 32.8 H MCHC 33.3 RDW Std Deviation 68.4 H RDW Coeff of Trevon 20.2 H Plt Count 406 MPV 12.6 H Immature Gran % (Auto) 4.200 H Neut % (Auto) 81.5 H Lymph % (Auto) 0.0 L [place]bud % (Auto) 13.7 H Eos % (Auto) 0.3 Baso % (Auto) 0.3 Absolute Neuts (auto) 22.8 H Absolute Lymphs (auto) 0.00 L Nucleated RBC % 3.3 Differential Comment Diff Path Review May foll Platelet Estimate ADEQUATE Anisocytosis 2+ Target Cells 1+ ESR 7 PT 29.0 H INR 2.8 APTT 39.0 H Sodium 131 L Potassium 6.6 H* Chloride 98 Carbon Dioxide 18.0 L Anion Gap 15 BUN 99 H Creatinine 4.56 H Estim Creat Clear Calc 12.90 Est GFR (MDRD) Af Amer 16 L Est GFR (MDRD) Non-Af 13 L BUN/Creatinine Ratio 21.7 H Glucose 149 H Lactic Acid Calcium 9.0 Total Bilirubin 7.00 H AST 454 H ALT 552 H Alkaline Phosphatase 182 H Troponin I C-React Prot Ext Range 121.00 H B-Natriuretic Peptide Total Protein 6.6 Albumin 3.2 Globulin 3.4 Albumin/Globulin Ratio 0.9 Amylase Lipase Urine Color Urine Clarity Urine pH Ur Specific [place] Urine Protein Urine Glucose (UA) Urine Ketones Urine Occult Blood Urine Nitrite Urine Bilirubin Urine Urobilinogen Ur Leukocyte Esterase Urine RBC Urine WBC Ur Squamous Epith Cells Amorphous Sediment Urine Bacteria Urine Mucus 01/17/20 01/17/20 01/17/20 13:30 13:30 13:30 WBC RBC Hgb Hct MCV MCH MCHC RDW Std Deviation RDW Coeff of Trevon Plt Count MPV Immature Gran % (Auto) Neut % (Auto) Lymph % (Auto) Rosebud % (Auto) Eos % (Auto) Baso % (Auto) Absolute Neuts (auto) Absolute Lymphs (auto) Nucleated RBC % Differential Comment Diff Path Review Platelet Estimate Anisocytosis Target Cells ESR PT INR APTT Sodium Potassium Chloride Carbon Dioxide Anion Gap BUN Creatinine Estim Creat Clear Calc Est GFR (MDRD) Af Amer Est GFR (MDRD) Non-Af BUN/Creatinine Ratio Glucose Lactic Acid Calcium Total Bilirubin AST ALT Alkaline Phosphatase Troponin I 0.038 C-React Prot Ext Range B-Natriuretic Peptide 3510.4 H Total Protein Albumin Globulin Albumin/Globulin Ratio Amylase 51 Lipase 87 Urine Color Urine Clarity Urine pH Ur Specific [place] Urine Protein Urine Glucose (UA) Urine Ketones Urine Occult Blood Urine Nitrite Urine Bilirubin Urine Urobilinogen Ur Leukocyte Esterase Urine RBC Urine WBC Ur Squamous Epith Cells Amorphous Sediment Urine Bacteria Urine Mucus 01/17/20 01/17/20 14:35 17:05 WBC RBC Hgb Hct MCV MCH MCHC RDW Std Deviation RDW Coeff of Trevon Plt Count MPV Immature Gran % (Auto) Neut % (Auto) Lymph % (Auto) [place] % (Auto) Eos % (Auto) Baso % (Auto) Absolute Neuts (auto) Absolute Lymphs (auto) Nucleated RBC % Differential Comment Diff Path Review Platelet Estimate Anisocytosis Target Cells ESR PT INR APTT Sodium Potassium Chloride Carbon Dioxide Anion Gap BUN Creatinine Estim Creat Clear Calc Est GFR (MDRD) Af Amer Est GFR (MDRD) Non-Af BUN/Creatinine Ratio Glucose Lactic Acid 7.5 H* Calcium Total Bilirubin AST ALT Alkaline Phosphatase Troponin I C-React Prot Ext Range B-Natriuretic Peptide Total Protein Albumin Globulin Albumin/Globulin Ratio Amylase Lipase Urine Color Gi Urine Clarity Sl. Cloudy Urine pH 5.0 Ur Specific [place] 1.020 Urine Protein 100 H Urine Glucose (UA) Normal Urine Ketones 5 H Urine Occult Blood 150 H Urine Nitrite Negative Urine Bilirubin 1 H Urine Urobilinogen 1 H Ur Leukocyte Esterase 25 H Urine RBC 0-5 SEEN Urine WBC 0 SEEN Ur Squamous Epith Cells 0 SEEN Amorphous Sediment 1+ Urine Bacteria 0 SEEN Urine Mucus [address] Franki Salazar was made aware of results of the ultrasound and CAT scan. Dr. Marina has been made aware. Patient be admitted to the intensive care unit - EKG Initial EKG Interpretation: - - White clumps complex rhythm. No obvious P waves noted. QRS duration 136 ms. QT duration 392 ms. [place] to left. There is a nonspecific intraventricular conduction delay. Prior: Changed - Medical Decision Making Suspect patient has CHF due to his cardiac disease, worsening renal function and decrease in diuretic. Chest x-ray was obtained to confirm that patient has exacerbation of CHF. Appropriate blood work was obtained as well. Because of the asymmetry and pain to the left knee venous duplex was obtained to rule out DVT. Also on the differential one needs entertain possibility Mcmillan's cyst. The knee exam reveals no pain with passive flexion extension. There is no obvious effusion of the knee. Because of reported worsening renal function elevated potassium EKG was obtained to determine if there are changes consistent with hyperkalemia. Patient was informed that he may need hospitalization. Patient has worsening renal function with a creatinine of 4.59 and a potassium of 6.6 with a low CO2 and an estimated GFR of 13. Since he has wide QRS complex which is new from prior EKG which was several years ago we will treat for hyperkalemia with calcium gluconate, albuterol aerosol, insulin and D50 as well as [address] Keshawn Atkins was paged because of his high white count to determine if he received anything that may have caused this. Also his liver enzymes are markedly elevated from prior, September 2019. Case was discussed with Dr. Keshawn Atkins. The white count and transaminases and jaundice are all new. There is concern for sepsis. Presumption is intra- abdominal source. The elevated transaminases and bilirubin may be secondary to the iron chelating agent. Will obtain ultrasound to rule out cholecystitis. I was informed patient's lactate is 7.5. Patient has septic shock. He will receive a 30 cc/kg bolus. The physical security manager and surgeon were paged Dr. Morgan Marina and Dr. Franki Salazar respectively. There is fluid noted around the gallbladder as well as liver. This may represent ascites. He also has evidence of cholecystitis with dilatation of the biliary tree. Awaiting formal read by radiologist. Patient was reassessed. He did respond to fluid bolus. Since his last blood pressure is low with a mean arterial pressure 64 patient was started on Levophed drip. - Critical Care Time Critical care time (excluding procedures): 75-104 minutes - Care time 77 minutes which included time spent with patient, consultants including hospitalist, physical security manager, surgeon and radiologist. Time to document history and physical and obtain detailed history from oncologist. This excludes time for placement of central line., Discussing w/Patient &/or Family/Assistant Professor Of Nursing, Discussing w /Consultants, Arranging Admission or Transfer - Critical care time 37 minutes Procedures Procedure(s): Right internal jugular line using ultrasound. Patient gave verbal consent because he is in septic shock. Patient was informed of risk benefits. He acknowledged he understands by nodding yes. Patient was prepped draped sterile manner per central line protocol. Everyone in room was wearing mask and hoodie. The right internal jugular line was easily visualized with the ultrasound. The vessel was cannulated with a finder needle. When a the larger needle was used the access it was cannulated however when the wire was threaded there was concern that it was in the artery since blood was coming through the piston. The syringe was moved from the needle. The vessel that was cannulated was the artery. The needle was removed. On second attempt the right IJ was successfully cannulated and using Seldinger technique a 7.5 Amharic triple-lumen was placed. Blood was aspirated from all 3 ports. Chest x-ray was obtained to confirm position and rule out pneumothorax. ED Disposition - Plan for ED Patient: Diagnosis: Septic shock, Ascites, Jaundice, Chronic cholecystitis with calculus, Bilateral pleural effusion, Non-ischemic cardiomyopathy, Myelodysplasia (myelodysplastic syndrome), Coagulopathy Referrals: Madhav Cantrell MD [Primary Care Provider] -
[2020-01-17 13:47] LABS: Erythrocyte Sedimentation Rate 7 mm/hr (0-20)
[2020-01-17 13:49] LABS: Absolute Neutrophil Count 22.8 X10^3/uL (2.0-7.7); Basophil# 0.07 X10^3/uL; Basophil% 0.3 % (0-1); Eosinophil# 0.09 X10^3/uL; Eosinophils% 0.3 % (0-5); Hematocrit 25.8 % (40-54); Hemoglobin 8.6 g/dL (13.0-16.5); Mean Corp Hgb Conc 33.3 g/dL (32-36); Mean Corpuscular Hgb 32.8 pg (27.0-32.0); Mean Corpuscular Volume 98.5 fL (80-94); Mean Platelet Vol. 12.6 fl (6.2-12.0); Monocyte# 3.84 X10^3/uL; Monocyte% 13.7 % (0-10); NRBC Flagged by Analyzer 3.3 % (0-5); Neutrophil # 22.82 X10^3/uL (2.7-7.7); Neutrophil % 81.5 % (47-70); POSITIVE DIFFERENTIAL YES; POSITIVE MORPHOLOGY YES; Platelet Count 406 K/mm3 (150-450); RBC Distribution Width CV 20.2 % (11.6-14.6); RBC Distribution Width SD 68.4 fl (35.1-43.9); Red Blood Count 2.62 M/mm3 (4.6-6.2)
[2020-01-17 13:51] LABS: Differential Indicated SCAN CRITERIA MET
[2020-01-17 13:56] LABS: International Normalized Ratio 2.8
[2020-01-17 14:00] LABS: ALB/GLOB Ratio 0.9 RATIO (0.9-2.4); AST(SGOT) 454 U/L (15-37); Alanine Aminotransfer ALT/SGPT 552 U/L (16-61); Albumin, Serum 3.2 g/dL (3.2-5.0); Alkaline Phosphatase 182 U/L (45-117); Anion Gap 15 (5-15); BUN 99 mg/dL (7-18); BUN/Creat Ratio 21.7 RATIO (10-20); Chloride 98 mmol/L (98-107); Creatinine, Serum 4.56 mg/dL (0.70-1.30); EST Glomerular Filtration Rate 13 mL/min (>60); Est Glom Filt Rate - Afr Amer 16 mL/min (>60); Globulin 3.4 g/dL (2.2-4.2); Glucose 149 mg/dL (74-106); Potassium 6.6 mmol/L (3.5-5.1); Protein, Total 6.6 g/dL (6.4-8.2); Sodium Level 131 mmol/L (136-145)
--- NOTE | 2020-01-17 14:15 | EKG12_ITS ---
Test Reason : Blood Pressure : / mmHG Vent. Rate : 081 BPM Atrial Rate : 081 BPM P-R Int : 000 ms QRS Dur : 136 ms QT Int : 392 ms P-R-T Axes : 000 -51 084 degrees QTc Int : 455 ms Junctional rhythm Left axis deviation Non-specific intra-ventricular conduction block Abnormal ECG Confirmed by ANDREE TANG, SANDRO ([id number]), commercial production editor BINU MUNSON ([id number]) on 01/21/2020 2:22:40 PM Referred By: Finn Guadarrama Confirmed By:SANDRO CANDELARIO MD
--- NOTE | 2020-01-17 14:30 | US_ITS ---
STUDY: ABDOMINAL ULTRASOUND - RIGHT UPPER QUADRANT REASON FOR VISIT: Male, 84 years old JAUNDICE- ELEVATED TRANSMINASES- H/O GALLSONES TECHNIQUE: Ultrasound evaluation of the right upper quadrant was performed with real-time and static hoyt-scale imaging. TECHNICAL QUALITY: Adequate. COMPARISON: None. FINDINGS: Liver: The liver measures 18.1 cm. There is increased echogenicity consistent with fatty infiltration. The bile ducts are within normal limits. There is hepatic color flow. The direction of portal flow is hepatopetal. There is no demonstrated mass lesion. Gallbladder: There is a partially contracted gallbladder. The gallbladder wall measures 6 mm. There is a positive sonographic Menjivar''s sign. There is pericholecystic fluid. There are multiple echogenic structures within the gallbladder, consistent with multiple gallstones. Common Bile Duct (C.B.D.): The common bile duct measures 4 mm. Pancreas: Normal size of the head, body and tail of the pancreas. There is normal echogenicity of the pancreas. There is no demonstrated pancreatic mass or cyst. Right Kidney: Normal size of the right kidney. The right kidney measures 11 x 5.4 x 5 cm. Normal renal cortex. The right cortex measures 1.6 cm. There is no demonstrated renal mass or cyst. There is no right hydronephrosis. US/Gallbladder IMPRESSION: Fatty infiltration of the liver. Cholelithiasis and possible chronic cholecystitis. Electronically Signed: Bre Laird, at 16:06 EDT Tel , Service support ,
[2020-01-17] MEDS: Albuterol 2.5 MG/3 ML VIAL.NEB. INHALATION (14:32)
[2020-01-17 14:37] LABS: Platelet Estimate ADEQUATE (ADEQ)
[2020-01-17 14:38] LABS: Anisocytosis 2+; Target Cells 1+
[2020-01-17] MEDS: Insulin Lispro 5 UNIT in Syringe 0 ML 3 UNIT IV (14:51)
[2020-01-17] MEDS: Dextrose 50%-Water 25 GM/50 ML DISP.SYRIN IV (14:51)
[2020-01-17 15:14] LABS: Lactic Acid 7.5 mmol/L (0.4-1.9)
[2020-01-17] MEDS: Sodium Bicarbonate 8.4% 50 ML Syringe 50 MEQ IV (15:19)
--- NOTE | 2020-01-17 15:26 | CT_ITS ---
STUDY: CT ABDOMEN AND PELVIS WITHOUT CONTRAST REASON FOR EXAM: Male, 84 years old. JAUNDICE, ABNORMAL US, SEPTIC SHOCK, LEFT LEG EDEMA RADIATION DOSAGE (If Supplied By Facility): CTDIvol = ( 14.19 ) mGy, DLP = ( 723.33 ) mGycm TECHNIQUE: Transaxial images were obtained from the dome of the diaphragm to the symphysis pubis without oral contrast, and without intravenous contrast. Sagittal and coronal images were reconstructed. Individualized dose optimization techniques were used for this CT. COMPARISON: CTA of the chest dated November 03, 2016 and ultrasound dated January 17, 2020 FINDINGS: There are bilateral pleural effusions, right greater than left associated with dependent consolidation within the lower lobe. There is cardiomegaly. There are coronary artery calcifications present. The lack of intravenous contrast limits evaluation of solid visceral organs. The liver is diffusely increased in attenuation. There are gallstones within the gallbladder. Normal spleen. Normal pancreas. There is ascites throughout the abdomen or pelvis. There is grossly stable prominence of the adrenal glands, this may be secondary to hypertrophy. Normal right kidney. Normal left kidney. Normal visualized stomach. Normal small intestine. Normal colon. The appendix is visualized and appears normal. There is diffuse atherosclerotic calcification of the abdominal aorta, without a demonstrated aneurysm. Normal inferior vena cava. Normal retroperitoneum. Normal urinary bladder. There is diffuse subcutaneous edema. There is subcutaneous foci of air along the anterior abdominal wall may be secondary to prior subcutaneous injections. There is a subcutaneous round low-attenuation focus lateral to the gluteal muscles suggestive of an underlying lipoma. There are degenerative changes of the visualized thoracic and lumbar spine. CT/Abdomen/Pelvis without Cont IMPRESSION: Ascites. 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 Subcutaneous edema. Bilateral pleural effusions associated with dependent consolidation within the lower lobes. Atherosclerosis. Cardiomegaly. Electronically Signed: Teresa Cortés MD at 17:12 EDT Tel , Service support ,
[2020-01-17] MEDS: 0.9% Normal Saline 1,000 ML 999 ML IV ×3 (16:23→19:31)
--- NOTE | 2020-01-17 16:25 | RAD_ITS ---
STUDY: X-RAY CHEST REASON FOR EXAM: Male, 84 years old. RIGHT IJ LINE PLACEMENT TECHNIQUE: Single frontal view of the chest. COMPARISON: December 18, 2019 at 2:21 PM. FINDINGS: There is a new right sided central venous catheter terminating within the expected region of the superior vena cava. There is a small left pleural effusion. There is cardiomegaly. Normal mediastinum and kaylee. Normal visualized pulmonary arteries. Normal visualized aortic arch and descending thoracic aorta. Normal visualized thoracic spine. Normal visualized ribs, clavicles, and shoulders. There is no demonstrated abnormality of the visualized soft tissue structures of the upper abdomen. RAD/CXR for Line Placement IMPRESSION: Right sided central venous catheter terminating within the expected region of the superior vena cava. Cardiomegaly. Small left pleural effusion. Electronically Signed: Teresa Cortés MD at 17:13 EDT Tel , Service support ,
--- NOTE | 2020-01-17 16:48 | PCM.CONS.GEN ---
Problem List (1) Elevated liver enzymes Status: Acute (2) Cholelithiasis Status: Acute Qualifiers: Cholelithiasis location: gallbladder Cholecystitis presence: without cholecystitis Biliary obstruction: with biliary obstruction Qualified Code(s): K80.21 - Calculus of gallbladder without cholecystitis with obstruction Reason for Consult Date of Consultation: 01/17/20 History of Present Illness: Patient is 84-year-old male with MDS, chronic atrial fibrillation on Eliquis, congestive heart failure who his Lasix dose was recently decreased because of worsening renal function, CVA who was sent to the ER because of elevated white count, creatinine, potassium and edema. Dr. Keshawn Atkins was concern for DVT versus septic arthritis. Patient is not a good informant. He denies fever or chills. He denies headache, visual, ocular auditory symptoms. He denies chest pain. He does report shortness of breath with activity. He denies increased orthopnea. He denies PND. He denies abdominal pain. He denies vomiting or diarrhea. He denies dysuria, frequency, urgency or hematuria. Because of his renal insufficiency his Lasix dose was decreased by tower equipment repairer per Dr. Keshawn Atkins. Labs were obtained today which revealed worsening renal function and elevated potassium. Patient denies history of gout or pseudogout. Gallbladder ultrasound does show some slightly thickening of his gallbladder wall. But no dilatation of his ducts. In comparison to a gallbladder ultrasound back in 2017 it is not significantly different other than the fluid around the gallbladder which appears to be more than previous. While in the emergency department he became hypotensive central line has been placed in the chest x-ray looks good. Past Medical History Past Medical History (Chronic Problems): Chronic Problems (Last Reviewed 01/17/20 @ 17:[address] Bear Salazar MD) Nonrheumatic aortic (valve) stenosis (Chronic) Paroxysmal atrial fibrillation (Chronic) 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) RVSP 43 mmhg per echo 03/22/2018 Chronic systolic (congestive) heart failure (Chronic) EF 40% per echo 03/22/18 @ [facility] (EF 20-25% per echo 11/04/2016 done @ [facility]) Non-ischemic cardiomyopathy (Chronic) Nonsustained ventricular tachycardia (Chronic) Hemorrhagic cerebrovascular accident (CVA) (Chronic) Occipital subdural bleed 10/2016 Myelodysplasia (myelodysplastic syndrome) (Chronic) Medical History: Medical History (Last Reviewed 01/17/20 @ 17:[address] Bear Salazar MD) Nonrheumatic aortic (valve) stenosis (Chronic) I35.0 Skin cancer, basal cell (Acute) C44.91 Paroxysmal atrial fibrillation (Chronic) I48.0 Non-rheumatic tricuspid valve insufficiency (Chronic) I36.1 Secondary pulmonary arterial hypertension (Chronic) I27.21 RVSP 43 mmhg per echo 03/22/2018 Chronic systolic (congestive) heart failure (Chronic) I50.22 EF 40% per echo 03/22/18 @ [facility] (EF 20-25% per echo 11/04/2016 done @ [facility]) Non-ischemic cardiomyopathy (Chronic) I42.8 Nonsustained ventricular tachycardia (Chronic) I47.2 Hemorrhagic cerebrovascular accident (CVA) (Chronic) I61.9 Occipital subdural bleed 10/2016 Myelodysplasia (myelodysplastic syndrome) (Chronic) D46.9 Hypertension I10 Persistent atrial fibrillation (Inactive) I48.1 Allergies No Known Allergies Allergy (Verified 01/17/20 13:00) Home Medications: Ambulatory Orders Medication Instructions Recorded Folic Acid 0.8 mg PO DAILY@0800 01/03/17 apixaban 2.5 mg tablet 2.5 mg PO BID 03/12/18 cholecalciferol (vitamin D3) 50 2,000 unit PO DAILY 02/14/19 mcg (2,000 unit) capsule ipratropium bromide 0.03 % nasal 2 spray INTRANASAL BID 02/14/19 spray nvpcrhrf-lnw-ptcly acid 300 1 tab PO DAILY 05/23/19 mcg-lycopene 600 mcg-lutein 300 mcg tablet amiodarone 200 mg tablet 200 mg PO DAILY #90 tab 07/31/19 metoprolol succinate 50 mg 50 mg PO DAILY #90 tab 07/31/19 tablet,extended release 24 hr Deferoxamine Mesylate 2,000 mg SQ DAILY 12/13/19 Furosemide [Lasix] 40 mg PO DAILY 12/20/19 Digoxin 125 mcg PO DAILY 01/17/20 Lisinopril [Zestril] 2.5 mg PO DAILY 01/17/20 Omeprazole 20 mg PO BID 01/17/20 Surgical History: Surgical History (Last Reviewed 01/17/20 @ 17:[address] Bear Salazar MD) History of repair of rotator cuff Z98.890 History of right and left heart catheterization Onset Date: 03/10/17 Z98.890 Previous back surgery Z98.890 L1-L5 Surgical History: - - rotator cuff surgery, shoulder surgery. Lives: Alone Smoking Status: Never smoker Alcohol: None Drugs: None - *Family History Maternal Family History: Family History (Last Reviewed 01/17/20 @ 17:[address] Bear Salazar MD) Mother Hypertension Sister Hypertension History Items: - - cancer Paternal Family History: Family History (Last Reviewed 01/17/20 @ 17:[address] Bear Salazar MD) Mother Hypertension Sister Hypertension History Items: - - father after falling on ice Sibling Family History: Family History (Last Reviewed 01/17/20 @ 17:[address] Bear Salazar MD) Mother Hypertension Sister Hypertension History Items: - - sister with pancreatic cancer. sister with enlarge heart. Review of Systems Constitutional: Reports: Malaise, Fatigue Cardiovascular: Denies: Chest Pain, Chest Pressure, Chest Tightness, Palpitations Respiratory: Denies: Cough, Hemoptysis, Shortness of breath at rest, Shortness of breath upon exertion, Wheezing Gastrointestinal: Reports: Abdominal Pain - Minimal right upper quadrant abdominal pain no rebound guarding or peritoneal signs are identified Musculoskeletal: Reports: Leg Pain - He is complaining of leg swelling bilaterally. Worse on the left side Skin: Reports: Jaundice Psychiatric: Denies: Anxiety, Depression Hematologic/ Lymphatic: Reports: Anemia, Hx of blood transfusion Patient Problems: Active and Suspected Problems (Last Reviewed 01/17/20 @ 17:[address] Bear Salazar MD) Elevated liver enzymes (Acute) Cholelithiasis (Acute) - Physical Exam Vitals/I&O's: Vital Signs Temp Pulse Resp BP Pulse Ox 98 F 77 18 97/51 L 98 01/17/20 12:59 01/17/20 16:38 01/17/20 16:38 01/17/20 16:38 01/17/20 16:38 Oxygen Delivery Method Room Air Weight: 183 lb 13.848 oz Body Mass Index (BMI) 26.4 Intake and Output for Last 24 Hours 01/15/20 01/16/20 01/17/20 23:59 23:59 23:59 Intake Total 60.05 / 60.05 Balance 60.05 / 60.05 General: Alert, Oriented x3 HEENT: PERRLA, - - Significant scleral icterus Neck: Supple, No JVD Lungs: Clear to auscultation Cardiovascular: Regular rate, Regular Rhythm, No murmurs Abdomen: Soft, Tender - Generalized abdominal edema is identified Extremities: Edema Laboratory Results 01/17/20 13:30: WBC 28.0 H, RBC 2.62 L, Hgb 8.6 L, Hct 25.8 L, MCV 98.5 H, MCH 32.8 H, MCHC 33.3, RDW Std Deviation 68.4 H, RDW Coeff of Trevon 20.2 H, Plt Count 406, MPV 12.6 H, Immature Gran % (Auto) 4.200 H, Neut % (Auto) 81.5 H, Lymph % (Auto) 0.0 L, [place] % (Auto) 13.7 H, Eos % (Auto) 0.3, Baso % (Auto) 0.3, Absolute Neuts (auto) 22.8 H, Absolute Lymphs (auto) 0.00 L, Nucleated RBC % 3.3, Differential Comment , Diff Path Review May , Platelet Estimate ADEQUATE, Anisocytosis 2+, Target Cells 1+, ESR 7 01/17/20 13:30: PT 29.0 H, INR 2.8, APTT 39.0 H 01/17/20 13:30: Sodium 131 L, Potassium 6.6 H*, Chloride 98, Carbon Dioxide 18.0 L, Anion Gap 15, BUN 99 H, Creatinine 4.56 H, Estim Creat Clear Calc 12.90, Est GFR (MDRD) Af Amer 16 L, Est GFR (MDRD) Non-Af 13 L, BUN/Creatinine Ratio 21.7 H, Glucose 149 H, Calcium 9.0, Total Bilirubin 7.00 H, AST 454 H, ALT 552 H, Alkaline Phosphatase 182 H, C-React Prot Ext Range 121.00 H, Total Protein 6.6, Albumin 3.2, Globulin 3.4, Albumin/Globulin Ratio 0.9 01/17/20 13:30: Troponin I 0.038 01/17/20 13:30: B-Natriuretic Peptide 3510.4 H 01/17/20 14:35: Lactic Acid 7.5 H* Current Medications Sodium Chloride () 1,000 mls @ 999 mls/hr IV .Q1H1M TEX; Protocol Stop: 01/17/20 17:45 Last Admin: 01/17/20 16:23 Dose: 999 mls/hr Documented by: Assessment/Plan All Active Problems (Last Reviewed 01/17/20 @ 17:[address] Bear Salazar MD) Elevated liver enzymes (Acute) Cholelithiasis (Acute) Skin cancer, basal cell (Acute) This patient is significantly septic. His PT and INR are wildly elevated and he is currently on Eliquis. In reviewing his liver function test from previous studies they are significantly elevated however with no dilatation of his ducts and his alkaline phosphatase lower than it was previously I do not think that were dealing with cholangitis and in fact may be dealing with liver failure. His CAT scan shows significant edema as well as ascites and bilateral pleural effusions. Prior to doing any ERCP he would need to have an MRCP to evaluate the biliary system. Patient is going to be admitted to the ICU under the hospitalist service with ICU consultation. At this juncture he would not be a surgical candidate given his overall condition and comorbidities. Office Visits / Consults: [id number] IP Consult L4
[2020-01-17 17:26] LABS: Bacteria 0 SEEN /hpf (None Seen); Mucous, Urine 0 SEEN /hpf (<or=2+); Squamous Epithelial Cells - UA 0 SEEN /hpf (0-5); White Blood Cells 0 SEEN /hpf (0-5)
[2020-01-17 18:03] LABS: Color, Urine Amber (Yellow); Glucose, Dipstick Normal (Normal); Ketone-Dipstick 5 mg/dl (Negative); Leukocyte Esterase-Dipstick 25 /ul (Negative); Nitrite-Dipstick Negative (Negative); Occult Blood-Urine 150 /ul (Negative); Protein-Dipstick 100 mg/dl (Negative); Urine Clarity Sl. Cloudy (Clear); Urine Urobilinogen 1 mg/dl (Normal)
[2020-01-17 18:11] LABS: Urine Bilirubin Dipstick 1 mg/dL (Negative)
[2020-01-17 18:15] LABS: Amorphous Sediment 1+; Red Blood Cells-Urine 0-5 SEEN /hpf (0-5)
[2020-01-17 18:28] LABS: Amylase 51 U/L (25-115); Lipase 87 U/L (73-393)
[2020-01-17 18:41] LABS: Reflex Lactate? Y
--- NOTE | 2020-01-17 20:37 | HP.PCM_ITS ---
Problem List (1) Cholecystitis Status: Acute (2) Septic shock Status: Acute History of Present Illness Date of Admission: 01/17/20 Chief Complaint: LEFT LEG PAIN AND SWELLING The patient is a 84 year old M with a significant history of MDS who was sent by Dr. Atkins, oncologist, to the ED because of left leg swelling and pain. Reportedly patient has had left leg swelling and pain for about 1 months; and in the last 2 to 3 weeks it has progressively worsened. His symptom is from his left toes up to his left groin. Also he has right lower swelling and pain but it is not as severe as in his left lower extremities. At emergency department patient was found to have hypotension; leukocytosis and severely elevated lactic acid 7.5 with repeat as 7.7. Also his potassium was severely elevated. His liver enzymes was also severely elevated. Past Medical History Past Medical History (Chronic Problems): Chronic Problems (Last Reviewed 01/17/20 @ 21:[address] Finn Guadarrama MD) Chronic cholecystitis with calculus (Chronic) Nonrheumatic aortic (valve) stenosis (Chronic) Paroxysmal atrial fibrillation (Chronic) 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) RVSP 43 mmhg per echo 03/22/2018 Chronic systolic (congestive) heart failure (Chronic) EF 40% per echo 03/22/18 @ [facility] (EF 20-25% per echo 11/04/2016 done @ [facility]) Non-ischemic cardiomyopathy (Chronic) Nonsustained ventricular tachycardia (Chronic) Hemorrhagic cerebrovascular accident (CVA) (Chronic) Occipital subdural bleed 10/2016 Myelodysplasia (myelodysplastic syndrome) (Chronic) Medical History: Medical History (Last Reviewed 01/17/20 @ 21:[address] Finn Guadarrama MD) Nonrheumatic aortic (valve) stenosis (Chronic) I35.0 Skin cancer, basal cell (Acute) C44.91 Paroxysmal atrial fibrillation (Chronic) I48.0 Non-rheumatic tricuspid valve insufficiency (Chronic) I36.1 Secondary pulmonary arterial hypertension (Chronic) I27.21 RVSP 43 mmhg per echo 03/22/2018 Chronic systolic (congestive) heart failure (Chronic) I50.22 EF 40% per echo 03/22/18 @ [facility] (EF 20-25% per echo 11/04/2016 done @ [facility]) Non-ischemic cardiomyopathy (Chronic) I42.8 Nonsustained ventricular tachycardia (Chronic) I47.2 Hemorrhagic cerebrovascular accident (CVA) (Chronic) I61.9 Occipital subdural bleed 10/2016 Myelodysplasia (myelodysplastic syndrome) (Chronic) D46.9 Hypertension I10 Persistent atrial fibrillation (Inactive) I48.1 Allergies No Known Allergies Allergy (Verified 01/17/20 13:00) Home Medications: Ambulatory Orders Medication Instructions Recorded Folic Acid 0.8 mg PO DAILY@0800 01/03/17 apixaban 2.5 mg tablet 2.5 mg PO BID 03/12/18 cholecalciferol (vitamin D3) 50 2,000 unit PO DAILY 02/14/19 mcg (2,000 unit) capsule ipratropium bromide 0.03 % nasal 2 spray INTRANASAL BID 02/14/19 spray zydaerwp-pcx-agjng acid 300 1 tab PO DAILY 05/23/19 mcg-lycopene 600 mcg-lutein 300 mcg tablet amiodarone 200 mg tablet 200 mg PO DAILY #90 tab 07/31/19 metoprolol succinate 50 mg 50 mg PO DAILY #90 tab 07/31/19 tablet,extended release 24 hr Deferoxamine Mesylate 2,000 mg SQ DAILY 12/13/19 Furosemide [Lasix] 40 mg PO DAILY 12/20/19 Digoxin 125 mcg PO DAILY 01/17/20 Lisinopril [Zestril] 2.5 mg PO DAILY 01/17/20 Omeprazole 20 mg PO BID 01/17/20 Surgical History: Surgical History (Last Reviewed 01/17/20 @ 21:[address] Finn Guadarrama MD) History of repair of rotator cuff Z98.890 History of right and left heart catheterization Onset Date: 03/10/17 Z98.890 Previous back surgery Z98.890 L1-L5 Surgical History: - - rotator cuff surgery, shoulder surgery. Lives: Alone Smoking Status: Never smoker Alcohol: None Drugs: None - *Family History Maternal Family History: Family History (Last Reviewed 01/17/20 @ 21:[address] Finn Guadarrama MD) Mother Hypertension Sister Hypertension History Items: - - cancer Paternal Family History: Family History (Last Reviewed 01/17/20 @ 21:[address] Finn Guadarrama MD) Mother Hypertension Sister Hypertension History Items: - - father after falling on ice Sibling Family History: Family History (Last Reviewed 01/17/20 @ 21:[address] Finn Guadarrama MD) Mother Hypertension Sister Hypertension History Items: - - sister with pancreatic cancer. sister with enlarge heart. Review of Systems Constitutional: Denies: Chills, Fever HEENT: Denies: Head Aches, Sinus Congestion, Sinus Drainage Cardiovascular: Denies: Chest Pain, Palpitations Respiratory: Denies: Cough, Shortness of breath at rest, Sputum production Gastrointestinal: Denies: Abdominal Pain, Nausea, Vomiting Genitourinary: Denies: Dysuria Musculoskeletal: Reports: Joint Pain - Left knee, Joint Tenderness - Left knee, Leg Pain - Left leg Skin: Denies: Rash, Wounds Neurological: Denies: Numbness, Tingling, Focal weakness Psychiatric: Denies: Anxiety, Depression, Homicidal Ideations, Suicidal Ideations Hematologic/ Lymphatic: Denies: Easy Bruising, Easy Bleeding VTE Information - Inpt Only VTE Present on Admission: No VTE Mechan Device Prophylaxis: None VTE Pharm Prophylaxis ordered?: No Reason prophylaxis not ordered:: Treatment Not Indicated - On home Eliquis for A. fib; continued Patient Problems: Active and Suspected Problems (Last Reviewed 01/17/20 @ 21:[address] Finn Guadarrama MD) Elevated liver enzymes (Acute) Cholelithiasis (Acute) Cholecystitis (Acute) Septic shock (Acute) Septic shock (Acute) Ascites (Acute) Jaundice (Acute) Bilateral pleural effusion (Acute) Non-ischemic cardiomyopathy (Acute) Myelodysplasia (myelodysplastic syndrome) (Acute) Coagulopathy (Acute) - Physical Exam Vitals/I&O's: Vital Signs Temp Pulse Resp BP Pulse Ox 96.6 F L 74 17 96/48 L 96 01/17/20 20:15 01/17/20 20:15 01/17/20 20:15 01/17/20 20:15 01/17/20 20:15 Oxygen Flow Rate (L/min) 2 Oxygen Delivery Method Nasal Cannula Weight: 83.4 kg Body Mass Index (BMI) 26.4 Intake and Output for Last 24 Hours 01/15/20 01/16/20 01/17/20 23:59 23:59 23:59 Intake Total 2660.05 / 2660.05 Balance 2660.05 / 2660.05 General: Alert, Oriented x3, Cooperative HEENT: Atraumatic, PERRLA, EOMI, Normocephalic, - - Scleral icterus Neck: Supple, No JVD, Negative Carotid Bruits Lungs: Clear to auscultation, Normal air movement Cardiovascular: Gallops, Murmur Abdomen: Bowel Sounds Present, Soft, Non Tender Extremities: Capillary Refill Less than 3 Seconds, Edema - Bilateral lower extremities; left worse than right., Tenderness - Left lower extremity Skin: No rashes, No breakdown, - - Jaundice; erythema of left knee and leg. Musculoskeletal: Tenderness - Left lower extremity Neurological: Cranial nerves II-XII grossly intact Psych/Mental Status: Normal Affect, Appropriate Laboratory Results 01/17/20 13:30: WBC 28.0 H, RBC 2.62 L, Hgb 8.6 L, Hct 25.8 L, MCV 98.5 H, MCH 32.8 H, MCHC 33.3, RDW Std Deviation 68.4 H, RDW Coeff of Trevon 20.2 H, Plt Count 406, MPV 12.6 H, Immature Gran % (Auto) 4.200 H, Neut % (Auto) 81.5 H, Lymph % (Auto) 0.0 L, [place] % (Auto) 13.7 H, Eos % (Auto) 0.3, Baso % (Auto) 0.3, Absolute Neuts (auto) 22.8 H, Absolute Lymphs (auto) 0.00 L, Nucleated RBC % 3.3, Differential Comment , Diff Path Review May foll, Platelet Estimate ADEQUATE, Anisocytosis 2+, Target Cells 1+, ESR 7 01/17/20 13:30: PT 29.0 H, INR 2.8, APTT 39.0 H 01/17/20 13:30: Sodium 131 L, Potassium 6.6 H*, Chloride 98, Carbon Dioxide 18.0 L, Anion Gap 15, BUN 99 H, Creatinine 4.56 H, Estim Creat Clear Calc 12.90, Est GFR (MDRD) Af Amer 16 L, Est GFR (MDRD) Non-Af 13 L, BUN/Creatinine Ratio 21.7 H , Glucose 149 H, Calcium 9.0, Total Bilirubin 7.00 H, AST 454 H, ALT 552 H, Alkaline Phosphatase 182 H, C-React Prot Ext Range 121.00 H, Total Protein 6.6, Albumin 3.2, Globulin 3.4, Albumin/Globulin Ratio 0.9 01/17/20 13:30: Troponin I 0.038 01/17/20 13:30: B-Natriuretic Peptide 3510.4 H 01/17/20 13:30: Amylase 51, Lipase 87 01/17/20 14:35: Lactic Acid 7.5 H* 01/17/20 17:05: Urine Color Gi, Urine Clarity Sl. Cloudy, Urine pH 5.0, Ur Specific [place] 1.020, Urine Protein 100 H, Urine Glucose (UA) Normal, Urine Ketones 5 H, Urine Occult Blood 150 H, Urine Nitrite Negative, Urine Bilirubin 1 H, Urine Urobilinogen 1 H, Ur Leukocyte Esterase 25 H, Urine RBC 0-5 SEEN, Urine WBC 0 SEEN, Ur Squamous Epith Cells 0 SEEN, Amorphous Sediment 1+, Urine Bacteria 0 SEEN, Urine Mucus 0 SEEN 01/17/20 19:05: Lactic Acid Pending Current Medications Norepinephrine Bitartrate 8 mg (/ Sodium Chloride) 250 mls @ 9.375 mls/hr CONT INF .[id number] TEX; Protocol Assessment/Plan All Active Problems (Last Reviewed 01/17/20 @ 21:[address] Finn Guadarrama MD) Elevated liver enzymes (Acute) Cholelithiasis (Acute) Cholecystitis (Acute) Septic shock (Acute) Septic shock (Acute) Ascites (Acute) Jaundice (Acute) Bilateral pleural effusion (Acute) Non-ischemic cardiomyopathy (Acute) Myelodysplasia (myelodysplastic syndrome) (Acute) Coagulopathy (Acute) Skin cancer, basal cell (Acute) The patient is a 84 year old M with a significant history of MDS who was sent by Dr. Atkins, oncologist to the ED because of left leg swelling and pain; was found to have hyperkalemia; poor renal function; elevated lactic acid; bilateral pleural effusion; and fluid around his gallbladder consistent with septic shock. Septic shock likely secondary to cholecystitis Can not Rule out cholangitis. Received normal saline 30 MS per kilogram per septic shock protocol at emergency department. Blood cultures were obtained at emergency department; follow patient was started on Zosyn at emergency department. Continue Zosyn. General surgery saw patient at the ED and recommended MRCP. Will order MRCP. Hold metoprolol and Lasix for now. Consider resuming when blood pressure is stable. Levophed was started emergency department; continued. Transit Vehicle Inspector consult. WILLIAM Acute volume replacement and pressors as above. Discussed with emergent depa rtment doctor to discuss case with quality assurance associate. Nephrology consult. Hyperkalemia Received insulin with dextrose at emergency department. Received calcium gluconate; and bicarbonate at emergency department. Will give Kayexalate. Trend BMP. Acute on chronic systolic and diastolic heart failure Echocardiogram on 06/06/2019 showed left ventricular ejection fraction of 40%; stage II diastolic dysfunction. Elevated BNP; and generalized edema Hold guideline directed medical therapy secondary to septic shock. When patient is stabilized consider resuming/ starting GDMT. Consider Lasix. DVT prophylaxis On Eliquis; continued. Inpatient E&M: [id number] Init Hosp L3
[2020-01-17 20:56] LABS: Lactic Acid 7.7 mmol/L (0.4-1.9)
--- NOTE | 2020-01-17 22:05 | SEPSISNOTE ---
Sepsis Note - Physical Exam/Vitals Objective: Chest X-Ray 01/17/20 13:19 IMPRESSION: Small bilateral pleural effusions. Electronically Signed: Bre Laird, at 14:37 EDT Tel , Service support , Gallbladder Ultrasound 01/17/20 14:30 IMPRESSION: Fatty infiltration of the liver. Cholelithiasis and possible chronic cholecystitis. Electronically Signed: Bre Laird, at 16:06 EDT Tel , Service support , Temp Pulse Resp BP Pulse Ox 97.4 F L 80 16 105/48 L 94 01/17/20 21:48 01/17/20 21:48 01/17/20 21:48 01/17/20 21:48 01/17/20 21:48 01/17/20 01/17/20 01/17/20 21:45 19:05 17:05 WBC RBC Hgb Hct MCV MCH MCHC RDW Std Deviation RDW Coeff of Trevon Plt Count MPV Immature Gran % (Auto) Neut % (Auto) Lymph % (Auto) [place] % (Auto) Eos % (Auto) Baso % (Auto) Absolute Neuts (auto) Absolute Lymphs (auto) Nucleated RBC % Differential Comment Diff Path Review Platelet Estimate Anisocytosis Target Cells ESR PT INR APTT Sodium Potassium Chloride Carbon Dioxide Anion Gap BUN Creatinine Estim Creat Clear Calc Est GFR (MDRD) Af Amer Est GFR (MDRD) Non-Af BUN/Creatinine Ratio Glucose Lactic Acid 7.7 H* Calcium Total Bilirubin AST ALT Alkaline Phosphatase Troponin I C-React Prot Ext Range B-Natriuretic Peptide Total Protein Albumin Globulin Albumin/Globulin Ratio Amylase Lipase Urine Color Gi Urine Clarity Sl. Cloudy Urine pH 5.0 Ur Specific [place] 1.020 Urine Protein 100 H Urine Glucose (UA) Normal Urine Ketones 5 H Urine Occult Blood 150 H Urine Nitrite Negative Urine Bilirubin 1 H Urine Urobilinogen 1 H Ur Leukocyte Esterase 25 H Urine RBC 0-5 SEEN Urine WBC 0 SEEN Ur Squamous Epith Cells 0 SEEN Amorphous Sediment 1+ Urine Bacteria 0 SEEN Urine Mucus 0 SEEN Hepatitis A IgM Ab Pending Hep Bs Antigen Pending Hep B Core IgM Ab Pending Hepatitis C Ab (EIA) Pending 01/17/20 01/17/20 01/17/20 14:35 13:30 13:30 WBC RBC Hgb Hct MCV MCH MCHC RDW Std Deviation RDW Coeff of Trevon Plt Count MPV Immature Gran % (Auto) Neut % (Auto) Lymph % (Auto) [place] % (Auto) Eos % (Auto) Baso % (Auto) Absolute Neuts (auto) Absolute Lymphs (auto) Nucleated RBC % Differential Comment Diff Path Review Platelet Estimate Anisocytosis Target Cells ESR PT INR APTT Sodium Potassium Chloride Carbon Dioxide Anion Gap BUN Creatinine Estim Creat Clear Calc Est GFR (MDRD) Af Amer Est GFR (MDRD) Non-Af BUN/Creatinine Ratio Glucose Lactic Acid 7.5 H* Calcium Total Bilirubin AST ALT Alkaline Phosphatase Troponin I C-React Prot Ext Range B-Natriuretic Peptide 3510.4 H Total Protein Albumin Globulin Albumin/Globulin Ratio Amylase 51 Lipase 87 Urine Color Urine Clarity Urine pH Ur Specific [place] Urine Protein Urine Glucose (UA) Urine Ketones Urine Occult Blood Urine Nitrite Urine Bilirubin Urine Urobilinogen Ur Leukocyte Esterase Urine RBC Urine WBC Ur Squamous Epith Cells Amorphous Sediment Urine Bacteria Urine Mucus Hepatitis A IgM Ab Hep Bs Antigen Hep B Core IgM Ab Hepatitis C Ab (EIA) 01/17/20 01/17/20 01/17/20 13:30 13:30 13:30 WBC RBC Hgb Hct MCV MCH MCHC RDW Std Deviation RDW Coeff of Trevon Plt Count MPV Immature Gran % (Auto) Neut % (Auto) Lymph % (Auto) [place] % (Auto) Eos % (Auto) Baso % (Auto) Absolute Neuts (auto) Absolute Lymphs (auto) Nucleated RBC % Differential Comment Diff Path Review Platelet Estimate Anisocytosis Target Cells ESR PT 29.0 H INR 2.8 APTT 39.0 H Sodium 131 L Potassium 6.6 H* Chloride 98 Carbon Dioxide 18.0 L Anion Gap 15 BUN 99 H Creatinine 4.56 H Estim Creat Clear Calc 12.90 Est GFR (MDRD) Af Amer 16 L Est GFR (MDRD) Non-Af 13 L BUN/Creatinine Ratio 21.7 H Glucose 149 H Lactic Acid Calcium 9.0 Total Bilirubin 7.00 H AST 454 H ALT 552 H Alkaline Phosphatase 182 H Troponin I 0.038 C-React Prot Ext Range 121.00 H B-Natriuretic Peptide Total Protein 6.6 Albumin 3.2 Globulin 3.4 Albumin/Globulin Ratio 0.9 Amylase Lipase Urine Color Urine Clarity Urine pH Ur Specific [place] Urine Protein Urine Glucose (UA) Urine Ketones Urine Occult Blood Urine Nitrite Urine Bilirubin Urine Urobilinogen Ur Leukocyte Esterase Urine RBC Urine WBC Ur Squamous Epith Cells Amorphous Sediment Urine Bacteria Urine Mucus Hepatitis A IgM Ab Hep Bs Antigen Hep B Core IgM Ab Hepatitis C Ab (EIA) 01/17/20 13:30 WBC 28.0 H RBC 2.62 L Hgb 8.6 L Hct 25.8 L MCV 98.5 H MCH 32.8 H MCHC 33.3 RDW Std Deviation 68.4 H RDW Coeff of Trevon 20.2 H Plt Count 406 MPV 12.6 H Immature Gran % (Auto) 4.200 H Neut % (Auto) 81.5 H Lymph % (Auto) 0.0 L [place] % (Auto) 13.7 H Eos % (Auto) 0.3 Baso % (Auto) 0.3 Absolute Neuts (auto) 22.8 H Absolute Lymphs (auto) 0.00 L Nucleated RBC % 3.3 Differential Comment Diff Path Review May foll Platelet Estimate ADEQUATE Anisocytosis 2+ Target Cells 1+ ESR 7 PT INR APTT Sodium Potassium Chloride Carbon Dioxide Anion Gap BUN Creatinine Estim Creat Clear Calc Est GFR (MDRD) Af Amer Est GFR (MDRD) Non-Af BUN/Creatinine Ratio Glucose Lactic Acid Calcium Total Bilirubin AST ALT Alkaline Phosphatase Troponin I C-React Prot Ext Range B-Natriuretic Peptide Total Protein Albumin Globulin Albumin/Globulin Ratio Amylase Lipase Urine Color Urine Clarity Urine pH Ur Specific [place] Urine Protein Urine Glucose (UA) Urine Ketones Urine Occult Blood Urine Nitrite Urine Bilirubin Urine Urobilinogen Ur Leukocyte Esterase Urine RBC Urine WBC Ur Squamous Epith Cells Amorphous Sediment Urine Bacteria Urine Mucus Hepatitis A IgM Ab Hep Bs Antigen Hep B Core IgM Ab Hepatitis C Ab (EIA) General: Alert, Oriented x3, Cooperative Lungs: Clear to auscultation, Normal air movement Cardiovascular: Regular rate, Regular Rhythm, No murmurs Capillary Refill: <3 seconds Peripheral Pulses: Normal Skin Color: [place] - Attestation Sepsis Attestation: Sepsis re-evaluation was performed
--- NOTE | 2020-01-17 22:47 | ED.RN ---
Dtr Phil notified on pt admission and updated on status.
[2020-01-18] VITALS (32 sets, daily range): BP systolic 82–109; BP diastolic 42–74; PULSE 79–99; RESP 13–21; TEMP 36.7–37.2; O2SAT 92–100
[2020-01-18] MEDS: APIXABAN 2.5 MG TABLET PO (00:16)
[2020-01-18] MEDS: Sodium Polystyrene Sulfonate 15 GM/60 ML UDC 30 GM PO (00:16)
[2020-01-18] MEDS: Polyethylene Glycol 3350 17 GM PACKET 34 GM PO (00:17)
[2020-01-18] MEDS: Pantoprazole Sodium 20 MG Tablet PO ×3 (00:17→21:34)
[2020-01-18] MEDS: Ipratropium Bromide 0.06% NASAL SPRAY 2 SPRAY NASAL ×3 (00:22→21:34)
[2020-01-18 00:47] LABS: Lactic Acid 5.7 mmol/L (0.4-1.9)
[2020-01-18 03:50] LABS: Reflex Lactate? Y
[2020-01-18 04:02] LABS: Absolute Lymphocyte Count 0.03 X10^3/uL (0.83-4.51); Absolute Neutrophil Count 27.6 X10^3/uL (2.0-7.7); Basophil# 0.06 X10^3/uL; Basophil% 0.2 % (0-1); Eosinophil# 0.07 X10^3/uL; Eosinophils% 0.2 % (0-5); Hematocrit 22.1 % (40-54); Hemoglobin 7.8 g/dL (13.0-16.5); Lymphocyte # 0.03 X10^3/ul (4.0); Lymphocyte % 0.1 % (19-41); Mean Corp Hgb Conc 35.3 g/dL (32-36); Mean Corpuscular Hgb 33.3 pg (27.0-32.0); Mean Corpuscular Volume 94.4 fL (80-94); Mean Platelet Vol. 11.6 fl (6.2-12.0); Monocyte# 2.25 X10^3/uL; Monocyte% 7.3 % (0-10); NRBC Flagged by Analyzer 1.9 % (0-5); Neutrophil # 27.62 X10^3/uL (2.7-7.7); Neutrophil % 90.2 % (47-70); POSITIVE COUNT YES; POSITIVE DIFFERENTIAL YES; POSITIVE MORPHOLOGY YES; Platelet Count 445 K/mm3 (150-450); RBC Distribution Width SD 64.4 fl (35.1-43.9); Red Blood Count 2.34 M/mm3 (4.6-6.2)
[2020-01-18 04:11] LABS: Differential Indicated SCAN CRITERIA MET; White Blood Count 30.6 K/mm3 (4.4-11.0)
[2020-01-18 04:37] LABS: Anion Gap 14 (5-15); Anisocytosis 2+; BUN 101 mg/dL (7-18); BUN/Creat Ratio 23.9 RATIO (10-20); Calcium,Total 8.6 mg/dL (8.5-10.1); Chloride 102 mmol/L (98-107); Creatinine, Serum 4.23 mg/dL (0.70-1.30); EST Glomerular Filtration Rate 14 mL/min (>60); Est Glom Filt Rate - Afr Amer 17 mL/min (>60); Glucose 161 mg/dL (74-106); Hypochromasia 1+; Platelet Estimate SLT INC (ADEQ); Potassium 5.6 mmol/L (3.5-5.1); Sodium Level 136 mmol/L (136-145)
[2020-01-18 04:39] LABS: Schistocytes RARE; Toxic Granulation RARE
[2020-01-18 04:40] LABS: Basophilic Stippling RARE; Macrocytosis RARE; Polychromasia RARE
[2020-01-18 04:41] LABS: Crenated RBC 1+
--- NOTE | 2020-01-18 05:53 | PCM.CON.CC ---
Reason for Consult Date of Consultation: 01/18/20 Reason for Consultation: Septic shock History of Present Illness: The patient is an 84-year-old male, with a history as outlined below, who presented to the emergency department on January 16 at the urging of his oncologist, Dr. Atkins, due to leukocytosis, kidney injury, hyperkalemia and edema. The patient has a history of myelodysplastic syndrome, for which he receives periodic transfusions. The patient also has a history of atrial fibrillation and underlying heart failure. He is currently followed by Dr. Lopez of cardiology. Pulmonary function studies from February 2019 were grossly within normal limits. On presentation to the emergency department, the patient was noted to be afebrile and hemodynamically stable. He was maintaining appropriate oxygen saturations on room air. Laboratory evaluation revealed an elevated white blood cell count to 28,000. The patient was anemic with a hemoglobin of 8.6 g/dL. INR was elevated at 2.8. PT and PTT were also increased. Chemistry profile was notable for a sodium of 131, potassium of 6.6, bicarbonate of 18 and creatinine of 4.56. The patient previously had a creatinine documented of 2.02 on September 2019. Lactate was elevated to 7.5. Total bili was increased to 7.0 with an increased AST to 454 and ALT of 552. Alkaline phosphatase was increased to 182. BNP was elevated to 3510. Urine analysis was largely unrevealing. Plain film chest x-ray revealed small bilateral pleural effusions. Liver ultrasound revealed fatty infiltration with cholelithiasis and possible chronic cholecystitis. CT abdomen/pelvis revealed bilateral pleural effusions with possible consolidation in the right lower lobe. Gallstones were noted within the gallbladder. There was diffuse ascites throughout the abdomen/pelvis. Past Medical History Past Medical History (Chronic Problems): Chronic Problems (Last Reviewed 01/17/20 @ 21:[address] Finn Guadarrama MD) Chronic cholecystitis with calculus (Chronic) Nonrheumatic aortic (valve) stenosis (Chronic) Paroxysmal atrial fibrillation (Chronic) 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) RVSP 43 mmhg per echo 03/22/2018 Chronic systolic (congestive) heart failure (Chronic) EF 40% per echo 03/22/18 @ [facility] (EF 20-25% per echo 11/04/2016 done @ [facility]) Non-ischemic cardiomyopathy (Chronic) Nonsustained ventricular tachycardia (Chronic) Hemorrhagic cerebrovascular accident (CVA) (Chronic) Occipital subdural bleed 10/2016 Myelodysplasia (myelodysplastic syndrome) (Chronic) Medical History: Medical History (Last Reviewed 01/17/20 @ 21:[address] Finn Guadarrama MD) Nonrheumatic aortic (valve) stenosis (Chronic) I35.0 Skin cancer, basal cell (Acute) C44.91 Paroxysmal atrial fibrillation (Chronic) I48.0 Non-rheumatic tricuspid valve insufficiency (Chronic) I36.1 Secondary pulmonary arterial hypertension (Chronic) I27.21 RVSP 43 mmhg per echo 03/22/2018 Chronic systolic (congestive) heart failure (Chronic) I50.22 EF 40% per echo 03/22/18 @ [facility] (EF 20-25% per echo 11/04/2016 done @ [facility]) Non-ischemic cardiomyopathy (Chronic) I42.8 Nonsustained ventricular tachycardia (Chronic) I47.2 Hemorrhagic cerebrovascular accident (CVA) (Chronic) I61.9 Occipital subdural bleed 10/2016 Myelodysplasia (myelodysplastic syndrome) (Chronic) D46.9 Hypertension I10 Persistent atrial fibrillation (Inactive) I48.1 Allergies No Known Allergies Allergy (Verified 01/17/20 13:00) Home Medications: Ambulatory Orders Medication Instructions Recorded Folic Acid 0.8 mg PO DAILY@0800 01/03/17 apixaban 2.5 mg tablet 2.5 mg PO BID 03/12/18 cholecalciferol (vitamin D3) 50 2,000 unit PO DAILY 02/14/19 mcg (2,000 unit) capsule ipratropium bromide 0.03 % nasal 2 spray INTRANASAL BID 02/14/19 spray [id number]-rlc-[id number] acid 300 1 tab PO DAILY 05/23/19 mcg-lycopene 600 mcg-lutein 300 mcg tablet amiodarone 200 mg tablet 200 mg PO DAILY #90 tab 07/31/19 metoprolol succinate 50 mg 50 mg PO DAILY #90 tab 07/31/19 tablet,extended release 24 hr Deferoxamine Mesylate 2,000 mg SQ DAILY 12/13/19 Furosemide [Lasix] 40 mg PO DAILY 12/20/19 Digoxin 125 mcg PO DAILY 01/17/20 Lisinopril [Zestril] 2.5 mg PO DAILY 01/17/20 Omeprazole 20 mg PO BID 01/17/20 Surgical History: Surgical History (Last Reviewed 01/17/20 @ 21:[address] Finn Guadarrama MD) History of repair of rotator cuff Z98.890 History of right and left heart catheterization Onset Date: 03/10/17 Z98.890 Previous back surgery Z98.890 L1-L5 Surgical History: - - rotator cuff surgery, shoulder surgery. Lives: Alone Smoking Status: Never smoker Alcohol: None Drugs: None - *Family History Maternal Family History: Family History (Last Reviewed 01/17/20 @ 21:[address] Finn Guadarrama MD) Mother Hypertension Sister Hypertension History Items: - - cancer Paternal Family History: Family History (Last Reviewed 01/17/20 @ 21:[address] Finn Guadarrama MD) Mother Hypertension Sister Hypertension History Items: - - father after falling on ice Sibling Family History: Family History (Last Reviewed 01/17/20 @ 21:[address] Finn Guadarrama MD) Mother Hypertension Sister Hypertension History Items: - - sister with pancreatic cancer. sister with enlarge heart. Review of Systems Constitutional: Denies: Chills, Fever Eyes: Denies: Blurred vision, Double vision HEENT: Denies: Head Aches, Sinus Congestion, Sinus Drainage Cardiovascular: Reports: Edema. Denies: Chest Pain Respiratory: Reports: Shortness of Breath. Denies: Cough Gastrointestinal: Denies: Abdominal Pain, Nausea, Vomiting Genitourinary: Denies: Dysuria Musculoskeletal: Denies: Joint Pain, Joint Tenderness Skin: Denies: Rash, Wounds Neurological: Denies: Numbness, Tingling, Focal weakness Psychiatric: Denies: Anxiety, Depression, Homicidal Ideations, Suicidal Ideations Hematologic/ Lymphatic: Reports: Anemia, Hx of blood transfusion Patient Problems: Active and Suspected Problems (Last Reviewed 01/17/20 @ 21:[address] Finn Guadarrama MD) Elevated liver enzymes (Acute) Cholelithiasis (Acute) Cholecystitis (Acute) Septic shock (Acute) Septic shock (Acute) Ascites (Acute) Jaundice (Acute) Bilateral pleural effusion (Acute) Non-ischemic cardiomyopathy (Acute) Myelodysplasia (myelodysplastic syndrome) (Acute) Coagulopathy (Acute) Objective: The patient's most recent lab work, culture data and imaging studies have all been personally reviewed. Surface echocardiogram from May 2019 revealed a severely dilated LV with an ejection fraction of 40% and stage II diastolic dysfunction. Right ventricular systolic pressure was estimated to be 52 mmHg. Blood cultures are pending. - Physical Exam Vitals/I&O's: Vital Signs Temp Pulse Resp BP Pulse Ox 98.9 F 86 16 97/68 99 01/18/20 04:00 01/18/20 04:00 01/18/20 04:00 01/18/20 04:00 01/18/20 04:00 Oxygen Flow Rate (L/min) 2 Oxygen Delivery Method Nasal Cannula Weight: 183 lb 3.266 oz Body Mass Index (BMI) 26.2 Intake and Output for Last 24 Hours 01/16/20 01/17/20 01/18/20 23:59 23:59 23:59 Intake Total 2683.39 / 2925.74 279.95 / 279.95 Output Total 200 / 200 Balance 2683.39 / 2725.74 79.95 / 79.95 General: Alert, Cooperative, No apparent distress HEENT: Atraumatic, PERRLA, Normocephalic Oral: Dry Mucosa Neck: Supple, No Nodes, Trachea Midline, - - Right IJ central venous catheter in place Lungs: Normal air movement, No rhonchi, No wheeze, No rales Cardiovascular: Regular rate, Regular Rhythm, Normal S1, Normal S2 Abdomen: Bowel Sounds Present, Soft, Non Tender Extremities: No clubbing, No cyanosis, - - Left lower extremity swelling and tenderness Skin: No breakdown Musculoskeletal: No Muscle Wasting Lymphatic: No Cervical, Supraclavicular, or Inguinal Adenopathy Neurological: Cranial nerves II-XII grossly intact, Neuro grossly intact Psych/Mental Status: Normal Affect, Appropriate Labs (Last 48 Hours) 01/17/20 01/17/20 01/17/20 13:30 13:30 13:30 WBC 28.0 H RBC 2.62 L Hgb 8.6 L Hct 25.8 L MCV 98.5 H MCH 32.8 H MCHC 33.3 RDW Std Deviation 68.4 H RDW Coeff of Trevon 20.2 H Plt Count 406 MPV 12.6 H Immature Gran % (Auto) 4.200 H Neut % (Auto) 81.5 H Lymph % (Auto) 0.0 L [place] % (Auto) 13.7 H Eos % (Auto) 0.3 Baso % (Auto) 0.3 Absolute Neuts (auto) 22.8 H Absolute Lymphs (auto) 0.00 L Nucleated RBC % 3.3 Differential Comment Diff Path Review May foll Toxic Granulation Platelet Estimate ADEQUATE Polychromasia Hypochromasia Basophilic Stippling Anisocytosis 2+ Macrocytosis Target Cells 1+ Crenated Cell Schistocytes ESR 7 PT 29.0 H INR 2.8 APTT 39.0 H Sodium 131 L Potassium 6.6 H* Chloride 98 Carbon Dioxide 18.0 L Anion Gap 15 BUN 99 H Creatinine 4.56 H Estim Creat Clear Calc 12.90 Est GFR (MDRD) Af Amer 16 L Est GFR (MDRD) Non-Af 13 L BUN/Creatinine Ratio 21.7 H Glucose 149 H Lactic Acid Calcium 9.0 Total Bilirubin 7.00 H AST 454 H ALT 552 H Alkaline Phosphatase 182 H Troponin I C-React Prot Ext Range 121.00 H B-Natriuretic Peptide Total Protein 6.6 Albumin 3.2 Globulin 3.4 Albumin/Globulin Ratio 0.9 Amylase Lipase Urine Color Urine Clarity Urine pH Ur Specific [place] Urine Protein Urine Glucose (UA) Urine Ketones Urine Occult Blood Urine Nitrite Urine Bilirubin Urine Urobilinogen Ur Leukocyte Esterase Urine RBC Urine WBC Ur Squamous Epith Cells Amorphous Sediment Urine Bacteria Urine Mucus Hepatitis A IgM Ab Hep Bs Antigen Hep B Core IgM Ab Hepatitis C Ab (EIA) 01/17/20 01/17/20 01/17/20 13:30 13:30 13:30 WBC RBC Hgb Hct MCV MCH MCHC RDW Std Deviation RDW Coeff of Trevon Plt Count MPV Immature Gran % (Auto) Neut % (Auto) Lymph % (Auto) [place] % (Auto) Eos % (Auto) Baso % (Auto) Absolute Neuts (auto) Absolute Lymphs (auto) Nucleated RBC % Differential Comment Diff Path Review Toxic Granulation Platelet Estimate Polychromasia Hypochromasia Basophilic Stippling Anisocytosis Macrocytosis Target Cells Crenated Cell Schistocytes ESR PT INR APTT Sodium Potassium Chloride Carbon Dioxide Anion Gap BUN Creatinine Estim Creat Clear Calc Est GFR (MDRD) Af Amer Est GFR (MDRD) Non-Af BUN/Creatinine Ratio Glucose Lactic Acid Calcium Total Bilirubin AST ALT Alkaline Phosphatase Troponin I 0.038 C-React Prot Ext Range B-Natriuretic Peptide 3510.4 H Total Protein Albumin Globulin Albumin/Globulin Ratio Amylase 51 Lipase 87 Urine Color Urine Clarity Urine pH Ur Specific [place] Urine Protein Urine Glucose (UA) Urine Ketones Urine Occult Blood Urine Nitrite Urine Bilirubin Urine Urobilinogen Ur Leukocyte Esterase Urine RBC Urine WBC Ur Squamous Epith Cells Amorphous Sediment Urine Bacteria Urine Mucus Hepatitis A IgM Ab Hep Bs Antigen Hep B Core IgM Ab Hepatitis C Ab (EIA) 01/17/20 01/17/20 01/17/20 14:35 17:05 19:05 WBC RBC Hgb Hct MCV MCH MCHC RDW Std Deviation RDW Coeff of Trevon Plt Count MPV Immature Gran % (Auto) Neut % (Auto) Lymph % (Auto) [place] % (Auto) Eos % (Auto) Baso % (Auto) Absolute Neuts (auto) Absolute Lymphs (auto) Nucleated RBC % Differential Comment Diff Path Review Toxic Granulation Platelet Estimate Polychromasia Hypochromasia Basophilic Stippling Anisocytosis Macrocytosis Target Cells Crenated Cell Schistocytes ESR PT INR APTT Sodium Potassium Chloride Carbon Dioxide Anion Gap BUN Creatinine Estim Creat Clear Calc Est GFR (MDRD) Af Amer Est GFR (MDRD) Non-Af BUN/Creatinine Ratio Glucose Lactic Acid 7.5 H* 7.7 H* Calcium Total Bilirubin AST ALT Alkaline Phosphatase Troponin I C-React Prot Ext Range B-Natriuretic Peptide Total Protein Albumin Globulin Albumin/Globulin Ratio Amylase Lipase Urine Color Gi Urine Clarity Sl. Cloudy Urine pH 5.0 Ur Specific [place] 1.020 Urine Protein 100 H Urine Glucose (UA) Normal Urine Ketones 5 H Urine Occult Blood 150 H Urine Nitrite Negative Urine Bilirubin 1 H Urine Urobilinogen 1 H Ur Leukocyte Esterase 25 H Urine RBC 0-5 SEEN Urine WBC 0 SEEN Ur Squamous Epith Cells 0 SEEN Amorphous Sediment 1+ Urine Bacteria 0 SEEN Urine Mucus 0 SEEN Hepatitis A IgM Ab Hep Bs Antigen Hep B Core IgM Ab Hepatitis C Ab (EIA) 01/17/20 01/17/20 01/18/20 21:45 23:10 03:55 WBC 30.6 H* RBC 2.34 L Hgb 7.8 L Hct 22.1 L MCV 94.4 H MCH 33.3 H MCHC 35.3 D RDW Std Deviation 64.4 H RDW Coeff of Trevon 20.0 H Plt Count 445 MPV 11.6 Immature Gran % (Auto) 2.000 H Neut % (Auto) 90.2 H Lymph % (Auto) 0.1 L [place] % (Auto) 7.3 Eos % (Auto) 0.2 Baso % (Auto) 0.2 Absolute Neuts (auto) 27.6 H Absolute Lymphs (auto) 0.03 L Nucleated RBC % 1.9 Differential Comment COMMENT Diff Path Review May foll Toxic Granulation RARE Platelet Estimate SLT INC Polychromasia RARE Hypochromasia 1+ Basophilic Stippling RARE Anisocytosis 2+ Macrocytosis RARE Target Cells Crenated Cell 1+ Schistocytes RARE ESR PT INR APTT Sodium Potassium Chloride Carbon Dioxide Anion Gap BUN Creatinine Estim Creat Clear Calc Est GFR (MDRD) Af Amer Est GFR (MDRD) Non-Af BUN/Creatinine Ratio Glucose Lactic Acid 5.7 H* Calcium Total Bilirubin AST ALT Alkaline Phosphatase Troponin I C-React Prot Ext Range B-Natriuretic Peptide Total Protein Albumin Globulin Albumin/Globulin Ratio Amylase Lipase Urine Color Urine Clarity Urine pH Ur Specific [place] Urine Protein Urine Glucose (UA) Urine Ketones Urine Occult Blood Urine Nitrite Urine Bilirubin Urine Urobilinogen Ur Leukocyte Esterase Urine RBC Urine WBC Ur Squamous Epith Cells Amorphous Sediment Urine Bacteria Urine Mucus Hepatitis A IgM Ab Pending Hep Bs Antigen Pending Hep B Core IgM Ab Pending Hepatitis C Ab (EIA) Pending 01/18/20 03:55 WBC RBC Hgb Hct MCV MCH MCHC RDW Std Deviation RDW Coeff of Trevon Plt Count MPV Immature Gran % (Auto) Neut % (Auto) Lymph % (Auto) [place] % (Auto) Eos % (Auto) Baso % (Auto) Absolute Neuts (auto) Absolute Lymphs (auto) Nucleated RBC % Differential Comment Diff Path Review Toxic Granulation Platelet Estimate Polychromasia Hypochromasia Basophilic Stippling Anisocytosis Macrocytosis Target Cells Crenated Cell Schistocytes ESR PT INR APTT Sodium 136 Potassium 5.6 H Chloride 102 Carbon Dioxide 20.0 L Anion Gap 14 BUN 101 H* Creatinine 4.23 H Estim Creat Clear Calc 13.90 Est GFR (MDRD) Af Amer 17 L Est GFR (MDRD) Non-Af 14 L BUN/Creatinine Ratio 23.9 H Glucose 161 H Lactic Acid Calcium 8.6 Total Bilirubin AST ALT Alkaline Phosphatase Troponin I C-React Prot Ext Range B-Natriuretic Peptide Total Protein Albumin Globulin Albumin/Globulin Ratio Amylase Lipase Urine Color Urine Clarity Urine pH Ur Specific [place] Urine Protein Urine Glucose (UA) Urine Ketones Urine Occult Blood Urine Nitrite Urine Bilirubin Urine Urobilinogen Ur Leukocyte Esterase Urine RBC Urine WBC Ur Squamous Epith Cells Amorphous Sediment Urine Bacteria Urine Mucus Hepatitis A IgM Ab Hep Bs Antigen Hep B Core IgM Ab Hepatitis C Ab (EIA) Clinical Impression(s) from Imaging Studies Chest X-Ray 01/17/20 13:19 IMPRESSION: Small bilateral pleural effusions. Electronically Signed: Díaz Sisi, at 14:37 EDT Tel , Service support , Gallbladder Ultrasound 01/17/20 14:30 IMPRESSION: Fatty infiltration of the liver. Cholelithiasis and possible chronic cholecystitis. Electronically Signed: Bre Laird, at 16:06 EDT Tel , Service support , Current Medications Apixaban (Eliquis) 2.5 mg PO BID [facility] Last Admin: 01/18/20 00:16 Dose: 2.5 mg Documented by: Cholecalciferol (Vitamin D (25mcg)) 2,000 unit PO DAILY [facility] Deferoxamine Mesylate (Desferal) 2,000 mg SC DAILY [facility] Dextrose (D50w Syringe) 0 gm IV X1 PRN; Protocol PRN Reason: Hypoglycemia Folic Acid (Folic Acid) 1 mg PO DAILY@0800 [facility] Glucagon () 1 mg IM .X1 PRN PRN Reason: Hypoglycemia Norepinephrine Bitartrate 8 mg (/ Sodium Chloride) 250 mls @ 9.375 mls/hr CONT INF .[id number] [facility]; Protocol Last Titration: 01/18/20 04:00 Dose: 5 mcg/min, 9.4 mls/hr Documented by: Sodium Chloride () 250 mls @ 15 mls/hr IV .[id number] PRN PRN Reason: Saline Flush Piperacillin Sod/Tazobactam (Sod 3.375 gm/ Sodium Chloride) 50 mls @ 12.5 mls/hr IV Q12 [facility] Ipratropium [place] (Atrovent Nasal [place] (G)) 2 spray NASAL BID [facility] Last Admin: 01/18/20 00:22 Dose: 2 spray Documented by: Melatonin (Melatonin) 3 mg PO QHS PRN PRN PRN Reason: INSOMNIA Ondansetron HCl (Zofran) 4 mg IV Q8H PRN PRN PRN Reason: NAUSEA/VOMITING Pantoprazole Sodium (Protonix) 20 mg PO BID TEX Last Admin: 01/18/20 00:17 Dose: 20 mg Documented by: Polyethylene Glycol (Miralax) 34 gm PO X1 PRN PRN Reason: Bowel Movement Sodium Chloride () 10 - 40 ml IV UD PRN PRN Reason: SALINE FLUSH Assessment/Plan Active and Suspected Problems (Last Reviewed 01/17/20 @ 21:[address] Finn Guadarrama MD) Elevated liver enzymes (Acute) Cholelithiasis (Acute) Cholecystitis (Acute) Septic shock (Acute) Septic shock (Acute) Ascites (Acute) Jaundice (Acute) Bilateral pleural effusion (Acute) Non-ischemic cardiomyopathy (Acute) Myelodysplasia (myelodysplastic syndrome) (Acute) Coagulopathy (Acute) RECOMMENDATIONS: 1. Obtain MRCP per general surgery. 2. Continue Levophed to maintain a mean arterial pressure at or above 65 mmHg. 3. Conservative IV fluid resuscitation, given underlying cardiac dysfunction. 4. Continue empiric antimicrobials, pending infectious work-up. 5. Discontinue checking lactate levels. 6. Wean supplemental oxygen to maintain saturations at or above 90%. 7. Encourage incentive spirometer use and mobilize patient as tolerated. IMPRESSIONS: 1. Septic shock The patient does meet septic shock criteria. However, the exact source of infection is a bit unclear. CT abdomen did reveal possible lower lobe consolidation. Nevertheless, I do suspect this is more likely to be compressive atelectasis associated with the small effusions noted. Although intra-abdominal sepsis is another potential possibility, especially in light of the patient's elevated liver function profile, he is not overtly tender on exam. In the interim, while additional work-up is being undertaken, the patient will be continued on gentle IV fluid hydration, given his underlying cardiac dysfunction. Levophed will be continued. The patient does appear to have a baseline systolic pressure between 90 and 100 mmHg. MRCP to be completed this morning. 2. Acute liver injury/lactic acidemia/coagulopathy Unclear etiology for the patient's intrinsic liver dysfunction. No need to continue to trend lactate levels. Liver dysfunction appears to be resolving on its own. Await results of MRCP. 3. Acute kidney injury/hyperkalemia/non-anion gap metabolic acidosis Likely prerenal in etiology. Patient likely has component of cardiorenal syndrome given his underlying suppressed systolic function. Nephrology is currently following. Renal ultrasound was unremarkable. Recommend holding nephrotoxic medications. Continue to monitor urine output. No current indication for emergent renal replacement therapy. Continue medical management of the patient's hyperkalemia. 4. 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 Lopez of cardiology. Recommend holding beta-randolph, Lasix and lisinopril for now. Recommend conservative use of supplemental IV fluids, given underlying cardiac dysfunction. 5. Normocytic anemia/myelodysplastic syndrome/GERD/advanced age Complicates care, management, recovery and prognosis. Continue home medications as indicated. Physical therapy evaluation once medically stabilized. TIME: 40 minutes of critical care time, independent of procedures, was spent addressing the patient's septic shock, acute liver injury, lactic acidemia, acute kidney injury, hyperkalemia, review of all data and collaboration with the care team. [id number]) [id number] Critical care first hour
[2020-01-18 06:33] LABS: AST(SGOT) 588 U/L (15-37); Alanine Aminotransfer ALT/SGPT 835 U/L (16-61); Albumin, Serum 2.8 g/dL (3.2-5.0); Alkaline Phosphatase 161 U/L (45-117); Bilirubin, Direct 3.86 mg/dL (0.00-0.30); Globulin 3.1 g/dL (2.2-4.2); Protein, Total 5.9 g/dL (6.4-8.2)
[2020-01-18 06:39] LABS: International Normalized Ratio 2.9
[2020-01-18 06:40] LABS: Partial Thromboplast Time 42.1 Seconds (24.1-36.2)
--- NOTE | 2020-01-18 07:41 | PCM.CONS.R ---
Consultation - Renal 01/18/20 PCP/ Referring MD: Requesting physician: Dr. Finn Guadarrama Primary care physician: Dr. Madhav Cantrell MD Reason for Consultation:: WILLIAM, hyperkalemia - History of Present Illness History of Present Illness: The patient is a 84 year old M with past history of myelodysplastic syndrome, atrial fibrillation, systolic dysfunction (EF 40% on echo 02/2018), pulmonary HTN, and aortic stenosis. The patient presented to the hospital yesterday with a 1 month history of LE edema which increased in severity in the last 1-2 weeks. He also complains of L leg pain from the foot up to the thigh, diffusely. He also has R leg edema, but no pain. The pt also complain son increasing SOB with activity, but he denies current SOB at rest. There is no chest pain. During the evaluation in the ED, the pt was found to have WILLIAM with SCr of 4.56 mg/dL on 01/17/20. SCr was 2.02 mg/dL on 10/15/19, and 1.19 mg/dL on 11/03/16. The pt was also found to be hyperkalemic with K of 6.6 mmol/L on 01/17/20 as well. The pt denies nausea, vomiting, or diarrhea prior to admission. He was on lisinopril, likely for systolic dysfunction and Lasix. The dose of Lasix was recently cut back because of renal dysfunction. The pt denies lower urinary tract symptoms. He denies chronic use of NSAID. He has not been given IV contrast recently. In the ED, the pt was found to be hypotensive with increased lactic acid level. He was started on norepinephrine drip in the ED. - Allergies Allergies: Allergies No Known Allergies Allergy (Verified 01/17/20 13:00) - Current Medications Current Medications: Current Medications Cholecalciferol (Vitamin D (25mcg)) 2,000 unit PO DAILY [facility] Dextrose (D50w Syringe) 0 gm IV X1 PRN; Protocol PRN Reason: Hypoglycemia Folic Acid (Folic Acid) 1 mg PO DAILY@0800 [facility] Glucagon () 1 mg IM .X1 PRN PRN Reason: Hypoglycemia Norepinephrine Bitartrate 8 mg (/ Sodium Chloride) 250 mls @ 9.375 mls/hr CONT INF .[id number] [facility]; Protocol Last Titration: 01/18/20 06:00 Dose: 5 mcg/min, 9.4 mls/hr Documented by: Sodium Chloride () 250 mls @ 15 mls/hr IV .[id number] PRN PRN Reason: Saline Flush Piperacillin Sod/Tazobactam (Sod 3.375 gm/ Sodium Chloride) 50 mls @ 12.5 mls/hr IV Q12 [facility] Ipratropium [place] (Atrovent Nasal [place] (G)) 2 spray NASAL BID [facility] Last Admin: 01/18/20 00:22 Dose: 2 spray Documented by: Melatonin (Melatonin) 3 mg PO QHS PRN PRN PRN Reason: INSOMNIA Ondansetron HCl (Zofran) 4 mg IV Q8H PRN PRN PRN Reason: NAUSEA/VOMITING Pantoprazole Sodium (Protonix) 20 mg PO BID [facility] Last Admin: 01/18/20 00:17 Dose: 20 mg Documented by: Polyethylene Glycol (Miralax) 34 gm PO X1 PRN PRN Reason: Bowel Movement Sodium Chloride () 10 - 40 ml IV UD PRN PRN Reason: SALINE FLUSH - Past Medical History Past Medical History (Chronic Problems): Chronic Problems (Last Reviewed 01/17/20 @ 21:[address] Finn Guadarrama MD) Chronic cholecystitis with calculus (Chronic) Nonrheumatic aortic (valve) stenosis (Chronic) Paroxysmal atrial fibrillation (Chronic) 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) RVSP 43 mmhg per echo 03/22/2018 Chronic systolic (congestive) heart failure (Chronic) EF 40% per echo 03/22/18 @ [facility] (EF 20-25% per echo 11/04/2016 done @ [facility]) Non-ischemic cardiomyopathy (Chronic) Nonsustained ventricular tachycardia (Chronic) Hemorrhagic cerebrovascular accident (CVA) (Chronic) Occipital subdural bleed 10/2016 Myelodysplasia (myelodysplastic syndrome) (Chronic) - Past Surgical History Surgical History: - - rotator cuff surgery, shoulder surgery. - Social History Smoking Status: Never smoker Alcohol: None Drugs: None - Family History Maternal Family History: Family History (Last Reviewed 01/17/20 @ 21:[address] Finn Guadarrama MD) Mother Hypertension Sister Hypertension History Items: - - cancer Paternal Family History: Family History (Last Reviewed 01/17/20 @ 21:[address] Finn Guadarrama MD) Mother Hypertension Sister Hypertension History Items: - - father after falling on ice Sibling Family History: Family History (Last Reviewed 01/17/20 @ 21:[address] Finn Guadarrama MD) Mother Hypertension Sister Hypertension History Items: - - sister with pancreatic cancer. sister with enlarge heart. Review of Systems Constitutional: Reports: Malaise, Weakness. Denies: Anorexia, Chills, Fever Eyes: Denies: Blurred vision, Pain, Redness, Vision Change HEENT: Denies: Head Aches, Sinus Congestion, Sinus Drainage Cardiovascular: Reports: Edema. Denies: Chest Pain, Chest Pressure, Orthopnea, Palpitations Respiratory: Reports: Shortness of breath upon exertion. Denies: Cough, Hemoptysis, Sputum production Gastrointestinal: Denies: Abdominal Pain, Constipation, Diarrhea, Nausea, Vomiting Genitourinary: Denies: Dysuria, Hematuria, Hesitancy, Incontinence, Retention, Urgency Musculoskeletal: Reports: Leg Pain - Left. Denies: Joint Pain, Joint Tenderness, Neck Pain, Shoulder Pain Skin: Denies: Pruritis, Rash Neurological: Denies: Numbness, Tingling, Focal weakness Psychiatric: Denies: Anxiety, Depression, Homicidal Ideations, Suicidal Ideations Hematologic/ Lymphatic: Reports: Anemia, Hx of blood transfusion. Denies: Easy Bruising, Easy Bleeding Patient Problems: Active and Suspected Problems (Last Reviewed 01/17/20 @ 21:[address] Finn Guadarrama MD) Elevated liver enzymes (Acute) Cholelithiasis (Acute) Cholecystitis (Acute) Septic shock (Acute) Septic shock (Acute) Ascites (Acute) Jaundice (Acute) Bilateral pleural effusion (Acute) Non-ischemic cardiomyopathy (Acute) Myelodysplasia (myelodysplastic syndrome) (Acute) Coagulopathy (Acute) - Physical Exam Vitals/I&O's: Vital Signs Temp Pulse Resp BP Pulse Ox 98.8 F 79 15 99/53 L 99 01/18/20 06:00 01/18/20 06:00 01/18/20 06:00 01/18/20 06:00 01/18/20 06:00 Oxygen Flow Rate (L/min) 2 Oxygen Delivery Method Nasal Cannula Weight: 83.1 kg Body Mass Index (BMI) 26.2 Intake and Output for Last 24 Hours 01/16/20 01/17/20 01/18/20 23:59 23:59 23:59 Intake Total 2683.39 / 2925.74 1018.75 / 1018.75 Output Total 450 / 450 Balance 2683.39 / 2725.74 568.75 / 568.75 General: Alert, Oriented x3 HEENT: Atraumatic, PERRLA, EOMI Oral: Dry Mucosa Neck: Supple Lungs: Clear to auscultation Cardiovascular: Normal S1, Normal S2, No murmurs Abdomen: Bowel Sounds Present, Soft, Non Tender Extremities: No clubbing, No cyanosis, Edema - 2+ LE BL Skin: - - Mild erythema of RLE Musculoskeletal: Tenderness - LLE on palpation; no crepitus Neurological: Cranial nerves II-XII grossly intact Psych/Mental Status: Normal Affect Laboratory Results 01/17/20 13:30: WBC 28.0 H, RBC 2.62 L, Hgb 8.6 L, Hct 25.8 L, MCV 98.5 H, MCH 32.8 H, MCHC 33.3, RDW Std Deviation 68.4 H, RDW Coeff of Trevon 20.2 H, Plt Count 406, MPV 12.6 H, Immature Gran % (Auto) 4.200 H, Neut % (Auto) 81.5 H, Lymph % (Auto) 0.0 L, [place] % (Auto) 13.7 H, Eos % (Auto) 0.3, Baso % (Auto) 0.3, Absolute Neuts (auto) 22.8 H, Absolute Lymphs (auto) 0.00 L, Nucleated RBC % 3.3, Differential Comment , Diff Path Review May , Platelet Estimate ADEQUATE, Anisocytosis 2+, Target Cells 1+, ESR 7 01/17/20 13:30: PT 29.0 H, INR 2.8, APTT 39.0 H 01/17/20 13:30: Sodium 131 L, Potassium 6.6 H*, Chloride 98, Carbon Dioxide 18.0 L, Anion Gap 15, BUN 99 H, Creatinine 4.56 H, Estim Creat Clear Calc 12.90, Est GFR (MDRD) Af Amer 16 L, Est GFR (MDRD) Non-Af 13 L, BUN/Creatinine Ratio 21.7 H, Glucose 149 H, Calcium 9.0, Total Bilirubin 7.00 H, AST 454 H, ALT 552 H, Alkaline Phosphatase 182 H, C-React Prot Ext Range 121.00 H, Total Protein 6.6, Albumin 3.2, Globulin 3.4, Albumin/Globulin Ratio 0.9 01/17/20 13:30: Troponin I 0.038 01/17/20 13:30: B-Natriuretic Peptide 3510.4 H 01/17/20 13:30: Amylase 51, Lipase 87 01/17/20 14:35: Lactic Acid 7.5 H* 01/17/20 17:05: Urine Color Gi, Urine Clarity Sl. Cloudy, Urine pH 5.0, Ur Specific [place] 1.020, Urine Protein 100 H, Urine Glucose (UA) Normal, Urine Ketones 5 H, Urine Occult Blood 150 H, Urine Nitrite Negative, Urine Bilirubin 1 H, Urine Urobilinogen 1 H, Ur Leukocyte Esterase 25 H, Urine RBC 0-5 SEEN, Urine WBC 0 SEEN, Ur Squamous Epith Cells 0 SEEN, Amorphous Sediment 1+, Urine Bacteria 0 SEEN, Urine Mucus 0 SEEN 01/17/20 19:05: Lactic Acid 7.7 H* 01/17/20 21:45: Hepatitis A IgM Ab Pending, Hep Bs Antigen Pending, Hep B Core IgM Ab Pending, Hepatitis C Ab (EIA) Pending 01/17/20 23:10: Lactic Acid 5.7 H* 01/18/20 03:55: WBC 30.6 H*, RBC 2.34 L, Hgb 7.8 L, Hct 22.1 L, MCV 94.4 H, MCH 33.3 H, MCHC 35.3 D, RDW Std Deviation 64.4 H, RDW Coeff of Trevon 20.0 H, Plt Count 445, MPV 11.6, Immature Gran % (Auto) 2.000 H, Neut % (Auto) 90.2 H, Lymph % (Auto) 0.1 L, [place] % (Auto) 7.3, Eos % (Auto) 0.2, Baso % (Auto) 0.2, Absolute Neuts (auto) 27.6 H, Absolute Lymphs (auto) 0.03 L, Nucleated RBC % 1.9, Differential Comment COMMENT, Diff Path Review May foll, Toxic Granulation RARE, Platelet Estimate SLT INC, Polychromasia RARE, Hypochromasia 1+, Basophilic Stippling RARE, Anisocytosis 2+, Macrocytosis RARE, Crenated Cell 1+, Schistocytes RARE 01/18/20 03:55: Sodium 136, Potassium 5.6 H, Chloride 102, Carbon Dioxide 20.0 L, Anion Gap 14, BUN 101 H*, Creatinine 4.23 H, Estim Creat Clear Calc 13.90, Est GFR (MDRD) Af Amer 17 L, Est GFR (MDRD) Non-Af 14 L, BUN/Creatinine Ratio 23.9 H, Glucose 161 H, Calcium 8.6 01/18/20 03:55: Total Bilirubin 6.00 H, Direct Bilirubin 3.86 H, AST 588 H, ALT 835 H, Alkaline Phosphatase 161 H, Total Protein 5.9 L, Albumin 2.8 L, Globulin 3.1 01/18/20 06:15: PT 30.0 H, INR 2.9, APTT 42.1 H Current Medications Cholecalciferol (Vitamin D (25mcg)) 2,000 unit PO DAILY [facility] Dextrose (D50w Syringe) 0 gm IV X1 PRN; Protocol PRN Reason: Hypoglycemia Folic Acid (Folic Acid) 1 mg PO DAILY@0800 [facility] Glucagon () 1 mg IM .X1 PRN PRN Reason: Hypoglycemia Norepinephrine Bitartrate 8 mg (/ Sodium Chloride) 250 mls @ 9.375 mls/hr CONT INF .[id number] [facility]; Protocol Last Titration: 01/18/20 06:00 Dose: 5 mcg/min, 9.4 mls/hr Documented by: Sodium Chloride () 250 mls @ 15 mls/hr IV .[id number] PRN PRN Reason: Saline Flush Piperacillin Sod/Tazobactam (Sod 3.375 gm/ Sodium Chloride) 50 mls @ 12.5 mls/hr IV Q12 [facility] Ipratropium [place] (Atrovent Nasal [place] (G)) 2 spray NASAL BID [facility] Last Admin: 01/18/20 00:22 Dose: 2 spray Documented by: Melatonin (Melatonin) 3 mg PO QHS PRN PRN PRN Reason: INSOMNIA Ondansetron HCl (Zofran) 4 mg IV Q8H PRN PRN PRN Reason: NAUSEA/VOMITING Pantoprazole Sodium (Protonix) 20 mg PO BID [facility] Last Admin: 01/18/20 00:17 Dose: 20 mg Documented by: Polyethylene Glycol (Miralax) 34 gm PO X1 PRN PRN Reason: Bowel Movement Sodium Chloride () 10 - 40 ml IV UD PRN PRN Reason: SALINE FLUSH Assessment/Plan All Active Problems (Last Reviewed 01/17/20 @ 21:[address] Finn Guadarrama MD) Elevated liver enzymes (Acute) Cholelithiasis (Acute) Cholecystitis (Acute) Septic shock (Acute) Septic shock (Acute) Ascites (Acute) Jaundice (Acute) Bilateral pleural effusion (Acute) Non-ischemic cardiomyopathy (Acute) Myelodysplasia (myelodysplastic syndrome) (Acute) Coagulopathy (Acute) Skin cancer, basal cell (Acute) 1. Acute kidney injury on chronic kidney disease. SCr was 2.02 mg/dL on 10/15/19. Suspect CKD and fluctuation of renal function may be due to cardiorenal syndrome. WILLIAM is also prerenal, but is more likely due to hypotension and renal hypoperfusion. He was also on ACEI and diuretic prior to admission. He is at high risk to progress to ischemic ATN. UA did not reveal significant hematuria or proteinuria. Renal US did not show hydronephrosis. I have low suspicion for other causes of WILLIAM at this time. I will check urine indices. Continue current supportive care to keep MAP >65. Agree with trial of more IVF-1 more liter then reevaluate. No urgent need for kidney replacement therapy, but I did tell the pt that this is possible if renal function worsens in the next 24-48 hrs. Current medications are reviewed. All are appropriately dosed for the current renal function. 2. Hyperkalemia. K is better at 5.6 (down from 6.6 yesterday). S/p Kayexalate. Hold ACEI. Will monitor K. 3. Metabolic acidosis. due to hypoperfusion and WILLIAM. Serum HCO3 is better today at 20 mmol/L. No current need for NaHCO3 drip. Will follow serum HCO3. 4. MDS. Pt has transfusion dependent MDS, followed by hematology. Follow Hgb. 5. Septic shock. Work up in progress for source. He is on NE drip for pressure support. To get MRCP. Onb Zosyn. D/w Dr. Marina and Dr. Kennedy.
--- NOTE | 2020-01-18 07:44 | PCM.PN.HOSP ---
Patient Problems: Active and Suspected Problems (Last Reviewed 01/17/20 @ 21:[address] Finn Guadarrama MD) Elevated liver enzymes (Acute) Cholelithiasis (Acute) Cholecystitis (Acute) Septic shock (Acute) Septic shock (Acute) Ascites (Acute) Jaundice (Acute) Bilateral pleural effusion (Acute) Non-ischemic cardiomyopathy (Acute) Myelodysplasia (myelodysplastic syndrome) (Acute) Coagulopathy (Acute) Reason for Visit: The patient was found hypotensive, lacticacidosis, afebrile in ER. Clinical assessment of septic shock, elevated liver biochemistry test, acute liver injury were made although he had elevated liver test since February 2018. Discussed with Dr. Flores. On IV Zosyn. Patient does not complain of abdominal pain especially right upper quadrant pain. No distention. On IV Levophed. Map 69, pulse ox 99% on 2 L of oxygen. Heart rate controlled Vitals/I&O's: Vital Signs Temp Pulse Resp BP Pulse Ox 98.8 F 79 15 99/53 L 99 01/18/20 06:00 01/18/20 06:00 01/18/20 06:00 01/18/20 06:00 01/18/20 06:00 Oxygen Flow Rate (L/min) 2 Oxygen Delivery Method Nasal Cannula Weight: 183 lb 3.266 oz Body Mass Index (BMI) 26.2 Intake and Output for Last 24 Hours 01/16/20 01/17/20 01/18/20 23:59 23:59 23:59 Intake Total 2683.39 / 2925.74 1018.75 / 1018.75 Output Total 450 / 450 Balance 2683.39 / 2725.74 568.75 / 568.75 General: Alert, Cooperative, - - Awake but is hard time in understanding and comprehension. HEENT: Atraumatic, PERRLA, EOMI, Normocephalic Oral: No Gingival or Mucosal Lesions/ Ulcerations, Dry Mucosa Neck: Supple, No JVD, Negative Carotid Bruits, No Nodes, No Nuchal Rigidity, Trachea Midline, - - Right IJ CVC catheter. Lungs: No rhonchi, No wheeze, No rales, Diminished - Air entry diminished in right lung base Cardiovascular: Regular rate, No murmurs Abdomen: Bowel Sounds Present, Soft, Non Tender, Non-Distended, - - Liver enlarged about 1 to 2 cm below right costal margin Extremities: No edema, Capillary Refill Less than 3 Seconds Skin: No rashes, No breakdown Musculoskeletal: No Tenderness to Palpation of Joints or Extremities, Arthritic Changes Neurological: Cranial nerves II-XII grossly intact, Deep Tendon Reflexes 2+/4 and Symmetrical, Neuro grossly intact Psych/Mental Status: Normal Affect, Appropriate Laboratory Results 01/17/20 13:30: WBC 28.0 H, RBC 2.62 L, Hgb 8.6 L, Hct 25.8 L, MCV 98.5 H, MCH 32.8 H, MCHC 33.3, RDW Std Deviation 68.4 H, RDW Coeff of Trevon 20.2 H, Plt Count 406, MPV 12.6 H, Immature Gran % (Auto) 4.200 H, Neut % (Auto) 81.5 H, Lymph % (Auto) 0.0 L, [place] % (Auto) 13.7 H, Eos % (Auto) 0.3, Baso % (Auto) 0.3, Absolute Neuts (auto) 22.8 H, Absolute Lymphs (auto) 0.00 L, Nucleated RBC % 3.3, Differential Comment , Diff Path Review May , Platelet Estimate ADEQUATE, Anisocytosis 2+, Target Cells 1+, ESR 7 01/17/20 13:30: PT 29.0 H, INR 2.8, APTT 39.0 H 01/17/20 13:30: Sodium 131 L, Potassium 6.6 H*, Chloride 98, Carbon Dioxide 18.0 L, Anion Gap 15, BUN 99 H, Creatinine 4.56 H, Estim Creat Clear Calc 12.90, Est GFR (MDRD) Af Amer 16 L, Est GFR (MDRD) Non-Af 13 L, BUN/Creatinine Ratio 21.7 H, Glucose 149 H, Calcium 9.0, Total Bilirubin 7.00 H, AST 454 H, ALT 552 H, Alkaline Phosphatase 182 H, C-React Prot Ext Range 121.00 H, Total Protein 6.6, Albumin 3.2, Globulin 3.4, Albumin/Globulin Ratio 0.9 01/17/20 13:30: Troponin I 0.038 01/17/20 13:30: B-Natriuretic Peptide 3510.4 H 01/17/20 13:30: Amylase 51, Lipase 87 01/17/20 14:35: Lactic Acid 7.5 H* 01/17/20 17:05: Urine Color Gi, Urine Clarity Sl. Cloudy, Urine pH 5.0, Ur Specific [place] 1.020, Urine Protein 100 H, Urine Glucose (UA) Normal, Urine Ketones 5 H, Urine Occult Blood 150 H, Urine Nitrite Negative, Urine Bilirubin 1 H, Urine Urobilinogen 1 H, Ur Leukocyte Esterase 25 H, Urine RBC 0-5 SEEN, Urine WBC 0 SEEN, Ur Squamous Epith Cells 0 SEEN, Amorphous Sediment 1+, Urine Bacteria 0 SEEN, Urine Mucus 0 SEEN 01/17/20 19:05: Lactic Acid 7.7 H* 01/17/20 21:45: Hepatitis A IgM Ab Pending, Hep Bs Antigen Pending, Hep B Core IgM Ab Pending, Hepatitis C Ab (EIA) Pending 01/17/20 23:10: Lactic Acid 5.7 H* 01/18/20 03:55: WBC 30.6 H*, RBC 2.34 L, Hgb 7.8 L, Hct 22.1 L, MCV 94.4 H, MCH 33.3 H, MCHC 35.3 D, RDW Std Deviation 64.4 H, RDW Coeff of Trevon 20.0 H, Plt Count 445, MPV 11.6, Immature Gran % (Auto) 2.000 H, Neut % (Auto) 90.2 H, Lymph % (Auto) 0.1 L, [place] % (Auto) 7.3, Eos % (Auto) 0.2, Baso % (Auto) 0.2, Absolute Neuts (auto) 27.6 H, Absolute Lymphs (auto) 0.03 L, Nucleated RBC % 1.9, Differential Comment COMMENT, Diff Path Review May foll, Toxic Granulation RARE, Platelet Estimate SLT INC, Polychromasia RARE, Hypochromasia 1+, Basophilic Stippling RARE, Anisocytosis 2+, Macrocytosis RARE, Crenated Cell 1+, Schistocytes RARE 01/18/20 03:55: Sodium 136, Potassium 5.6 H, Chloride 102, Carbon Dioxide 20.0 L, Anion Gap 14, BUN 101 H*, Creatinine 4.23 H, Estim Creat Clear Calc 13.90, Est GFR (MDRD) Af Amer 17 L, Est GFR (MDRD) Non-Af 14 L, BUN/Creatinine Ratio 23.9 H, Glucose 161 H, Calcium 8.6 01/18/20 03:55: Total Bilirubin 6.00 H, Direct Bilirubin 3.86 H, AST 588 H, ALT 835 H, Alkaline Phosphatase 161 H, Total Protein 5.9 L, Albumin 2.8 L, Globulin 3.1 01/18/20 06:15: PT 30.0 H, INR 2.9, APTT 42.1 H Current Medications Cholecalciferol (Vitamin D (25mcg)) 2,000 unit PO DAILY [facility] Dextrose (D50w Syringe) 0 gm IV X1 PRN; Protocol PRN Reason: Hypoglycemia Folic Acid (Folic Acid) 1 mg PO DAILY@0800 [facility] Glucagon () 1 mg IM .X1 PRN PRN Reason: Hypoglycemia Norepinephrine Bitartrate 8 mg (/ Sodium Chloride) 250 mls @ 9.375 mls/hr CONT INF .[id number] [facility]; Protocol Last Titration: 01/18/20 06:00 Dose: 5 mcg/min, 9.4 mls/hr Documented by: Sodium Chloride () 250 mls @ 15 mls/hr IV .[id number] PRN PRN Reason: Saline Flush Piperacillin Sod/Tazobactam (Sod 3.375 gm/ Sodium Chloride) 50 mls @ 12.5 mls/hr IV Q12 [facility] Ipratropium [place] (Atrovent Nasal [place] (G)) 2 spray NASAL BID [facility] Last Admin: 01/18/20 00:22 Dose: 2 spray Documented by: Melatonin (Melatonin) 3 mg PO QHS PRN PRN PRN Reason: INSOMNIA Ondansetron HCl (Zofran) 4 mg IV Q8H PRN PRN PRN Reason: NAUSEA/VOMITING Pantoprazole Sodium (Protonix) 20 mg PO BID [facility] Last Admin: 01/18/20 00:17 Dose: 20 mg Documented by: Polyethylene Glycol (Miralax) 34 gm PO X1 PRN PRN Reason: Bowel Movement Sodium Chloride () 10 - 40 ml IV UD PRN PRN Reason: SALINE FLUSH STROKE Vital Signs/Narrative: Vital Signs Temp Pulse Resp BP Pulse Ox 01/18/20 06:00 98.8 F 79 15 99/53 L 99 01/18/20 05:00 99.0 F 84 17 104/56 L 100 01/18/20 04:00 98.9 F 86 16 97/68 99 01/18/20 03:57 85 Medical Necessity - Tobacco Use Smoking Status: Never smoker Assessment/Plan All Active Problems (Last Reviewed 01/17/20 @ 21:[address] 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 In the ER he was found hypotensive, leukocytosis, lactic acidosis 7.5, hyperkalemia and acute liver injury on chronic liver disease, consistent with diagnosis of septic shock and was admitted in ICU on vasopressor support. 1. Septic shock, exact focus is unclear but probably hepatobiliary sepsis or less likely right lower lobe pneumonia CT abdomen independently reviewed and shows bilateral pleural effusion, more on the right side with compressive atelectasis. Air bronchograms not clearly seen. Patient on IV antibiotic, Zosyn, Levophed support and IV fluid hydration. 2. Acute liver injury on chronic liver disease: Patient had elevated liver test, ALT more than AST since March 24 along with mildly elevated alkaline phosphatase. On this admission, ALT 552, AST 454, alk phos 182, total bili 7.0, repeat 6.0 direct 3.86. INR 2.8 but patient also on Eliquis for paroxysmal A. fib. CT abdomen reviewed shows cholelithiasis with dilated intrahepatic biliary radicles and surrounding ascites. Right upper quadrant sonogram reported cholelithiasis with partially contracted gallbladder. GB wall 6 mm with pericholecystic fluid. CBD 4 mm. Pancreas with normal size and echogenicity. Will monitor liver test, GGT ordered. Patient was on Keytruda which has side effect of elevated transaminases, hypoalbuminemia. Patient had MRCP as recommended by surgeon. MRCP reported cholelithiasis but no intrahepatic or extrahepatic biliary obstruction. Pancreatic duct no dilatation or stricture. 3. Acute kidney injury with hyperkalemia, non-anion gap metabolic acidosis most probably prerenal with possibility of cardiorenal syndrome: Patient was seen by photoflash powder mixer. Monitor intake and output. Renal ultrasound unremarkable. Patient had Kayexalate. K6.6 decreased to 5.6. 4. Acute on chronic systolic and diastolic combined heart failure, paroxysmal A. fib and valvular heart disease: Patient had echo last in February 2018 reported as EF 40%, stage II diastolic dysfunction, severely dilated RV, LA and RA severely enlarged, mild MR, moderate TR, pulmonary hypertension and aortic stenosis: On Lasix. Elevated BNP and generalized edema, ascites. 5. DVT prophylaxis: Eliquis discontinued INR is elevated and patient has acute liver injury and acute kidney injury, coagulopathy state.bilateral SCDs 6. Other chronic comorbidities include MDS, normocytic normochromic anemia; chronic in nature, transfusion dependent followed by Dr. Milian. Discussed with Dr. Flores in the morning. RADHA Guerra. No active intervention from oncology site. Clinical Impression(s) from Imaging Studies Chest X-Ray 01/17/20 13:19 IMPRESSION: Small bilateral pleural effusions. Gallbladder Ultrasound 01/17/20 14:30 IMPRESSION: Fatty infiltration of the liver. Cholelithiasis and possible chronic cholecystitis. MRCP 01/18/20 09:30 IMPRESSION: Technically limited MR Cholangiopancreatography (MRCP). Cholelithiasis. Bilateral pleural effusions and ascites. Inpatient E&M: [id number] [facility] L3
--- NOTE | 2020-01-18 09:30 | MRI_ITS ---
STUDY: MR MRCP WITHOUT CONTRAST REASON FOR EXAM: Male, 84 years old. Cholangitis -- f/u ct and us TECHNIQUE: Standard MRCP technique was utilized. COMPARISON: None. FINDINGS: Gall Bladder: Cholelithiasis. Cystic duct: Normal with no demonstrated fixed filling defect. Intrahepatic ducts: Normal visualized intrahepatic ducts with no demonstrated fixed filling defect, dilation or stricture. Common hepatic duct: Normal with no demonstrated fixed filling defect, dilation or stricture. Common bile duct: Normal with no demonstrated fixed filling defect, dilation or stricture. Pancreatic duct: Normal with no demonstrated fixed filling defect, dilation or stricture. Pleural effusions at the lung bases. Ascites. Left renal cyst. Probable hemangiomas at T12 and L1. Technically limited study due to motion. MRI/MRCP Abdomen without Contrast IMPRESSION: Technically limited MR Cholangiopancreatography (MRCP). Cholelithiasis. Bilateral pleural effusions and ascites. Electronically Signed: Joesph Fontanez DO at 11:21 EDT Tel [phone], Service support ,
[2020-01-18] MEDS: Lactated Ringers 1,000 ML 100 ML IV (11:08)
[2020-01-18] MEDS: Folic Acid 1 MG Tablet PO (11:18)
--- NOTE | 2020-01-18 12:10 | CASEMGMT ---
Per RN, pt's GCS is 14 so this RN CM attempted to call pt's daughter, Kelley, to complete CM assessment at this time and message left for Kelley to call this RN CM back when able. SStnoel RN CM
--- NOTE | 2020-01-18 12:14 | CASEMGMT ---
AFSHAN GENAO assessment: Phone call to pt's daughter, Kelley Luong, for initial transition planning/care coordination assessment as pt with GCS 14 at this time. AFSHAN GENAO introduced self and role at [facility], daughter voices understanding and consents to assessment at this time. Pt's daughter is A/Ox4 and answers questions appropriately at this time. Care providers, pharmacy, and demographics verified/updated at this time. Presentation: Sent by Dr. Atkins for left leg edema Admitting dx: Septic shock PCP: Tamia Specialists: adilia Atkins Preferred Pharmacy: [facility] Insurance: [facility] A/B, Prescription Benefit: Yes Living Will/HPOA: Daughter states pt does have LW/HPOA and is aware that they are not on file at [facility] at this time. Daughter, Kelley, states that she is HPOA. LNOK: Kelley Luong, daughter/HPOA; Rosemarie Minaya, daughter Living Arrangements: Per daughter, pt lives in 1 story home and states pt had no concerns at home prior to admission. Daughter states pt was independent with ADL's. 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 DME/HHC: Daughter states pt does have a [facility] but normally does not use but has been using the last several days. Daughter states that pt has a nurse coming to home to get infusions, which is set up thru [facility]'s office but she is unsure of which HHC agency at this time. Daughter states no hx of SNF. CM to follow PT/OT. Daughter is aware that pt likely to become weak while admitted and that CM to follow for recommendations . Pt is retired. Daughter states that pt does not smoke or drink ETOH. Daughter states no further questions/concerns/needs at this time. CM to follow for PT/OT evals and for any further discharge planning/needs. Advised daughter to ask for CM if any further questions/concerns/needs arise, voices understanding. Plan: TBD SStaten AFSHAN GENAO
[2020-01-18 12:50] LABS: Urea Nitrogen, Urine 826 mg/dL (NO RANGE EST.); Urine Sodium 13 mmol/L (Not Establ.)
[2020-01-18 13:50] LABS: GGTP 275 U/L (15-85)
[2020-01-19] VITALS (30 sets, daily range): BP systolic 86–105; BP diastolic 51–66; PULSE 82–101; RESP 12–23; TEMP 36.7–37.2; O2SAT 94–100
[2020-01-19 04:43] LABS: ALB/GLOB Ratio 0.9 RATIO (0.9-2.4); AST(SGOT) 292 U/L (15-37); Alanine Aminotransfer ALT/SGPT 711 U/L (16-61); Albumin, Serum 2.6 g/dL (3.2-5.0); Alkaline Phosphatase 175 U/L (45-117); Anion Gap 11 (5-15); BUN 105 mg/dL (7-18); BUN/Creat Ratio 27.1 RATIO (10-20); Calcium,Total 8.4 mg/dL (8.5-10.1); Chloride 102 mmol/L (98-107); Creatinine, Serum 3.87 mg/dL (0.70-1.30); EST Glomerular Filtration Rate 16 mL/min (>60); Est Glom Filt Rate - Afr Amer 19 mL/min (>60); Glucose 186 mg/dL (74-106); Phosphorus 5.8 mg/dL (2.5-4.9); Potassium 4.7 mmol/L (3.5-5.1); Protein, Total 5.6 g/dL (6.4-8.2); Sodium Level 136 mmol/L (136-145)
--- NOTE | 2020-01-19 06:10 | PN_ITS ---
Subjective: The patient was seen and examined at the bedside this morning. Events from the last 24 hours have been reviewed. The patient is currently afebrile. He is maintaining appropriate hemodynamic stability on Levophed at 5 mcg/min. Creatinine has improved to 3.87. Transaminase levels are slowly improving. The patient reports improvement in his abdominal pain this morning. Objective: The patient's most recent lab work, culture data and imaging studies have all been personally reviewed. Surface echocardiogram from May 2019 revealed a severely dilated LV with an ejection fraction of 40% and stage II diastolic dysfunction. Right ventricular systolic pressure was estimated to be 52 mmHg. Blood and urine cultures are pending. MRCP was a technically difficult study with evidence of cholelithiasis and bilateral pleural effusions, along with ascites. General: Alert, Cooperative, No apparent distress HEENT: Atraumatic, PERRLA, Normocephalic Oral: No Gingival or Mucosal Lesions/ Ulcerations Neck: Supple, No Nodes, Trachea Midline Lungs: Diminished Cardiovascular: Regular rate, Regular Rhythm, Murmur Abdomen: Bowel Sounds Present, Soft, Non Tender Extremities: No clubbing, No cyanosis, Edema Skin: - - No significant change from previous Musculoskeletal: No Muscle Wasting Lymphatic: No Cervical, Supraclavicular, or Inguinal Adenopathy Neurological: Neuro grossly intact Psych/Mental Status: Normal Affect, Appropriate Vital Signs Temp Pulse Resp BP Pulse Ox 98.6 F 82 12 95/58 L 97 01/19/20 05:00 01/19/20 05:00 01/19/20 05:00 01/19/20 05:00 01/19/20 05:00 Oxygen Flow Rate (L/min) 2 Oxygen Delivery Method Room Air Weight: 188 lb 0.869 oz Body Mass Index (BMI) 26.2 Intake and Output for Last 24 Hours 01/17/20 01/18/20 01/19/20 23:59 23:59 23:59 Intake Total 2683.39 / 2925.74 2683.35 / 2942.15 407.05 / 407.05 Output Total 955 / 1205 250 / 250 Balance 2683.39 / 2725.74 1728.35 / 1737.15 157.05 / 157.05 Labs (Last 48 Hours) 01/17/20 01/17/20 01/17/20 13:30 13:30 13:30 WBC 28.0 H RBC 2.62 L Hgb 8.6 L Hct 25.8 L MCV 98.5 H MCH 32.8 H MCHC 33.3 RDW Std Deviation 68.4 H RDW Coeff of Trevon 20.2 H Plt Count 406 MPV 12.6 H Immature Gran % (Auto) 4.200 H Neut % (Auto) 81.5 H Lymph % (Auto) 0.0 L [place] % (Auto) 13.7 H Eos % (Auto) 0.3 Baso % (Auto) 0.3 Absolute Neuts (auto) 22.8 H Absolute Lymphs (auto) 0.00 L Nucleated RBC % 3.3 Differential Comment Diff Path Review May foll Toxic Granulation Platelet Estimate ADEQUATE Polychromasia Hypochromasia Basophilic Stippling Anisocytosis 2+ Macrocytosis Target Cells 1+ Crenated Cell Schistocytes ESR 7 PT 29.0 H INR 2.8 APTT 39.0 H Sodium 131 L Potassium 6.6 H* Chloride 98 Carbon Dioxide 18.0 L Anion Gap 15 BUN 99 H Creatinine 4.56 H Estim Creat Clear Calc 12.90 Est GFR (MDRD) Af Amer 16 L Est GFR (MDRD) Non-Af 13 L BUN/Creatinine Ratio 21.7 H Glucose 149 H Lactic Acid Calcium 9.0 Phosphorus Total Bilirubin 7.00 H Direct Bilirubin GGT AST 454 H ALT 552 H Alkaline Phosphatase 182 H Troponin I C-React Prot Ext Range 121.00 H B-Natriuretic Peptide Total Protein 6.6 Albumin 3.2 Globulin 3.4 Albumin/Globulin Ratio 0.9 Amylase Lipase Urine Color Urine Clarity Urine pH Ur Specific [place] Urine Protein Urine Glucose (UA) Urine Ketones Urine Occult Blood Urine Nitrite Urine Bilirubin Urine Urobilinogen Ur Leukocyte Esterase Urine RBC Urine WBC Ur Squamous Epith Cells Amorphous Sediment Urine Bacteria Urine Mucus Ur Random Sodium Urine Creatinine Urine Urea Nitrogen Hepatitis A IgM Ab Hep Bs Antigen Hep B Core IgM Ab Hepatitis C Ab (EIA) 01/17/20 01/17/20 01/17/20 13:30 13:30 13:30 WBC RBC Hgb Hct MCV MCH MCHC RDW Std Deviation RDW Coeff of Trevon Plt Count MPV Immature Gran % (Auto) Neut % (Auto) Lymph % (Auto) [place] % (Auto) Eos % (Auto) Baso % (Auto) Absolute Neuts (auto) Absolute Lymphs (auto) Nucleated RBC % Differential Comment Diff Path Review Toxic Granulation Platelet Estimate Polychromasia Hypochromasia Basophilic Stippling Anisocytosis Macrocytosis Target Cells Crenated Cell Schistocytes ESR PT INR APTT Sodium Potassium Chloride Carbon Dioxide Anion Gap BUN Creatinine Estim Creat Clear Calc Est GFR (MDRD) Af Amer Est GFR (MDRD) Non-Af BUN/Creatinine Ratio Glucose Lactic Acid Calcium Phosphorus Total Bilirubin Direct Bilirubin GGT AST ALT Alkaline Phosphatase Troponin I 0.038 C-React Prot Ext Range B-Natriuretic Peptide 3510.4 H Total Protein Albumin Globulin Albumin/Globulin Ratio Amylase 51 Lipase 87 Urine Color Urine Clarity Urine pH Ur Specific [place] Urine Protein Urine Glucose (UA) Urine Ketones Urine Occult Blood Urine Nitrite Urine Bilirubin Urine Urobilinogen Ur Leukocyte Esterase Urine RBC Urine WBC Ur Squamous Epith Cells Amorphous Sediment Urine Bacteria Urine Mucus Ur Random Sodium Urine Creatinine Urine Urea Nitrogen Hepatitis A IgM Ab Hep Bs Antigen Hep B Core IgM Ab Hepatitis C Ab (EIA) 01/17/20 01/17/20 01/17/20 14:35 17:05 19:05 WBC RBC Hgb Hct MCV MCH MCHC RDW Std Deviation RDW Coeff of Trevon Plt Count MPV Immature Gran % (Auto) Neut % (Auto) Lymph % (Auto) [place] % (Auto) Eos % (Auto) Baso % (Auto) Absolute Neuts (auto) Absolute Lymphs (auto) Nucleated RBC % Differential Comment Diff Path Review Toxic Granulation Platelet Estimate Polychromasia Hypochromasia Basophilic Stippling Anisocytosis Macrocytosis Target Cells Crenated Cell Schistocytes ESR PT INR APTT Sodium Potassium Chloride Carbon Dioxide Anion Gap BUN Creatinine Estim Creat Clear Calc Est GFR (MDRD) Af Amer Est GFR (MDRD) Non-Af BUN/Creatinine Ratio Glucose Lactic Acid 7.5 H* 7.7 H* Calcium Phosphorus Total Bilirubin Direct Bilirubin GGT AST ALT Alkaline Phosphatase Troponin I C-React Prot Ext Range B-Natriuretic Peptide Total Protein Albumin Globulin Albumin/Globulin Ratio Amylase Lipase Urine Color Gi Urine Clarity Sl. Cloudy Urine pH 5.0 Ur Specific [place] 1.020 Urine Protein 100 H Urine Glucose (UA) Normal Urine Ketones 5 H Urine Occult Blood 150 H Urine Nitrite Negative Urine Bilirubin 1 H Urine Urobilinogen 1 H Ur Leukocyte Esterase 25 H Urine RBC 0-5 SEEN Urine WBC 0 SEEN Ur Squamous Epith Cells 0 SEEN Amorphous Sediment 1+ Urine Bacteria 0 SEEN Urine Mucus 0 SEEN Ur Random Sodium Urine Creatinine Urine Urea Nitrogen Hepatitis A IgM Ab Hep Bs Antigen Hep B Core IgM Ab Hepatitis C Ab (EIA) 01/17/20 01/17/20 01/18/20 21:45 23:10 03:55 WBC 30.6 H* RBC 2.34 L Hgb 7.8 L Hct 22.1 L MCV 94.4 H MCH 33.3 H MCHC 35.3 D RDW Std Deviation 64.4 H RDW Coeff of Trevon 20.0 H Plt Count 445 MPV 11.6 Immature Gran % (Auto) 2.000 H Neut % (Auto) 90.2 H Lymph % (Auto) 0.1 L [place] % (Auto) 7.3 Eos % (Auto) 0.2 Baso % (Auto) 0.2 Absolute Neuts (auto) 27.6 H Absolute Lymphs (auto) 0.03 L Nucleated RBC % 1.9 Differential Comment COMMENT Diff Path Review May foll Toxic Granulation RARE Platelet Estimate SLT INC Polychromasia RARE Hypochromasia 1+ Basophilic Stippling RARE Anisocytosis 2+ Macrocytosis RARE Target Cells Crenated Cell 1+ Schistocytes RARE ESR PT INR APTT Sodium Potassium Chloride Carbon Dioxide Anion Gap BUN Creatinine Estim Creat Clear Calc Est GFR (MDRD) Af Amer Est GFR (MDRD) Non-Af BUN/Creatinine Ratio Glucose Lactic Acid 5.7 H* Calcium Phosphorus Total Bilirubin Direct Bilirubin GGT AST ALT Alkaline Phosphatase Troponin I C-React Prot Ext Range B-Natriuretic Peptide Total Protein Albumin Globulin Albumin/Globulin Ratio Amylase Lipase Urine Color Urine Clarity Urine pH Ur Specific [place] Urine Protein Urine Glucose (UA) Urine Ketones Urine Occult Blood Urine Nitrite Urine Bilirubin Urine Urobilinogen Ur Leukocyte Esterase Urine RBC Urine WBC Ur Squamous Epith Cells Amorphous Sediment Urine Bacteria Urine Mucus Ur Random Sodium Urine Creatinine Urine Urea Nitrogen Hepatitis A IgM Ab Pending Hep Bs Antigen Pending Hep B Core IgM Ab Pending Hepatitis C Ab (EIA) Pending 01/18/20 01/18/20 01/18/20 03:55 03:55 06:15 WBC RBC Hgb Hct MCV MCH MCHC RDW Std Deviation RDW Coeff of Trevon Plt Count MPV Immature Gran % (Auto) Neut % (Auto) Lymph % (Auto) [place] % (Auto) Eos % (Auto) Baso % (Auto) Absolute Neuts (auto) Absolute Lymphs (auto) Nucleated RBC % Differential Comment Diff Path Review Toxic Granulation Platelet Estimate Polychromasia Hypochromasia Basophilic Stippling Anisocytosis Macrocytosis Target Cells Crenated Cell Schistocytes ESR PT 30.0 H INR 2.9 APTT 42.1 H Sodium 136 Potassium 5.6 H Chloride 102 Carbon Dioxide 20.0 L Anion Gap 14 BUN 101 H* Creatinine 4.23 H Estim Creat Clear Calc 13.90 Est GFR (MDRD) Af Amer 17 L Est GFR (MDRD) Non-Af 14 L BUN/Creatinine Ratio 23.9 H Glucose 161 H Lactic Acid Calcium 8.6 Phosphorus Total Bilirubin 6.00 H Direct Bilirubin 3.86 H GGT AST 588 H ALT 835 H Alkaline Phosphatase 161 H Troponin I C-React Prot Ext Range B-Natriuretic Peptide Total Protein 5.9 L Albumin 2.8 L Globulin 3.1 Albumin/Globulin Ratio Amylase Lipase Urine Color Urine Clarity Urine pH Ur Specific [place] Urine Protein Urine Glucose (UA) Urine Ketones Urine Occult Blood Urine Nitrite Urine Bilirubin Urine Urobilinogen Ur Leukocyte Esterase Urine RBC Urine WBC Ur Squamous Epith Cells Amorphous Sediment Urine Bacteria Urine Mucus Ur Random Sodium Urine Creatinine Urine Urea Nitrogen Hepatitis A IgM Ab Hep Bs Antigen Hep B Core IgM Ab Hepatitis C Ab (EIA) 01/18/20 01/18/20 01/18/20 11:55 11:55 13:30 WBC RBC Hgb Hct MCV MCH MCHC RDW Std Deviation RDW Coeff of Trevon Plt Count MPV Immature Gran % (Auto) Neut % (Auto) Lymph % (Auto) [place] % (Auto) Eos % (Auto) Baso % (Auto) Absolute Neuts (auto) Absolute Lymphs (auto) Nucleated RBC % Differential Comment Diff Path Review Toxic Granulation Platelet Estimate Polychromasia Hypochromasia Basophilic Stippling Anisocytosis Macrocytosis Target Cells Crenated Cell Schistocytes ESR PT INR APTT Sodium Potassium Chloride Carbon Dioxide Anion Gap BUN Creatinine Estim Creat Clear Calc Est GFR (MDRD) Af Amer Est GFR (MDRD) Non-Af BUN/Creatinine Ratio Glucose Lactic Acid Calcium Phosphorus Total Bilirubin Direct Bilirubin GGT 275 H AST ALT Alkaline Phosphatase Troponin I C-React Prot Ext Range B-Natriuretic Peptide Total Protein Albumin Globulin Albumin/Globulin Ratio Amylase Lipase Urine Color Urine Clarity Urine pH Ur Specific [place] Urine Protein Urine Glucose (UA) Urine Ketones Urine Occult Blood Urine Nitrite Urine Bilirubin Urine Urobilinogen Ur Leukocyte Esterase Urine RBC Urine WBC Ur Squamous Epith Cells Amorphous Sediment Urine Bacteria Urine Mucus Ur Random Sodium 13 Urine Creatinine 78.70 Urine Urea Nitrogen 826 Hepatitis A IgM Ab Hep Bs Antigen Hep B Core IgM Ab Hepatitis C Ab (EIA) 01/19/20 04:15 WBC RBC Hgb Hct MCV MCH MCHC RDW Std Deviation RDW Coeff of Trevon Plt Count MPV Immature Gran % (Auto) Neut % (Auto) Lymph % (Auto) [place] % (Auto) Eos % (Auto) Baso % (Auto) Absolute Neuts (auto) Absolute Lymphs (auto) Nucleated RBC % Differential Comment Diff Path Review Toxic Granulation Platelet Estimate Polychromasia Hypochromasia Basophilic Stippling Anisocytosis Macrocytosis Target Cells Crenated Cell Schistocytes ESR PT INR APTT Sodium 136 Potassium 4.7 Chloride 102 Carbon Dioxide 23.0 Anion Gap 11 BUN 105 H* Creatinine 3.87 H Estim Creat Clear Calc 15.20 Est GFR (MDRD) Af Amer 19 L Est GFR (MDRD) Non-Af 16 L BUN/Creatinine Ratio 27.1 H Glucose 186 H Lactic Acid Calcium 8.4 L Phosphorus 5.8 H Total Bilirubin 4.60 H Direct Bilirubin GGT AST 292 H ALT 711 H Alkaline Phosphatase 175 H Troponin I C-React Prot Ext Range B-Natriuretic Peptide Total Protein 5.6 L Albumin 2.6 L Globulin 3.0 Albumin/Globulin Ratio 0.9 Amylase Lipase Urine Color Urine Clarity Urine pH Ur Specific [place] Urine Protein Urine Glucose (UA) Urine Ketones Urine Occult Blood Urine Nitrite Urine Bilirubin Urine Urobilinogen Ur Leukocyte Esterase Urine RBC Urine WBC Ur Squamous Epith Cells Amorphous Sediment Urine Bacteria Urine Mucus Ur Random Sodium Urine Creatinine Urine Urea Nitrogen Hepatitis A IgM Ab Hep Bs Antigen Hep B Core IgM Ab Hepatitis C Ab (EIA) Clinical Impression(s) from Imaging Studies Chest X-Ray 01/17/20 13:19 IMPRESSION: Small bilateral pleural effusions. Electronically Signed: Bre Laird, at 14:37 EDT Tel , Service support , Gallbladder Ultrasound 01/17/20 14:30 IMPRESSION: Fatty infiltration of the liver. Cholelithiasis and possible chronic cholecystitis. Electronically Signed: Bre Laird at 16:06 EDT Tel , Service support , MRCP 01/18/20 09:30 IMPRESSION: Technically limited MR Cholangiopancreatography (MRCP). Cholelithiasis. Bilateral pleural effusions and ascites. Electronically Signed: Joesph Fontanez DO at 11:21 EDT Tel [phone], Service support , Medical Necessity - Tobacco Use Smoking Status: Never smoker Assessment/Plan All Active Problems (Last Reviewed 01/17/20 @ 21:[address] Finn Guadarrama MD) Elevated liver enzymes (Acute) Cholelithiasis (Acute) Cholecystitis (Acute) Septic shock (Acute) Septic shock (Acute) Ascites (Acute) Jaundice (Acute) Bilateral pleural effusion (Acute) Non-ischemic cardiomyopathy (Acute) Myelodysplasia (myelodysplastic syndrome) (Acute) Coagulopathy (Acute) Skin cancer, basal cell (Acute) RECOMMENDATIONS: 1. Continue Levophed to maintain hemodynamic stability. Wean as tolerated. 2. Continue empiric antimicrobials. 3. Continue twice daily PPI therapy. 4. Encourage p.o. intake. Recommend conservative use of fluids, given underlying cardiac dysfunction. 5. Encourage incentive spirometer use and mobilize patient as tolerated. 6. Physical therapy to work with the patient. 7. Monitor blood counts daily. Transfuse if hemoglobin drops below 7 g/dL. IMPRESSIONS: 1. Septic shock The patient does meet septic shock criteria. However, the exact source of infection is a bit unclear. CT abdomen did reveal possible lower lobe consolidation. Nevertheless, I do suspect this is more likely to be compressive atelectasis associated with the small effusions noted. Although intra-abdominal sepsis is another potential possibility, especially in light of the patient's elevated liver function profile, MRCP was largely unremarkable. The patient has been adequately volume resuscitated. Plan to continue to wean Levophed to maintain hemodynamic stability. The patient does appear to have a baseline systolic pressure between 90 and 100 mmHg. Empiric antimicrobials will be continued. 2. Acute liver injury/lactic acidemia/coagulopathy Improving. Exact etiology is unclear, although potential etiologies include passive vascular congestion due to underlying cardiac dysfunction, possible [place]. MRCP was largely unrevealing. Liver dysfunction is improving on its own. 3. Acute kidney injury Improving. Likely prerenal in etiology. Patient likely has component of cardiorenal syndrome given his underlying suppressed systolic function. Nephrology is currently following. Renal ultrasound was unremarkable. Recommend holding nephrotoxic medications. Continue to monitor urine output. No current indication for emergent renal replacement therapy. 4. 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 Lopez of cardiology. Recommend holding beta-randolph, Lasix and lisinopril for now. Recommend conservative use of supplemental IV fluids, given underlying cardiac dysfunction. 5. Normocytic anemia/myelodysplastic syndrome/GERD/advanced age Complicates care, management, recovery and prognosis. Continue home medications as indicated. Physical therapy evaluation once medically stabilized. TIME: 35 minutes of critical care time, independent of procedures, was spent addressing the patient's septic shock, acute liver injury, lactic acidemia, acute kidney injury, hyperkalemia, review of all data and collaboration with the care team. [phone]) [id number] Critical care first hour
[2020-01-19 06:17] LABS: Absolute Lymphocyte Count 0.21 X10^3/uL (0.83-4.51); Absolute Neutrophil Count 14.6 X10^3/uL (2.0-7.7); Basophil# 0.04 X10^3/uL; Basophil% 0.2 % (0-1); Differential Indicated SCAN CRITERIA MET; Eosinophil# 0.04 X10^3/uL; Eosinophils% 0.2 % (0-5); Hematocrit 21.1 % (40-54); Hemoglobin 7.4 g/dL (13.0-16.5); Lymphocyte # 0.21 X10^3/ul (4.0); Lymphocyte % 1.2 % (19-41); Mean Corp Hgb Conc 35.1 g/dL (32-36); Mean Corpuscular Hgb 32.6 pg (27.0-32.0); Mean Platelet Vol. 12.3 fl (6.2-12.0); Monocyte# 1.87 X10^3/uL; NRBC Flagged by Analyzer 1.8 % (0-5); Neutrophil % 85.6 % (47-70); POSITIVE DIFFERENTIAL YES; POSITIVE MORPHOLOGY YES; Platelet Count 244 K/mm3 (150-450); RBC Distribution Width CV 20.2 % (11.6-14.6); RBC Distribution Width SD 63.4 fl (35.1-43.9); Red Blood Count 2.27 M/mm3 (4.6-6.2); White Blood Count 17.1 K/mm3 (4.4-11.0)
[2020-01-19 06:36] LABS: Differential Comment SCANNED; Microcytosis RARE; Target Cells RARE
--- NOTE | 2020-01-19 07:39 | PCM.PN.REN ---
Patient Problems: Active and Suspected Problems (Last Reviewed 01/17/20 @ 21:[address] Finn Guadarrama MD) Elevated liver enzymes (Acute) Cholelithiasis (Acute) Cholecystitis (Acute) Septic shock (Acute) Septic shock (Acute) Ascites (Acute) Jaundice (Acute) Bilateral pleural effusion (Acute) Non-ischemic cardiomyopathy (Acute) Myelodysplasia (myelodysplastic syndrome) (Acute) Coagulopathy (Acute) Subjective: Following for WILLIAM. Pt has mild SOB with activity. No CP, nausea or vomiting. No diarrhea. - Physical Exam Vitals/I&O's: Vital Signs Temp Pulse Resp BP Pulse Ox 98.6 F 85 14 93/57 L 96 01/19/20 07:00 01/19/20 07:00 01/19/20 07:00 01/19/20 07:00 01/19/20 07:00 Oxygen Flow Rate (L/min) 2 Oxygen Delivery Method Room Air Weight: 85.3 kg Body Mass Index (BMI) 26.2 Intake and Output for Last 24 Hours 01/17/20 01/18/20 01/19/20 23:59 23:59 23:59 Intake Total 2683.39 / 2925.74 2683.35 / 2942.15 425.85 / 425.85 Output Total 955 / 1205 475 / 475 Balance 2683.39 / 2725.74 1728.35 / 1737.15 -49.15 / -49.15 General: Alert, Oriented x3 HEENT: Atraumatic, PERRLA Oral: Moist Mucosa Neck: Supple Lungs: Clear to auscultation - anteriorly Cardiovascular: Normal S1, Normal S2, Murmur - 2/6 systolic, best heard at RUSB Abdomen: Bowel Sounds Present, Soft, Non Tender Extremities: Edema - 2+ BL Musculoskeletal: No Tenderness to Palpation of Joints or Extremities Laboratory Results 01/18/20 11:55: Urine Creatinine 78.70 01/18/20 11:55: Ur Random Sodium 13, Urine Urea Nitrogen 826 01/18/20 13:30: GGT 275 H 01/19/20 04:15: Sodium 136, Potassium 4.7, Chloride 102, Carbon Dioxide 23.0, Anion Gap 11, BUN 105 H*, Creatinine 3.87 H, Estim Creat Clear Calc 15.20, Est GFR (MDRD) Af Amer 19 L, Est GFR (MDRD) Non-Af 16 L, BUN/Creatinine Ratio 27.1 H, Glucose 186 H, Calcium 8.4 L, Phosphorus 5.8 H, Total Bilirubin 4.60 H, AST 292 H, ALT 711 H, Alkaline Phosphatase 175 H, Total Protein 5.6 L, Albumin 2.6 L, Globulin 3.0, Albumin/Globulin Ratio 0.9 01/19/20 04:15: WBC 17.1 H, RBC 2.27 L, Hgb 7.4 L, Hct 21.1 L, MCV 93.0, MCH 32.6 H, MCHC 35.1, RDW Std Deviation 63.4 H, RDW Coeff of Trevon 20.2 H, Plt Count 244, MPV 12.3 H, Immature Gran % (Auto) 1.800 H, Neut % (Auto) 85.6 H, Lymph % (Auto) 1.2 L, V[place] % (Auto) 11.0 H, Eos % (Auto) 0.2, Baso % (Auto) 0.2, Absolute Neuts (auto) 14.6 H, Absolute Lymphs (auto) 0.21 L, Nucleated RBC % 1.8, Differential Comment SCANNED, Diff Path Review May foll, Microcytosis RARE, Target Cells RARE Current Medications Cholecalciferol (Vitamin D (25mcg)) 2,000 unit PO DAILY [facility] Last Admin: 01/18/20 11:18 Dose: 2,000 unit Documented by: Dextrose (D50w Syringe) 0 gm IV X1 PRN; Protocol PRN Reason: Hypoglycemia Folic Acid (Folic Acid) 1 mg PO DAILY@0800 [facility] Last Admin: 01/18/20 11:18 Dose: 1 mg Documented by: Glucagon () 1 mg IM .X1 PRN PRN Reason: Hypoglycemia Norepinephrine Bitartrate 8 mg (/ Sodium Chloride) 250 mls @ 9.375 mls/hr CONT INF .[id number] [facility]; Protocol Last Titration: 01/19/20 07:00 Dose: 5 mcg/min, 9.4 mls/hr Documented by: Sodium Chloride () 250 mls @ 15 mls/hr IV .[id number] PRN PRN Reason: Saline Flush Last Infusion: 01/19/20 04:15 Dose: 0 mls/hr Documented by: Piperacillin Sod/Tazobactam (Sod 3.375 gm/ Sodium Chloride) 50 mls @ 12.5 mls/hr IV Q12 [facility] Last Infusion: 01/19/20 01:37 Dose: Infused Documented by: Ipratropium [place] (Atrovent Nasal [place] (G)) 2 spray NASAL BID [facility] Last Admin: 01/18/20 21:34 Dose: 2 spray Documented by: Melatonin (Melatonin) 3 mg PO QHS PRN PRN PRN Reason: INSOMNIA Ondansetron HCl (Zofran) 4 mg IV Q8H PRN PRN PRN Reason: NAUSEA/VOMITING Pantoprazole Sodium (Protonix) 20 mg PO BID [facility] Last Admin: 01/18/20 21:34 Dose: 20 mg Documented by: Polyethylene Glycol (Miralax) 34 gm PO X1 PRN PRN Reason: Bowel Movement Sodium Chloride () 10 - 40 ml IV UD PRN PRN Reason: SALINE FLUSH Medical Necessity - Tobacco Use Smoking Status: Never smoker Assessment/Plan All Active Problems (Last Reviewed 01/17/20 @ 21:[address] Finn Guadarrama MD) Elevated liver enzymes (Acute) Cholelithiasis (Acute) Cholecystitis (Acute) Septic shock (Acute) Septic shock (Acute) Ascites (Acute) Jaundice (Acute) Bilateral pleural effusion (Acute) Non-ischemic cardiomyopathy (Acute) Myelodysplasia (myelodysplastic syndrome) (Acute) Coagulopathy (Acute) Skin cancer, basal cell (Acute) 1. Acute kidney injury on chronic kidney disease. SCr was 2.02 mg/dL on 10/15/19. Suspect CKD and fluctuation of renal function may be due to cardiorenal syndrome. WILLIAM is also prerenal, but is more likely due to hypotension and renal hypoperfusion. He was also on ACEI and diuretic prior to admission. Kidney function is better today. Better urine output. He is at some risk to progress to ischemic ATN. I have low suspicion for other causes of WILLIAM at this time. Continue current supportive care to keep MAP >65. Continue to hold ACEI and hold scheduled diuretic for today. Encouraged self hydration. Hold further IVF since he has edema and history of systolic dysfunction (EF40%). No need for kidney replacement therapy, but I will continue to monitor his renal function closely. Current medications are reviewed. All are appropriately dosed for the current renal function. 2. Hyperkalemia. K is better at 4.7 (down from 6.6 on 01/17/20). S/p Kayexalate x1 on 01/17/20. Hold ACEI. Will monitor K. 3. Systolic dysfunction (EF 40%) with pulmonary HTN. Edema is same but significant. Continue to hold ACEI due to WILLIAM. Hold scheduled Lasix, but I am OK with giving as needed if respiratory distress. 3. Metabolic acidosis. due to hypoperfusion and WILLIAM. Serum HCO3 is better today at 23 mmol/L. No current need for NaHCO3 supplement. Will follow serum HCO3. 4. MDS. Pt has transfusion dependent MDS, followed by hematology. Follow Hgb. 5. Septic shock. Work up in progress for source. He is on NE drip for pressure support. No obvious source of infection yet. Cultures negative thus far. On Zosyn. D/w Dr. Marina and Dr. Kennedy.
--- NOTE | 2020-01-19 07:55 | PN_ITS ---
Patient Problems: Active and Suspected Problems (Last Reviewed 01/17/20 @ 21:[address] Finn Guadarrama MD) Elevated liver enzymes (Acute) Cholelithiasis (Acute) Cholecystitis (Acute) Septic shock (Acute) Septic shock (Acute) Ascites (Acute) Jaundice (Acute) Bilateral pleural effusion (Acute) Non-ischemic cardiomyopathy (Acute) Myelodysplasia (myelodysplastic syndrome) (Acute) Coagulopathy (Acute) Reason for Visit: Follow-up hypotension, lactic acidosis, acute liver injury, acute kidney injury Objective: Patient on Levophed at 5 mics per minute. Clinically, he looks more alert and awake and responsive. Blood pressure systolic in 90s, map more than 65. No hypoxia or tachypnea. Heart rate in the 80s. No fever. Patient still has bilateral lower extremity swelling, left more than right with left leg pain Mild drop in hemoglobin probably from hemodilution. No external bleeding. Had colonoscopy about 7 to 8 years ago with no significant findings as per the patient. Most probably patient did not have ADD as per his memory. Had normal PFT in February 2019. Vitals/I&O's: Vital Signs Temp Pulse Resp BP Pulse Ox 98.6 F 85 14 93/57 L 96 01/19/20 07:00 01/19/20 07:00 01/19/20 07:00 01/19/20 07:00 01/19/20 07:00 Oxygen Flow Rate (L/min) 2 Oxygen Delivery Method Room Air Weight: 188 lb 0.869 oz Body Mass Index (BMI) 26.2 Intake and Output for Last 24 Hours 01/17/20 01/18/20 01/19/20 23:59 23:59 23:59 Intake Total 2683.39 / 2925.74 2683.35 / 2942.15 425.85 / 425.85 Output Total 955 / 1205 475 / 475 Balance 2683.39 / 2725.74 1728.35 / 1737.15 -49.15 / -49.15 General: Alert, Oriented x3, Cooperative HEENT: Atraumatic, PERRLA, EOMI, Normocephalic Neck: Supple, No JVD, Negative Carotid Bruits, - - Right neck CVC Lungs: Clear to auscultation, No rhonchi, No wheeze, No rales, Diminished Cardiovascular: Regular rate, Normal S1, Normal S2, Murmur - Ongoing requirement over left lower sternal border and aortic., - - Normal sinus rhythm on career specialist. Abdomen: Bowel Sounds Present, Soft, Non Tender, Non-Distended Extremities: Capillary Refill Less than 3 Seconds, Edema - Bilateral lower extremity edema, left more than right. Scrotal edema. Penis is buried Skin: No rashes, No breakdown Musculoskeletal: No Tenderness to Palpation of Joints or Extremities, Arthritic Changes Neurological: Cranial nerves II-XII grossly intact, Deep Tendon Reflexes 2+/4 and Symmetrical, Neuro grossly intact Psych/Mental Status: Normal Affect, Appropriate Laboratory Results 01/18/20 11:55: Urine Creatinine 78.70 01/18/20 11:55: Ur Random Sodium 13, Urine Urea Nitrogen 826 01/18/20 13:30: GGT 275 H 01/19/20 04:15: Sodium 136, Potassium 4.7, Chloride 102, Carbon Dioxide 23.0, Anion Gap 11, BUN 105 H*, Creatinine 3.87 H, Estim Creat Clear Calc 15.20, Est GFR (MDRD) Af Amer 19 L, Est GFR (MDRD) Non-Af 16 L, BUN/Creatinine Ratio 27.1 H , Glucose 186 H, Calcium 8.4 L, Phosphorus 5.8 H, Total Bilirubin 4.60 H, AST 292 H, ALT 711 H, Alkaline Phosphatase 175 H, Total Protein 5.6 L, Albumin 2.6 L , Globulin 3.0, Albumin/Globulin Ratio 0.9 01/19/20 04:15: WBC 17.1 H, RBC 2.27 L, Hgb 7.4 L, Hct 21.1 L, MCV 93.0, MCH 32.6 H, MCHC 35.1, RDW Std Deviation 63.4 H, RDW Coeff of Trevon 20.2 H, Plt Count 244, MPV 12.3 H, Immature Gran % (Auto) 1.800 H, Neut % (Auto) 85.6 H, Lymph % (Auto) 1.2 L, [place] % (Auto) 11.0 H, Eos % (Auto) 0.2, Baso % (Auto) 0.2, Absolute Neuts (auto) 14.6 H, Absolute Lymphs (auto) 0.21 L, Nucleated RBC % 1.8, Differential Comment SCANNED, Diff Path Review December fede Microcytosis RARE, Target Cells RARE Current Medications Cholecalciferol (Vitamin D (25mcg)) 2,000 unit PO DAILY [facility] Last Admin: 01/18/20 11:18 Dose: 2,000 unit Documented by: Dextrose (D50w Syringe) 0 gm IV X1 PRN; Protocol PRN Reason: Hypoglycemia Folic Acid (Folic Acid) 1 mg PO DAILY@0800 [facility] Last Admin: 01/18/20 11:18 Dose: 1 mg Documented by: Glucagon () 1 mg IM .X1 PRN PRN Reason: Hypoglycemia Norepinephrine Bitartrate 8 mg (/ Sodium Chloride) 250 mls @ 9.375 mls/hr CONT INF .[id number] [facility]; Protocol Last Titration: 01/19/20 07:00 Dose: 5 mcg/min, 9.4 mls/hr Documented by: Sodium Chloride () 250 mls @ 15 mls/hr IV .[id number] PRN PRN Reason: Saline Flush Last Infusion: 01/19/20 04:15 Dose: 0 mls/hr Documented by: Piperacillin Sod/Tazobactam (Sod 3.375 gm/ Sodium Chloride) 50 mls @ 12.5 mls/hr IV Q12 [facility] Last Infusion: 01/19/20 01:37 Dose: Infused Documented by: Ipratropium [place] (Atrovent Nasal [place] (G)) 2 spray NASAL BID [facility] Last Admin: 01/18/20 21:34 Dose: 2 spray Documented by: Melatonin (Melatonin) 3 mg PO QHS PRN PRN PRN Reason: INSOMNIA Ondansetron HCl (Zofran) 4 mg IV Q8H PRN PRN PRN Reason: NAUSEA/VOMITING Pantoprazole Sodium (Protonix) 20 mg PO BID [facility] Last Admin: 01/18/20 21:34 Dose: 20 mg Documented by: Polyethylene Glycol (Miralax) 34 gm PO X1 PRN PRN Reason: Bowel Movement Sodium Chloride () 10 - 40 ml IV UD PRN PRN Reason: SALINE FLUSH STROKE Vital Signs/Narrative: Vital Signs Temp Pulse Resp BP Pulse Ox 01/19/20 07:00 98.6 F 85 14 93/57 L 96 01/19/20 06:00 98.5 F 86 13 97/54 L 97 01/19/20 05:00 98.6 F 82 12 95/58 L 97 01/19/20 04:00 98.6 F 86 13 94/58 L 97 Medical Necessity - Tobacco Use Smoking Status: Never smoker Assessment/Plan All Active Problems (Last Reviewed 01/17/20 @ 21:[address] 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 In the ER he was found hypotensive, leukocytosis, lactic acidosis 7.5, hyperkalemia and acute liver injury on chronic liver disease, consistent with diagnosis of septic shock and was admitted in ICU on vasopressor support. 1. Septic shock, exact focus is unclear but probably hepatobiliary sepsis or less likely right lower lobe pneumonia: CT abdomen independently reviewed and shows bilateral pleural effusion, more on the right side with compressive atelectasis. Air bronchograms not clearly seen. Patient on IV antibiotic, Zosyn, Levophed support and IV fluid hydration. 2. Acute liver injury on chronic liver disease, multiple etiologies including shock liver on top of chronic liver disease probably chronic hepatic congestion, DILI (on amiodarone), SANTORO or intrahepatic cholestasis: Patient had elevated liver test, ALT more than AST since February 2018, along with mildly elevated alkaline phosphatase. On this admission, ALT 552, AST 454, alk phos 182, total bili 7.0, repeat 6.0 direct 3.86. INR 2.8 but patient also on Eliquis for paroxysmal A. fib. 01/18: Liver test shows gradual improvement in transaminases and total bili. Mainly direct hyperbilirubinemia. Alk phos is still elevated. GGT 275. Minimal intrahepatic cholestasis. AMA, ASMA, SIS, autoimmune antibodies ordered. Viral hepatitis panel pending MRCP reported cholelithiasis but no intrahepatic or extrahepatic biliary obstruction. Pancreatic duct no dilatation or stricture. CT abdomen reviewed shows cholelithiasis with dilated intrahepatic biliary radicles and surrounding ascites. Right upper quadrant sonogram reported cholelithiasis with partially contracted gallbladder. GB wall 6 mm with pericholecystic fluid. CBD 4 mm. Pancreas with normal size and echogenicity. 3. Acute kidney injury with hyperkalemia, non-anion gap metabolic acidosis most probably prerenal with possibility of cardiorenal syndrome: Patient was seen by slide fastener repairer. Monitor intake and output. Renal ultrasound unremarkable. Patient had Kayexalate. K6.6 decreased to 5.6. 01/18: Creatinine is better but BUN is still elevated. Electrolytes are in acceptable range. Stool for occult blood. Discussed with slide fastener repairer. 4. Acute on chronic systolic and diastolic combined heart failure, paroxysmal A. fib and valvular heart disease: Patient had echo last in February 2018 reported as EF 40%, stage II diastolic dysfunction, severely dilated RV, LA and RA severely enlarged, mild MR, moderate TR, pulmonary hypertension and aortic stenosis: On Lasix. Elevated BNP and generalized edema, ascites. 5. Acute anemia with chronic normocytic normochromic anemia/anemia of chronic disease: Stool for occult blood ordered. Patient is not on antiplatelet/anticoagulant agent. Anemia work-up ordered. 6.. DVT prophylaxis: Eliquis discontinued INR is elevated and patient has acute liver injury and acute kidney injury, coagulopathy state.bilateral SCDs 7. Other chronic comorbidities include MDS, normocytic normochromic anemia; chronic in nature, transfusion dependent followed by Dr. Milian. Discussed with Dr. Flores in the morning. RADHA Guerra. No active intervention from oncology site. Patient has mild conjunctivitis with matting of lashes: Cipro eyedrops ordered. Total time of the visit including total time spent in counseling or coordination of care, (more than 50% of the total time, spent in obtaining medical information from nurses and other ancillary care providers), , review of labs and imaging is 30 minutes Clinical Impression(s) from Imaging Studies Chest X-Ray 01/17/20 13:19 IMPRESSION: Small bilateral pleural effusions. Gallbladder Ultrasound 01/17/20 14:30 IMPRESSION: Fatty infiltration of the liver. Cholelithiasis and possible chronic cholecystitis. MRCP 01/18/20 09:30 IMPRESSION: Technically limited MR Cholangiopancreatography (MRCP). Cholelithiasis. Bilateral pleural effusions and ascites. Inpatient E&M: 13983 [facility] Hosp L3
[2020-01-19 08:30] LABS: Platelet Count 301 K/mm3 (150-450); RET-HE 36.5 pg (30-35); Reticulocyte Count 2.19 % (0.5-1.5)
[2020-01-19 08:49] LABS: Iron 237 ug/dL (65-175); Iron Binding Capacity,Total 124 ug/dL (250-450); PERCENT IRON SATURATION 191.1 % (15.0-55.0)
--- NOTE | 2020-01-19 10:11 | PN.SURG_ITS ---
Patient Problems: Active and Suspected Problems (Last Reviewed 01/17/20 @ 21:[address] Finn Guadarrama MD) Elevated liver enzymes (Acute) Cholelithiasis (Acute) Cholecystitis (Acute) Septic shock (Acute) Septic shock (Acute) Ascites (Acute) Jaundice (Acute) Bilateral pleural effusion (Acute) Non-ischemic cardiomyopathy (Acute) Myelodysplasia (myelodysplastic syndrome) (Acute) Coagulopathy (Acute) Subjective: MRCP shows chronic disease but no dilatation of his ducts. Objective: Abdomen is soft - Physical Exam Vitals/I&O's: Vital Signs Temp Pulse Resp BP Pulse Ox 98.6 F 85 14 93/57 L 96 01/19/20 07:00 01/19/20 07:00 01/19/20 07:00 01/19/20 07:00 01/19/20 07:00 Oxygen Flow Rate (L/min) 2 Oxygen Delivery Method Room Air Weight: 188 lb 0.869 oz Body Mass Index (BMI) 26.2 Intake and Output for Last 24 Hours 01/17/20 01/18/20 01/19/20 23:59 23:59 23:59 Intake Total 2683.39 / 2925.74 2683.35 / 2942.15 425.85 / 425.85 Output Total 955 / 1205 475 / 475 Balance 2683.39 / 2725.74 1728.35 / 1737.15 -49.15 / -49.15 Laboratory Results 01/18/20 11:55: Urine Creatinine 78.70 01/18/20 11:55: Ur Random Sodium 13, Urine Urea Nitrogen 826 01/18/20 13:30: GGT 275 H 01/19/20 04:10: Direct Antiglob Test NEG w/POLYSPECIFIC 01/19/20 04:15: Sodium 136, Potassium 4.7, Chloride 102, Carbon Dioxide 23.0, Anion Gap 11, BUN 105 H*, Creatinine 3.87 H, Estim Creat Clear Calc 15.20, Est GFR (MDRD) Af Amer 19 L, Est GFR (MDRD) Non-Af 16 L, BUN/Creatinine Ratio 27.1 H , Glucose 186 H, Calcium 8.4 L, Phosphorus 5.8 H, Total Bilirubin 4.60 H, AST 292 H, ALT 711 H, Alkaline Phosphatase 175 H, Total Protein 5.6 L, Albumin 2.6 L , Globulin 3.0, Albumin/Globulin Ratio 0.9 01/19/20 04:15: WBC 17.1 H, RBC 2.27 L, Hgb 7.4 L, Hct 21.1 L, MCV 93.0, MCH 32.6 H, MCHC 35.1, RDW Std Deviation 63.4 H, RDW Coeff of Trevon 20.2 H, Plt Count 244, MPV 12.3 H, Immature Gran % (Auto) 1.800 H, Neut % (Auto) 85.6 H, Lymph % (Auto) 1.2 L, White % (Auto) 11.0 H, Eos % (Auto) 0.2, Baso % (Auto) 0.2, Absolute Neuts (auto) 14.6 H, Absolute Lymphs (auto) 0.21 L, Nucleated RBC % 1.8, Differential Comment SCANNED, Diff Path Review May foll, Microcytosis RARE, Target Cells RARE 01/19/20 04:15: Iron 237 H, TIBC 124 L, Iron Saturation 191.1 H, Ferritin 04083 H, Folate 17.50 01/19/20 04:15: Retic Count 2.19 H, Immature Retic Fraction 19.90 H, Retic Hgb Equivalent 36.5 H Current Medications Cholecalciferol (Vitamin D (25mcg)) 2,000 unit PO DAILY [facility] Last Admin: 01/18/20 11:18 Dose: 2,000 unit Documented by: Dextrose (D50w Syringe) 0 gm IV X1 PRN; Protocol PRN Reason: Hypoglycemia Folic Acid (Folic Acid) 1 mg PO DAILY@0800 [facility] Last Admin: 01/18/20 11:18 Dose: 1 mg Documented by: Glucagon () 1 mg IM .X1 PRN PRN Reason: Hypoglycemia Norepinephrine Bitartrate 8 mg (/ Sodium Chloride) 250 mls @ 9.375 mls/hr CONT INF .[id number] [facility]; Protocol Last Titration: 01/19/20 07:00 Dose: 5 mcg/min, 9.4 mls/hr Documented by: Sodium Chloride () 250 mls @ 15 mls/hr IV .[id number] PRN PRN Reason: Saline Flush Last Infusion: 01/19/20 04:15 Dose: 0 mls/hr Documented by: Piperacillin Sod/Tazobactam (Sod 3.375 gm/ Sodium Chloride) 50 mls @ 12.5 mls/hr IV Q12 [facility] Last Infusion: 01/19/20 01:37 Dose: Infused Documented by: Ipratropium [place] (Atrovent Nasal [place] (G)) 2 spray NASAL BID [facility] Last Admin: 01/18/20 21:34 Dose: 2 spray Documented by: Melatonin (Melatonin) 3 mg PO QHS PRN PRN PRN Reason: INSOMNIA Ondansetron HCl (Zofran) 4 mg IV Q8H PRN PRN PRN Reason: NAUSEA/VOMITING Pantoprazole Sodium (Protonix) 20 mg PO BID [facility] Last Admin: 01/18/20 21:34 Dose: 20 mg Documented by: Polyethylene Glycol (Miralax) 34 gm PO X1 PRN PRN Reason: Bowel Movement Sodium Chloride () 10 - 40 ml IV UD PRN PRN Reason: SALINE FLUSH Medical Necessity - Tobacco Use Smoking Status: Never smoker Assessment/Plan All Active Problems (Last Reviewed 01/17/20 @ 21:[address] Finn Guadarrama MD) Elevated liver enzymes (Acute) Cholelithiasis (Acute) Cholecystitis (Acute) Septic shock (Acute) Septic shock (Acute) Ascites (Acute) Jaundice (Acute) Bilateral pleural effusion (Acute) Non-ischemic cardiomyopathy (Acute) Myelodysplasia (myelodysplastic syndrome) (Acute) Coagulopathy (Acute) Skin cancer, basal cell (Acute) We will sign off at this time. We will see patient in an outpatient setting but doubt seriously if we are really going to do anything with his cholelithiasis. Inpatient E&M: [id number] Subs Hosp L2
[2020-01-19] MEDS: Folic Acid 1 MG Tablet PO (10:15)
[2020-01-19] MEDS: Ipratropium Bromide 0.06% NASAL SPRAY 2 SPRAY NASAL ×2 (10:15→21:56)
[2020-01-19] MEDS: Pantoprazole Sodium 20 MG Tablet PO ×2 (10:15→21:57)
[2020-01-19 14:07] LABS: HEPATITIS B SURFACE AG Negative (Negative); Hepatitis A IgM Antibody Negative (Negative); Hepatitis B Core AB IgM Negative (Negative)
[2020-01-20] VITALS (41 sets, daily range): BP systolic 81–108; BP diastolic 52–92; PULSE 82–153; RESP 11–25; TEMP 36.3–37.2; O2SAT 92–100
[2020-01-20 01:52] LABS: Hep C Antibodies 0.1 s/co ratio (0.0-0.9)
--- NOTE | 2020-01-20 02:44 | PCM.PN.BLA ---
Progress Note Notified the patient is in A. fib with RVR. Of note patient is also in septic shock. Patient is an WILLIAM. Home digoxin and p.o. amiodarone on hold. Will start patient on amiodarone drip without bolus. STROKE Vital Signs/Narrative: Vital Signs Temp Pulse Resp BP Pulse Ox 01/20/20 02:00 98.2 F 82 16 102/60 97 01/20/20 01:00 98.0 F 89 16 102/62 99 01/20/20 00:00 98.0 F 88 15 96/63 98 01/19/20 23:32 85 01/19/20 23:00 98.4 F 89 15 105/63 98
[2020-01-20] MEDS: Amiodarone 360 MG in Dextrose 5% Viaflo Bag 192.8 ML 33.3 MG CONT INF (04:21)
[2020-01-20 05:41] LABS: Absolute Lymphocyte Count 0.41 X10^3/uL (0.83-4.51); Absolute Neutrophil Count 9.9 X10^3/uL (2.0-7.7); Basophil# 0.02 X10^3/uL; Basophil% 0.2 % (0-1); Eosinophil# 0.02 X10^3/uL; Eosinophils% 0.2 % (0-5); Hematocrit 21.3 % (40-54); Hemoglobin 7.3 g/dL (13.0-16.5); Lymphocyte # 0.41 X10^3/ul (4.0); Lymphocyte % 3.3 % (19-41); Mean Corp Hgb Conc 34.3 g/dL (32-36); Mean Corpuscular Hgb 31.7 pg (27.0-32.0); Mean Corpuscular Volume 92.6 fL (80-94); Mean Platelet Vol. 12.3 fl (6.2-12.0); Monocyte# 1.66 X10^3/uL; Monocyte% 13.4 % (0-10); NRBC Flagged by Analyzer 1.9 % (0-5); Neutrophil # 9.85 X10^3/uL (2.7-7.7); Neutrophil % 79.2 % (47-70); POSITIVE DIFFERENTIAL YES; POSITIVE MORPHOLOGY YES; Platelet Count 241 K/mm3 (150-450); RBC Distribution Width CV 20.8 % (11.6-14.6); RBC Distribution Width SD 64.7 fl (35.1-43.9); White Blood Count 12.4 K/mm3 (4.4-11.0)
[2020-01-20 05:47] LABS: Differential Indicated SCAN CRITERIA MET
[2020-01-20 05:51] LABS: Anion Gap 9 (5-15); BUN 95 mg/dL (7-18); BUN/Creat Ratio 27.8 RATIO (10-20); Calcium,Total 8.5 mg/dL (8.5-10.1); Chloride 103 mmol/L (98-107); Creatinine, Serum 3.42 mg/dL (0.70-1.30); EST Glomerular Filtration Rate 18 mL/min (>60); Est Glom Filt Rate - Afr Amer 22 mL/min (>60); Estimated Creatinine Clearance 17.19 ml/min; Glucose 166 mg/dL (74-106); Magnesium 2.8 mg/dL (1.6-2.6); Phosphorus 4.8 mg/dL (2.5-4.9); Potassium 4.4 mmol/L (3.5-5.1); Sodium Level 137 mmol/L (136-145)
[2020-01-20 06:09] LABS: Differential Comment SCANNED; Hypochromasia 1+; Macrocytosis 1+
--- NOTE | 2020-01-20 07:11 | PCM.PN.INT ---
Subjective: Patient did okay overnight. Patient did develop A. fib with RVR, but has had no subjective change in overall condition. Patient still requiring Levophed at minimal dosing. No fevers have been reported overnight. Patient was initiated on amiodarone without bolus by hospitalist. General: Alert, Oriented x3, Cooperative, No apparent distress, - - No conversational dyspnea. HEENT: Atraumatic, PERRLA, EOMI, Normocephalic Oral: Moist Mucosa, No Gingival or Mucosal Lesions/ Ulcerations Neck: Supple, No JVD, No Nodes, Trachea Midline Lungs: No rhonchi, No wheeze, No rales, Diminished Cardiovascular: Normal S1, Normal S2, Irregular Rate, Murmur, No rub noted, No Gallop, Tachycardic Abdomen: Bowel Sounds Present, Soft, Non Tender, Non-Distended Extremities: No clubbing, No cyanosis, No edema Skin: No rashes, No breakdown Musculoskeletal: No Tenderness to Palpation of Joints or Extremities, No Muscle Wasting Lymphatic: No Cervical, Supraclavicular, or Inguinal Adenopathy Neurological: Cranial nerves II-XII grossly intact, Neuro grossly intact, Motor Exam 5/5 strength throughout Psych/Mental Status: Alert and oriented to time, place, person, mood and affect Vital Signs Temp Pulse Resp BP Pulse Ox 36.3 C L 143 H 13 105/66 100 01/20/20 07:00 01/20/20 07:00 01/20/20 07:00 01/20/20 07:00 01/20/20 07:00 Oxygen Flow Rate (L/min) 2 Oxygen Delivery Method Room Air Weight: 85.3 kg Body Mass Index (BMI) 26.2 Intake and Output for Last 24 Hours 01/18/20 01/19/20 01/20/20 23:59 23:59 23:59 Intake Total 2683.35 / 2942.15 1896.25 / 1905.65 396.25 / 396.25 Output Total 955 / 1205 1500 / 1500 425 / 425 Balance 1728.35 / 1737.15 396.25 / 405.65 -28.75 / -28.75 Labs (Last 48 Hours) 01/17/20 01/18/20 01/18/20 21:45 11:55 11:55 WBC RBC Hgb Hct MCV MCH MCHC RDW Std Deviation RDW Coeff of Trevon Plt Count MPV Immature Gran % (Auto) Neut % (Auto) Lymph % (Auto) Sebastian % (Auto) Eos % (Auto) Baso % (Auto) Absolute Neuts (auto) Absolute Lymphs (auto) Nucleated RBC % Differential Comment Diff Path Review Hypochromasia Microcytosis Macrocytosis Target Cells Retic Count Immature Retic Fraction Retic Hgb Equivalent Haptoglobin Sodium Potassium Chloride Carbon Dioxide Anion Gap BUN Creatinine Estim Creat Clear Calc Est GFR (MDRD) Af Amer Est GFR (MDRD) Non-Af BUN/Creatinine Ratio Glucose Calcium Phosphorus Magnesium Iron TIBC Iron Saturation Ferritin Total Bilirubin GGT AST ALT Alkaline Phosphatase Total Protein Albumin Globulin Albumin/Globulin Ratio Vitamin B12 Folate Ur Random Sodium 13 Urine Creatinine 78.70 Urine Urea Nitrogen 826 SIS Screen SHERRY-1 Antibody SS-A/Ro IgG Antibody SS-B/La IgG Antibody Sm (Paez) Antibody GEOGRAPHICAL HISTORIAN Antibody Scl-70 Scleroderma Ab Double Strand DNA Ab Centromere B Antibody Anti-Mitochondrial Ab Anti-Smooth Muscle Ab Hepatitis A IgM Ab Negative Hep Bs Antigen Negative Hep B Core IgM Ab Negative Hepatitis C Ab (EIA) 0.1 Direct Antiglob Test 01/18/20 01/19/20 01/19/20 13:30 04:10 04:15 WBC RBC Hgb Hct MCV MCH MCHC RDW Std Deviation RDW Coeff of Trevon Plt Count MPV Immature Gran % (Auto) Neut % (Auto) Lymph % (Auto) Sebastian % (Auto) Eos % (Auto) Baso % (Auto) Absolute Neuts (auto) Absolute Lymphs (auto) Nucleated RBC % Differential Comment Diff Path Review Hypochromasia Microcytosis Macrocytosis Target Cells Retic Count Immature Retic Fraction Retic Hgb Equivalent Haptoglobin Sodium 136 Potassium 4.7 Chloride 102 Carbon Dioxide 23.0 Anion Gap 11 BUN 105 H* Creatinine 3.87 H Estim Creat Clear Calc 15.20 Est GFR (MDRD) Af Amer 19 L Est GFR (MDRD) Non-Af 16 L BUN/Creatinine Ratio 27.1 H Glucose 186 H Calcium 8.4 L Phosphorus 5.8 H Magnesium Iron TIBC Iron Saturation Ferritin Total Bilirubin 4.60 H GGT 275 H AST 292 H ALT 711 H Alkaline Phosphatase 175 H Total Protein 5.6 L Albumin 2.6 L Globulin 3.0 Albumin/Globulin Ratio 0.9 Vitamin B12 Folate Ur Random Sodium Urine Creatinine Urine Urea Nitrogen SIS Screen SHERRY-1 Antibody SS-A/Ro IgG Antibody SS-B/La IgG Antibody Sm (Paez) Antibody GEOGRAPHICAL HISTORIAN Antibody Scl-70 Scleroderma Ab Double Strand DNA Ab Centromere B Antibody Anti-Mitochondrial Ab Anti-Smooth Muscle Ab Hepatitis A IgM Ab Hep Bs Antigen Hep B Core IgM Ab Hepatitis C Ab (EIA) Direct Antiglob Test NEG w/POLYSPECIFIC 01/19/20 01/19/20 01/19/20 04:15 04:15 04:15 WBC 17.1 H RBC 2.27 L Hgb 7.4 L Hct 21.1 L MCV 93.0 MCH 32.6 H MCHC 35.1 RDW Std Deviation 63.4 H RDW Coeff of Trevon 20.2 H Plt Count 244 MPV 12.3 H Immature Gran % (Auto) 1.800 H Neut % (Auto) 85.6 H Lymph % (Auto) 1.2 L Sebastian % (Auto) 11.0 H Eos % (Auto) 0.2 Baso % (Auto) 0.2 Absolute Neuts (auto) 14.6 H Absolute Lymphs (auto) 0.21 L Nucleated RBC % 1.8 Differential Comment SCANNED Diff Path Review May foll Hypochromasia Microcytosis RARE Macrocytosis Target Cells RARE Retic Count 2.19 H Immature Retic Fraction 19.90 H Retic Hgb Equivalent 36.5 H Haptoglobin Sodium Potassium Chloride Carbon Dioxide Anion Gap BUN Creatinine Estim Creat Clear Calc Est GFR (MDRD) Af Amer Est GFR (MDRD) Non-Af BUN/Creatinine Ratio Glucose Calcium Phosphorus Magnesium Iron 237 H TIBC 124 L Iron Saturation 191.1 H Ferritin 16668 H Total Bilirubin GGT AST ALT Alkaline Phosphatase Total Protein Albumin Globulin Albumin/Globulin Ratio Vitamin B12 Folate 17.50 Ur Random Sodium Urine Creatinine Urine Urea Nitrogen SIS Screen SHERRY-1 Antibody SS-A/Ro IgG Antibody SS-B/La IgG Antibody Sm (Paez) Antibody GEOGRAPHICAL HISTORIAN Antibody Scl-70 Scleroderma Ab Double Strand DNA Ab Centromere B Antibody Anti-Mitochondrial Ab Anti-Smooth Muscle Ab Hepatitis A IgM Ab Hep Bs Antigen Hep B Core IgM Ab Hepatitis C Ab (EIA) Direct Antiglob Test 01/19/20 01/19/20 01/20/20 10:40 10:40 04:30 WBC 12.4 H RBC 2.30 L Hgb 7.3 L Hct 21.3 L MCV 92.6 MCH 31.7 MCHC 34.3 RDW Std Deviation 64.7 H RDW Coeff of Trevon 20.8 H Plt Count 241 MPV 12.3 H Immature Gran % (Auto) 3.700 H Neut % (Auto) 79.2 H Lymph % (Auto) 3.3 L Sebastian % (Auto) 13.4 H Eos % (Auto) 0.2 Baso % (Auto) 0.2 Absolute Neuts (auto) 9.9 H Absolute Lymphs (auto) 0.41 L Nucleated RBC % 1.9 Differential Comment SCANNED Diff Path Review May foll Hypochromasia 1+ Microcytosis Macrocytosis 1+ Target Cells Retic Count Immature Retic Fraction Retic Hgb Equivalent Haptoglobin Pending Sodium Potassium Chloride Carbon Dioxide Anion Gap BUN Creatinine Estim Creat Clear Calc Est GFR (MDRD) Af Amer Est GFR (MDRD) Non-Af BUN/Creatinine Ratio Glucose Calcium Phosphorus Magnesium Iron TIBC Iron Saturation Ferritin Total Bilirubin GGT AST ALT Alkaline Phosphatase Total Protein Albumin Globulin Albumin/Globulin Ratio Vitamin B12 Pending Folate Ur Random Sodium Urine Creatinine Urine Urea Nitrogen SIS Screen SHERRY-1 Antibody SS-A/Ro IgG Antibody SS-B/La IgG Antibody Sm (Paez) Antibody GEOGRAPHICAL HISTORIAN Antibody Scl-70 Scleroderma Ab Double Strand DNA Ab Centromere B Antibody Anti-Mitochondrial Ab Anti-Smooth Muscle Ab Hepatitis A IgM Ab Hep Bs Antigen Hep B Core IgM Ab Hepatitis C Ab (EIA) Direct Antiglob Test 01/20/20 01/20/20 01/20/20 04:30 04:35 04:35 WBC RBC Hgb Hct MCV MCH MCHC RDW Std Deviation RDW Coeff of Trevon Plt Count MPV Immature Gran % (Auto) Neut % (Auto) Lymph % (Auto) Sebastian % (Auto) Eos % (Auto) Baso % (Auto) Absolute Neuts (auto) Absolute Lymphs (auto) Nucleated RBC % Differential Comment Diff Path Review Hypochromasia Microcytosis Macrocytosis Target Cells Retic Count Immature Retic Fraction Retic Hgb Equivalent Haptoglobin Sodium 137 Potassium 4.4 Chloride 103 Carbon Dioxide 25.0 Anion Gap 9 BUN 95 H Creatinine 3.42 H Estim Creat Clear Calc 17.19 Est GFR (MDRD) Af Amer 22 L Est GFR (MDRD) Non-Af 18 L BUN/Creatinine Ratio 27.8 H Glucose 166 H Calcium 8.5 Phosphorus 4.8 Magnesium 2.8 H Iron TIBC Iron Saturation Ferritin Total Bilirubin GGT AST ALT Alkaline Phosphatase Total Protein Albumin Globulin Albumin/Globulin Ratio Vitamin B12 Folate Ur Random Sodium Urine Creatinine Urine Urea Nitrogen SIS Screen Pending SHERRY-1 Antibody Pending SS-A/Ro IgG Antibody Pending SS-B/La IgG Antibody Pending Sm (Paez) Antibody Pending GEOGRAPHICAL HISTORIAN Antibody Pending Scl-70 Scleroderma Ab Pending Double Strand DNA Ab Pending Centromere B Antibody Pending Anti-Mitochondrial Ab Pending Anti-Smooth Muscle Ab Pending Hepatitis A IgM Ab Hep Bs Antigen Hep B Core IgM Ab Hepatitis C Ab (EIA) Direct Antiglob Test Microbiology 01/17/20 14:35 Blood Culture (Wb) - Anticubital Right Blood Culture - Preliminary No growth in 48 hours. 01/17/20 14:51 Blood Culture (Wb) - Left Hand Blood Culture - Preliminary No growth in 48 hours. 01/18/20 11:55 Urine Catheter - Mcqueen Urine Culture - Preliminary Culture exhibits no growth. Medical Necessity - Tobacco Use Smoking Status: Never smoker Assessment/Plan All Active Problems (Last Reviewed 01/17/20 @ 21:[address] Finn Guadarrama MD) Elevated liver enzymes (Acute) Cholelithiasis (Acute) Cholecystitis (Acute) Septic shock (Acute) Septic shock (Acute) Ascites (Acute) Jaundice (Acute) Bilateral pleural effusion (Acute) Non-ischemic cardiomyopathy (Acute) Myelodysplasia (myelodysplastic syndrome) (Acute) Coagulopathy (Acute) Skin cancer, basal cell (Acute) RECOMMENDATIONS: 1. Continue Levophed to maintain hemodynamic stability. Wean as tolerated. 2. Continue empiric antimicrobials. 3. Continue twice daily PPI therapy. 4. Encourage p.o. intake. Recommend conservative use of fluids, given underlying cardiac dysfunction. 5. Encourage incentive spirometer use and mobilize patient as tolerated. 6. Consult cardiology for A. fib RVR 7. Monitor blood counts daily. Transfuse if hemoglobin drops below 7 g/dL. IMPRESSIONS: 1. Septic shock Working diagnosis has been a pulmonary etiology of septic shock. Patient has had some improvement in leukocytosis over the last 24 hours and no fever has been noted. However, Levophed has been relatively consistent. Patient may be having an element of cardiac dysfunction secondary to A. fib with RVR. Will consult cardiology to help. Do not believe that this is the primary etiology of hypotension. 2. Acute liver injury/lactic acidemia/coagulopathy Improving. Exact etiology is unclear, although potential etiologies include passive vascular congestion due to underlying cardiac dysfunction, possible S[place]. MRCP was largely unrevealing. Liver dysfunction is improving on its own. 3. Acute kidney injury Improving. Likely prerenal in etiology. Patient likely has component of cardiorenal syndrome given his underlying suppressed systolic function. Nephrology is currently following. Renal ultrasound was unremarkable. Recommend holding nephrotoxic medications. Continue to monitor urine output. No current indication for emergent renal replacement therapy. 4. 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 Lopez of cardiology. Recommend holding beta-randolph, Lasix and lisinopril for now. Recommend conservative use of supplemental IV fluids, given underlying cardiac dysfunction. Patient has developed A. fib with RVR, likely secondary to discontinuation of beta-randolph and amiodarone. Patient was placed on amiodarone drip overnight, but will get a formal cardiology consult for other possible options. 5. Normocytic anemia/myelodysplastic syndrome/GERD/advanced age Complicates care, management, recovery and prognosis. Continue home medications as indicated. Continue to work with therapy as tolerated. TIME: 32 minutes of critical care time, independent of procedures, was spent addressing the patient's septic shock, acute liver injury, lactic acidemia, acute kidney injury, hyperkalemia, review of all data and collaboration with the care team. (5:30 AM to 6:30 AM) 9xxxx: [id number] Critical care first hour
--- NOTE | 2020-01-20 07:55 | PCM.PN.REN ---
Patient Problems: Active and Suspected Problems (Last Reviewed 01/17/20 @ 21:[address] Finn Guadarrama MD) Elevated liver enzymes (Acute) Cholelithiasis (Acute) Cholecystitis (Acute) Septic shock (Acute) Septic shock (Acute) Ascites (Acute) Jaundice (Acute) Bilateral pleural effusion (Acute) Non-ischemic cardiomyopathy (Acute) Myelodysplasia (myelodysplastic syndrome) (Acute) Coagulopathy (Acute) Subjective: Following for WILLIAM. Pt denies CP. He has mild SOB, about the same as yesterday. No nausea or diarrhea. - Physical Exam Vitals/I&O's: Vital Signs Temp Pulse Resp BP Pulse Ox 97.4 F L 143 H 13 105/66 100 01/20/20 07:00 01/20/20 07:00 01/20/20 07:00 01/20/20 07:00 01/20/20 07:00 Oxygen Flow Rate (L/min) 2 Oxygen Delivery Method Room Air Weight: 85.3 kg Body Mass Index (BMI) 26.2 Intake and Output for Last 24 Hours 01/18/20 01/19/20 01/20/20 23:59 23:59 23:59 Intake Total 2683.35 / 2942.15 1896.25 / 1905.65 396.25 / 396.25 Output Total 955 / 1205 1500 / 1500 425 / 425 Balance 1728.35 / 1737.15 396.25 / 405.65 -28.75 / -28.75 General: Alert, Oriented x3 HEENT: Atraumatic, Normocephalic Oral: Moist Mucosa Neck: Supple Lungs: Diminished Cardiovascular: Irregular Rate, Tachycardic Abdomen: Bowel Sounds Present, Soft, Non Tender Extremities: Edema - 2+, unchanged Microbiology Past 72 Hours 01/17/20 14:35 Blood Culture (Wb) - Anticubital Right Blood Culture - Preliminary No growth in 48 hours. 01/17/20 14:51 Blood Culture (Wb) - Left Hand Blood Culture - Preliminary No growth in 48 hours. 01/18/20 11:55 Urine Catheter - Mcqueen Urine Culture - Preliminary Culture exhibits no growth. Laboratory Results 01/17/20 21:45: Hepatitis A IgM Ab Negative, Hep Bs Antigen Negative, Hep B Core IgM Ab Negative, Hepatitis C Ab (EIA) 0.1 01/19/20 04:10: Direct Antiglob Test NEG w/POLYSPECIFIC 01/19/20 04:15: Iron 237 H, TIBC 124 L, Iron Saturation 191.1 H, Ferritin 78196 H, Folate 17.50 01/19/20 04:15: Retic Count 2.19 H, Immature Retic Fraction 19.90 H, Retic Hgb Equivalent 36.5 H 01/19/20 10:40: Vitamin B12 Pending 01/19/20 10:40: Haptoglobin Pending 01/20/20 04:30: WBC 12.4 H, RBC 2.30 L, Hgb 7.3 L, Hct 21.3 L, MCV 92.6, MCH 31.7, MCHC 34.3, RDW Std Deviation 64.7 H, RDW Coeff of Trevon 20.8 H, Plt Count 241, MPV 12.3 H, Immature Gran % (Auto) 3.700 H, Neut % (Auto) 79.2 H, Lymph % (Auto) 3.3 L, [place] % (Auto) 13.4 H, Eos % (Auto) 0.2, Baso % (Auto) 0.2, Absolute Neuts (auto) 9.9 H, Absolute Lymphs (auto) 0.41 L, Nucleated RBC % 1.9, Differential Comment SCANNED, Diff Path Review May foll, Hypochromasia 1+, Macrocytosis 1+ 01/20/20 04:30: Sodium 137, Potassium 4.4, Chloride 103, Carbon Dioxide 25.0, Anion Gap 9, BUN 95 H, Creatinine 3.42 H, Estim Creat Clear Calc 17.19, Est GFR (MDRD) Af Amer 22 L, Est GFR (MDRD) Non-Af 18 L, BUN/Creatinine Ratio 27.8 H, Glucose 166 H, Calcium 8.5, Phosphorus 4.8, Magnesium 2.8 H 01/20/20 04:35: SIS Screen Pending, SHERRY-1 Antibody Pending, SS-A/Ro IgG Antibody Pending, SS-B/La IgG Antibody Pending, Sm (Paez) Antibody Pending, [employer] BILLER Antibody Pending, Scl-70 Scleroderma Ab Pending, Double Strand DNA Ab Pending, Centromere B Antibody Pending, Anti-Mitochondrial Ab Pending 01/20/20 04:35: Anti-Smooth Muscle Ab Pending Current Medications Cholecalciferol (Vitamin D (25mcg)) 2,000 unit PO DAILY [facility] Last Admin: 01/19/20 10:15 Dose: 2,000 unit Documented by: Dextrose (D50w Syringe) 0 gm IV X1 PRN; Protocol PRN Reason: Hypoglycemia Folic Acid (Folic Acid) 1 mg PO DAILY@0800 [facility] Last Admin: 01/19/20 10:15 Dose: 1 mg Documented by: Glucagon () 1 mg IM .X1 PRN PRN Reason: Hypoglycemia Norepinephrine Bitartrate 8 mg (/ Sodium Chloride) 250 mls @ 9.375 mls/hr CONT INF .[id number] [facility]; Protocol Last Titration: 01/20/20 07:00 Dose: 10 mcg/min, 18.8 mls/hr Documented by: Sodium Chloride () 250 mls @ 15 mls/hr IV .[id number] PRN PRN Reason: Saline Flush Last Infusion: 01/19/20 04:15 Dose: 0 mls/hr Documented by: Piperacillin Sod/Tazobactam (Sod 3.375 gm/ Sodium Chloride) 50 mls @ 12.5 mls/hr IV Q12 [facility] Last Infusion: 01/20/20 01:56 Dose: Infused Documented by: Amiodarone HCl 360 mg/ (Dextrose) 200 mls @ 33.333 mls/hr CONT INF .Q6H [facility] Stop: 01/20/20 08:59 Last Infusion: 01/20/20 05:00 Dose: 1 mg/min, 33.3 mls/hr Documented by: Amiodarone HCl 360 mg/ (Dextrose) 200 mls @ 16.667 mls/hr CONT INF .Q12H [facility] Stop: 01/21/20 02:59 Ipratropium [place] (Atrovent Nasal Tracy (G)) 2 spray NASAL BID [facility] Last Admin: 01/19/20 21:56 Dose: 2 spray Documented by: Melatonin (Melatonin) 3 mg PO QHS PRN PRN PRN Reason: INSOMNIA Ondansetron HCl (Zofran) 4 mg IV Q8H PRN PRN PRN Reason: NAUSEA/VOMITING Pantoprazole Sodium (Protonix) 20 mg PO BID [facility] Last Admin: 01/19/20 21:57 Dose: 20 mg Documented by: Polyethylene Glycol (Miralax) 34 gm PO X1 PRN PRN Reason: Bowel Movement Sodium Chloride () 10 - 40 ml IV UD PRN PRN Reason: SALINE FLUSH Medical Necessity - Tobacco Use Smoking Status: Never smoker Assessment/Plan All Active Problems (Last Reviewed 01/17/20 @ 21:[address] Finn Guadarrama MD) Elevated liver enzymes (Acute) Cholelithiasis (Acute) Cholecystitis (Acute) Septic shock (Acute) Septic shock (Acute) Ascites (Acute) Jaundice (Acute) Bilateral pleural effusion (Acute) Non-ischemic cardiomyopathy (Acute) Myelodysplasia (myelodysplastic syndrome) (Acute) Coagulopathy (Acute) Skin cancer, basal cell (Acute) 1. Acute kidney injury on chronic kidney disease stage 4. SCr was 2.02 mg/dL on 10/15/19. Suspect CKD and fluctuation of renal function may be due to cardiorenal syndrome (CRS). WILLIAM is prerenal->ATN, but is more likely due to hypotension and renal hypoperfusion rather than CRS. He was also on ACEI and diuretic prior to admission. Kidney function is better today. Better urine output. I have low suspicion for other causes of WILLIAM at this time. Continue current supportive care to keep MAP >65. Continue to hold ACEI and hold scheduled diuretic for today. Encouraged self hydration. Hold further IVF since he has edema and history of systolic dysfunction (EF40%). No need for kidney replacement therapy, but I will continue to monitor his renal function closely. The pt is still requiring pressor and he went into afib RVR overnight which may decrease GFR. Recheck SCr tomorrow. No urgent need for renal replacement therapy. Current medications are reviewed. All are appropriately dosed for the current renal function. 2. Hyperkalemia. K is better at 4.4 (down from 6.6 on 01/17/20). S/p Kayexalate x1 on 01/17/20. Hold ACEI. Will monitor K. 3. Systolic dysfunction (EF 40%) with pulmonary HTN. Edema is same but significant. Continue to hold ACEI due to WILLIAM and hypotension. Hold scheduled Lasix, but I am OK with giving as needed if respiratory distress. 3. Metabolic acidosis. due to hypoperfusion and WILLIAM. Serum HCO3 is better today at 25 mmol/L. No current need for NaHCO3 supplement. Will follow serum HCO3. 4. MDS. Pt has transfusion dependent MDS, followed by hematology. Follow Hgb. 5. Septic shock. Work up in progress for source. He is on NE drip for pressure support. No obvious source of infection yet. Cultures negative thus far. On Zosyn. 6. Atrial fibrillation with RVR. Went into RVR overnight (01/19/20). Cardiology to see.
[2020-01-20 09:49] LABS: Vitamin B12 1499 pg/mL (211-911)
--- NOTE | 2020-01-20 10:14 | CON.PCM_ITS ---
Reason for Consult Date of Consultation: 01/20/20 Reason for Consultation: Atrial fibrillation with a rapid ventricular response rate History of Present Illness: The patient is a 84 year old M is a very pleasant gentleman with a history of myelodysplastic syndrome, paroxysmal atrial fibrillation, no obstructive coronary artery disease and a dilated left ventricle with an estimated ejection fraction of 40% with severe biatrial enlargement, and moderate pulmonary hypertension. He also has mild aortic sclerosis. [facility] and prior to that at the [facility]. He has been known to be in intermittent atrial fibrillation in the past and had been on Eliquis and then subsequently taken off that because he had sustained a hemorrhagic stroke in October 2016. He has also had severe anemia from his myelodysplastic syndrome and receives frequent blood transfusions. He had been stable and saw his oncologist who noted that he was not doing well and urged him to come to the emergency room. He was noted to have evidence of renal failure, hepatic failure, recurrence of his atrial fibrillation, and possible sepsis. He was admitted to the intensive care unit started on Levophed intravenously and also treated with antibiotics. He was also been seen by nephrology. His atrial fibrillation was noted to be uncontrolled and due to the above cardiology was called to see him this morning. He denies any chest pain or shortness of breath or paroxysmal nocturnal dyspnea he has had significant pedal edema. His initial EKG appeared to demonstrate a junctional or sinus rhythm with a controlled rate but he is clearly in atrial fibrillation now with a rapid ventricular response rate still on Levophed infusion. [] Past Medical History Allergies/Adverse Reactions: Allergies No Known Allergies Allergy (Verified 01/17/20 13:00) Home Medications: Ambulatory Orders Medication Instructions Recorded Folic Acid 0.8 mg PO DAILY@0800 01/03/17 apixaban 2.5 mg tablet 2.5 mg PO BID 03/12/18 cholecalciferol (vitamin D3) 50 2,000 unit PO DAILY 02/14/19 mcg (2,000 unit) capsule ipratropium bromide 0.03 % nasal 2 spray INTRANASAL BID 02/14/19 spray [id number] acid 300 1 tab PO DAILY 05/23/19 mcg-lycopene 600 mcg-lutein 300 mcg tablet amiodarone 200 mg tablet 200 mg PO DAILY #90 tab 07/31/19 metoprolol succinate 50 mg 50 mg PO DAILY #90 tab 07/31/19 tablet,extended release 24 hr Deferoxamine Mesylate 2,000 mg SQ DAILY 12/13/19 Furosemide [Lasix] 40 mg PO DAILY 12/20/19 Digoxin 125 mcg PO DAILY 01/17/20 Lisinopril [Zestril] 2.5 mg PO DAILY 01/17/20 Omeprazole 20 mg PO BID 01/17/20 Past Medical History (Chronic Problems): Chronic Problems (Last Reviewed 01/17/20 @ 21:[address] Finn Guadarrama MD) Chronic cholecystitis with calculus (Chronic) Nonrheumatic aortic (valve) stenosis (Chronic) Paroxysmal atrial fibrillation (Chronic) 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) RVSP 43 mmhg per echo 03/22/2018 Chronic systolic (congestive) heart failure (Chronic) EF 40% per echo 03/22/18 @ [facility] (EF 20-25% per echo 11/04/2016 done @ [facility]) Non-ischemic cardiomyopathy (Chronic) Nonsustained ventricular tachycardia (Chronic) Hemorrhagic cerebrovascular accident (CVA) (Chronic) Occipital subdural bleed 10/2016 Myelodysplasia (myelodysplastic syndrome) (Chronic) Surgical History: - - rotator cuff surgery, shoulder surgery. - *Family History Maternal Family History: Family History (Last Reviewed 01/17/20 @ 21:[address] Finn Guadarrama MD) Mother Hypertension Sister Hypertension History Items: - - cancer Paternal Family History: Family History (Last Reviewed 01/17/20 @ 21:[address] Finn Guadarrama MD) Mother Hypertension Sister Hypertension History Items: - - father after falling on ice Sibling Family History: Family History (Last Reviewed 01/17/20 @ 21:[address] Finn Guadarrama MD) Mother Hypertension Sister Hypertension History Items: - - sister with pancreatic cancer. sister with enlarge heart. Lives: Alone Smoking Status: Never smoker Alcohol: None Drugs: None Review of Systems - Review of Systems General: Reports: Fatigue, Malaise. Denies: Fever, Night Sweats HEENT: Denies: Vision Change Cardiovascular: Reports: Shortness of Breath, Peripheral Edema, Palpitations. Denies: Chest Discomfort, Orthopnea, PND, Lightheadedness, Dizziness, Near Syncope, Syncope Respiratory: Denies: Cough, Sputum Production, Hemoptysis Gastrointestinal: Denies: Hematemesis, Hematochezia, Melena Genitourinary: Denies: Dysuria, Hematuria Skin: Denies: Rash Neurological: Reports: Dizziness Psychiatric: Denies: Anxiety Hematologic/ Lymphatic: Reports: Anemia, Easy Brusing Subjectve: Pleasant gentleman in no distress sitting in bed Objective: Vital Signs Temp Pulse Resp BP Pulse Ox 97.4 F L 127 H 13 105/66 100 01/20/20 07:00 01/20/20 07:00 01/20/20 07:00 01/20/20 07:00 01/20/20 07:00 Oxygen Flow Rate (L/min) 2 Oxygen Delivery Method Room Air Weight: 188 lb 0.869 oz Body Mass Index (BMI) 26.2 Intake and Output for Last 24 Hours 01/18/20 01/19/20 01/20/20 23:59 23:59 23:59 Intake Total 2683.35 / 2942.15 1896.25 / 1905.65 396.25 / 396.25 Output Total 955 / 1205 1500 / 1500 425 / 425 Balance 1728.35 / 1737.15 396.25 / 405.65 -28.75 / -28.75 General: Awake, Alert, Oriented x 3 HEENT: PERRL, EOMI, Sclera Non Icteric Neck: Supple, Good ROM, No Lymph Node Enlargement Lungs: Diminished Rasta Bases Cardiovascular: Irregular Rhythm, Normal S1, Normal S2, No Murmurs, No Rubs, No Gallops Vascular: No Carotid Bruits, Normal Femoral Pulses, Normal Radial Pulses, Normal Dorsalis Pedal Pulse, Normal Posterior Tibial Pulses Abdomen: Bowel Sounds Present, Soft, Non Tender, No HSM, No Organomegaly Extremities: No Cyanosis, No Clubbing, Bilateral Edema +2 Musculoskeletal: No Erythema Skin: No Rashes Lymphatic: No Lymph Node Enlargement Neurological: No Focal Motor or Sensory Deficit Psych/Mental Status: Appropriate 01/20/20 04:30: WBC 12.4 H, RBC 2.30 L, Hgb 7.3 L, Hct 21.3 L, MCV 92.6, MCH 31.7, MCHC 34.3, Plt Count 241, MPV 12.3 H, Immature Gran % (Auto) 3.700 H, Neut % (Auto) 79.2 H, Lymph % (Auto) 3.3 L, Wright % (Auto) 13.4 H, Eos % (Auto) 0.2, Baso % (Auto) 0.2, Absolute Neuts (auto) 9.9 H, Nucleated RBC % 1.9 01/20/20 04:30: Sodium 137, Potassium 4.4, Chloride 103, Carbon Dioxide 25.0, Anion Gap 9, BUN 95 H, Creatinine 3.42 H, Est GFR (MDRD) Af Amer 22 L, Est GFR (MDRD) Non-Af 18 L, BUN/Creatinine Ratio 27.8 H, Glucose 166 H, Calcium 8.5, Phosphorus 4.8, Magnesium 2.8 H Rhythm: EKG: ECHO: Stress Test: Cardiac Cath: PCI: CT Surgery: Holter monitor: EPS: PPM: CXR: Chest CT Scan: Assessment/Plan 1. Persistent atrial fibrillation * Patient now has persistent atrial fibrillation. Some of this may be because he is septic and is also receiving pressor agents. * Recommendation will be to use intravenous amiodarone for now * Hold off on the beta-randolph until sepsis is better and then will resume * Reduced dose anticoagulation * 2. 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 He does not have any evidence of obstructive coronary disease based on not so distant cardiac catheterization. * At the appropriate time will be restarted on ventricular remodeling agents. * Thank you for allowing me to participate in the care of your patient. Please don't hesitate to call if any issues arise.
[2020-01-20] MEDS: Amiodarone 360 MG in Dextrose 5% Viaflo Bag 192.8 ML 16.7 MG CONT INF ×2 (10:37→21:57)
--- NOTE | 2020-01-20 10:59 | PN_ITS ---
Patient Problems: Active and Suspected Problems (Last Reviewed 01/17/20 @ 21:[address] Finn Guadarrama MD) Elevated liver enzymes (Acute) Cholelithiasis (Acute) Cholecystitis (Acute) Septic shock (Acute) Septic shock (Acute) Ascites (Acute) Jaundice (Acute) Bilateral pleural effusion (Acute) Non-ischemic cardiomyopathy (Acute) Myelodysplasia (myelodysplastic syndrome) (Acute) Coagulopathy (Acute) Subjective: Doing well, feels better than when he came in. He did develop A. fib with RVR and was started on IV amiodarone overnight. He is still requiring IV pressor support though that has been able to be weaned. Still no evidence of infection on cultures Vitals/I&O's: Vital Signs Temp Pulse Resp BP Pulse Ox 97.4 F L 127 H 13 105/66 100 01/20/20 07:00 01/20/20 07:00 01/20/20 07:00 01/20/20 07:00 01/20/20 07:00 Oxygen Flow Rate (L/min) 2 Oxygen Delivery Method Room Air Weight: 188 lb 0.869 oz Body Mass Index (BMI) 26.2 Intake and Output for Last 24 Hours 01/18/20 01/19/20 01/20/20 23:59 23:59 23:59 Intake Total 2683.35 / 2942.15 1896.25 / 1905.65 396.25 / 396.25 Output Total 955 / 1205 1500 / 1500 425 / 425 Balance 1728.35 / 1737.15 396.25 / 405.65 -28.75 / -28.75 General: Alert, Oriented x3, Cooperative, No apparent distress HEENT: Atraumatic, PERRLA, EOMI, Normocephalic Oral: Moist Mucosa Neck: Supple, No JVD Lungs: Clear to auscultation, Normal air movement, No rhonchi, No wheeze, No rales, Diminished Cardiovascular: Normal S1, Normal S2, No murmurs, Irregular Rate Abdomen: Soft, Non Tender, Non-Distended, No Hepato-splenomegaly Extremities: Capillary Refill Less than 3 Seconds, Edema - 1+ pitting edema bilaterally Skin: No rashes, No breakdown Neurological: Neuro grossly intact, Sensory exam intact to light touch and pain Psych/Mental Status: Normal Affect, Appropriate Microbiology Past 72 Hours 01/18/20 11:55 Urine Catheter - Mcqueen Urine Culture - Final Culture exhibits no growth. 01/17/20 14:35 Blood Culture (Wb) - Anticubital Right Blood Culture - Preliminary No growth in 48 hours. 01/17/20 14:51 Blood Culture (Wb) - Left Hand Blood Culture - Preliminary No growth in 48 hours. Laboratory Results 01/17/20 21:45: Hepatitis A IgM Ab Negative, Hep Bs Antigen Negative, Hep B Core IgM Ab Negative, Hepatitis C Ab (EIA) 0.1 01/19/20 10:40: Vitamin B12 1499 H 01/20/20 04:30: WBC 12.4 H, RBC 2.30 L, Hgb 7.3 L, Hct 21.3 L, MCV 92.6, MCH 31.7, MCHC 34.3, RDW Std Deviation 64.7 H, RDW Coeff of Trevon 20.8 H, Plt Count 241, MPV 12.3 H, Immature Gran % (Auto) 3.700 H, Neut % (Auto) 79.2 H, Lymph % (Auto) 3.3 L, [place] % (Auto) 13.4 H, Eos % (Auto) 0.2, Baso % (Auto) 0.2, Absolute Neuts (auto) 9.9 H, Absolute Lymphs (auto) 0.41 L, Nucleated RBC % 1.9, Differential Comment SCANNED, Diff Path Review May foll, Hypochromasia 1+, Macrocytosis 1+ 01/20/20 04:30: Sodium 137, Potassium 4.4, Chloride 103, Carbon Dioxide 25.0, Anion Gap 9, BUN 95 H, Creatinine 3.42 H, Estim Creat Clear Calc 17.19, Est GFR (MDRD) Af Amer 22 L, Est GFR (MDRD) Non-Af 18 L, BUN/Creatinine Ratio 27.8 H, Glucose 166 H, Calcium 8.5, Phosphorus 4.8, Magnesium 2.8 H 01/20/20 04:35: SIS Screen Pending, SHERRY-1 Antibody Pending, SS-A/Ro IgG Antibody Pending, SS-B/La IgG Antibody Pending, Sm (Paez) Antibody Pending, DRAFTER CIVIL Antibody Pending, Scl-70 Scleroderma Ab Pending, Double Strand DNA Ab Pending, Centromere B Antibody Pending, Anti-Mitochondrial Ab Pending 01/20/20 04:35: Anti-Smooth Muscle Ab Pending Current Medications Cholecalciferol (Vitamin D (25mcg)) 2,000 unit PO DAILY [facility] Last Admin: 01/19/20 10:15 Dose: 2,000 unit Documented by: Dextrose (D50w Syringe) 0 gm IV X1 PRN; Protocol PRN Reason: Hypoglycemia Folic Acid (Folic Acid) 1 mg PO DAILY@0800 [facility] Last Admin: 01/19/20 10:15 Dose: 1 mg Documented by: Glucagon () 1 mg IM .X1 PRN PRN Reason: Hypoglycemia Norepinephrine Bitartrate 8 mg (/ Sodium Chloride) 250 mls @ 9.375 mls/hr CONT INF .[id number] [facility]; Protocol Last Titration: 01/20/20 07:00 Dose: 10 mcg/min, 18.8 mls/hr Documented by: Sodium Chloride () 250 mls @ 15 mls/hr IV .[id number] PRN PRN Reason: Saline Flush Last Infusion: 01/19/20 04:15 Dose: 0 mls/hr Documented by: Piperacillin Sod/Tazobactam (Sod 3.375 gm/ Sodium Chloride) 50 mls @ 12.5 mls/hr IV Q12 [facility] Last Infusion: 01/20/20 01:56 Dose: Infused Documented by: Amiodarone HCl 360 mg/ (Dextrose) 200 mls @ 16.667 mls/hr CONT INF .Q12H [facility] Stop: 01/21/20 02:59 Last Admin: 01/20/20 10:37 Dose: 0.5 mg/min, 16.7 mls/hr Documented by: Ipratropium [place] (Atrovent Nasal [place] (G)) 2 spray NASAL BID [facility] Last Admin: 01/19/20 21:56 Dose: 2 spray Documented by: Melatonin (Melatonin) 3 mg PO QHS PRN PRN PRN Reason: INSOMNIA Ondansetron HCl (Zofran) 4 mg IV Q8H PRN PRN PRN Reason: NAUSEA/VOMITING Pantoprazole Sodium (Protonix) 20 mg PO BID [facility] Last Admin: 01/19/20 21:57 Dose: 20 mg Documented by: Polyethylene Glycol (Miralax) 34 gm PO X1 PRN PRN Reason: Bowel Movement Sodium Chloride () 10 - 40 ml IV UD PRN PRN Reason: SALINE FLUSH STROKE Vital Signs/Narrative: Vital Signs Temp Pulse Resp BP Pulse Ox 01/20/20 07:00 97.4 F L 127 H 13 105/66 100 Medical Necessity - Tobacco Use Smoking Status: Never smoker Assessment/Plan All Active Problems (Last Reviewed 01/17/20 @ 21:[address] Finn Guadarrama MD) Elevated liver enzymes (Acute) Cholelithiasis (Acute) Cholecystitis (Acute) Septic shock (Acute) Septic shock (Acute) Ascites (Acute) Jaundice (Acute) Bilateral pleural effusion (Acute) Non-ischemic cardiomyopathy (Acute) Myelodysplasia (myelodysplastic syndrome) (Acute) Coagulopathy (Acute) Skin cancer, basal cell (Acute) 1. Septic shock from possible pulmonary source/WILLIAM -Currently on Levophed, but will wean -Continue with his current antibiotics -Appreciate nephrology input, will continue to hold DENTON and diuretics -Urine output is improving 2. Acute liver injury on chronic liver disease/acute on chronic normocytic norm ochromic anemia from myelodysplastic syndrome -He does take cefuroxime at home and iron studies demonstrated significantly elevation in his iron and his ferritin indicating hemochromatosis as a possib ility -Autoimmune etiology is being worked up, he does see hematology/oncology as an outpatient which he can follow-up with -MRCP was unremarkable 3. Paroxysmal A. fib/acute on chronic systolic and diastolic heart failure -He does have significant edema, however given his AK I will hold his diuretics -Continue with amiodarone until his blood pressure is more stable and then can likely re-add his metoprolol -Appreciate cardiology input 4. GERD -Stable -Continue with PPI DVT: SCDs
[2020-01-20] MEDS: 0.9% Saline Lock 10 ML Syringe IV (11:09)
[2020-01-20] MEDS: Folic Acid 1 MG Tablet PO (11:10)
[2020-01-20] MEDS: Pantoprazole Sodium 20 MG Tablet PO ×2 (11:10→21:58)
[2020-01-20] MEDS: Ipratropium Bromide 0.06% NASAL SPRAY 2 SPRAY NASAL ×2 (11:10→21:58)
--- NOTE | 2020-01-20 17:00 | NURSING ---
education re chronic illness deferred till acute illness resolving
[2020-01-21] VITALS (21 sets, daily range): BP systolic 00–114; BP diastolic 00–92; PULSE 0–158; RESP 0–31; TEMP 36.9–37.2; O2SAT 91–100
[2020-01-21] MEDS: MELATONIN 3 MG TABLET PO (00:49)
[2020-01-21] MEDS: 0.9% Saline Lock 10 ML Syringe IV (00:57)
[2020-01-21] MEDS: Ondansetron 4 MG/2 ML Vial IV (00:57)
[2020-01-21 01:11] LABS: Bedside Glucose 156 mg/dL (70-110)
--- NOTE | 2020-01-21 01:18 | EKG12_ITS ---
Test Reason : HIGH HR Blood Pressure : / mmHG Vent. Rate : 141 BPM Atrial Rate : 119 BPM P-R Int : 000 ms QRS Dur : 110 ms QT Int : 312 ms P-R-T Axes : 000 -29 129 degrees QTc Int : 477 ms Atrial fibrillation Leftward axis Poor R wave progression Abnormal ECG Confirmed by WENDY TANG, VLADIMIR ([id number]), editor magazine [employer]INU MUNSON ([id number]) on 01/23/2020 2:56:46 PM Referred By: Finn Guadarrama Confirmed By:VLADIMIR NGUYEN MD
[2020-01-21 02:02] LABS: Hematocrit 23.3 % (40-54); Hemoglobin 8.2 g/dL (13.0-16.5); Mean Corp Hgb Conc 35.2 g/dL (32-36); Mean Corpuscular Hgb 32.8 pg (27.0-32.0); Mean Corpuscular Volume 93.2 fL (80-94); Mean Platelet Vol. 11.8 fl (6.2-12.0); POSITIVE COUNT YES; POSITIVE DIFFERENTIAL YES; POSITIVE MORPHOLOGY YES; RBC Distribution Width CV 20.6 % (11.6-14.6); White Blood Count 24.4 K/mm3 (4.4-11.0)
[2020-01-21 02:05] LABS: ALB/GLOB Ratio 0.8 RATIO (0.9-2.4); AST(SGOT) 196 U/L (15-37); Alanine Aminotransfer ALT/SGPT 610 U/L (16-61); Albumin, Serum 2.6 g/dL (3.2-5.0); Alkaline Phosphatase 216 U/L (45-117); Anion Gap 15 (5-15); BUN 96 mg/dL (7-18); Calcium,Total 8.6 mg/dL (8.5-10.1); Chloride 104 mmol/L (98-107); Creatinine, Serum 3.56 mg/dL (0.70-1.30); EST Glomerular Filtration Rate 18 mL/min (>60); Est Glom Filt Rate - Afr Amer 21 mL/min (>60); Estimated Creatinine Clearance 16.52 ml/min; Globulin 3.4 g/dL (2.2-4.2); Glucose 163 mg/dL (74-106); Phosphorus 5.5 mg/dL (2.5-4.9); Sodium Level 138 mmol/L (136-145)
[2020-01-21 02:06] LABS: Differential Indicated MANUAL DIFF
[2020-01-21 02:33] LABS: Lymphocyte 7 % (19-41); Metamyelocyte 11 % (0-1); Monocyte 2 % (0-10); Neutrophil-Band 9 % (0-5); Neutrophil-Segmented 81 % (47-70); Platelet Estimate ADEQUATE (ADEQ); Polychromasia RARE; Total Cells Counted 100 (MANUAL DIFF)
[2020-01-21 02:34] LABS: Ovalocyte RARE; Stomatocyte RARE; Target Cells RARE
[2020-01-21 02:35] LABS: Monocyte# 0.49 X10^3/uL
[2020-01-21] MEDS: Sodium Bicarbonate 8.4% 50 ML Syringe 50 MEQ IV (06:05)
[2020-01-21] MEDS: Atropine Sulfate 1 MG/10 ML Syringe IV (06:08)
--- NOTE | 2020-01-21 06:18 | PCM.PN.INT ---
Subjective: Patient persistent and tachycardia throughout the day yesterday. Amiodarone was continued, but no other interventions required. Overnight, patient had progressive increase and Levophed requirements. Overnight, patient also had multiple periods of nonsustained V. tach. No fevers were noted. On my arrival this morning, patient remained tachycardic and was receiving his first unit of blood ordered by the hospitalist overnight. At approximately 6 AM, the patient had a significant change in his cardiac rhythm that appeared to be sinus with partial block, but no EKG was obtained. Patient blood pressure decreased. Patient was given 1 amp of bicarb, but continued to become bradycardic. Patient was given 1 amp of atropine, but unfortunately became pulseless at 6:10 AM. Patient is a DNR Comfort Care arrest without intubation. No CPR was initiated. Family will be notified. TIME: 35 minutes critical care time spent addressing patient's arrhythmia, hypotension, shock, review of all data and collaboration with care team (5:40 AM to 6:20 AM) General: - - Patient appeared hoyt/ashen on my arrival with agonal respirations. Thready pulse initially with no response to verbal stimuli. Vital Signs Temp Pulse Resp BP Pulse Ox 36.9 C 0 L 0 L 00/00 L 95 01/21/20 06:00 01/21/20 06:10 01/21/20 06:10 01/21/20 06:10 01/21/20 05:25 Oxygen Flow Rate (L/min) 2 Oxygen Delivery Method Nasal Cannula Weight: 85.5 kg Body Mass Index (BMI) 26.2 Intake and Output for Last 24 Hours 01/19/20 01/20/20 01/21/20 23:59 23:59 23:59 Intake Total 1896.25 / 1905.65 2522.61 / 2561.81 639.67 / 639.67 Output Total 1500 / 1500 1075 / 1075 125 / 125 Balance 396.25 / 405.65 1447.61 / 1486.81 514.67 / 514.67 Labs (Last 48 Hours) 01/17/20 01/19/20 01/19/20 21:45 04:10 04:15 WBC 17.1 H RBC 2.27 L Hgb 7.4 L Hct 21.1 L MCV 93.0 MCH 32.6 H MCHC 35.1 RDW Std Deviation 63.4 H RDW Coeff of Trevon 20.2 H Plt Count 244 MPV 12.3 H Immature Gran % (Auto) 1.800 H Neut % (Auto) 85.6 H Lymph % (Auto) 1.2 L [place] % (Auto) 11.0 H Eos % (Auto) 0.2 Baso % (Auto) 0.2 Absolute Neuts (auto) 14.6 H Absolute Lymphs (auto) 0.21 L Total Counted Neutrophils % (Manual) Band Neutrophils % Lymphocytes % (Manual) Monocytes % (Manual) Metamyelocytes % Nucleated RBC % 1.8 Differential Comment SCANNED Diff Path Review May foll Platelet Estimate Polychromasia Hypochromasia Microcytosis RARE Macrocytosis Target Cells RARE Ovalocytes Stomatocytes Retic Count Immature Retic Fraction Retic Hgb Equivalent Haptoglobin Sodium Potassium Chloride Carbon Dioxide Anion Gap BUN Creatinine Estim Creat Clear Calc Est GFR (MDRD) Af Amer Est GFR (MDRD) Non-Af BUN/Creatinine Ratio Glucose Calcium Phosphorus Magnesium Iron TIBC Iron Saturation Ferritin Total Bilirubin AST ALT Alkaline Phosphatase Total Protein Albumin Globulin Albumin/Globulin Ratio Vitamin B12 Folate SIS Screen SHERRY-1 Antibody SS-A/Ro IgG Antibody SS-B/La IgG Antibody Sm (Paez) Antibody [employer] Antibody Scl-70 Scleroderma Ab Double Strand DNA Ab Centromere B Antibody Anti-Mitochondrial Ab Anti-Smooth Muscle Ab Hepatitis A IgM Ab Negative Hep Bs Antigen Negative Hep B Core IgM Ab Negative Hepatitis C Ab (EIA) 0.1 POC Glucose Blood Type Antibody Screen Direct Antiglob Test NEG w/POLYSPECIFIC Crossmatch 01/19/20 01/19/20 01/19/20 04:15 04:15 10:40 WBC RBC Hgb Hct MCV MCH MCHC RDW Std Deviation RDW Coeff of Trevon Plt Count MPV Immature Gran % (Auto) Neut % (Auto) Lymph % (Auto) [place] % (Auto) Eos % (Auto) Baso % (Auto) Absolute Neuts (auto) Absolute Lymphs (auto) Total Counted Neutrophils % (Manual) Band Neutrophils % Lymphocytes % (Manual) Monocytes % (Manual) Metamyelocytes % Nucleated RBC % Differential Comment Diff Path Review Platelet Estimate Polychromasia Hypochromasia Microcytosis Macrocytosis Target Cells Ovalocytes Stomatocytes Retic Count 2.19 H Immature Retic Fraction 19.90 H Retic Hgb Equivalent 36.5 H Haptoglobin Sodium Potassium Chloride Carbon Dioxide Anion Gap BUN Creatinine Estim Creat Clear Calc Est GFR (MDRD) Af Amer Est GFR (MDRD) Non-Af BUN/Creatinine Ratio Glucose Calcium Phosphorus Magnesium Iron 237 H TIBC 124 L Iron Saturation 191.1 H Ferritin 04455 H Total Bilirubin AST ALT Alkaline Phosphatase Total Protein Albumin Globulin Albumin/Globulin Ratio Vitamin B12 1499 H Folate 17.50 SIS Screen SHERRY-1 Antibody SS-A/Ro IgG Antibody SS-B/La IgG Antibody Sm (Paez) Antibody [employer] Antibody Scl-70 Scleroderma Ab Double Strand DNA Ab Centromere B Antibody Anti-Mitochondrial Ab Anti-Smooth Muscle Ab Hepatitis A IgM Ab Hep Bs Antigen Hep B Core IgM Ab Hepatitis C Ab (EIA) POC Glucose Blood Type Antibody Screen Direct Antiglob Test Crossmatch 01/19/20 01/20/20 01/20/20 10:40 04:30 04:30 WBC 12.4 H RBC 2.30 L Hgb 7.3 L Hct 21.3 L MCV 92.6 MCH 31.7 MCHC 34.3 RDW Std Deviation 64.7 H RDW Coeff of Trevon 20.8 H Plt Count 241 MPV 12.3 H Immature Gran % (Auto) 3.700 H Neut % (Auto) 79.2 H Lymph % (Auto) 3.3 L [place] % (Auto) 13.4 H Eos % (Auto) 0.2 Baso % (Auto) 0.2 Absolute Neuts (auto) 9.9 H Absolute Lymphs (auto) 0.41 L Total Counted Neutrophils % (Manual) Band Neutrophils % Lymphocytes % (Manual) Monocytes % (Manual) Metamyelocytes % Nucleated RBC % 1.9 Differential Comment SCANNED Diff Path Review May foll Platelet Estimate Polychromasia Hypochromasia 1+ Microcytosis Macrocytosis 1+ Target Cells Ovalocytes Stomatocytes Retic Count Immature Retic Fraction Retic Hgb Equivalent Haptoglobin Pending Sodium 137 Potassium 4.4 Chloride 103 Carbon Dioxide 25.0 Anion Gap 9 BUN 95 H Creatinine 3.42 H Estim Creat Clear Calc 17.19 Est GFR (MDRD) Af Amer 22 L Est GFR (MDRD) Non-Af 18 L BUN/Creatinine Ratio 27.8 H Glucose 166 H Calcium 8.5 Phosphorus 4.8 Magnesium 2.8 H Iron TIBC Iron Saturation Ferritin Total Bilirubin AST ALT Alkaline Phosphatase Total Protein Albumin Globulin Albumin/Globulin Ratio Vitamin B12 Folate SIS Screen SHERRY-1 Antibody SS-A/Ro IgG Antibody SS-B/La IgG Antibody Sm (Paez) Antibody [employer] Antibody Scl-70 Scleroderma Ab Double Strand DNA Ab Centromere B Antibody Anti-Mitochondrial Ab Anti-Smooth Muscle Ab Hepatitis A IgM Ab Hep Bs Antigen Hep B Core IgM Ab Hepatitis C Ab (EIA) POC Glucose Blood Type Antibody Screen Direct Antiglob Test Crossmatch 01/20/20 01/20/20 01/21/20 04:35 04:35 01:00 WBC RBC Hgb Hct MCV MCH MCHC RDW Std Deviation RDW Coeff of Trevon Plt Count MPV Immature Gran % (Auto) Neut % (Auto) Lymph % (Auto) [place] % (Auto) Eos % (Auto) Baso % (Auto) Absolute Neuts (auto) Absolute Lymphs (auto) Total Counted Neutrophils % (Manual) Band Neutrophils % Lymphocytes % (Manual) Monocytes % (Manual) Metamyelocytes % Nucleated RBC % Differential Comment Diff Path Review Platelet Estimate Polychromasia Hypochromasia Microcytosis Macrocytosis Target Cells Ovalocytes Stomatocytes Retic Count Immature Retic Fraction Retic Hgb Equivalent Haptoglobin Sodium Potassium Chloride Carbon Dioxide Anion Gap BUN Creatinine Estim Creat Clear Calc Est GFR (MDRD) Af Amer Est GFR (MDRD) Non-Af BUN/Creatinine Ratio Glucose Calcium Phosphorus Magnesium Iron TIBC Iron Saturation Ferritin Total Bilirubin AST ALT Alkaline Phosphatase Total Protein Albumin Globulin Albumin/Globulin Ratio Vitamin B12 Folate SIS Screen Pending SHERRY-1 Antibody Pending SS-A/Ro IgG Antibody Pending SS-B/La IgG Antibody Pending Sm (Paez) Antibody Pending [employer] Antibody Pending Scl-70 Scleroderma Ab Pending Double Strand DNA Ab Pending Centromere B Antibody Pending Anti-Mitochondrial Ab Pending Anti-Smooth Muscle Ab Pending Hepatitis A IgM Ab Hep Bs Antigen Hep B Core IgM Ab Hepatitis C Ab (EIA) POC Glucose 156 H Blood Type Antibody Screen Direct Antiglob Test Crossmatch 01/21/20 01/21/20 01/21/20 01:40 01:40 01:40 WBC 24.4 H RBC 2.50 L Hgb 8.2 L Hct 23.3 L MCV 93.2 MCH 32.8 H MCHC 35.2 RDW Std Deviation 64.0 H RDW Coeff of Trevon 20.6 H Plt Count WHITE SOURER MPV 11.8 Immature Gran % (Auto) Neut % (Auto) Not Reportable Lymph % (Auto) [place] % (Auto) Eos % (Auto) Baso % (Auto) Absolute Neuts (auto) 22.0 H Absolute Lymphs (auto) 1.70 Total Counted 100 Neutrophils % (Manual) 81 H Band Neutrophils % 9 H Lymphocytes % (Manual) 7 L Monocytes % (Manual) 2 Metamyelocytes % 11 H Nucleated RBC % Differential Comment Diff Path Review May foll Platelet Estimate ADEQUATE Polychromasia RARE Hypochromasia Microcytosis Macrocytosis Target Cells RARE Ovalocytes RARE Stomatocytes RARE Retic Count Immature Retic Fraction Retic Hgb Equivalent Haptoglobin Sodium 138 Potassium 5.0 Chloride 104 Carbon Dioxide 19.0 L Anion Gap 15 BUN 96 H Creatinine 3.56 H Estim Creat Clear Calc 16.52 Est GFR (MDRD) Af Amer 21 L Est GFR (MDRD) Non-Af 18 L BUN/Creatinine Ratio 27.0 H Glucose 163 H Calcium 8.6 Phosphorus 5.5 H Magnesium Iron TIBC Iron Saturation Ferritin Total Bilirubin 6.90 H AST 196 H ALT 610 H Alkaline Phosphatase 216 H Total Protein 6.0 L Albumin 2.6 L Globulin 3.4 Albumin/Globulin Ratio 0.8 L Vitamin B12 Folate SIS Screen SHERRY-1 Antibody SS-A/Ro IgG Antibody SS-B/La IgG Antibody Sm (Paez) Antibody [employer] Antibody Scl-70 Scleroderma Ab Double Strand DNA Ab Centromere B Antibody Anti-Mitochondrial Ab Anti-Smooth Muscle Ab Hepatitis A IgM Ab Hep Bs Antigen Hep B Core IgM Ab Hepatitis C Ab (EIA) POC Glucose Blood Type O POSITIVE Antibody Screen NEGATIVE Direct Antiglob Test Crossmatch See Detail Microbiology 01/18/20 11:55 Urine Catheter - Mcqueen Urine Culture - Final Culture exhibits no growth. 01/17/20 14:35 Blood Culture (Wb) - Anticubital Right Blood Culture - Preliminary No growth in 48 hours. 01/17/20 14:51 Blood Culture (Wb) - Left Hand Blood Culture - Preliminary No growth in 48 hours. Medical Necessity - Tobacco Use Smoking Status: Never smoker Assessment/Plan All Active Problems (Last Reviewed 01/17/20 @ 21:[address] Finn Guadarrama MD) Elevated liver enzymes (Acute) Cholelithiasis (Acute) Cholecystitis (Acute) Septic shock (Acute) Septic shock (Acute) Ascites (Acute) Jaundice (Acute) Bilateral pleural effusion (Acute) Non-ischemic cardiomyopathy (Acute) Myelodysplasia (myelodysplastic syndrome) (Acute) Coagulopathy (Acute) Skin cancer, basal cell (Acute) [id number] Critical care first hour
--- NOTE | 2020-01-21 07:13 | NURSING ---
Pt bathed and dressed in fresh gown. All invasive lines removed. Camilo Diaz RN has called [facility], the qa reviewer, home and all necessary parties.
[2020-01-21 11:45] LABS: Pathologist Review Reviewed
[2020-01-21 11:48] LABS: Pathologist Review Reviewed
[2020-01-21 11:50] LABS: Pathologist Review Reviewed
[2020-01-21 11:52] LABS: Pathologist Review Reviewed
[2020-01-22 06:46] LABS: Haptoglobin 111 mg/dL (38-329)
[2020-01-22 12:56] LABS: Pathologist Review Reviewed
[2020-01-23 12:01] LABS: ANTINUCLEAR ANTIBODIES DIRECT Negative (Negative); Anti-Mitochondrial AB <20.0 Units (0.0-20.0)
--- NOTE | 2020-01-28 15:42 | EXP.PCM_ITS ---
Preliminary Cause of Septic shock and A. fib with RVR Date of Admission: 01/17/20 Date of : 01/21/20 - Principle Diagnosis 1. Septic shock from possible pulmonary source with WILLIAM and acute liver injury Problem List: Elevated liver enzymes (Acute) Cholelithiasis (Acute) Cholecystitis (Acute) Septic shock (Acute) Septic shock (Acute) Ascites (Acute) Jaundice (Acute) Bilateral pleural effusion (Acute) Non-ischemic cardiomyopathy (Acute) Myelodysplasia (myelodysplastic syndrome) (Acute) Coagulopathy (Acute) Hospital Course 84-year-old male presents to the hospital with septic shock from possible pulmonary source as well as AK and acute liver injury developed paroxysmal A. fib with RVR and had a history of chronic systolic and diastolic heart failure. His initial reason for coming to the hospital is left lower extremity edema and pain. He was started on broad-spectrum antibiotics and because of his septic shock was managed in the ICU during the entirety of his stay. On 01/20/2020 he developed A. fib with RVR and was started on amiodarone, cardiology was consulted. Unfortunately we had difficulty in bringing down his heart rate. Overnight he periods of nonsustained V. tach and initially on the arrival of the mushroom picker, he remained tachycardic and then he developed sinus with partial block bradycardic. He was given an amp of bicarb as well as atropine by the mushroom picker and 01/21/2020 DNR CCA. Please see progress note by mushroom picker on 01/21/2020 as patient had prior to my arrival to the hospital.
== END 2020-01-21 06:10 | DRG 871 ==
LOC: ED 15:42 → ICU 21:58
PROVIDERS: Internal Medicine; Internal Medicine Critical Care Medicine; Internal Medicine Nephrology; Surgery; Admitting Provider Hospitalist; Emergency Provider Emergency Medicine; PCP Family Medicine; Referring Provider Hospitalist; Visit Provider Family Medicine
DX: A41.9 Sepsis, unspecified organism (principal); R65.21 Severe sepsis with septic shock; I50.43 Acute on chronic combined systolic (congestive) and diastolic (congestive) heart failure; N17.0 Acute kidney failure with tubular necrosis; K72.00 Acute and subacute hepatic failure without coma; N17.9 Acute kidney failure, unspecified; I47.2 Ventricular tachycardia; J90 Pleural effusion, not elsewhere classified; I42.8 Other cardiomyopathies; R18.8 Other ascites; K80.12 Calculus of gallbladder with acute and chronic cholecystitis without obstruction; I13.0 Hypertensive heart and chronic kidney disease with heart failure and stage 1 through stage 4 chronic kidney disease, or unspecified chronic kidney disease; N18.4 Chronic kidney disease, stage 4 (severe); E87.2 Acidosis; D68.9 Coagulation defect, unspecified; E83.119 Hemochromatosis, unspecified; I48.0 Paroxysmal atrial fibrillation; D46.9 Myelodysplastic syndrome, unspecified; E87.5 Hyperkalemia; K21.9 Gastro-esophageal reflux disease without esophagitis; D63.1 Anemia in chronic kidney disease; K76.0 Fatty (change of) liver, not elsewhere classified; I27.21 Secondary pulmonary arterial hypertension; M79.605 Pain in left leg; M79.89 Other specified soft tissue disorders; I35.0 Nonrheumatic aortic (valve) stenosis; I36.1 Nonrheumatic tricuspid (valve) insufficiency; Z66 Do not resuscitate; Z79.01 Long term (current) use of anticoagulants; Z79.899 Other long term (current) drug therapy; Z87.891 Personal history of nicotine dependence; Z86.73 Personal history of transient ischemic attack (TIA), and cerebral infarction without residual deficits
CPT/HCPCS: 51702; 71045; 71046; 74176; 74181; 76705; 80048; 80053; 80074; 80076; 81001; 82150; 82570; 82607; 82728; 82746; 82962; 82977; 83010; 83516; 83540; 83550; 83605; 83690; 83735; 83880; 84100; 84300; 84484; 84540; 85025; 85045; 85610; 85652; 85730; 86038; 86140; 86225; 86235; 86850; 86880; 86900; 86901; 86920; 86921; 86922; 87040; 87086; 93005; 93971; 94640; 97162; 97165; 97802; 99285; J7030; J7050; J7120; P9016; A4216; C1751; J0610; J2405